=== PATIENT | female | born 1990 | race Caucasian/White ===

== ENCOUNTER → 2019-11-15 08:49 | Outpatient (CLI) | payer OTHER, SELFPAY ==
[2019-11-12 14:18] VITALS: BMI 20.7
--- NOTE | 2019-11-15 08:55 | US_ITS ---
STUDY: ULTRASOUND BREAST - RIGHT REASON FOR EXAM: Female, 28 years old. Bilateral breast pain. TECHNIQUE: Axial and longitudinal images of the RIGHT breast were performed with a high resolution ultrasound transducer. # OF IMAGES: 53 COMPARISON: Comparison is made with prior mammogram done earlier today. FINDINGS: RIGHT Breast: The upper outer quadrant of the right breast was examined by ultrasound. No sonographic abnormality is seen. IMPRESSION: Unremarkable sonographic examination. ASSESSMENT CATEGORY: BIRADS Category 1: Negative. A letter regarding these results will be sent to the patient by the facility within 30 days. Electronically Signed: Nehemiah Juarez, at 15:11 EST , Service support , STUDY: ULTRASOUND BREAST - LEFT REASON FOR EXAM: Female, 28 years old. Bilateral breast pain. TECHNIQUE: Axial and longitudinal images of the LEFT breast were performed with a high resolution ultrasound transducer. # OF IMAGES: 53 COMPARISON: Comparison is made with prior mammogram done earlier in the day. FINDINGS: LEFT Breast: The upper outer quadrant of the left breast was examined by ultrasound. Minimally dilated ducts. US/Breast Limited Unilateral IMPRESSION: Minimally dilated ducts in the upper outer quadrant of the left breast ASSESSMENT CATEGORY: BIRADS Category 2: Benign. A letter regarding these results will be sent to the patient by the facility within 30 days. Electronically Signed: Nehemiah Juarez, at 15:12 EST , Service support ,
--- NOTE | 2019-11-15 08:55 | BI_ITS ---
MAMMOGRAPHY - BILATERAL DIAGNOSTIC REASON FOR EXAM: Female, 28 years old. Palpable lump in the upper outer quadrant of the right breast. PERTINENT HISTORY: Mother with breast cancer. Otherwise with breast cancer. TECHNIQUE: Digital bilateral breast son (3D mammographic acquisition) in the CC and MLO projections. 2-D mediolateral oblique (MLO) and craniocaudad (CC) views of both breasts were obtained. CAD: Full Field Digital Mammography with Computer Added Detection was performed. COMPARISON: None. Baseline examination. FINDINGS: Breast Composition: The breasts are heterogeneously dense, which may obscure small masses. There are no dominant masses or suspicious calcifications. No other significant abnormalities are identified. BI/DIAG MAMM W/CAD, BILAT IMPRESSION: Negative diagnostic mammogram. With the patient''s history of a palpable abnormality in the upper-outer quadrant of the right breast, correlation with ultrasound is recommended. ASSESSMENT CATEGORY: BIRADS Category 0: Incomplete. Need additional imaging evaluation. A letter regarding these results will be sent to the patient by the facility within 30 days. Approximately 10% of breast cancers are not detected by mammography. A normal mammogram should not delay biopsy of a clinically suspicious abnormality. Electronically Signed: Nehemiah Juarez, at 10:41 EST , Service support ,
== END ==
PROVIDERS: Family Provider Internal Medicine; PCP Internal Medicine; Referring Provider Obstetrics & Gynecology; Visit Provider Obstetrics & Gynecology
DX: N64.4 Mastodynia (principal); R92.2 Inconclusive mammogram; N63.0 Unspecified lump in unspecified breast
CPT/HCPCS: 76642; 77066

== ENCOUNTER → 2020-03-07 | Outpatient (CLI) | payer OTHER, SELFPAY ==
[2019-11-12 14:18] VITALS: BMI 20.7
[2020-03-07 16:42] LABS: hCG Titer Quant., Serum 163 mIU/mL (1-3)
== END | disposition home or self-care (01) ==
LOC: LAB 15:59
PROVIDERS: PCP Internal Medicine; Referring Provider Obstetrics & Gynecology; Visit Provider Obstetrics & Gynecology
DX: N91.2 Amenorrhea, unspecified (principal)
CPT/HCPCS: 36415; 84702

== ENCOUNTER → 2020-03-09 08:19 | Outpatient (CLI) | payer OTHER, SELFPAY ==
[2019-11-12 14:18] VITALS: BMI 20.7
[2020-03-09 09:35] LABS: hCG Titer Quant., Serum 342 mIU/mL (1-3)
== END ==
PROVIDERS: PCP Internal Medicine; Referring Provider Obstetrics & Gynecology; Visit Provider Obstetrics & Gynecology
DX: N91.2 Amenorrhea, unspecified (principal)
CPT/HCPCS: 36415; 84702

== ENCOUNTER → 2020-03-21 | Outpatient (CLI) | payer OTHER, SELFPAY ==
[2019-11-12 14:18] VITALS: BMI 20.7
--- NOTE | 2020-03-21 16:46 | US_ITS ---
STUDY: FIRST TRIMESTER OBSTETRICAL ULTRASOUND REASON FOR EXAM: Female, 29 years old. Spotting LMP: 01/30/2020 TECHNIQUE: Transvaginal PRIOR ULTRASOUND: None. FINDINGS: There is visualization of a single gestational sac in a normal intrauterine position. There is a visualized yolk sac. There is visualization of a live embryo. The crown-rump length (CRL) measures 3.6 mm, indicating an estimated gestational age (EGA) of 6 weeks, 1 days. The estimated delivery date is 11/13/2020 There is demonstrated cardiac activity with a heart rate of 117 bpm. The uterus measures 8.4 x 6.0 x 4.3 cm. There is no demonstrated uterine fibroid. The cervix is closed. The right ovary measures 5.0 x 3.8 x 2.7 cm. There is a 3.2 x 2.3 cm cyst in the right ovary. There is no visualized right adnexal mass or complex lesion. The left ovary is not visualized. There is no fluid in the cul de sac. US/Init OB < 14Wks US IMPRESSION: Single live intrauterine gestation at approximately 6 weeks and 1 day based on the current ultrasound. Electronically Signed: Kendrick Naik, at 17:39 EDT Tel , Service support ,
== END | disposition home or self-care (01) ==
PROVIDERS: PCP Internal Medicine; Visit Provider Obstetrics & Gynecology
DX: O20.0 Threatened abortion (principal)
CPT/HCPCS: 76801

== ENCOUNTER → 2020-03-27 | Outpatient (CLI) | payer OTHER, SELFPAY ==
[2020-03-27 14:15] VITALS: BMI 20.7
[2020-03-27 14:47] LABS: Absolute Lymphocyte Count 1.82 X10^3/uL (0.83-4.51); Absolute Neutrophil Count 4.4 X10^3/uL (2.0-7.7); Basophil# 0.03 X10^3/uL; Basophil% 0.4 % (0-1); Eosinophils% 2.8 % (0-5); Hematocrit 31.6 % (37-47); Hemoglobin 10.1 g/dL (12.0-15.0); Lymphocyte # 1.82 X10^3/ul (4.0); Lymphocyte % 25.8 % (19-41); Mean Corpuscular Volume 87.5 fL (81-99); Mean Platelet Vol. 9.6 fl (6.2-12.0); Monocyte# 0.62 X10^3/uL; Monocyte% 8.8 % (0-10); NRBC Flagged by Analyzer 0 % (0-5); Neutrophil # 4.37 X10^3/uL (2.7-7.7); Neutrophil % 61.9 % (47-70); Platelet Count 268 K/mm3 (150-450); RBC Distribution Width CV 14.1 % (11.6-14.6); RBC Distribution Width SD 45.6 fl (35.1-43.9); Red Blood Count 3.61 M/mm3 (4.2-5.4); White Blood Count 7.1 K/mm3 (4.4-11.0)
[2020-03-27 17:42] LABS: Chlamydia Trachomatis by PCR Negative (Negative); Neisserai gonorrhoeae by PCR Negative (Negative); Probe Check PASS; Sample Adequacy Control PASS; Specimen Processing Control PASS
[2020-03-28 09:24] LABS: HIV - WCH Non-Reactive (Nonreactive); Hepatitis B Surface Antigen Non-Reactive (Nonreactive); Hepatitis C Antibody Non-Reactive (Nonreactive); Rubella IgG 30.2 IU/mL
[2020-03-30 01:34] LABS: Rapid Plasmin Reagin (RPR) NONREACTIVE (NONREACTIVE)
== END | disposition home or self-care (01) ==
PROVIDERS: PCP Internal Medicine; Referring Provider Obstetrics & Gynecology; Visit Provider Obstetrics & Gynecology
DX: Z34.90 Encounter for supervision of normal pregnancy, unspecified, unspecified trimester (principal)
CPT/HCPCS: 36415; 85025; 86592; 86703; 86762; 86803; 86850; 86900; 86901; 87340; 87491; 87591

== ENCOUNTER → 2020-04-12 | Outpatient (CLI) | payer OTHER, SELFPAY ==
[2020-04-12 11:35] VITALS: BMI 20.7
[2020-04-12 16:31] LABS: Mucous, Urine 0 SEEN /hpf (<or=2+); Red Blood Cells-Urine 0 SEEN /hpf (0-5); White Blood Cells 0 SEEN /hpf (0-5)
[2020-04-12 16:40] LABS: Color, Urine Yellow (Yellow); Glucose, Dipstick Normal (Normal); Ketone-Dipstick Negative (Negative); Leukocyte Esterase-Dipstick 25 /ul (Negative); Nitrite-Dipstick Negative (Negative); Occult Blood-Urine Negative /ul (Negative); Protein-Dipstick 15 mg/dl (Negative); Specific Gravity, Urine 1.015 (1.002-1.030); Urine Bilirubin Dipstick Negative (Negative); Urine Clarity Cloudy (Clear); Urine Urobilinogen Normal (Normal)
[2020-04-12 16:46] LABS: Amorphous Sediment 2+; Squamous Epithelial Cells - UA 5-10 SEEN /hpf (5-10)
[2020-04-12 16:47] LABS: Bacteria RARE /hpf (None Seen)
== END | disposition home or self-care (01) ==
LOC: LABSPEC 16:21
PROVIDERS: Nurse Practitioner Family; PCP Internal Medicine; Referring Provider Nurse Practitioner Women's Health; Visit Provider Nurse Practitioner Women's Health
DX: O26.899 Other specified pregnancy related conditions, unspecified trimester (principal); R10.9 Unspecified abdominal pain; R31.9 Hematuria, unspecified; Z3A.00 Weeks of gestation of pregnancy not specified
CPT/HCPCS: 81001; 87086; 87088

== ENCOUNTER → 2020-05-23 | Outpatient (CLI) | payer OTHER, SELFPAY ==
[2020-05-23 14:52] VITALS: BMI 20.7
[2020-05-23 15:34] LABS: Absolute Lymphocyte Count 1.98 X10^3/uL (0.83-4.51); Absolute Neutrophil Count 6.5 X10^3/uL (2.0-7.7); Basophil# 0.04 X10^3/uL; Basophil% 0.4 % (0-1); Eosinophil# 0.74 X10^3/uL; Eosinophils% 7.4 % (0-5); Hematocrit 30.7 % (37-47); Hemoglobin 9.8 g/dL (12.0-15.0); Lymphocyte # 1.98 X10^3/ul (4.0); Lymphocyte % 19.9 % (19-41); Mean Corp Hgb Conc 31.9 g/dL (32-36); Mean Corpuscular Hgb 28.8 pg (27.0-32.0); Mean Corpuscular Volume 90.3 fL (81-99); Mean Platelet Vol. 10.1 fl (6.2-12.0); Monocyte# 0.64 X10^3/uL; Monocyte% 6.4 % (0-10); NRBC Flagged by Analyzer 0 % (0-5); Neutrophil % 65.4 % (47-70); Platelet Count 256 K/mm3 (150-450); RBC Distribution Width CV 14.8 % (11.6-14.6); RBC Distribution Width SD 48.8 fl (35.1-43.9)
== END | disposition home or self-care (01) ==
PROVIDERS: Nurse Practitioner Women's Health; PCP Internal Medicine; Referring Provider Obstetrics & Gynecology; Visit Provider Obstetrics & Gynecology
DX: D50.9 Iron deficiency anemia, unspecified (principal)
CPT/HCPCS: 36415; 85025

== ENCOUNTER → 2020-05-25 | Outpatient (CLI) | payer OTHER, SELFPAY ==
[2020-05-23 14:52] VITALS: BMI 20.7
[2020-05-25 12:51] VITALS: BP 92/58; PULSE 61; RESP 16; TEMP 36.6; O2SAT 100; BMI 22.4
[2020-05-25] MEDS: 0.9% NaCl Peripheral Flush Adult/Peds IV (12:54)
[2020-05-25] MEDS: 0.9% NaCl IVPB Med Flush (250 mL) 15 ML IV (13:04)
[2020-05-25 13:53] VITALS: BP 102/67; PULSE 62; RESP 16; TEMP 36.7
== END | disposition home or self-care (01) ==
LOC: MEDOUTP 12:32
PROVIDERS: PCP Internal Medicine; Referring Provider Obstetrics & Gynecology; Visit Provider Obstetrics & Gynecology
DX: D50.9 Iron deficiency anemia, unspecified (principal)
CPT/HCPCS: 96365; J1756; J7050; A4216

== ENCOUNTER → 2020-05-31 | Outpatient (CLI) | payer OTHER, SELFPAY ==
[2020-05-23 14:52] VITALS: BMI 20.7
[2020-05-25 13:59] VITALS: BMI 22.8
[2020-05-31 15:10] VITALS: BP 95/55; PULSE 53; RESP 18; TEMP 36.1; BMI 23.1
[2020-05-31] MEDS: 0.9% NaCl Peripheral Flush Adult/Peds IV (15:11)
[2020-05-31] MEDS: 0.9% NaCl IVPB Med Flush (250 mL) 15 ML IV (15:11)
[2020-05-31 15:41] VITALS: BP 97/59; PULSE 52
== END | disposition home or self-care (01) ==
LOC: MEDOUTP 15:00
PROVIDERS: PCP Internal Medicine; Referring Provider Obstetrics & Gynecology; Visit Provider Obstetrics & Gynecology
DX: D50.9 Iron deficiency anemia, unspecified (principal)
CPT/HCPCS: 96365; J1756; J7050; A4216

== ENCOUNTER → 2020-06-07 | Outpatient (CLI) | payer OTHER, SELFPAY ==
[2020-05-23 14:52] VITALS: BMI 20.7
[2020-05-31 15:10] VITALS: BMI 23.1
[2020-06-07 15:19] VITALS: BP 99/49; PULSE 50; RESP 16; TEMP 36.8; O2SAT 100; BMI 23.1
[2020-06-07] MEDS: 0.9% NaCl Peripheral Flush Adult/Peds IV (15:22)
[2020-06-07] MEDS: 0.9% NaCl IVPB Med Flush (250 mL) 15 ML IV (15:22)
== END | disposition home or self-care (01) ==
LOC: MEDOUTP 15:01
PROVIDERS: PCP Internal Medicine; Referring Provider Obstetrics & Gynecology; Visit Provider Obstetrics & Gynecology
DX: D50.9 Iron deficiency anemia, unspecified (principal)
CPT/HCPCS: 96365; J1756; J7050; A4216

== ENCOUNTER → 2020-06-14 | Outpatient (CLI) | payer OTHER, SELFPAY ==
[2020-05-23 14:52] VITALS: BMI 20.7
[2020-06-07 15:19] VITALS: BMI 23.1
[2020-06-14] MEDS: 0.9% NaCl Peripheral Flush Adult/Peds IV (15:23)
[2020-06-14] MEDS: 0.9% NaCl IVPB Med Flush (250 mL) 15 ML IV (15:24)
[2020-06-14 15:25] VITALS: BP 96/66; PULSE 50; RESP 14; TEMP 36.4; O2SAT 100; BMI 23.1
== END | disposition home or self-care (01) ==
LOC: MEDOUTP 15:00
PROVIDERS: PCP Internal Medicine; Referring Provider Obstetrics & Gynecology; Visit Provider Obstetrics & Gynecology
DX: D50.9 Iron deficiency anemia, unspecified (principal)
CPT/HCPCS: 96365; J1756; J7050; A4216

== ENCOUNTER → 2020-06-19 | Outpatient (CLI) | payer OTHER, SELFPAY ==
[2020-05-23 14:52] VITALS: BMI 20.7
[2020-06-14 15:25] VITALS: BMI 23.1
--- NOTE | 2020-06-19 14:03 | US_ITS ---
STUDY: SECOND AND THIRD TRIMESTER OBSTETRICAL ULTRASOUND REASON FOR EXAM: Female, 29 years old. Anatomy. LMP: January 30, 2020. TECHNIQUE: Transabdominal TECHNICAL QUALITY: Adequate. PRIOR ULTRASOUND: March 21, 2020. FINDINGS: There is a single intrauterine fetus. The fetus is in a variable presentation. There is demonstrated cardiac activity with a heart rate of 134 bpm. There is a normal amniotic fluid volume. The largest amniotic fluid pocket measures 3.79 cm. The placenta is posterior in location and is not low lying. There are Grade 0 placental changes. The cervix measures 3.2 cm in length. The adnexal regions are not visualized. BIOMETRY: BPD: 4.22 cm: 18 weeks, 6 days HC: 16.16 cm: 19 weeks, 0 days AC: 14.2 cm: 19 weeks, 4 days FL: 2.93 cm: 19 weeks, 1 days CI: 75 FL/BPD: 69 FL/HC: FL/AC: 21 HC/AC: 1.14 age by current US: 19 weeks, 1 days. BARBIE by current US: November 12, 2020. Estimated weight: 282 grams, +/- 41 grams, 52 %. age by prior US: 19 weeks, 0 days. BARBIE by prior US: November 13, 2020.. Age by LMP: 19 weeks, 1 days. BARBIE by LMP: November 12, 2020.. ANATOMY: Gender: Parents to not want to know the baby''s gender. Cranium: Normal lateral ventricles. Normal choroid plexus. Normal cerebellum. Normal cisterna magna. Limited visualization of the face, nose and lips without obvious abnormality.. Chest: Limited visualization of the 4-chamber heart. Abdomen/Pelvis: Normal diaphragm. Normal stomach. Normal abdominal wall. Normal cord insertion. Normal 3 vessel cord. Normal kidneys. Normal bladder. Spine: Normal cervical spine. Normal thoracic spine. Normal lumbar spine. Normal sacrum and longitudinal views. Transverse imaging could not be performed due to position.. Extremities: Normal bilateral upper extremities. Normal bilateral lower extremities. US/OB Anatomy Scan IMPRESSION: 1. Live single intrauterine 19 weeks, 1 day. BARBIE is November 12, 2020. There is adequate interval growth since the prior study. 2. EFW of 282 g. 3. Adequate amniotic fluid. 4. Posterior grade 0 placenta. 5. Variable presentation. 6. Limited but grossly normal survey of anatomy. The face, four-chamber view of the heart and sacrum are incompletely imaged. Electronically Signed: Peterson Nicholson DO at 16:10 EDT Tel [phone], Service support ,
== END | disposition home or self-care (01) ==
LOC: US 14:03
PROVIDERS: PCP Internal Medicine; Referring Provider Obstetrics & Gynecology; Visit Provider Obstetrics & Gynecology
DX: Z34.90 Encounter for supervision of normal pregnancy, unspecified, unspecified trimester (principal)
CPT/HCPCS: 76805

== ENCOUNTER → 2020-06-21 | Outpatient (CLI) | payer OTHER, SELFPAY ==
[2020-06-14 15:25] VITALS: BMI 23.1
[2020-06-21 15:00] VITALS: BP 96/51; PULSE 53; RESP 15; TEMP 36.4; O2SAT 100; BMI 23.1
[2020-06-21] MEDS: 0.9% NaCl Peripheral Flush Adult/Peds IV (15:00)
[2020-06-21] MEDS: 0.9% NaCl IVPB Med Flush (250 mL) 15 ML IV (15:30)
== END | disposition home or self-care (01) ==
LOC: MEDOUTP 15:05
PROVIDERS: PCP Internal Medicine; Referring Provider Obstetrics & Gynecology; Visit Provider Obstetrics & Gynecology
DX: D50.9 Iron deficiency anemia, unspecified (principal)
CPT/HCPCS: 96365; J1756; J7050; A4216

== ENCOUNTER → 2020-06-23 | Outpatient (CLI) | payer OTHER, SELFPAY ==
[2020-06-23 15:03] VITALS: BMI 23.1
[2020-06-23 15:43] LABS: Absolute Neutrophil Count 5.8 X10^3/uL (2.0-7.7); Basophil# 0.03 X10^3/uL; Basophil% 0.3 % (0-1); Eosinophil# 0.34 X10^3/uL; Eosinophils% 3.8 % (0-5); Hematocrit 30.5 % (37-47); Hemoglobin 9.8 g/dL (12.0-15.0); Lymphocyte % 22.3 % (19-41); Mean Corp Hgb Conc 32.1 g/dL (32-36); Mean Corpuscular Hgb 29.8 pg (27.0-32.0); Mean Corpuscular Volume 92.7 fL (81-99); Monocyte# 0.75 X10^3/uL; Monocyte% 8.4 % (0-10); NRBC Flagged by Analyzer 0 % (0-5); Neutrophil % 64.8 % (47-70); Platelet Count 259 K/mm3 (150-450); RBC Distribution Width CV 14.1 % (11.6-14.6); RBC Distribution Width SD 48.4 fl (35.1-43.9); Red Blood Count 3.29 M/mm3 (4.2-5.4)
== END | disposition home or self-care (01) ==
LOC: LAB 15:28
PROVIDERS: PCP Internal Medicine; Referring Provider Obstetrics & Gynecology; Visit Provider Obstetrics & Gynecology
DX: D50.9 Iron deficiency anemia, unspecified (principal)
CPT/HCPCS: 36415; 85025

== ENCOUNTER → 2020-06-26 | Outpatient (CLI) | payer OTHER, SELFPAY ==
[2020-06-14 15:25] VITALS: BMI 23.1
[2020-06-23 15:03] VITALS: BMI 23.1
--- NOTE | 2020-06-26 14:02 | US_ITS ---
STUDY: SECOND AND THIRD TRIMESTER OBSTETRICAL ULTRASOUND - LIMITED REASON FOR EXAM: Female, 29 years old F/U ANATOMY SCAN- 4C, NOSE / LIPS, TRV SACRAL SPINE LMP: 02-06-20. PRIOR ULTRASOUND: Comparison is made with prior examination dated 06-19-20. TECHNIQUE: Transabdominal TECHNICAL QUALITY: Adequate. FINDINGS: There is a single intrauterine fetus. The fetus is in a breech presentation. There is demonstrated cardiac activity with a heart rate of 156 bpm. There is a normal amniotic fluid volume. The largest amniotic fluid pocket measures 5.7 cm by 2.4 cm. The amniotic fluid index (DANUTA) is within normal limits. The placenta is posterior in location and is not low lying. There are Grade 1 placental changes. The cervix measures 3.4 cm in length. The four chambers of the heart as well as the sacral spine and face were examined and are normal. US/OB Limited (No Biometrics) IMPRESSION: Unremarkable examination. Electronically Signed: Nehemiah Juarez, at 15:39 EDT , Service support ,
== END | disposition home or self-care (01) ==
LOC: US 14:02
PROVIDERS: PCP Internal Medicine; Referring Provider Obstetrics & Gynecology; Visit Provider Obstetrics & Gynecology
DX: Z36.89 Encounter for other specified antenatal screening (principal)
CPT/HCPCS: 76815

== ENCOUNTER → 2020-06-29 | Outpatient (CLI) | payer OTHER, SELFPAY ==
[2020-06-23 15:03] VITALS: BMI 23.1
[2020-06-29 13:11] VITALS: BP 102/66; PULSE 56; RESP 14; TEMP 36.8; O2SAT 100; BMI 22.8
--- NOTE | 2020-06-29 13:34 | ONC.CONSU3 ---
Consult Referring Physician: Dr. Peter Artis Consult Results: Anemia in . Subjective Date of Service:: 06/29/20 Chief Complaint: Referred for anemia in management. History of Present Illness: 29-year-old woman, last menstrual was on January 30, 2020. Was found to be anemic, hemoglobin on 05/24/202020 was 9.8. She was assumed to be iron deficient so received weekly IV iron x5 with the last dose on 06/21/2020. Repeat hemoglobin was 9.8 on 06/23/2020 so patient was referred for further evaluation. She feels well denies nausea, vomiting, hematemesis or hematochezia. Power of Testing Coordinator: No Living Will: No Health History: Past Medical History (Last Updated 06/29/20 @ 13:11 by Hyacinth La) Pityriasis rosea (Acute) Raynaud's disease (Acute) Artificial insemination (Acute) Anemia (Resolved) Past Surgical History (Last Reviewed 06/29/20 @ 13:10 by Hyacinth La) History of mandibular surgery (Acute) Family History (Last Updated 06/29/20 @ 13:08 by Hyacnith La) Mother Breast cancer Grandmother Diabetes Uncle Leukemia Grandfather Melanoma Breast cancer AAA (abdominal aortic aneurysm) Grandfather Hypertension Other Heart disease Social History Social History: No changes Smoking Status Former smoker Allergies/Adverse Reactions: Allergy/AdvReac Type Severity Reaction Status Date / Time venom-honey bee Allergy Anaphylaxis Verified 06/29/20 13:09 [bee venom (honey bee)] amoxicillin trihydrate AdvReac Nausea/Vom/ Verified 06/29/20 13:09 [From Augmentin] Diarrhea potassium clavulanate AdvReac Nausea/Vom/ Verified 06/29/20 13:09 [From Augmentin] Diarrhea Review of Systems Constitutional:: Denies: Fever, Sweats, Weight loss, Appetite change, Chills Cardiovascular:: Denies: Chest pain, Palpitations, Dyspnea on exertion, Orthopnea, PND, Shortness of breath Respiratory: Denies: Cough, Hemoptysis, Shortness of Breath, Wheezing Gastrointestinal:: Denies: Abdominal pain, Nausea, Vomiting, Diarrhea, Constipation, Hematochezia Genitourinary: Denies: Dysuria, Hematuria, 15, Flank pain Musculoskeletal:: Denies: Back pain, Myalgia, Arthralgia Skin: Denies: Rash, Skin Changes, Wounds Neurological:: Denies: Headache, Dizziness, Visual changes, Tinnitus, Hearing loss Psychiatric: Denies: Anxiety, Depression, Homicidal Ideations, Suicidal Ideations Vital Signs Temperature 98.3 F 06/29/20 13:11 Temperature Source Temporal 06/29/20 13:11 Pulse Rate 56 L 06/29/20 13:11 Respiratory Rate 14 06/29/20 13:11 Blood Pressure 102/66 06/29/20 13:11 Blood Pressure Mean 78 06/29/20 13:11 Blood Pressure Source Monitor 06/29/20 13:11 Blood Pressure Position Sitting 06/29/20 13:11 Blood Pressure Location Right Arm 06/29/20 13:11 Pulse Ox 100 06/29/20 13:11 Oxygen Delivery Method Room Air 06/29/20 13:11 - Physical Exam General: Alert, Oriented x3, No apparent distress HEENT: Atraumatic, PERRLA, EOMI, Normocephalic Oropharynx:: Dry mucosa Neck:: Supple, Trachea midline. Negative for: JVD, bilateral Cardiac:: Regular rate, Regular rhythm, Normal S1, Normal S2. Negative for: Murmur Lungs: Clear to auscultation, Excusion symmetrical. Negative for: Rhonchi, Wheezes Abdomen:: Bowel sounds x 4, Soft, Non-tender, Non-distended, - - + enlarged uterus.. Negative for: Hepatosplenomegaly Extremities:: Negative for: Cyanosis, Edema Neurological: Neuro grossly intact Skin:: Negative for: Lesions, Rash, Petechiae, Ecchymosis Psychiatric:: Appropriate affect, Euthymic Lymphatics:: Negative for: Cervical lymphadenopathy, Supraclavicular lymphadenopathy, Axillary lymphadenopathy Laboratory Data: Laboratory Tests 06/23/20 15:29 WBC 9.0 Hgb 9.8 L Hct 30.5 L Plt Count 259 Absolute Neuts (auto) 5.8 Absolute Lymphs (auto) 2.00 Assessment and Plan Anemia in , has received IV iron with the last dose on 06/21/2020. Hgb remained the same. It may take 4 weeks from last dose to see full effects. Plan is to check CBC, Retic count, Iron profile, Vit B12/Folate. Obtain stool for occult blood. RTC 3 weeks. Primary Care Provider: Dr. Jose Mancera MD Referring Provider: Dr. Teresa Artis MD - Problem List (1) Anemia affecting Status: Chronic Qualifiers: Trimester: second trimester Qualified Code(s): O99.012 - Anemia complicating , second trimester Office Visits / Consults: [id number] OP Consult L4
[2020-06-29 14:08] LABS: Absolute Lymphocyte Count 1.53 X10^3/uL (0.83-4.51); Absolute Neutrophil Count 6.5 X10^3/uL (2.0-7.7); Basophil# 0.02 X10^3/uL; Basophil% 0.2 % (0-1); Eosinophil# 0.21 X10^3/uL; Eosinophils% 2.4 % (0-5); Hematocrit 31.5 % (37-47); Lymphocyte # 1.53 X10^3/ul (4.0); Lymphocyte % 17.3 % (19-41); Mean Corp Hgb Conc 31.7 g/dL (32-36); Mean Corpuscular Hgb 29.6 pg (27.0-32.0); Mean Corpuscular Volume 93.2 fL (81-99); Mean Platelet Vol. 10.1 fl (6.2-12.0); Monocyte# 0.59 X10^3/uL; Monocyte% 6.7 % (0-10); NRBC Flagged by Analyzer 0 % (0-5); Neutrophil # 6.46 X10^3/uL (2.7-7.7); Neutrophil % 73.1 % (47-70); Platelet Count 207 K/mm3 (150-450); RBC Distribution Width SD 47.8 fl (35.1-43.9); Red Blood Count 3.38 M/mm3 (4.2-5.4); White Blood Count 8.8 K/mm3 (4.4-11.0)
[2020-06-29 14:18] LABS: Platelet Count 212 K/mm3 (150-450); RET-HE 33.4 pg (30-35); Reticulocyte Count 1.27 % (0.5-1.5)
[2020-06-29 14:45] LABS: Vitamin B12 342 pg/mL (211-911)
[2020-06-29 15:10] LABS: ALB/GLOB Ratio 0.8 RATIO (0.9-2.4); AST(SGOT) 20 U/L (15-37); Alanine Aminotransfer ALT/SGPT 21 U/L (13-56); Albumin, Serum 3.3 g/dL (3.2-5.0); Alkaline Phosphatase 40 U/L (45-117); Anion Gap 5 (5-15); BUN 7 mg/dL (7-18); Calcium,Total 8.4 mg/dL (8.5-10.1); Chloride 108 mmol/L (98-107); EST Glomerular Filtration Rate 106 mL/min (>60); Est Glom Filt Rate - Afr Amer 128 mL/min (>60); Estimated Creatinine Clearance 103.32 ml/min; Ferritin 113 ng/mL (8-252); Globulin 3.9 g/dL (2.2-4.2); Glucose 81 mg/dL (74-106); Iron 138 ug/dL (50-170); Iron Binding Capacity,Total 319 ug/dL (250-450); LDH 167 U/L (84-246); PERCENT IRON SATURATION 43.3 % (15.0-55.0); Potassium 3.5 mmol/L (3.5-5.1); Protein, Total 7.2 g/dL (6.4-8.2); Sodium Level 137 mmol/L (136-145)
== END | disposition home or self-care (01) ==
PROVIDERS: PCP Internal Medicine; Referring Provider Obstetrics & Gynecology; Visit Provider Internal Medicine Medical Oncology
DX: O99.019 Anemia complicating pregnancy, unspecified trimester (principal); Z3A.00 Weeks of gestation of pregnancy not specified
CPT/HCPCS: 36415; 80053; 82607; 82728; 82746; 83540; 83550; 83615; 85025; 85045

== ENCOUNTER → 2020-06-30 | Outpatient (CLI) | payer OTHER, SELFPAY ==
[2020-06-29 13:11] VITALS: BMI 22.8
== END | disposition home or self-care (01) ==
LOC: LABSPEC 07:26
PROVIDERS: PCP Internal Medicine; Referring Provider Internal Medicine Medical Oncology; Visit Provider Internal Medicine Medical Oncology
DX: O99.019 Anemia complicating pregnancy, unspecified trimester (principal); Z3A.00 Weeks of gestation of pregnancy not specified
CPT/HCPCS: 82274

== ENCOUNTER → 2020-08-17 | Outpatient (CLI) | payer OTHER, SELFPAY ==
[2020-07-26 13:05] VITALS: BMI 22.8
[2020-08-17 15:03] LABS: Absolute Lymphocyte Count 1.78 X10^3/uL (0.83-4.51); Absolute Neutrophil Count 6.4 X10^3/uL (2.0-7.7); Basophil# 0.05 X10^3/uL; Basophil% 0.5 % (0-1); Eosinophil# 0.21 X10^3/uL; Eosinophils% 2.3 % (0-5); Hematocrit 31.1 % (37-47); Lymphocyte # 1.78 X10^3/ul (4.0); Lymphocyte % 19.4 % (19-41); Mean Corp Hgb Conc 32.2 g/dL (32-36); Mean Corpuscular Volume 93.4 fL (81-99); Mean Platelet Vol. 10.1 fl (6.2-12.0); Monocyte# 0.63 X10^3/uL; Monocyte% 6.9 % (0-10); NRBC Flagged by Analyzer 0 % (0-5); Neutrophil # 6.44 X10^3/uL (2.7-7.7); Neutrophil % 70.4 % (47-70); Platelet Count 237 K/mm3 (150-450); RBC Distribution Width CV 12.3 % (11.6-14.6); RBC Distribution Width SD 42.3 fl (35.1-43.9); Red Blood Count 3.33 M/mm3 (4.2-5.4); White Blood Count 9.2 K/mm3 (4.4-11.0)
[2020-08-17 15:14] LABS: Glucose Challenge Gest 1H 50g 148 mg/dL (70-140)
== END | disposition home or self-care (01) ==
LOC: PAVLAB 14:46
PROVIDERS: Obstetrics & Gynecology; PCP Internal Medicine; Referring Provider Obstetrics & Gynecology; Visit Provider Obstetrics & Gynecology
DX: O99.012 Anemia complicating pregnancy, second trimester (principal); D50.9 Iron deficiency anemia, unspecified; Z13.1 Encounter for screening for diabetes mellitus; Z3A.23 23 weeks gestation of pregnancy
CPT/HCPCS: 36415; 82950; 85025

== ENCOUNTER → 2020-08-21 | Outpatient (CLI) | payer OTHER, SELFPAY ==
[2020-08-21 15:07] VITALS: BMI 23.5
[2020-08-21 16:12] LABS: ROM Internal Control Test YES-OK TO RESULT pt. (Internal QC); ROM Patient Test Negative (Negative)
== END | disposition home or self-care (01) ==
PROVIDERS: PCP Internal Medicine; Referring Provider Nurse Practitioner Women's Health; Visit Provider Nurse Practitioner Women's Health
DX: N89.8 Other specified noninflammatory disorders of vagina (principal)
CPT/HCPCS: 84112

== ENCOUNTER → 2020-08-23 07:12 | Outpatient (CLI) | payer OTHER, SELFPAY ==
[2020-08-17 15:04] VITALS: BMI 23.5
[2020-08-21 15:07] VITALS: BMI 23.5
[2020-08-23 09:00] LABS: Glucose GTT-Gestation. Fasting 79 mg/dL (<105)
[2020-08-23 09:10] LABS: Glucose GTT-Gestational 1 Hr 143 mg/dL (<190)
[2020-08-23 10:50] LABS: Glucose GTT-Gestational 2 Hr 107 mg/dL (<165)
[2020-08-23 11:57] LABS: Glucose GTT-Gestational 3 Hr 96 L (<145)
== END ==
PROVIDERS: PCP Internal Medicine; Referring Provider Obstetrics & Gynecology; Visit Provider Obstetrics & Gynecology
DX: D50.9 Iron deficiency anemia, unspecified (principal)
CPT/HCPCS: 36415; 82951; 82952

== ENCOUNTER → 2020-09-12 | Outpatient (CLI) | payer OTHER, SELFPAY ==
[2020-09-08 15:10] VITALS: BMI 22.8
--- NOTE | 2020-09-12 16:32 | US_ITS ---
STUDY: SECOND AND THIRD TRIMESTER OBSTETRICAL ULTRASOUND REASON FOR EXAM: Female, 29 years old GROWTH LMP: 02/06/2020 TECHNIQUE: Transabdominal TECHNICAL QUALITY: Adequate. PRIOR ULTRASOUND: 06/26/2020 FINDINGS: There is a single intrauterine fetus. The fetus is in a cephalic presentation. There is demonstrated cardiac activity with a heart rate of bpm. There is a normal amniotic fluid volume. The largest amniotic fluid pocket measures 2.95 cm. The amniotic fluid index (DANUTA) is 10.23 cm. The placenta is posterior. There are Grade 1 placental changes. The cervix measures 3.2 cm in length. BIOMETRY: BPD: 7.57 cm: 30 weeks, 2 days HC: 29.19 cm: 32 weeks, 1 days AC: 26.04 cm: 30 weeks, 1 days FL: 5.5 cm: 29 weeks, 0 days CI: 74.60 FL/BPD: 72.77 FL/HC: 18.87 FL/AC: 21.15 HC/AC: 1.12 age by current US: 30 weeks, 4 days. BARBIE by current US: 11/17/2020. Estimated weight: 1480 grams, +/- 222 grams, 19.77 %. Age by LMP: 31 weeks, 2 days. BARBIE by LMP: 11/12/2020. US/OB Limited With Biometrics IMPRESSION: Single intrauterine with an estimated gestational age by ultrasound of 30 weeks and 4 days and an BARBIE of 11/17/2020 Electronically Signed: Prema Ashford MD at 23:10 EDT Tel , Service support ,
== END | disposition home or self-care (01) ==
LOC: US 16:24
PROVIDERS: PCP Internal Medicine; Referring Provider Obstetrics & Gynecology; Visit Provider Obstetrics & Gynecology
DX: Z34.90 Encounter for supervision of normal pregnancy, unspecified, unspecified trimester (principal)
CPT/HCPCS: 76816

== ENCOUNTER → 2020-10-06 16:06 | Outpatient (CLI) | payer OTHER, SELFPAY ==
[2020-10-06 15:08] VITALS: BMI 23.3
[2020-10-06 17:22] LABS: Absolute Lymphocyte Count 1.77 X10^3/uL (0.83-4.51); Absolute Neutrophil Count 5.9 X10^3/uL (2.0-7.7); Basophil# 0.02 X10^3/uL; Basophil% 0.2 % (0-1); Eosinophil# 0.15 X10^3/uL; Eosinophils% 1.7 % (0-5); Hematocrit 33.1 % (37-47); Hemoglobin 10.7 g/dL (12.0-15.0); Lymphocyte # 1.77 X10^3/ul (4.0); Lymphocyte % 20.4 % (19-41); Mean Corp Hgb Conc 32.3 g/dL (32-36); Mean Corpuscular Hgb 29.8 pg (27.0-32.0); Mean Corpuscular Volume 92.2 fL (81-99); Monocyte# 0.75 X10^3/uL; Monocyte% 8.7 % (0-10); NRBC Flagged by Analyzer 0 % (0-5); Neutrophil # 5.93 X10^3/uL (2.7-7.7); Neutrophil % 68.4 % (47-70); Platelet Count 258 K/mm3 (150-450); RBC Distribution Width SD 40.7 fl (35.1-43.9); Red Blood Count 3.59 M/mm3 (4.2-5.4); White Blood Count 8.7 K/mm3 (4.4-11.0)
[2020-10-06 18:09] LABS: ALB/GLOB Ratio 0.6 RATIO (0.9-2.4); AST(SGOT) 23 U/L (15-37); Alanine Aminotransfer ALT/SGPT 26 U/L (13-56); Albumin, Serum 2.7 g/dL (3.2-5.0); Alkaline Phosphatase 125 U/L (45-117); Anion Gap 7 (5-15); BUN 8 mg/dL (7-18); BUN/Creat Ratio 10.7 RATIO (10-20); Calcium,Total 8.3 mg/dL (8.5-10.1); Chloride 102 mmol/L (98-107); Creatinine, Serum 0.75 mg/dL (0.55-1.02); EST Glomerular Filtration Rate 97 mL/min (>60); Est Glom Filt Rate - Afr Amer 118 mL/min (>60); Globulin 4.4 g/dL (2.2-4.2); Glucose 76 mg/dL (74-106); Potassium 3.4 mmol/L (3.5-5.1); Protein, Total 7.1 g/dL (6.4-8.2); Sodium Level 138 mmol/L (136-145)
[2020-10-06 18:46] LABS: Protein, Urine (Random) 45.8 mg/dL (<11.9); Protein:Creat Ratio 153 mg/g CRE (0-200)
== END ==
PROVIDERS: PCP Internal Medicine; Visit Provider Obstetrics & Gynecology
DX: O12.10 Gestational proteinuria, unspecified trimester (principal); Z3A.00 Weeks of gestation of pregnancy not specified
CPT/HCPCS: 36415; 80053; 82570; 84156; 85025

== ENCOUNTER → 2020-10-11 16:07 | Outpatient (CLI) | payer OTHER, SELFPAY ==
[2020-10-06 15:08] VITALS: BMI 23.3
--- NOTE | 2020-10-11 16:08 | US_ITS ---
STUDY: SECOND AND THIRD TRIMESTER OBSTETRICAL ULTRASOUND REASON FOR EXAM: Female, 29 years old GROWTH LMP: 02/06/2020. TECHNIQUE: Transabdominal TECHNICAL QUALITY: Adequate. PRIOR ULTRASOUND: Comparison is made with prior study dated 09/12/2020. FINDINGS: There is a single intrauterine fetus. The fetus is in a cephalic presentation. There is demonstrated cardiac activity with a heart rate of 133 bpm. There is a normal amniotic fluid volume. The largest amniotic fluid pocket measures 3.91 cm. The amniotic fluid index (DANUTA) is 9.86 cm. The placenta is posterior in location and is not low lying. There are Grade 1 placental changes. The cervix measures 4.9 cm in length. The adnexal regions are not visualized. BIOMETRY: BPD: 8.45 cm: 34 weeks, 0 days HC: 30.94 cm: 34 weeks, 3 days AC: 29.25 cm: 33 weeks, 1 days FL: 6.29 cm: 32 weeks, 3 days CI: 78.7% FL/BPD: 74.4% FL/HC: FL/AC: 21.5% HC/AC: 1.06 age by current US: 33 weeks, 4 days. BARBIE by current US: 11/25/2020. Estimated weight: 2157 grams, +/- 323 grams, 6.8 %. age by prior US: 34 weeks, 5 days. BARBIE by prior US: 11/17/2020. Age by LMP: 35 weeks, 3 days. BARBIE by LMP: 11/12/2020. US/OB Limited With Biometrics IMPRESSION: Single live intrauterine gestation with a mean gestational age of 34 weeks and 5 days. The measurements obtained today fall within the lower expected range. The physician was notified of the results. Electronically Signed: Nehemiah Juarez, at 8:54 EST , Service support ,
== END ==
PROVIDERS: PCP Internal Medicine; Referring Provider Obstetrics & Gynecology; Visit Provider Obstetrics & Gynecology
DX: O26.849 Uterine size-date discrepancy, unspecified trimester (principal); Z3A.00 Weeks of gestation of pregnancy not specified
CPT/HCPCS: 76816

== ENCOUNTER → 2020-10-17 | Outpatient (CLI) | payer OTHER, SELFPAY ==
[2020-10-17 15:52] VITALS: BMI 24.0
[2020-10-17 16:54] LABS: Protein, Urine (Random) 23.5 mg/dL (<11.9); Protein:Creat Ratio 177 mg/g CRE (0-200)
== END | disposition home or self-care (01) ==
LOC: LABSPEC 16:17
PROVIDERS: PCP Internal Medicine; Visit Provider Nurse Practitioner Women's Health
DX: O12.13 Gestational proteinuria, third trimester (principal); Z3A.00 Weeks of gestation of pregnancy not specified
CPT/HCPCS: 82570; 84156

== ENCOUNTER → 2020-10-20 16:48 | Outpatient (CLI) | payer OTHER, SELFPAY ==
[2020-10-20 15:27] VITALS: BMI 24.0
== END ==
PROVIDERS: PCP Internal Medicine; Visit Provider Obstetrics & Gynecology
DX: Z34.90 Encounter for supervision of normal pregnancy, unspecified, unspecified trimester (principal)
CPT/HCPCS: 87081

== ENCOUNTER → 2020-10-25 15:18 | Outpatient (CLI) | payer OTHER, SELFPAY ==
[2020-10-25 14:09] VITALS: BMI 24.0
[2020-10-25 15:39] LABS: Absolute Lymphocyte Count 2.03 X10^3/uL (0.83-4.51); Absolute Neutrophil Count 7.3 X10^3/uL (2.0-7.7); Basophil# 0.03 X10^3/uL; Basophil% 0.3 % (0-1); Eosinophil# 0.21 X10^3/uL; Hematocrit 34.9 % (37-47); Hemoglobin 11.1 g/dL (12.0-15.0); Lymphocyte # 2.03 X10^3/ul (4.0); Lymphocyte % 19.4 % (19-41); Mean Corp Hgb Conc 31.8 g/dL (32-36); Mean Corpuscular Hgb 29.5 pg (27.0-32.0); Mean Corpuscular Volume 92.8 fL (81-99); Mean Platelet Vol. 10.7 fl (6.2-12.0); Monocyte# 0.81 X10^3/uL; Monocyte% 7.7 % (0-10); NRBC Flagged by Analyzer 0 % (0-5); Neutrophil # 7.31 X10^3/uL (2.7-7.7); Neutrophil % 69.7 % (47-70); Platelet Count 252 K/mm3 (150-450); RBC Distribution Width CV 12.4 % (11.6-14.6); RBC Distribution Width SD 42.4 fl (35.1-43.9); Red Blood Count 3.76 M/mm3 (4.2-5.4); White Blood Count 10.5 K/mm3 (4.4-11.0)
[2020-10-25 15:48] LABS: Protein, Urine (Random) 30.7 mg/dL (<11.9); Protein:Creat Ratio 256 mg/g CRE (0-200)
[2020-10-25 16:19] LABS: ALB/GLOB Ratio 0.6 RATIO (0.9-2.4); AST(SGOT) 23 U/L (15-37); Alanine Aminotransfer ALT/SGPT 26 U/L (13-56); Albumin, Serum 2.8 g/dL (3.2-5.0); Alkaline Phosphatase 171 U/L (45-117); Anion Gap 2 (5-15); BUN 8 mg/dL (7-18); Calcium,Total 8.6 mg/dL (8.5-10.1); Chloride 107 mmol/L (98-107); EST Glomerular Filtration Rate 90 mL/min (>60); Est Glom Filt Rate - Afr Amer 109 mL/min (>60); Globulin 4.6 g/dL (2.2-4.2); Glucose 85 mg/dL (74-106); Potassium 3.3 mmol/L (3.5-5.1); Protein, Total 7.4 g/dL (6.4-8.2); Sodium Level 140 mmol/L (136-145)
== END ==
PROVIDERS: PCP Internal Medicine; Referring Provider Obstetrics & Gynecology; Visit Provider Obstetrics & Gynecology
DX: R80.9 Proteinuria, unspecified (principal)
CPT/HCPCS: 36415; 80053; 82570; 84156; 85025

== ENCOUNTER → 2020-10-27 17:16 | Outpatient (CLI) | payer OTHER, SELFPAY ==
[2020-10-17 15:52] VITALS: BMI 24.0
[2020-10-25 14:09] VITALS: BMI 24.0
== END ==
PROVIDERS: PCP Internal Medicine; Visit Provider Obstetrics & Gynecology
DX: Z11.59 Encounter for screening for other viral diseases (principal)
CPT/HCPCS: 87635; C9803; U0003

== ENCOUNTER → 2020-10-31 | Outpatient (CLI) | payer OTHER, SELFPAY ==
[2020-10-31 15:56] VITALS: BMI 23.6
== END | disposition home or self-care (01) ==
LOC: LABSPEC 17:07
PROVIDERS: PCP Internal Medicine; Referring Provider Nurse Practitioner Women's Health; Visit Provider Nurse Practitioner Women's Health
DX: O12.13 Gestational proteinuria, third trimester (principal); Z3A.00 Weeks of gestation of pregnancy not specified
CPT/HCPCS: 87086; 87088

== ENCOUNTER 2020-11-06 07:05 | Inpatient (IN) | payer OTHER, SELFPAY ==
[2020-09-08 15:10] VITALS: BMI 22.8
[2020-11-03 14:15] VITALS: BMI 23.2
[2020-11-06] VITALS (39 sets, daily range): BP systolic 93–123; BP diastolic 54–85; PULSE 57–107; RESP 18; TEMP 36.3–37.2; O2SAT 82–100; BMI 23.6
--- NOTE | 2020-11-06 07:29 | HP.PCM_ITS ---
- Problem List (1) Encounter for induction of labor Status: Acute (2) Abnormal glucose affecting Status: Acute Comment: nl 3 hr gtt (3) Anxiety during Status: Acute Comment: gaelt, recommend counseling (4) Family history of breast cancer Status: Acute Comment: recommend genetic counseling (5) growth restriction Status: Acute Comment: 9%ile at MFM. UA dopplers normal. IOL at 39 weeks (11/06) (6) History of tetanus, diphtheria, and acellular pertussis booster vaccination (Tdap) Status: Acute Comment: given 08/17/2020 (7) Status: Acute Qualifiers: Comment: declined genetic, carrier and NTD, anatomy. (8) Supervision of normal Status: Acute Qualifiers: Comment: PRR BARBIE 11/13/2020 surprise BF: Rebel (9) Iron (Fe) deficiency anemia Status: Chronic Qualifiers: Comment: IV venofer repeat cbc in 4 wks, saw hematology History and Physical Date of Admission: 11/06/20 Intake Vital Signs 11/03/20 Height 5 ft 4 in 11/03/20 Weight: 135 lb 6 oz 11/03/20 BMI 23.2 11/03/20 BP 112/78 Intake Visit Reasons: 38 WK OB/NST Woods Manager Required: No Is patient in pain?: No Allergies venom-honey bee [bee venom (honey bee)] Allergy (Verified 11/03/20 14:15) Anaphylaxis amoxicillin trihydrate [From Augmentin] Adverse Reaction (Verified 11/03/20 14:15) Nausea/Vom/Diarrhea potassium clavulanate [From Augmentin] Adverse Reaction (Verified 11/03/20 14:15) Nausea/Vom/Diarrhea Medications epinephrine 0.3 mg/0.3 mL injection, auto-injector 0.3 mg IM Q10-15M PRN #2 ea 08/20/19 [Rx Confirmed 11/03/20] vitamin #56-iron 35 mg and 5 mg-folic acid 1 mg-dha capsule 1 cap PO DAILY 04/12/20 [History Confirmed 11/03/20] sertraline 50 mg tablet 50 mg PO QDAY #30 tab 05/25/20 [Rx Confirmed 11/03/20] blood pressure test kit-small See Rx Instructions .ROUTE .MEDSUPPLY #1 ea 10/25/20 [Rx Confirmed 11/03/20] Last Menstral Period: 10/18/19 Zika: Zika virus screening: Negative : No [facility] Medical History Artificial insemination (Acute) Pityriasis rosea (Acute) Raynaud's disease (Acute) Anemia (Resolved) Surgical History History of mandibular surgery (Acute) Family History Mother Breast cancer Grandmother Diabetes Uncle Leukemia maternal Grandfather Melanoma maternal Breast cancer maternal AAA (abdominal aortic aneurysm) paternal Grandfather Hypertension Other Heart disease Social History (Updated 11/03/20 @ 15:[address] Charlotte Calderon MD) adopted: No household members: significant other housing: house current occupational status: employed pets and animals: Yes history of recent travel: Yes sexually active: Yes Smoking Status: Former smoker second hand exposure: No alcohol intake: current Alcohol type: beer details: not while substance use type: does not use caffeine: Yes what type of physical activity do you participate in: running frequency: 5-6 times per week seatbelt use: always do you feel safe at home: Yes additional social history: Boyfriend- Rebel- In school- legal studies Patient works in [employer] at [employer] Pregancy History 1 Elective abortions Hx Para Spontaneous abortions Hx # Term Pregnancies Ectopic pregnancies Hx # Pregnancies Multiple births # of living children HPI 38 WK OB/NST: Details: MIRI FRANCO is a 29 year old who presents for routine OB visit. OB Visit BARBIE Calculator Estimated Delivery Date Method Current WG Current Estimate 11/13/20 Ultrasound #1 38w 4d Expected Delivery Route/Plan plan delivery at 39 weeks if reassuring testing. Labor Preferences- Planning CB/BF classes August or October labor support person: Rebel pain management options preferred: desires natural. Interested in tub for labor. Open to epidural. cut cord/dad catch: yes to cord : yes PP control planned: pill discussed possible routes of delivery and associated risks: [] special requests: [] Specific Issue/Plans flu vaccine: will be given at the hospital tdap vaccine: 08/17 rhogam: na LARC form signed: declined movement and labor precautions reviewed. Problem list reviewed and updated with the most current plan of care details and appropriate orders placed. Relevant counseling for the gestational age provided. Continue routine care and follow up unless otherwise noted in visit notes/problem list details Initial Weight: 129 lb Date EGA Weight BP Urine Prot Glucose FHR FuHt Pres Dilation Effaced St Visit Note 04/12/20 9w 2d 126 lb (-3 lb) 110/72 1+ Negative 180 MH-work in for lower right pelvic pain X 24 hr. Comes and goes.Previous US with small right ovarian cyst. No bleeding. Active IUP on US. Reassured. UA neg. Culture pending. 04/25/20 11w 1d 126 lb (-3 lb) 100/70 Trace Negative 160 SM- no vb lof cramping doing well 05/05/20 12w 4d 128 lb 6 oz (-10 oz) 110/68 Negative Negative 158 MH-called in with vaginal bleeding. When arrived states had intercourse this am and had mucous like clot with blood in it after and none since. US confirms active IUD with FHt. Reassured 05/23/20 15w 1d 130 lb (+16 oz) 102/80 Negative Negative 162 Mh-No further VB, LOF. Doing well. Anatomy US with [facility]. Rpt CBC today, is taking Fe and PNV alternate times. 05/25/20 15w 3d 133 lb (+4 lb) 104/72 150 SM- discussed anxiety recommend counseling and zoloft. 06/23/20 19w 4d 132 lb 4 oz (+3 lb 4 oz) 100/66 Negative Negative 150 SM- no vb cramping, fu us on friday07/21/20 23w 4d 135 lb (+6 lb) 102/60 Negative Negative 150 23 GP - no cramping, LOF, VB, DFM. Anxiety much better on zoloft. 08/17/20 27w 3d 137 lb (+8 lb) 110/80 Trace Negative 145 27 SM- no vb lof good fm nor egular ctx. discussed anemia and abnormal gct 08/21/20 28w 0d 137 lb (+8 lb) 116/66 Negative Negative 152 0 MH-work in for gush of clear fluid last night after running 6 miles. No further fluid loss. No VB. Good FM. ROM pending. 09/08/20 30w 4d 134 lb 6 oz (+5 lb 6 oz) 100/60 Trace Negative 140 28 SM- no vb lof good fm no regular ctx fh low check growth scan 09/21/20 32w 3d 134 lb (+5 lb) 100/78 Negative Negative 140 30 SM- no vb lof good fm no regular ctx had fall over the weekend had good movement, was out of town, didn't hit belly, wasn't seen in triage. rh positive. 10/06/20 34w 4d 136 lb (+7 lb) 100/60 2+ Negative 135 32 GP - no LOF, VB, DFM, ctx. FH still measuring small - discussed repeat growth. GP - no LOF, VB, DFM, ctx. FH still measuring small - discussed repeat growth. 2+ proteinuria, but normotensive. PreE labs ordered. 10/17/20 36w 1d 140 lb 6 oz (+11 lb 6 oz) 110/74 1+ 250 g/dL 140 MH-reactive NST. Urine P-C ratio pending. 10/23/20 37w 0d 141 lb 4 oz (+12 lb 4 oz) nst only 10/25/20 37w 2d 140 lb (+11 lb) 1+ 100 g/dL 130 35 Cephalic 1 70 -2 GP - NST reactive. Nl dop plers this am. PreE labs ordered 2/2 proteinuria. BP cuff sent to pharmacy. 10/31/20 38w 1d 137 lb 6 oz (+8 lb 6 oz) 102/80 2+ Negative nst 11/03/20 38w 4d 135 lb 6 oz (+6 lb 6 oz) 112/78 Negative Negative 130 36 Cephalic 2 70 -2 GP - no ctx, LOF, VB, DFM , ctx. Plan IOL at 39 weeks if no labor. ACOG First Trimester First Trimester: Desire for , Alcohol, Tobacco Cessation, Illicit/Recreational Drug/Substance Use, Intimate Partner Violence, Barriers to care, Unstable Housing, Communication Barriers, Environmental/Work Hazards, Anticipated Course of Care, Toxoplasmosis Precations, Use of Any medications, Sexual activity, Exercise, Dental Care, Sauna/Hot tub use, Seat Belt use, Childbirth classes/Hospital facilities, Travel, Indications for US and Screening for Aneuploidy; discussed Diagnostics Diagnostics Diagnostics Hgb 11.1 g/dL (12.0-15.0) L 10/25/20 Hct 34.9 % (37-47) L 10/25/20 Details: HIV: Urine Culture: Sequential Screen: NIPT Screen: ROS Const Reports system reviewed and no additional complaints, except as docu Eyes Reports system reviewed and no additional complaints, except as docu ENT Reports system reviewed and no additional complaints, except as docu Card Reports system reviewed and no additional complaints, except as docu Resp Reports system reviewed and no additional complaints, except as docu GI Reports system reviewed and no additional complaints, except as docu Reports system reviewed and no additional complaints, except as docu, Denies abnormal vaginal bleeding, Denies painful urination, Denies nipple discharge, Denies pelvic pain, Denies vaginal discharge, Denies vaginal odor, Denies vaginal itching Musc Reports system reviewed and no additional complaints, except as docu Skin/Breast Reports system reviewed and no additional complaints, except as docu, Denies nipple discharge Neuro Yes system reviewed and no additional complaints, except as docu Psych Reports system reviewed and no additional complaints, except as docu Exam Const General: cooperative, healthy appearing, comfortable, no acute distress, well developed, well groomed Nutritional Appearance: average body habitus, well nourished Orientation: alert, awake, oriented x3 HENMT Head: normal to inspection, normocephalic, atraumatic Eyes Pupils: PERRL, accommodation normal Resp Effort & Inspection: normal respiratory effort, able to speak in complete sentences, symmetric chest movement Cardio Rate: regular rate GI Palpation: soft, no guarding, no masses, nontender Skin General: no rashes or lesions noted, elasticity normal, turgor normal Neuro General: alert, awake, oriented x3 Cranial Nerves: CN's II-XI intact bilaterally, sense of smell intact, PERRL, accommodation normal, EOM intact bilaterally Speech: speech normal Gait: normal gait Psych Appearance: grossly normal, well kempt Mental Status: mental status grossly normal Mood: congruent mood Affect: normal affect Speech and Movement: speech and movement normal Attitude: cooperative Thought Process: normal Thought Content: normal Judgment: judgment good Office Procedures OB NST Non-Stress Test Indications for Monitoring: Yes other (FGR) Heart Rate Baseline: 130 Heart Rate Variability: moderate Movement: Present Heart Rate Accelerations: Present Decelerations: Absent Contractions: Absent Impression: Yes Reactive Non-Stress Test Results POC Urinalysis 2 Dip (Clinic) Office Urine Glucose Negative Last Edit by Brenna Feng on 11/03/20 14:50 Office Urine Protein Negative Last Edit by Brenna Feng on 11/03/20 14:50 Assessment & Plan Problems 1. 36 weeks gestation of Z3A.36 NEGATIVE COVID; GBS negative 2. Abnormal glucose affecting O99.810 nl 3 hr gtt 3. growth restriction 9%ile at MFM. UA dopplers normal. IOL at 39 weeks (11/06) 4. History of tetanus, diphtheria, and acellular pertussis booster vaccination (Tdap) Z92.29 given 08/17/2020 5. Family history of breast cancer Z80.3 recommend genetic counseling 6. Supervision of normal Z34.90 PRR BARBIE 11/13/2020 surprise BF: Rebel 7. 38 weeks gestation of Z3A.38 declined genetic, carrier and NTD, anatomy. 8. Iron (Fe) deficiency anemia D50.9 IV venofer repeat cbc in 4 wks, saw hematology 9. Anxiety during O99.340; F41.9 zoloft, recommend counseling Orders Orders: OB NST Today [id number] POC Urinalysis 2 Dip (Clinic) Today Patient presents IOL, plan management for with pitocin/AROM. Pain management: plans natural, open to epidural. GBS negative. Management of any complications: none I have reviewed the [facility] and made any clinically relevant updates. UPDATE- I have seen the patient and performed any clinically relevant updates to the history and physical exam. Charlotte Calderon MD
[2020-11-06] MEDS: Lactated Ringers 1,000 ML 50 ML IV (07:45)
[2020-11-06 08:00] LABS: Absolute Lymphocyte Count 2.22 X10^3/uL (0.83-4.51); Absolute Neutrophil Count 6.9 X10^3/uL (2.0-7.7); Basophil# 0.03 X10^3/uL; Basophil% 0.3 % (0-1); Eosinophil# 0.19 X10^3/uL; Eosinophils% 1.9 % (0-5); Hemoglobin 10.8 g/dL (12.0-15.0); Lymphocyte # 2.22 X10^3/ul (4.0); Lymphocyte % 21.8 % (19-41); Mean Corp Hgb Conc 32.7 g/dL (32-36); Mean Corpuscular Hgb 29.4 pg (27.0-32.0); Mean Corpuscular Volume 89.9 fL (81-99); Mean Platelet Vol. 11.4 fl (6.2-12.0); Monocyte# 0.81 X10^3/uL; NRBC Flagged by Analyzer 0 % (0-5); Neutrophil # 6.87 X10^3/uL (2.7-7.7); Neutrophil % 67.4 % (47-70); Platelet Count 243 K/mm3 (150-450); RBC Distribution Width CV 12.2 % (11.6-14.6); RBC Distribution Width SD 39.8 fl (35.1-43.9); Red Blood Count 3.67 M/mm3 (4.2-5.4); White Blood Count 10.2 K/mm3 (4.4-11.0)
[2020-11-06] MEDS: Oxytocin 30 units/NS 500 ml 30 UNITS/500 ML IV.SOLN IV (08:00)
[2020-11-06] MEDS: fentaNYL 100 MCG/2 ML Ampul IV (11:57)
[2020-11-06] MEDS: Ondansetron 4 MG/2 ML Vial IV (12:02)
[2020-11-06] MEDS: Lactated Ringers 500 ML 999 ML IV (12:36)
[2020-11-06] MEDS: fentaNYL-bupivacaine (epidural) 100 ML BAG EPIDURAL (13:05)
--- NOTE | 2020-11-06 14:50 | OP.PCM_ITS ---
Problem List (1) Encounter for induction of labor Status: Acute (2) 36 weeks gestation of Status: Acute Comment: NEGATIVE COVID; GBS negative (3) growth restriction Status: Acute Comment: 9%ile at MFM. UA dopplers normal. IOL at 39 weeks (11/06) (4) Abnormal glucose affecting Status: Acute Comment: nl 3 hr gtt (5) History of tetanus, diphtheria, and acellular pertussis booster vaccination (Tdap) Status: Acute Comment: given 08/17/2020 (6) Family history of breast cancer Status: Acute Comment: recommend genetic counseling (7) Supervision of normal Status: Acute Qualifiers: Comment: PRR BARBIE 11/13/2020 surprise BF: Rebel (8) Status: Acute Qualifiers: Comment: declined genetic, carrier and NTD, anatomy. (9) Iron (Fe) deficiency anemia Status: Chronic Qualifiers: Comment: IV venofer repeat cbc in 4 wks, saw hematology (10) Anxiety during Status: Acute Comment: ravi, recommend counseling Vaginal Delivery Maternal Presentation: Medically Indicated Induction iol 39 weeks IUGR Method of Induction: Pitocin Amniotic Membrane Rupture Type: Artificial Amniotic Fluid Description: Clear Final BARBIE: 11/13/20 Gestational age: 39 Weeks and 1 Days Date of Procedure: 11/06/20 Pre-Operative Diagnosis: iol iugr Post-Operative Diagnosis: same Surgery/ Procedure Performed: Spontaneous Vaginal Delivery Type of Anesthesia: Epidural Description of Procedure: Patient began pushing and delivered the head in the UNA presentation. The head was delivered atraumatically and a loose nuchal cord ?1 was identified and easily reduced over the infant's head. The anterior and posterior shoulders delivered without complication followed by the rest of the infant and the was placed on the maternal abdomen. Delayed cord clamping was employed for approximately 60 seconds. Cord was clamped and cut and gentle traction was applied to the cord and the placenta delivered spontaneously immediately following it was noted to be intact with three-vessel cord. The perineum and vagina were inspected and noted to have no laceration. EBL was 100 cc. Patient and tolerated delivery well. Presentation: UNA Placental Delivery Description: Spontaneous Placenta Disposition: [facility] Cord Vessel Description: 3 Vessels Estimated Blood Loss: 100 Infant A gender: Male Episiotomy Description: None Laceration: None Medications given after delivery: IV Pitocin Complications: None Multi Select Codes - Urinary/Genital Urinary/Genital CPT Codes: 89209 Vaginal Delivery [facility]
[2020-11-06] MEDS: Oxytocin 30 units/NS 500 ml 30 UNITS/500 ML IV.SOLN 334 UNITS IV (15:27)
[2020-11-07 00:05] VITALS: BP 96/55; PULSE 65; RESP 18; TEMP 36.6
[2020-11-07 04:42] VITALS: BP 93/54; PULSE 61; RESP 16; TEMP 36.2
--- NOTE | 2020-11-07 07:40 | DCINST_ITS ---
Discharge Diet: No Restrictions Discharge Activity: Return to Normal Activity, May not drive while taking narcotic pain medications., May Shower May resume sexual activity in: 4-6 weeks Call your doctor if your incision/area has: Continuous Slow Oozing, Sudden Increased Bleeding, Increased Pain/ Swelling, Increased Redness, Foul Smelling Discharge Additional Instructions: If you experience any of the following, contact your healthcare provider. * Bleeding that soaks a pad every hour for 2 hours * Fever 100.4 or higher * Unrelieved incision or abdominal pain * Swelling, redness, discharge or bleeding from your incision or episiotomy site * Your incision begins to separate * Problems urinating (including inability to urinate or burning while urinating). * Visual changes * Severe headache * Flu-like symptoms * Pain or redness in one of both of your breasts * Pain, warmth, tenderness or swelling in your legs, especially the calf area * Frequent nausea and vomiting * Symptoms of depression or anxiety If you experience any of the following, call 911 or go to the nearest Emergency Room. * Chest pain * Problems breathing * Seizure activity * Partial or complete paralysis of a body part, slurred speech, weakness or drooping of the face, or a sudden inability to walk or hold your balance Allergies/Adverse Reactions: Allergies venom-honey bee [bee venom (honey bee)] Allergy (Verified 11/03/20 14:15) Anaphylaxis amoxicillin trihydrate [From Augmentin] Adverse Reaction (Verified 11/03/20 14:15) Nausea/Vom/Diarrhea potassium clavulanate [From Augmentin] Adverse Reaction (Verified 11/03/20 14:15) Nausea/Vom/Diarrhea Medications to take at Discharge epinephrine 0.3 mg/0.3 mL injection, auto-injector 0.3 mg IM Q10-15M PRN #2 ea 08/20/19 vitamin #56-iron 35 mg and 5 mg-folic acid 1 mg-dha capsule 1 cap PO DAILY 04/12/20 blood pressure test kit-small See Rx Instructions .ROUTE .MEDSUPPLY #1 ea 10/25/20 Please Follow Up With: Teresa Artis MD - [phone] When: Call to make an appointment with your doctor in 6 weeks. If you had elevated Blood pressure or 4th degree laceration you will need to be seen in 2 weeks. Primary Care Physician: Jose Mancera MD [Primary Care Provider] - Test Results: Test results from this visit will be discussed in further detail at your follow- up appointment, if applicable.
--- NOTE | 2020-11-07 07:52 | PCM.PN.OB ---
Patient Problems: Active and Suspected Problems (Last Reviewed 11/03/20 @ 14:15 by Brenna Feng) Encounter for induction of labor (Acute) 36 weeks gestation of (Acute) NEGATIVE COVID; GBS negative growth restriction (Acute) 9%ile at MFM. UA dopplers normal. IOL at 39 weeks (11/06) Abnormal glucose affecting (Acute) nl 3 hr gtt History of tetanus, diphtheria, and acellular pertussis booster vaccination (Tdap) (Acute) given 08/17/2020 Family history of breast cancer (Acute) recommend genetic counseling Supervision of normal (Acute) PRR BARBIE 11/13/2020 surprise BF: Rebel (Acute) declined genetic, carrier and NTD, anatomy. Anxiety during (Acute) zoloft, recommend counseling Subjective: Patient doing well without complaints. Tolerating PO. Ambulating and voiding without difficulty. well. Denies chest pain, shortness of breath, calf pain/swelling, fevers, chills, lightheadedness. - Physical Exam Vitals/I&O's: Vital Signs Temp Pulse Resp BP Pulse Ox 97.1 F L 61 16 93/54 L 82 11/07/20 04:42 11/07/20 04:42 11/07/20 04:42 11/07/20 04:42 11/06/20 16:50 Oxygen Delivery Method Room Air Weight: 137 lb 12.623 oz Body Mass Index (BMI) 23.6 Finger Stick Blood Glucose 105 Intake and Output for Last 24 Hours 11/05/20 11/06/20 11/07/20 23:59 23:59 23:59 Intake Total 2305.24 / 2305.24 Output Total 950 / 950 Balance 1355.24 / 1355.24 General: Alert, Oriented x3 Abdomen: Soft, Non Tender, - - FF below U Laboratory Results 11/06/20 07:45: WBC 10.2, RBC 3.67 L, Hgb 10.8 L, Hct 33.0 L, MCV 89.9, MCH 29.4, MCHC 32.7, RDW Std Deviation 39.8, RDW Coeff of Jorge 12.2, Plt Count 243, MPV 11.4, Immature Gran % (Auto) 0.600, Neut % (Auto) 67.4, Lymph % (Auto) 21.8, [place] % (Auto) 8.0, Eos % (Auto) 1.9, Baso % (Auto) 0.3, Absolute Neuts (auto) 6.9, Absolute Lymphs (auto) 2.22, Nucleated RBC % 0 11/06/20 07:45: Blood Type AB POSITIVE, Antibody Screen NEGATIVE Current Medications Acetaminophen (Acetaminophen 500 Mg Tablet) 1,000 mg PO Q8H PRN PRN PRN Reason: Pain Score 1-3 Bisacodyl (Bisacodyl 10 Mg Suppository) 10 mg RECTAL UD PRN PRN Reason: If no BM Dibucaine (Dibucaine 30 Gm Tube) 1 applic TOPICAL TID PRN PRN; Protocol PRN Reason: Discomfort Hydrocortisone (Hydrocortisone 2.5% Crm) 1 applic TOPICAL TID PRN PRN; Protocol PRN Reason: Discomfort Methylergonovine Maleate (Methylergonovine 0.2 Mg/Ml Ampul) 0.2 mg IM X1 PRN PRN Reason: Excess bleeding/uterine atony Naproxen (Naproxen 250 Mg Tablet) 500 mg PO Q8H PRN PRN PRN Reason: Pain Score 1-3 Ondansetron HCl (Ondansetron 4 Mg/2 Ml Vial) 4 mg IV Q4H PRN PRN PRN Reason: Nausea Oxycodone HCl (Oxycodone 5 Mg Tablet) 5 - 10 mg PO Q4H PRN PRN PRN Reason: Pain Score 4-10 Senna/Docusate Sodium (Senna/Docusate Sodium 1 Tablet) 1 - 2 tablet PO DAILY PRN PRN PRN Reason: Constipation Simethicone (Simethicone 80 Mg Tablet) 80 mg PO PCHS PRN PRN Reason: Indigestion/Stomach pain Sodium Chloride (0.9% Saline Lock 10 Ml Syringe) 5 - 15 ml IV UD PRN PRN Reason: SALINE FLUSH Medical Necessity - Tobacco Use Smoking Status: Never smoker Assessment/Plan All Active Problems (Last Reviewed 11/03/20 @ 14:15 by Brenna Feng) Encounter for induction of labor (Acute) 36 weeks gestation of (Acute) growth restriction (Acute) Abnormal glucose affecting (Acute) History of tetanus, diphtheria, and acellular pertussis booster vaccination (Tdap) (Acute) Family history of breast cancer (Acute) Supervision of normal (Acute) (Acute) Anxiety during (Acute) Anemia (Resolved) Hypocalcemia (Resolved) Hypokalemia (Resolved) Hypomagnesemia (Resolved) Mastalgia (Resolved) Ovarian cyst (Resolved) s/p PPD #1 1. routine post delivery care 2. breast feeding- support given 3. rh positive 4. rubella immune 5. home today
--- NOTE | 2020-11-07 07:53 | DCINST_ITS ---
Discharge Diet: No Restrictions Discharge Activity: Return to Normal Activity, May not drive while taking narcotic pain medications., May Shower May resume sexual activity in: 4-6 weeks Call your doctor if your incision/area has: Continuous Slow Oozing, Sudden Increased Bleeding, Increased Pain/ Swelling, Increased Redness, Foul Smelling Discharge Additional Instructions: If you experience any of the following, contact your healthcare provider. * Bleeding that soaks a pad every hour for 2 hours * Fever 100.4 or higher * Unrelieved incision or abdominal pain * Swelling, redness, discharge or bleeding from your incision or episiotomy site * Your incision begins to separate * Problems urinating (including inability to urinate or burning while urinating). * Visual changes * Severe headache * Flu-like symptoms * Pain or redness in one of both of your breasts * Pain, warmth, tenderness or swelling in your legs, especially the calf area * Frequent nausea and vomiting * Symptoms of depression or anxiety If you experience any of the following, call 911 or go to the nearest Emergency Room. * Chest pain * Problems breathing * Seizure activity * Partial or complete paralysis of a body part, slurred speech, weakness or drooping of the face, or a sudden inability to walk or hold your balance Allergies/Adverse Reactions: Allergies venom-honey bee [bee venom (honey bee)] Allergy (Verified 11/03/20 14:15) Anaphylaxis amoxicillin trihydrate [From Augmentin] Adverse Reaction (Verified 11/03/20 14:15) Nausea/Vom/Diarrhea potassium clavulanate [From Augmentin] Adverse Reaction (Verified 11/03/20 14:15) Nausea/Vom/Diarrhea Medications to take at Discharge epinephrine 0.3 mg/0.3 mL injection, auto-injector 0.3 mg IM Q10-15M PRN #2 ea 08/20/19 vitamin #56-iron 35 mg and 5 mg-folic acid 1 mg-dha capsule 1 cap PO DAILY 04/12/20 blood pressure test kit-small See Rx Instructions .ROUTE .MEDSUPPLY #1 ea 10/25/20 Naproxen [Naprosyn] 250 - 500 mg PO Q8H PRN PRN #30 tab 11/07/20 The following prescriptions were given: Naproxen [Naprosyn] 250 - 500 mg PO Q8H PRN PRN #30 tab PRN Reason: MILD PAIN Transmission Status: Received by [facility] Primary Care Physician: Jose Mancera MD [Primary Care Provider] - Test Results: Test results from this visit will be discussed in further detail at your follow- up appointment, if applicable.
[2020-11-07 08:22] VITALS: BP 99/49; PULSE 60; RESP 16; TEMP 36.5
[2020-11-07 12:15] VITALS: BP 96/46; PULSE 65; RESP 16; TEMP 36.7
[2020-11-07 16:35] VITALS: BP 104/50; PULSE 62; RESP 16; TEMP 36.5
== END 2020-11-07 18:05 | disposition home or self-care (01) | DRG 807 ==
PROVIDERS: Admitting Provider Obstetrics & Gynecology; PCP Internal Medicine; Referring Provider Obstetrics & Gynecology; Visit Provider Obstetrics & Gynecology
DX: O36.5930 Maternal care for other known or suspected poor fetal growth, third trimester, not applicable or unspecified (principal); Z37.0 Single live birth; O69.81X0 Labor and delivery complicated by cord around neck, without compression, not applicable or unspecified; Z3A.39 39 weeks gestation of pregnancy
CPT/HCPCS: 59025; 59050; 85025; 86850; 86900; 86901; 99218; J7120; G0378; J2405

== ENCOUNTER → 2021-07-17 08:43 | Outpatient (CLI) | payer OTHER, SELFPAY ==
[2021-05-14 11:26] VITALS: BMI 19.4
[2021-07-17 09:17] LABS: hCG Titer Quant., Serum < 1 mIU/mL (1-3)
== END ==
PROVIDERS: PCP Internal Medicine; Referring Provider Nurse Practitioner Women's Health; Visit Provider Nurse Practitioner Women's Health
DX: N91.2 Amenorrhea, unspecified (principal)
CPT/HCPCS: 36415; 84702

== ENCOUNTER 2021-09-01 20:14 | Emergency (ER) | payer OTHER, SELFPAY ==
[2021-09-01 20:14] VITALS: BP 100/70; PULSE 74; PULSE 82; RESP 18; TEMP 36.5; O2SAT 100; BMI 20.7
--- NOTE | 2021-09-01 20:49 | EDS_ITS ---
HPI HPI - Female History of Present Illness Chief Complaint: Vag Bld, Preg Informant: patient Narrative Narrative: Patient presents with vaginal bleeding with . Last menstrual cycle was approximately July. Estimated 5-1/2 to 6 weeks . She is a G2, P1. She last delivered in October. She has not yet had her first appointment with OB. She has had multiple home test that are positive. She has not had any abdominal or pelvic pain. She states she gets a pulling sensation in her right lower back but commonly has back issues. No dysuria or frequency. She states that around 6 PM she felt that t here might be a small vaginal discharge. She checked and there was a little bit of blood. She states it was similar to the very end of her menstrual cycle. She did come in using a tampon. When she removed this the nurse had looked at it and saw only a couple spots of blood on this at this time. There were never any clots at any time. Patient thinks she is type 80+ blood. Nothing makes her symptoms better or worse. [facility] Medical History (Updated 09/01/21 @ 21:[address] Rashid Damon MD) Anemia Artificial insemination Pityriasis rosea Raynaud's disease Medical History no medical history Home Medications epinephrine 0.3 mg/0.3 mL injection, auto-injector 0.3 mg IM Q10-15M PRN #2 ea 08/20/19 [Rx Last Taken Unknown] blood pressure test kit-small #1 ea 10/25/20 [Rx Last Taken Unknown] estradiol See Rx Instructions VAGINAL .COMPLEX #42.5 g 05/14/21 [Rx Last Taken Unknown] Allergy/AdvReac Type Severity Reaction Status Date / Time venom-honey bee Allergy Anaphylaxis Verified 05/14/21 11:27 [bee venom (honey bee)] amoxicillin trihydrate AdvReac Nausea/Vom/ Verified 05/14/21 11:27 [From Augmentin] Diarrhea potassium clavulanate AdvReac Nausea/Vom/ Verified 05/14/21 11:27 [From Augmentin] Diarrhea Family History Mother Breast cancer Grandmother Diabetes Uncle Leukemia maternal Grandfather Melanoma maternal Breast cancer maternal AAA (abdominal aortic aneurysm) paternal Grandfather Hypertension Other Heart disease Surgical History History of mandibular surgery Social History adopted: No household members: significant other housing: house current occupational status: employed pets and animals: Yes history of recent travel: Yes sexually active: Yes Smoking Status: Never smoker second hand exposure: No alcohol intake: current Alcohol type: beer details: not while substance use type: does not use caffeine: Yes what type of physical activity do you participate in: running frequency: 5-6 times per week seatbelt use: always do you feel safe at home: Yes additional social history: Boyfriend- Rebel- In school- legal studies Patient works in [employer] at [employer] ROS ROS ED Constitutional Constitutional ED: Denies chills or fever(s) Eyes Eyes: Denies blurry vision ENT ENT ED: Denies rhinorrhea or sore throat Cardiovascular Cardiovascular: Denies chest pain Respiratory/Chest Respiratory/Chest: Denies cough or dyspnea Gastrointestinal Gastrointestinal: Denies abdominal pain, constipation, diarrhea, nausea or vomiting Genitourinary Genitourinary ED: Reports other Details: See history of present illness. ; D enies dysuria, hematuria or urinary frequency Endocrine Endocrinology: Denies polydipsia or polyuria Hematologic/Lymphatic Hematologic/Lymphatic: Denies easy bleeding or easy bruising Allergic/Immunologic Allergic/Immunologic ED: Denies urticaria EXAM Physical Exam Const Vital Signs: 09/01/21 20:14 Temperature 97.7 F L Temperature Source Temporal Pulse Rate 82 Respiratory Rate 18 Blood Pressure 100/70 Blood Pressure Mean 80 Pulse Ox 100 Oxygen Delivery Method Room Air Positive well nourished and well developed General Appearance ED: well developed and NAD HEENT Reports moist mucous membranes Eyes General Eye ED: Negative for pale conjunctiva or scleral icterus Neck no JVD Resp normal respiratory effort Cardio regular rate and regular rhythm GI normal to inspection, nondistended, normoactive bowel sounds, soft to palpation, non-tender and non-distended no CVA tenderness Back/Spine no CVA tenderness Extremity normal to inspection Neuro oriented x3 Sensorium / Orientation: alert Psych mental status grossly normal Skin no rashes or lesions noted MDM MDM MDM Narrative Medical decision making narrative: Patient has been her baseline anemia 10.9. Quantitative beta-hCG is only 9. Patient has not had any pain. She is not having bleeding at this time. I had a discussion with her. We discussed the need for exam or ultrasound at this time. She is comfortable just following up. We will write for a repeat quantitative beta-hCG. I would like to know if this level is rising or may be in the process of decreasing. It is very low for her reported gestation based off last menstrual cycle. She will follow up with her physician, Dr. Gilmore. Lab Data Attestation: I reviewed the patient's lab results. Labs: Laboratory Results - last 24 hr 09/01/21 09/01/21 20:35 20:35 WBC 8.2 RBC 3.83 L Hgb 10.9 L Hct 34.1 L MCV 89.0 MCH 28.5 MCHC 32.0 RDW Std Deviation 45.0 H RDW Coeff of Jorge 13.9 Plt Count 309 MPV 10.1 Immature Gran % (Auto) 0.200 Neut % (Auto) 57.9 Lymph % (Auto) 27.3 [place] % (Auto) 10.9 H Eos % (Auto) 3.3 Baso % (Auto) 0.4 Absolute Neuts (auto) 4.8 Absolute Lymphs (auto) 2.25 Nucleated RBC % 0 HCG, Quant 9 H Discharge Plan Triage Chief Complaint: Vag Bld, Preg ED Provider: Rashid Damon Dx/Rx/DC Orders Clinical Impression: Vaginal bleeding in patient after first trimester Instructions: Bleeding During Early Prescriptions: No Action (DME) blood pressure test kit-small kit See Rx Instructions .ROUTE .MEDSUPPLY Qty: 1 RF: 0 estradiol 0.01 % (0.1 mg/gram) cream See Rx Instructions vaginal .COMPLEX Qty: 42.5 RF: 2 epinephrine [EpiPen 2-Jens] 0.3 mg/0.3 mL auto-injector 0.3 mg IM Q10-15M PRN (Reason: anaphylaxis) Qty: 2 RF: 1 Primary Care Provider: Jose Mancera Referrals: Jose Mancera MD [Primary Care Provider] - Teresa Artis MD [STAFF PHYSICIAN] - 2 Days Disposition Disposition: Home, Self Care
[2021-09-01 20:58] LABS: Absolute Lymphocyte Count 2.25 X10^3/uL (0.83-4.51); Absolute Neutrophil Count 4.8 X10^3/uL (2.0-7.7); Basophil# 0.03 X10^3/uL; Basophil% 0.4 % (0-1); Eosinophil# 0.27 X10^3/uL; Eosinophils% 3.3 % (0-5); Hematocrit 34.1 % (37-47); Hemoglobin 10.9 g/dL (12.0-15.0); Lymphocyte # 2.25 X10^3/ul (0.83-4.51); Lymphocyte % 27.3 % (19-41); Mean Corpuscular Hgb 28.5 pg (27.0-32.0); Mean Platelet Vol. 10.1 fl (6.2-12.0); Monocyte% 10.9 % (0-10); NRBC Flagged by Analyzer 0 % (0-5); Neutrophil # 4.77 X10^3/uL (2.7-7.7); Neutrophil % 57.9 % (47-70); Platelet Count 309 K/mm3 (150-450); RBC Distribution Width CV 13.9 % (11.6-14.6); Red Blood Count 3.83 M/mm3 (4.2-5.4); White Blood Count 8.2 K/mm3 (4.4-11.0)
[2021-09-01 21:17] LABS: hCG Titer Quant., Serum 9 mIU/mL (1-3)
[2021-09-01 21:29] LABS: Mucous, Urine 0 SEEN /hpf (<or=2+)
[2021-09-01 21:31] LABS: Color, Urine Yellow (Yellow); Glucose, Dipstick Normal (Normal); Ketone-Dipstick Negative (Negative); Leukocyte Esterase-Dipstick 25 /ul (Negative); Nitrite-Dipstick Negative (Negative); Occult Blood-Urine 10 /ul (Negative); Protein-Dipstick 15 mg/dl (Negative); Specific Gravity, Urine 1.015 (1.002-1.030); Urine Bilirubin Dipstick Negative (Negative); Urine Clarity Cloudy (Clear); Urine Urobilinogen Normal (Normal)
[2021-09-01 21:41] LABS: Bacteria RARE /hpf (None Seen); Red Blood Cells-Urine 0-5 SEEN /hpf (0-5); Squamous Epithelial Cells - UA 0-5 SEEN /hpf (5-10); White Blood Cells 0-5 SEEN /hpf (0-5)
[2021-09-01 21:42] LABS: Amorphous Sediment 1+
== END 2021-09-01 21:51 | disposition home or self-care (01) ==
PROVIDERS: Emergency Provider Emergency Medicine; PCP Internal Medicine
DX: O20.9 Hemorrhage in early pregnancy, unspecified (principal); Z3A.01 Less than 8 weeks gestation of pregnancy
CPT/HCPCS: 81001; 84702; 85025; 99282; A4216

== ENCOUNTER → 2021-09-03 12:23 | Outpatient (CLI) | payer OTHER, SELFPAY ==
[2021-09-03 14:24] LABS: hCG Titer Quant., Serum 4 mIU/mL (1-3)
== END ==
PROVIDERS: PCP Internal Medicine; Referring Provider Obstetrics & Gynecology; Visit Provider Obstetrics & Gynecology
DX: O46.90 Antepartum hemorrhage, unspecified, unspecified trimester (principal); Z3A.00 Weeks of gestation of pregnancy not specified
CPT/HCPCS: 36415; 84702

== ENCOUNTER → 2021-09-21 08:45 | Outpatient (CLI) | payer OTHER, SELFPAY ==
[2021-09-21 11:58] LABS: hCG Titer Quant., Serum < 1 mIU/mL (1-3)
== END ==
PROVIDERS: PCP Internal Medicine; Referring Provider Obstetrics & Gynecology; Visit Provider Obstetrics & Gynecology
DX: N91.2 Amenorrhea, unspecified (principal)
CPT/HCPCS: 36415; 84702

== ENCOUNTER → 2021-10-05 12:11 | Outpatient (CLI) | payer OTHER, SELFPAY ==
[2021-10-05 13:41] LABS: hCG Titer Quant., Serum 19 mIU/mL (1-3)
== END ==
PROVIDERS: PCP Internal Medicine; Visit Provider Obstetrics & Gynecology
DX: N91.2 Amenorrhea, unspecified (principal)
CPT/HCPCS: 36415; 84702

== ENCOUNTER → 2021-10-08 08:01 | Outpatient (CLI) | payer OTHER, SELFPAY ==
[2021-10-08 10:32] LABS: hCG Titer Quant., Serum 68 mIU/mL (1-3)
== END ==
PROVIDERS: PCP Internal Medicine; Referring Provider Obstetrics & Gynecology; Visit Provider Obstetrics & Gynecology
DX: N91.2 Amenorrhea, unspecified (principal)
CPT/HCPCS: 36415; 84702

== ENCOUNTER → 2021-10-11 14:17 | Outpatient (CLI) | payer OTHER, SELFPAY ==
[2021-10-11 15:31] LABS: hCG Titer Quant., Serum 335 mIU/mL (1-3)
== END ==
PROVIDERS: PCP Internal Medicine; Referring Provider Obstetrics & Gynecology; Visit Provider Obstetrics & Gynecology
DX: Z34.90 Encounter for supervision of normal pregnancy, unspecified, unspecified trimester (principal)
CPT/HCPCS: 36415; 84702

== ENCOUNTER → 2021-10-15 08:13 | Outpatient (CLI) | payer OTHER, SELFPAY ==
[2021-10-15 09:35] LABS: hCG Titer Quant., Serum 1733 mIU/mL (1-3)
== END ==
PROVIDERS: PCP Internal Medicine; Referring Provider Obstetrics & Gynecology; Visit Provider Obstetrics & Gynecology
DX: N91.2 Amenorrhea, unspecified (principal)
CPT/HCPCS: 36415; 84702

== ENCOUNTER → 2021-10-19 09:25 | Outpatient (CLI) | payer OTHER, SELFPAY ==
--- NOTE | 2021-10-19 09:26 | US_ITS ---
STUDY: FIRST TRIMESTER OBSTETRICAL ULTRASOUND REASON FOR EXAM: Female, 30 years old DATING LMP: 09/01/2021 TECHNIQUE: Transvaginal TECHNICAL QUALITY: Adequate. PRIOR ULTRASOUND: None. FINDINGS: There is visualization of a single gestational sac in a normal intrauterine position. The mean sac diameter (MSD) measures 8.5 mm, indicating an estimated gestational age (EGA) of 5 weeks, 4 days. The gestational sac shape is within normal limits. There is a visualized yolk sac. The yolk sac measures 2.2 mm. The placenta is non-visualized. There is no demonstrated embryo ( pole). The estimated gestation age (EGA) by LMP is 6 weeks, 6 days. The estimated date of delivery (BARBIE) by LMP is 06/08/2022. The estimated gestation age (EGA) by US is 5 weeks, 4 days. The estimated date of delivery (BARBIE) by US is 06/17/2022. The uterus measures 9.2 cm x 5.8 cm x 4.8 cm. There is no demonstrated uterine fibroid. The cervix is closed. The right ovary measures 2.1 cm x 2.1 cm x 1.6 cm. There is no right ovarian cyst. There is no visualized right adnexal mass or complex lesion. The left ovary measures 2.2 cm x 2.1 cm x 1.5 cm. There is no left ovarian cyst. There is no visualized left adnexal mass or complex lesion. There is no fluid in the cul de sac. US/Transvaginal w/Preg US IMPRESSION: Intrauterine gestation with a mean gestational age of 5 weeks and 4 days. Follow-up is recommended. Electronically Signed: Nehemiah Juarez MD at 12:42 EST , Service support ,
== END ==
PROVIDERS: PCP Internal Medicine; Referring Provider Obstetrics & Gynecology; Visit Provider Obstetrics & Gynecology
DX: Z34.90 Encounter for supervision of normal pregnancy, unspecified, unspecified trimester (principal)
CPT/HCPCS: 76817

== ENCOUNTER → 2021-10-26 08:44 | Outpatient (CLI) | payer OTHER, SELFPAY ==
--- NOTE | 2021-10-26 08:51 | US_ITS ---
INDICATION: First trimester dating. EXAMINATION: Ultrasound US OB Transvaginal TECHNIQUE: Transvaginal (for optimal evaluation of the adnexa) pelvic ultrasound was performed. Grayscale, spectral waveform, and color flow Doppler evaluation of the adnexa. COMPARISON: Ultrasound from 10/19/2021. LMP: [7 weeks, 6 days. Beta-hCG: Unknown FINDINGS: Uterus: 9.1 x 6.7 x 5.0 cm. Normal echotexture. No masses. Gestational sac: Single gestational sac in normal intrauterine position. Mean sac diameter measures 1.39 cm indicative of gestational age of 6 weeks 1 day. Embryo: Single live embryo. heart tones: 132 bpm. Yolk sac: Visualized. Placenta: Not visualized. Likely too early. [place]-rump length: 0.6 cm Estimated gestational age by LMP: 7 weeks 6 days. Estimated gestational age by ultrasound: 6 weeks 2 days. Right ovary: 2.9 x 1.1 x 1.1 cm. Physiologic follicular changes. No right adnexal mass. Normal DOPPLER flow. Left ovary: 2.5 x 1.8 x 1.8 cm. Normal appearance. No left adnexal mass. Normal DOPPLER flow. No free fluid. US/Transvaginal w/Preg US IMPRESSION: Single live intrauterine . Estimated gestational age is 6 weeks 2 days by ultrasound. Electronically Signed: Marcin Mcginnis MD at 10:56 EST Tel , Service support ,
== END ==
PROVIDERS: PCP Internal Medicine; Referring Provider Obstetrics & Gynecology; Visit Provider Obstetrics & Gynecology
DX: Z34.90 Encounter for supervision of normal pregnancy, unspecified, unspecified trimester (principal)
CPT/HCPCS: 76817

== ENCOUNTER → 2021-11-15 14:45 | Outpatient (CLI) | payer OTHER, SELFPAY ==
[2021-11-15 15:05] LABS: Absolute Lymphocyte Count 2.26 X10^3/uL (0.83-4.51); Absolute Neutrophil Count 5.4 X10^3/uL (2.0-7.7); Basophil# 0.02 X10^3/uL; Basophil% 0.2 % (0-1); Eosinophil# 0.25 X10^3/uL; Eosinophils% 2.9 % (0-5); Hematocrit 33.9 % (37-47); Hemoglobin 10.8 g/dL (12.0-15.0); Lymphocyte # 2.26 X10^3/ul (0.83-4.51); Lymphocyte % 25.9 % (19-41); Mean Corp Hgb Conc 31.9 g/dL (32-36); Mean Corpuscular Hgb 27.4 pg (27.0-32.0); Mean Platelet Vol. 10.2 fl (6.2-12.0); Monocyte# 0.74 X10^3/uL; Monocyte% 8.5 % (0-10); NRBC Flagged by Analyzer 0 % (0-5); Neutrophil # 5.42 X10^3/uL (2.7-7.7); Neutrophil % 62.2 % (47-70); Platelet Count 274 K/mm3 (150-450); RBC Distribution Width CV 14.2 % (11.6-14.6); RBC Distribution Width SD 44.8 fl (35.1-43.9); Red Blood Count 3.94 M/mm3 (4.2-5.4); White Blood Count 8.7 K/mm3 (4.4-11.0)
[2021-11-15 15:57] LABS: NATERA MAILED SPECIMEN
[2021-11-15 16:15] LABS: HIV - WCH Non-Reactive (Nonreactive); Hepatitis B Surface Antigen Non-Reactive (Nonreactive); Hepatitis C Antibody Non-Reactive (Nonreactive); Rubella IgG Reactive (Nonreactive); Syphilis Antibodies Non-reactive
[2021-11-15 16:18] LABS: Amphetamine Urine VISTA NEGATIVE (<1000 ng/mL); Barbiturate Urine VISTA NEGATIVE (< 200 ng/mL); Benzodiazepine Urine VISTA NEGATIVE (< 200 ng/mL); Cocaine Urine VISTA NEGATIVE (< 300 ng/mL); Ecstacy Urine VISTA NEGATIVE (< 500 ng/mL); Methadone Urine VISTA NEGATIVE (< 300 ng/mL); PCP Urine VISTA NEGATIVE (< 25 ng/mL); THC Urine VISTA NEGATIVE (< 50 ng/mL); Vista UDS pH Range 7
[2021-11-19 21:06] LABS: Chlamydia By Nucleic Acid AMP Negative (Negative)
[2021-11-19 23:09] LABS: Gonococcus By Nucleic Acid AMP Negative (Negative)
[2021-11-21 22:33] LABS: HPV Reflexed? NOT INDICATED
== END ==
PROVIDERS: PCP Internal Medicine; Referring Provider Obstetrics & Gynecology; Visit Provider Obstetrics & Gynecology
DX: O26.899 Other specified pregnancy related conditions, unspecified trimester (principal); R10.9 Unspecified abdominal pain; Z92.29 Personal history of other drug therapy; O09.90 Supervision of high risk pregnancy, unspecified, unspecified trimester; O09.299 Supervision of pregnancy with other poor reproductive or obstetric history, unspecified trimester; O99.340 Other mental disorders complicating pregnancy, unspecified trimester; F41.9 Anxiety disorder, unspecified; N39.3 Stress incontinence (female) (male)
CPT/HCPCS: 36415; 80307; 85025; 86703; 86762; 86780; 86803; 86850; 86900; 86901; 87086; 87088; 87340; 87491; 87591; 88175; G0145

== ENCOUNTER → 2021-11-28 16:02 | Outpatient (CLI) | payer OTHER, SELFPAY ==
[2021-11-28 16:45] LABS: Vitamin B12 275 pg/mL (211-911)
[2021-11-28 16:54] LABS: Ferritin 14 ng/mL (8-252); Iron Binding Capacity,Total 339 ug/dL (250-450)
== END ==
PROVIDERS: PCP Internal Medicine; Referring Provider Obstetrics & Gynecology; Visit Provider Obstetrics & Gynecology
DX: O99.019 Anemia complicating pregnancy, unspecified trimester (principal); D64.9 Anemia, unspecified; Z3A.00 Weeks of gestation of pregnancy not specified
CPT/HCPCS: 36415; 82607; 82728; 82746; 83550

== ENCOUNTER 2022-01-09 15:51 | Outpatient (CLI) | payer OTHER, SELFPAY ==
[2022-01-09 16:10] LABS: Absolute Lymphocyte Count 2.53 X10^3/uL (0.83-4.51); Absolute Neutrophil Count 6.7 X10^3/uL (2.0-7.7); Basophil# 0.04 X10^3/uL; Basophil% 0.4 % (0-1); Eosinophil# 0.29 X10^3/uL; Eosinophils% 2.8 % (0-5); Hematocrit 33.3 % (37-47); Hemoglobin 11.2 g/dL (12.0-15.0); Lymphocyte # 2.53 X10^3/ul (0.83-4.51); Lymphocyte % 24.7 % (19-41); Mean Corp Hgb Conc 33.6 g/dL (32-36); Mean Corpuscular Hgb 28.6 pg (27.0-32.0); Mean Corpuscular Volume 85.2 fL (81-99); Mean Platelet Vol. 10.3 fl (6.2-12.0); Monocyte# 0.65 X10^3/uL; Monocyte% 6.3 % (0-10); NRBC Flagged by Analyzer 0 % (0-5); Neutrophil # 6.68 X10^3/uL (2.7-7.7); Neutrophil % 65.3 % (47-70); Platelet Count 326 K/mm3 (150-450); RBC Distribution Width CV 13.8 % (11.6-14.6); RBC Distribution Width SD 42.8 fl (35.1-43.9); Red Blood Count 3.91 M/mm3 (4.2-5.4); White Blood Count 10.2 K/mm3 (4.4-11.0)
[2022-01-09 16:24] LABS: Protein, Urine (Random) < 6.0 mg/dL (<11.9); Protein:Creat Ratio 20 mg/g CRE (0-200)
[2022-01-09 16:26] LABS: ALB/GLOB Ratio 0.8 RATIO (0.9-2.4); AST(SGOT) 13 U/L (15-37); Alanine Aminotransfer ALT/SGPT 15 U/L (13-56); Albumin, Serum 3.3 g/dL (3.2-5.0); Alkaline Phosphatase 50 U/L (45-117); Anion Gap 5 (5-15); BUN 8 mg/dL (7-18); BUN/Creat Ratio 10.2 RATIO (10-20); Calcium,Total 8.7 mg/dL (8.5-10.1); Chloride 101 mmol/L (98-107); Creatinine, Serum 0.78 mg/dL (0.55-1.02); EST Glomerular Filtration Rate 92 mL/min (>60); Est Glom Filt Rate - Afr Amer 111 mL/min (>60); Globulin 4.4 g/dL (2.2-4.2); Glucose 87 mg/dL (74-106); Protein, Total 7.7 g/dL (6.4-8.2); Sodium Level 135 mmol/L (136-145)
== END 2022-01-09 23:59 | disposition home or self-care (01) ==
LOC: PAVLAB 15:51
PROVIDERS: PCP Internal Medicine; Referring Provider Nurse Practitioner Women's Health; Visit Provider Nurse Practitioner Women's Health
DX: R80.9 Proteinuria, unspecified (principal)
CPT/HCPCS: 36415; 80053; 82570; 84156; 85025

== ENCOUNTER 2022-01-17 15:49 | Outpatient (CLI) | payer OTHER, SELFPAY ==
--- NOTE | 2022-01-17 15:52 | US_ITS ---
STUDY: SECOND AND THIRD TRIMESTER OBSTETRICAL ULTRASOUND REASON FOR EXAM: Female, 31 years old anatomy LMP: 09/06/2021. TECHNIQUE: Transabdominal and Transvaginal TECHNICAL QUALITY: Adequate. PRIOR ULTRASOUND: Comparison is made with prior study dated 10/26/2021. FINDINGS: There is a single intrauterine fetus. The fetus is in a breech presentation. There is demonstrated cardiac activity with a heart rate of 157 bpm. There is a normal amniotic fluid volume. The largest amniotic fluid pocket measures 3.91 cm. The amniotic fluid index (DANUTA) is within normal limits. The placenta is anterior in location and is not low lying. There are Grade 0 placental changes. The cervix measures 3.5 cm in length. The adnexal regions are not visualized. BIOMETRY: BPD: 4.17 cm: 18 weeks, 4 days HC: 16.15 cm: 18 weeks, 6 days AC: 14.64 cm: 19 weeks, 6 days FL: 2.7 cm: 18 weeks, 1 days CI: 72.6% FL/BPD: 64.6% FL/HC: FL/AC: 18.4% HC/AC: 1.1 age by current US: 18 weeks, 6 days. BARBIE by current US: 06/14/2020. Estimated weight: 257 grams, +/- 41 grams, 52.4 %. age by prior US: 18 weeks, 1 days. BARBIE by prior US: 06/19/2022. Age by LMP: 19 weeks, 0 days. BARBIE by LMP: 06/13/2022. ANATOMY: Gender: Female Cranium: Normal lateral ventricles. Normal choroid plexus. Normal cerebellum. Normal cisterna magna. Normal face, nose and lips. Chest: Normal 4-chamber heart. Abdomen/Pelvis: Normal diaphragm. Normal stomach. Normal abdominal wall. Normal cord insertion. Normal 3 vessel cord. Normal kidneys. Normal bladder. Spine: Normal cervical spine. Normal thoracic spine. Normal lumbar spine. Normal sacrum. Extremities: Normal bilateral upper extremities. Normal bilateral lower extremities. US/OB Anatomy Scan IMPRESSION: Single live uterine gestation with a mean gestational age of 18 weeks and 1 day. The measurements obtained today fall within normal expected range. Electronically Signed: Nehemiah Juarez MD at 8:44 EST ,
== END 2022-01-17 23:59 | disposition home or self-care (01) ==
LOC: US 15:50
PROVIDERS: PCP Internal Medicine; Visit Provider Obstetrics & Gynecology
DX: O09.90 Supervision of high risk pregnancy, unspecified, unspecified trimester (principal)
CPT/HCPCS: 76805; 76817

== ENCOUNTER 2022-02-17 13:11 | Emergency (ER) | payer OTHER, SELFPAY ==
[2022-02-17 13:12] VITALS: BP 110/79; PULSE 80; RESP 16; TEMP 36.6; O2SAT 99; BMI 20.5
--- NOTE | 2022-02-17 13:30 | ED.VIS.DENTA ---
HPI History of Present Illness Chief Complaint: Dental Informant: patient Onset/Context/Timing Onset: Days (3) Context: Gradual Onset Timing: Continuous Quality: Aching, stabbing Location: Right lower molars Worsened by: Laying down and at nighttime Relieved by: - (Tylenol) Associated Symptoms Assocated Symptom - Dental: jaw swelling, face swelling and cold sensitivity; Negative for fever or hot sensitivity Narrative Narrative: Patient presents with right lower dental pain that has been getting worse over the past 3 days. Patient noted increased swelling to her right lower jaw today. Patient describes her pain as aching and stabbing. Patient states it is worse at nighttime and when she lays down. Patient states it gets better with Tylenol. Patient admits to some swelling over her right lower jaw and face area. Patient admits to sensitivity to cold. Patient states hot actually makes it feel better. Patient denies any fevers or chills. Patient denies any difficulty breathing or difficulty swallowing. Patient is approximately 23 weeks . [facility] Medical History Anemia Artificial insemination Pityriasis rosea Raynaud's disease SAB (spontaneous ) Home Medications epinephrine 0.3 mg/0.3 mL injection, auto-injector 0.3 mg IM Q10-15M PRN #2 ea 08/20/19 [Rx Last Taken Unknown] vitamin #56-iron 35 mg and 5 mg-folic acid 1 mg-dha capsule 1 cap PO DAILY 11/05/21 [History Last Taken Unknown] sertraline 50 mg tablet 50 mg PO QDAY #30 tab 11/05/21 [Rx Last Taken Unknown] ondansetron 4 mg disintegrating tablet 4 mg PO Q6H PRN 30 Days #30 tab 01/25/22 [Rx Last Taken Unknown] clindamycin HCl [Cleocin HCl] 300 mg PO Q6H #40 capsule 02/17/22 [Rx Last Taken Unknown] Allergy/AdvReac Type Severity Reaction Status Date / Time venom-honey bee Allergy Anaphylaxis Verified 02/17/22 13:14 [bee venom (honey bee)] amoxicillin trihydrate AdvReac Nausea/Vom/ Verified 02/17/22 13:14 [From Augmentin] Diarrhea potassium clavulanate AdvReac Nausea/Vom/ Verified 02/17/22 13:14 [From Augmentin] Diarrhea Family History Mother Breast cancer Grandmother Diabetes Uncle Leukemia maternal Grandfather Melanoma maternal Breast cancer maternal AAA (abdominal aortic aneurysm) paternal Grandfather Hypertension Other Heart disease Surgical History History of mandibular surgery Social History adopted: No household members: family housing: house current occupational status: employed pets and animals: Yes history of recent travel: Yes sexually active: Yes Smoking Status: Never smoker second hand exposure: No alcohol intake: current Alcohol type: beer details: not while substance use type: does not use caffeine: Yes what type of physical activity do you participate in: running frequency: 5-6 times per week seatbelt use: always do you feel safe at home: Yes additional social history: Boyfriend- Rebel- In school- legal studies Patient works in [employer] at [employer] ROS ED Constitutional Constitutional ED: Denies chills or fever(s) Eyes Eyes: Denies blurry vision or change in vision ENT ENT ED: Denies rhinorrhea or sore throat Cardiovascular Cardiovascular: Denies chest pain or palpitations Respiratory/Chest Respiratory/Chest: Denies cough or dyspnea Gastrointestinal Gastrointestinal: Denies nausea or vomiting Genitourinary Genitourinary ED: Denies dysuria or hematuria Musculoskeletal Musculoskeletal: Denies back pain or neck pain Integumentary Denies abscess or rash Neurologic Neurologic: Denies headache(s) or weakness Allergic/Immunologic Allergic/Immunologic ED: Denies mouth swelling or urticaria EXAM Physical Exam Const Vital Signs: 02/17/22 13:12 Temperature 98 F Temperature Source Temporal Pulse Rate 80 Respiratory Rate 16 Blood Pressure 110/79 Blood Pressure Mean 89 Pulse Ox 99 Oxygen Delivery Method Room Air Positive well nourished General Appearance ED: NAD HEENT HEENT Narrative: There is a large dental caries noted over the right lower second molar. There is some mild gingival edema. There is no erythema or fluctuance. There is no discharge or drainage. There is no sublingual edema or erythema. Oral mucosa is pink and moist. Oropharynx is clear. Airway is patent. Neck supple and no JVD Resp normal respiratory effort and clear to auscultation bilaterally Cardio regular rate and regular rhythm Psych mental status grossly normal Skin no rashes or lesions noted MDM MDM MDM Narrative Medical decision making narrative: Patient was given a dose of clindamycin here. Patient was given a prescription for clindamycin. Patient was instructed to take Tylenol as needed for pain. Patient was instructed to follow-up with her dentist in 3 to 5 days. Nursing triage note indicated the patient was interested in the COVID-19 vaccine. When I discussed this with the patient, she states she has been vaccinated and had a her booster vaccine as well. Patient does not want any further vaccines at this time. Patient understands and is agreeable with the plan. All questions were answered. Discharge Plan Triage Chief Complaint: Dental ED Provider: Cornelius Rubin Dx/Rx/DC Orders Clinical Impression: Infected dental caries Instructions: ED Dental Pain, ED Dental Cavity Prescriptions: New clindamycin HCl [Cleocin HCl] 300 MG capsule 300 mg PO Q6H Qty: 40 RF: 0 No Action PNV #[id number] acid-dha 35 mg iron-5 mg iron-1 mg capsule 1 cap PO DAILY RF: 0 sertraline [Zoloft] 50 mg tablet 50 mg PO QDAY Qty: 30 RF: 12 epinephrine [EpiPen 2-Jens] 0.3 mg/0.3 mL auto-injector 0.3 mg IM Q10-15M PRN (Reason: anaphylaxis) Qty: 2 RF: 1 ondansetron 4 mg tablet,disintegrating 4 mg PO Q6H PRN (Reason: nausea and vomiting) 30 Days Qty: 30 RF: 3 Primary Care Provider: Jose Mancera Referrals: Jose Mancera MD [Primary Care Provider] - 3-5 Days Dentist,Jennifer [STAFF PHYSICIAN] - 3-5 Days Disposition Disposition: Home, Self Care
[2022-02-17 13:41] VITALS: RESP 16
== END 2022-02-17 13:42 | disposition home or self-care (01) ==
PROVIDERS: Emergency Provider Emergency Medicine; PCP Internal Medicine; Visit Provider Emergency Medicine
DX: O99.612 Diseases of the digestive system complicating pregnancy, second trimester (principal); Z3A.23 23 weeks gestation of pregnancy; K02.9 Dental caries, unspecified; O99.412 Diseases of the circulatory system complicating pregnancy, second trimester; I73.00 Raynaud's syndrome without gangrene; O99.712 Diseases of the skin and subcutaneous tissue complicating pregnancy, second trimester; L42 Pityriasis rosea
CPT/HCPCS: 99282

== ENCOUNTER 2022-03-04 15:26 | Outpatient (CLI) | payer OTHER, SELFPAY | END 2022-03-04 23:59 | disposition home or self-care (01) | LOC: LABSPEC 15:27 | PROVIDERS: PCP Internal Medicine; Visit Provider Obstetrics & Gynecology | DX: O26.892 Other specified pregnancy related conditions, second trimester (principal); R10.2 Pelvic and perineal pain | CPT/HCPCS: 87077; 87086; 87088; 87186 ==

== ENCOUNTER 2022-03-13 07:31 | Outpatient (CLI) | payer OTHER, SELFPAY ==
[2022-03-13 09:15] LABS: Absolute Lymphocyte Count 1.88 X10^3/uL (0.83-4.51); Absolute Neutrophil Count 6.8 X10^3/uL (2.0-7.7); Basophil# 0.05 X10^3/uL; Basophil% 0.5 % (0-1); Eosinophil# 0.28 X10^3/uL; Eosinophils% 2.8 % (0-5); Hematocrit 28.9 % (37-47); Hemoglobin 9.3 g/dL (12.0-15.0); Lymphocyte # 1.88 X10^3/ul (0.83-4.51); Lymphocyte % 18.9 % (19-41); Mean Corp Hgb Conc 32.2 g/dL (32-36); Mean Corpuscular Hgb 28.8 pg (27.0-32.0); Mean Corpuscular Volume 89.5 fL (81-99); NRBC Flagged by Analyzer 0 % (0-5); Neutrophil # 6.84 X10^3/uL (2.7-7.7); Neutrophil % 68.7 % (47-70); Platelet Count 282 K/mm3 (150-450); RBC Distribution Width CV 13.2 % (11.6-14.6); RBC Distribution Width SD 43.7 fl (35.1-43.9); Red Blood Count 3.23 M/mm3 (4.2-5.4)
[2022-03-13 09:38] LABS: Glucose Challenge Gest 1H 50g 107 mg/dL (70-140)
== END 2022-03-13 23:59 | disposition home or self-care (01) ==
LOC: LAB 07:34
PROVIDERS: Nurse Practitioner Women's Health; PCP Internal Medicine; Referring Provider Obstetrics & Gynecology; Visit Provider Obstetrics & Gynecology
DX: Z34.90 Encounter for supervision of normal pregnancy, unspecified, unspecified trimester (principal); Z3A.17 17 weeks gestation of pregnancy
CPT/HCPCS: 36415; 82950; 85025

== ENCOUNTER → 2022-04-02 | Outpatient (CLI) | payer OTHER, SELFPAY | END | disposition home or self-care (01) | LOC: LABSPEC 16:44 | PROVIDERS: PCP Internal Medicine; Referring Provider Obstetrics & Gynecology; Visit Provider Obstetrics & Gynecology | DX: R30.0 Dysuria (principal) | CPT/HCPCS: 87086; 87088 ==

== ENCOUNTER → 2022-04-19 | Outpatient (CLI) | payer OTHER, SELFPAY ==
[2022-04-19 17:11] LABS: Absolute Lymphocyte Count 2.48 X10^3/uL (0.83-4.51); Absolute Neutrophil Count 7.5 X10^3/uL (2.0-7.7); Basophil# 0.05 X10^3/uL; Basophil% 0.4 % (0-1); Eosinophil# 0.22 X10^3/uL; Eosinophils% 1.9 % (0-5); Hematocrit 27.2 % (37-47); Hemoglobin 8.6 g/dL (12.0-15.0); Lymphocyte # 2.48 X10^3/ul (0.83-4.51); Lymphocyte % 21.9 % (19-41); Mean Corp Hgb Conc 31.6 g/dL (32-36); Mean Corpuscular Hgb 28.4 pg (27.0-32.0); Mean Corpuscular Volume 89.8 fL (81-99); Mean Platelet Vol. 10.6 fl (6.2-12.0); Monocyte# 0.95 X10^3/uL; Monocyte% 8.4 % (0-10); NRBC Flagged by Analyzer 0 % (0-5); Neutrophil # 7.53 X10^3/uL (2.7-7.7); Neutrophil % 66.5 % (47-70); Platelet Count 279 K/mm3 (150-450); RBC Distribution Width CV 13.2 % (11.6-14.6); Red Blood Count 3.03 M/mm3 (4.2-5.4); White Blood Count 11.3 K/mm3 (4.4-11.0)
[2022-04-19 17:57] LABS: Protein, Urine (Random) 51.9 mg/dL (<11.9); Protein:Creat Ratio 232 mg/g CRE (0-200)
[2022-04-19 18:02] LABS: Ferritin 5 ng/mL (8-252); Iron 21 ug/dL (50-170); Iron Binding Capacity,Total 467 ug/dL (250-450); PERCENT IRON SATURATION 4.5 % (15.0-55.0)
== END | disposition home or self-care (01) ==
LOC: LAB 15:43
PROVIDERS: PCP Internal Medicine; Referring Provider Obstetrics & Gynecology; Visit Provider Obstetrics & Gynecology
DX: O99.012 Anemia complicating pregnancy, second trimester (principal); O99.891 Other specified diseases and conditions complicating pregnancy; R80.9 Proteinuria, unspecified; N39.0 Urinary tract infection, site not specified
CPT/HCPCS: 36415; 82570; 82728; 83540; 83550; 84156; 85025; 87086; 87088

== ENCOUNTER → 2022-04-22 | Outpatient (CLI) | payer OTHER, SELFPAY ==
--- NOTE | 2022-04-22 17:31 | US_ITS ---
STUDY: SECOND AND THIRD TRIMESTER OBSTETRICAL ULTRASOUND - LIMITED REASON FOR EXAM: Female, 31 years old growth LMP: 09/06/2021. Established due date 06/13/2022. PRIOR ULTRASOUND: 01/17/2022. TECHNIQUE: Transabdominal scan. TECHNICAL QUALITY: Adequate. FINDINGS: Single fetus identified in the uterus cephalic presentation. heart rate demonstrated at 122 bpm. (Lower limit of normal is 120 bpm) Amniotic fluid index 9.68 cm, with largest pocket 5.1 x 3.2 cm. Placenta is anterior appears intact and is free of the os. Cervical length 3.2 cm. survey not assessed at this time. BIOMETRY: BPD: 8.41 cm: 33 weeks, 5 days HC: 30.61 cm: 34 weeks, 0 days AC: 26.97 cm: 31 weeks, 0 days FL: 5.98 cm: 31 weeks, 0 days Age by LMP: 32 weeks, 4 days. BARBIE by LMP: 06/13/2022. age by prior US: 32 weeks, 3 days. BARBIE by prior US: 06/14/2022. age by current US: 32 weeks, 4 days. BARBIE by current US: 06/13/2022. Estimated weight: 1799 grams, +/- 270 grams, 16.1 percentile. US/OB Limited With Biometrics IMPRESSION: Single live intrauterine estimated gestational age 32 weeks 4 days based on composite measurements. heart rate lower limit of normal. DANUTA 9.7. Electronically Signed: Dodie Sanchez MD at 7:37 EDT ,
== END | disposition home or self-care (01) ==
LOC: US 17:22
PROVIDERS: PCP Internal Medicine; Visit Provider Obstetrics & Gynecology
DX: O98.519 Other viral diseases complicating pregnancy, unspecified trimester (principal); O09.299 Supervision of pregnancy with other poor reproductive or obstetric history, unspecified trimester; U07.1 COVID-19
CPT/HCPCS: 76816

== ENCOUNTER → 2022-05-02 | Outpatient (CLI) | payer OTHER, SELFPAY ==
[2022-05-02 13:17] VITALS: BP 104/70; PULSE 73; RESP 16; TEMP 36.1; O2SAT 99; BMI 22.3
[2022-05-02] MEDS: 0.9% NaCl Peripheral Flush Adult/Peds IV ×2 (13:48→13:50)
[2022-05-02] MEDS: 0.9% NaCl IVPB Med Flush (250 mL) 15 ML IV (13:49)
[2022-05-02 15:38] VITALS: BP 101/54; PULSE 72; RESP 12; TEMP 36.4; O2SAT 100
== END | disposition home or self-care (01) ==
LOC: MEDOUTP 13:12
PROVIDERS: PCP Internal Medicine; Referring Provider Obstetrics & Gynecology; Visit Provider Obstetrics & Gynecology
DX: O99.019 Anemia complicating pregnancy, unspecified trimester (principal); Z3A.00 Weeks of gestation of pregnancy not specified
CPT/HCPCS: 96365; 96366; J1756; J7050; A4216

== ENCOUNTER 2022-05-08 11:10 | Outpatient (CLI) | payer OTHER, SELFPAY ==
[2022-05-08 11:25] VITALS: BP 107/70; PULSE 71
[2022-05-08 11:26] VITALS: BP 107/70; PULSE 60; TEMP 36.8; O2SAT 100
[2022-05-08 11:34] VITALS: BMI 22.2
[2022-05-08 12:26] LABS: Color, Urine Yellow (Yellow); Glucose, Dipstick Normal (Normal); Ketone-Dipstick 5 mg/dl (Negative); Leukocyte Esterase-Dipstick 500 /ul (Negative); Nitrite-Dipstick Negative (Negative); Occult Blood-Urine Negative /ul (Negative); Protein-Dipstick 30 mg/dl (Negative); Red Blood Cells-Urine 0 SEEN /hpf (0-5); Urine Bilirubin Dipstick Negative (Negative); Urine Clarity Sl. Cloudy (Clear); Urine Urobilinogen Normal (Normal)
[2022-05-08 12:33] LABS: Bacteria 2+ /hpf (None Seen); Mucous, Urine 1+ /hpf (<or=2+); Squamous Epithelial Cells - UA 10-25 SEEN /hpf (5-10); White Blood Cells 25-50 SEEN /hpf (0-5)
[2022-05-08] MEDS: Smz/Tmp Ds Tablet 1 TABLET PO (13:06)
--- NOTE | 2022-05-08 15:39 | OB.TRI.HP_ITS ---
HPI - General HPI Narrative MIRI FRANCO, is a 31 y/o @ 34 weeks presenting on 05/03/22 to ob triage with lower abdominal pain with movement and decreased movement. Maternal Data Information BARBIE Calculator Estimated Delivery Date Method Current WG Current Estimate 06/13/22 Ultrasound #2 35w 1d Other Estimates 06/19/22 Ultrasound #1 34w 2d PFSH PFSH Medical History Anemia Artificial insemination Pityriasis rosea Raynaud's disease SAB (spontaneous ) UTI (urinary tract infection) Home Medications epinephrine 0.3 mg/0.3 mL injection, auto-injector 0.3 mg IM Q10-15M PRN #2 ea 08/20/19 [Rx Last Taken Unknown] vitamin #56-iron 35 mg and 5 mg-folic acid 1 mg-dha capsule 1 cap PO DAILY 11/05/21 [History Last Taken Unknown] sertraline 50 mg tablet 50 mg PO QDAY #30 tab 11/05/21 [Rx Last Taken Unknown] nitrofurantoin monohyd/m-cryst [Macrobid] 100 mg PO BID #14 cap 05/08/22 [Rx Last Taken Unknown] Allergy/AdvReac Type Severity Reaction Status Date / Time venom-honey bee Allergy Anaphylaxis Verified 05/03/22 14:59 [bee venom (honey bee)] amoxicillin trihydrate AdvReac Nausea/Vom/ Verified 05/03/22 14:59 [From Augmentin] Diarrhea potassium clavulanate AdvReac Nausea/Vom/ Verified 05/03/22 14:59 [From Augmentin] Diarrhea Family History Mother Breast cancer Grandmother Diabetes Uncle Leukemia maternal Grandfather Melanoma maternal Breast cancer maternal AAA (abdominal aortic aneurysm) paternal Grandfather Hypertension Other Heart disease Surgical History History of mandibular surgery Social History adopted: No household members: family housing: house current occupational status: employed pets and animals: Yes history of recent travel: Yes sexually active: Yes Smoking Status: Never smoker second hand exposure: No alcohol intake: current Alcohol type: beer details: not while substance use type: does not use caffeine: Yes what type of physical activity do you participate in: running frequency: 5-6 times per week seatbelt use: always do you feel safe at home: Yes additional social history: Boyfriend- Rebel- In school- legal studies Patient works in [employer] at [employer] [facility] [employer] History 3 Elective abortions Hx Para 1 Spontaneous abortions 1 Hx # Term Pregnancies Ectopic pregnancies Hx # Pregnancies Multiple births # of living children 1 Past Pregnancies Del. Date Name GA/Weeks Outcome Route Bth Weight Gen Labor Lgth Anesthesia Del Locatn Provider FOB 11/06/20 Turner 39 live - full term 6lbs 4oz Male 8 ho urs epidural [facility] DERICK Rebel Delivery Date: 11/06/20 IoL IUGR; Perla Parks Visit Details Expected Delivery Route/Plan Labor Preferences- CB/BF classes: [] labor support person: [] labor intervention preferences: [] pain management options preferred: [] cut cord/dad catch: [] : [] PP control planned: [] discussed possible routes of delivery and associated risks: [] special requests: [] Plans Covid status: moderna, got her booster. Flu vaccine: given Tdap vaccine: [] Rhogam: [] LARC form signed: [] Problem list reviewed and updated with the most current plan of care details and appropriate orders placed. Relevant counseling for the gestational age provided. Continue routine care and follow up unless otherwise noted in visit notes/problem list details OB Flowsheet Initial Weight: 120 lb Date -?-?-?-?-?-?-?-?-?-?-?-?- EGA Weight BP Urine Prot -?-?-?-?-?-?-?-?-?-?-?-?- Glucose FHR FuHt Pres Dilation -?-?-?-?-?-?-?-?-?-?-?-?- Effaced St Visit Note 11/15/21 -?-?-?-?-?-?-?-?-?-?-?-?- 10w 0d 120 lb (+0 oz) 98/62 -?-?-?-?-?-?-?-?-?-?-?-?- 185 -?-?-?-?-?-?-?-?-?-?-?-?- SM- anxiety impr brigette after starting zoloft 12/12/21 -?-?-?-?-?-?-?-?-?-?-?-?- 13w 6d 121 lb 6 oz (+1 lb 6 oz) 98/70 Negative -?-?-?--?-?-?-?-?-?-?-?-?- Negative 160 -?-?-?-?-?-?-?-?-?-?-?-?- SM- no vb crampi ng some nausea 01/09/22 -?-?-?-?-?-?-?-?-?-?-?-?- 17w 6d 117 lb 2 oz (-2 lb 14 oz) 118/70 2+ -?-?-?-?-?-?-?-?-?-?-?-?- Negative 155 -?-?-?-?-?-?-?-?-?-?-?-?- -NO VB, LOF. F eeling some movement. Persistent headache X 2 days. Had not taken tylenol. No vision changes. Some nausea, no vomiting. Denies UTI sx. Consult with JV:pre E labs, force fluids. Try tylenol and call if headache p ersists 01/14/22 -?-?-?-?-?-?-?-?-?-?-?-?- 18w 4d 118 lb 8 oz (-1 lb 8 oz) 100/60 Negative -?-?-?-?-?-?-?-?-?-?-?-?- Negative 147 0 -?-?-?-?-?-?-?-?-?-?-?-?- -[place] spotting this am. None since. No recent coitus. Cervix closed, no blood in vagina. Active IUP on US. Anatomy US with MFM 01/1702/04/22 -?-?-?-?-?-?-?-?-?-?-?-?- 21w 4d 119 lb (-16 oz) 112/80 -?-?-?-?-?-?-?-?-?-?-?-?- 160 -?-?-?-?-?-?-?-?-?-?-?-?- SM- no vb crampi ng 03/04/22 -?-?-?-?-?-?-?-?-?-?-?-?- 25w 4d 125 lb 8 oz (+5 lb 8 oz) 111/68 Trace -?-?-?-?-?-?-?-?-?-?-?-?- Negative -?-?-?-?-?-?-?-?-?-?-?-?- 03/08/22 -?-?-?-?-?-?-?-?-?-?-?-?- 26w 1d 126 lb (+6 lb) 118/80 1+ -?-?-?-?-?-?-?-?-?-?-?-?- Negative 141 -?-?-?-?-?-?-?-?-?-?-?-?- JV- will try sen yolanda for headaches. no lof, vaginal bleeding, or cramping. 03/19/22 -?-?-?-?-?-?-?-?-?-?-?-?- 27w 5d 128 lb (+8 lb) 110/70 1+ -?-?-?-?-?-?-?-?-?-?-?-?- Negative 143 -?-?-?-?-?-?-?-?-?-?-?-?- JV- no complaint s today. GCT JV- no complaints today. GCT normal 04/02/22 -?-?-?-?-?-?-?-?-?-?-?-?- 29w 5d 126 lb 6 oz (+6 lb 6 oz) 100/62 2+ -?-?-?-?-?-?-?-?-?-?-?-?- Negative 140 28 -?-?-?-?-?-?-?-?-?-?-?-?- JV- pt complains of some spotting yesterday. She had ad UTI and has 2+ protein in urine. no blood in vagina. sending urine for culture. 04/19/22 -?-?-?-?-?-?-?-?-?-?-?-?- 32w 1d 133 lb (+13 lb) 112/80 -?-?-?-?-?-?-?-?--?-?-?-?- 145 28 -?-?-?-?-?-?-?-?-?-?-?-?- SM- no vb lof go od fm no reuglar ctx check labs today. growth US scheduled friday low fundal height 05/03/22 -?-?-?-?-?-?-?-?-?-?-?-?- 34w 1d 130 lb 8 oz (+10 lb 8 oz) 104/69 2+ -?-?-?-?-?-?-?-?-?-?-?-?- Negative 132 28 -?-?--?-?-?-?-?-?-?-?-?-?- JV- No lof, cagi nal bleeding or dec fm. 05/08/22 -?-?-?-?-?-?-?-?-?-?-?-?- 34w 6d 129 lb 10.109 oz (+9 lb 10.109 oz) 107/70 107/70 30 mg/dl (Negative) H -?-?-?-?-?-?-?-?-?-?-?-?- -?-?-?-?-?-?-?-?-?-?-?-?- ROS Constitutional Constitutional: Reports systems reviewed and no addt'l complaints, except as documented Gastrointestinal Gastrointestinal: Denies bloating, constipation, cramping, diarrhea, nausea or vomiting Genitourinary Genitourinary: Reports other Details: Denies vaginal odor, vaginal bleeding, or vaginal discharge ; Denies difficulty urinating or flank pain Physical Exam HEENT normocephalic Resp normal respiratory effort and normal air movement no CVA tenderness Extremity normal to inspection General Extremity: edema bilateral (trace ) NST FHR Rate Baby A Baseline: 120 Variability:: Moderate Accelerations:: 15 x 15 Decelerations:: None NST Reactive:: Yes FHR Category:: Category I Assessment & Plan (1) UTI (urinary tract infection): COMMENT: retest at next office visit (2) COVID-19 affecting , antepartum: COMMENT: asa 81 recommended, growth us @ 32 and 36 weeks, nl US at 32 wks (3) Anemia affecting : QUALIFIERS: Trimester: second trimester Qualified Code(s): O99.012 - Anemia complicating , second trimester COMMENT: oral iron. needed IV iron last (4) IUGR (intrauterine growth retardation) in prior , : COMMENT: plan growth us at 36 (5) Supervision of high risk , antepartum: COMMENT: PRR BARBIE: 06/13/22 girl PC: Turner BF: Rebel (6) : QUALIFIERS: Weeks of gestation: 34 weeks Qualified Code(s): Z3A.34 - 34 weeks gestation of COMMENT: genetics- low risk, carrier declined, anatomy US NL (7) Anxiety during : COMMENT: zoloft, encouraged counseling PLAN: possible UTI, no signs of labor at this time. starting macrobid keep next scheduled office visit. Charges/Coding Multi Select Codes Visit Charges Office Visit/Consults: 96802 OV L3 Est Urinary/Genital Urinary/Genital CPT Codes: 21018-14 non-stress test Interp
== END 2022-05-08 13:07 | disposition home or self-care (01) ==
LOC: WPOUT 11:15 → WP 11:16
PROVIDERS: PCP Internal Medicine; Referring Provider Obstetrics & Gynecology; Visit Provider Obstetrics & Gynecology
DX: O36.8130 Decreased fetal movements, third trimester, not applicable or unspecified (principal); O23.43 Unspecified infection of urinary tract in pregnancy, third trimester; O99.013 Anemia complicating pregnancy, third trimester; O36.5930 Maternal care for other known or suspected poor fetal growth, third trimester, not applicable or unspecified; O09.93 Supervision of high risk pregnancy, unspecified, third trimester; O99.343 Other mental disorders complicating pregnancy, third trimester; F41.9 Anxiety disorder, unspecified; Z3A.34 34 weeks gestation of pregnancy; Z86.16 Personal history of COVID-19
CPT/HCPCS: 59025; 59050; 81001; 87086; 87088

== ENCOUNTER → 2022-05-16 | Outpatient (CLI) | payer OTHER, SELFPAY | END | disposition home or self-care (01) | LOC: LABSPEC 16:17 | PROVIDERS: PCP Internal Medicine; Visit Provider Obstetrics & Gynecology | DX: Z34.90 Encounter for supervision of normal pregnancy, unspecified, unspecified trimester (principal); Z3A.36 36 weeks gestation of pregnancy | CPT/HCPCS: 87081 ==

== ENCOUNTER → 2022-05-20 | Outpatient (CLI) | payer OTHER, SELFPAY ==
--- NOTE | 2022-05-20 13:29 | US_ITS ---
STUDY: SECOND AND THIRD TRIMESTER OBSTETRICAL ULTRASOUND - LIMITED REASON FOR EXAM: Female, 31 years old. growth PRIOR ULTRASOUND: 04/02/2022. TECHNIQUE: Transabdominal TECHNICAL QUALITY: Adequate. FINDINGS: There is a single intrauterine fetus. The fetus is in a cephalic presentation. There is demonstrated cardiac activity with a heart rate of 129 bpm. There is a normal amniotic fluid volume. The largest amniotic fluid pocket measures 4.2 cm. The amniotic fluid index (DANUTA) is 10.8 cm. The placenta is anterior in location and is not low lying. There are Grade 1 placental changes. The cervix is obscured by overlying bowel gas and cannot be identified. . BIOMETRY: BPD: 90 mm: 36 weeks, 3 days HC: 322 mm: 36 weeks, 2 days AC: 313 mm: 35 weeks, 1 days FL: 68 mm: 34 weeks, 6 days CI: 83 FL/AC: 22 FL/BPD: 75 HC/AC: 1.03 age by current US: 35 weeks, 3 days. BARBIE by current US: 7.22.22. Estimated weight: 2697 grams, +/- 405 grams, 27 %. age by prior US: 36 weeks, 4 days. BARBIE by prior US: 7.14.22. Age by LMP: 36 weeks, 4 days. BARBIE by LMP: 7.14.22. . US/OB Limited With Biometrics IMPRESSION: There is a single live intrauterine with a heart rate of 129 bpm. age by current US: 35 weeks, 3 days. BARBIE by current US: 7.22.22. Estimated weight: 2697 grams, +/- 405 grams, 27 %. Electronically Signed: Jhonatan Rivera MD at 16:36 EDT ,
== END | disposition home or self-care (01) ==
LOC: US 13:28
PROVIDERS: PCP Internal Medicine; Referring Provider Obstetrics & Gynecology; Visit Provider Obstetrics & Gynecology
DX: O98.519 Other viral diseases complicating pregnancy, unspecified trimester (principal); U07.1 COVID-19; O09.299 Supervision of pregnancy with other poor reproductive or obstetric history, unspecified trimester
CPT/HCPCS: 76816

== ENCOUNTER 2022-05-21 13:35 | Outpatient (CLI) | payer OTHER, SELFPAY ==
[2022-05-21] VITALS (11 sets, daily range): BP systolic 116; BP diastolic 67; PULSE 81–89; TEMP 36.7; O2SAT 99–100; BMI 23.0
--- NOTE | 2022-05-21 21:24 | OB.TRI.HP_ITS ---
HPI - General HPI Narrative MIRI FRANCO, is a 31 @ 36 weeks 5 days who presents to labor and delivery requesting pelvic exam due to lower back pain. She denies contractions, loss of fluid, vaginal bleeding, or dec fm. Maternal Data Information BARBIE Calculator Estimated Delivery Date Method Current WG Current Estimate 06/13/22 Ultrasound #2 37w 2d Other Estimates 06/19/22 Ultrasound #1 36w 3d PFSH PFSH Medical History Anemia Artificial insemination Pityriasis rosea Raynaud's disease SAB (spontaneous ) UTI (urinary tract infection) Home Medications epinephrine 0.3 mg/0.3 mL injection, auto-injector (EpiPen 2-Jens) 0.3 mg (0.3 mL) IM Q10-15M PRN anaphylaxis #2 ea 08/20/19 [Rx Last Taken Unknown] vitamin #56-iron 35 mg and 5 mg-folic acid 1 mg-dha capsule 1 cap PO DAILY 11/05/21 [History Last Taken Unknown] sertraline 50 mg tablet (Zoloft) 50 mg PO QDAY #30 tabs 11/05/21 [Rx Last Taken Unknown] nitrofurantoin monohydrate/macrocrystals 100 mg capsule (Macrobid) 100 mg PO BID #14 caps 05/08/22 [Rx Last Taken Unknown] Allergy/AdvReac Type Severity Reaction Status Date / Time venom-honey bee Allergy Anaphylaxis Verified 05/24/22 14:57 [bee venom (honey bee)] amoxicillin trihydrate AdvReac Nausea/Vom/ Verified 05/24/22 14:57 [From Augmentin] Diarrhea potassium clavulanate AdvReac Nausea/Vom/ Verified 05/24/22 14:57 [From Augmentin] Diarrhea Family History Mother Breast cancer Grandmother Diabetes Uncle Leukemia maternal Grandfather Melanoma maternal Breast cancer maternal AAA (abdominal aortic aneurysm) paternal Grandfather Hypertension Other Heart disease Surgical History History of mandibular surgery Social History adopted: No household members: family housing: house current occupational status: employed pets and animals: Yes history of recent travel: Yes sexually active: Yes Smoking Status: Never smoker second hand exposure: No alcohol intake: current Alcohol type: beer details: not while substance use type: does not use caffeine: Yes what type of physical activity do you participate in: running frequency: 5-6 times per week seatbelt use: always do you feel safe at home: Yes additional social history: Boyfriend- Rebel- In school- legal studies Patient works in [employer] at [facility] [employer] [employer] History 3 Elective abortions Hx Para 1 Spontaneous abortions 1 Hx # Term Pregnancies Ectopic pregnancies Hx # Pregnancies Multiple births # of living children 1 Past Pregnancies Del. Date Name GA/Weeks Outcome Route Bth Weight Gen Labor Lgth Anesthesia Del Locatn Provider FOB 11/06/20 Turner 39 live - full term 6lbs 4oz Male 8 ho urs epidural [facility] DERICK Rebel Delivery Date: 11/06/20 Last Updated by: Perla Parks IoL IUGR; Visit Details Expected Delivery Route/Plan Labor Preferences- labor support person: rebel labor intervention preferences: pain management options preferred: open to epidural cut cord/dad catch: yes : [] PP control planned: [] discussed possible routes of delivery and associated risks: [] special requests: [] Plans Covid status: moderna, got her booster. Flu vaccine: given Tdap vaccine: gvien Rhogam:na LARC form signed: fdeclined movement and labor precautions reviewed. Problem list reviewed and updated with the most current plan of care details and appropriate orders placed. Relevant counseling for the gestational age provided. Continue routine care and follow up unless otherwise noted in visit notes/problem list details OB Flowsheet Initial Weight: 120 lb Date -?-?-?-?-?-?-?-?-?-?-?-?- EGA Weight BP Urine Prot -?-?-?-?-?-?-?-?-?-?-?-?- Glucose FHR FuHt Pres Dilation -?-?-?-?-?-?-?-?-?-?-?-?- Effaced St Visit Note 11/15/21 -?-?-?-?-?-?-?-?-?-?-?-?- 10w 0d 120 lb (+0 oz) 98/62 -?-?-?-?-?-?-?-?-?-?-?-?- 185 -?-?-?-?-?-?-?-?-?-?-?-?- SM- anxiety impr brigette after starting zoloft 12/12/21 -?-?-?-?-?-?-?-?-?-?-?-?- 13w 6d 121 lb 6 oz (+1 lb 6 oz) 98/70 Negative -?-?-?-?-?-?-?-?-?-?-?-?- Negative 160 -?-?-?-?-?-?-?-?-?-?-?-?- SM- no vb crampi ng some nausea 01/09/22 -?-?-?-?-?-?-?-?-?-?-?-?- 17w 6d 117 lb 2 oz (-2 lb 14 oz) 118/70 2+ -?-?-?-?-?-?-?-?-?-?-?-?- Negative 155 -?-?-?-?-?-?-?-?-?-?-?-?- -NO VB, LOF. F eeling some movement. Persistent headache X 2 days. Had not taken tylenol. No vision changes. Some nausea, no vomiting. Denies UTI sx. Consult with JV:pre E labs, force fluids. Try tylenol and call if headache persists 01/14/22 -?-?-?-?-?-?-?-?-?-?-?-?- 18w 4d 118 lb 8 oz (-1 lb 8 oz) 100/60 Negative -?-?-?-?-?-?-?-?-?-?-?-?- Negative 147 0 -?-?-?-?-?-?-?-?-?-?-?-?- -[place] spotting this am. None since. No recent coitus. Cervix closed, no blood in vagina. Active IUP on US. Anatomy US with MFM 01/1702/04/22 -?-?-?-?-?-?-?-?-?-?-?-?- 21w 4d 119 lb (-16 oz) 112/80 -?-?-?-?-?-?-?-?-?-?-?-?- 160 -?-?-?-?-?-?-?-?-?-?-?-?- SM- no vb crampi ng 03/04/22 -?-?-?-?-?-?-?-?-?-?-?-?- 25w 4d 125 lb 8 oz (+5 lb 8 oz) 111/68 Trace -?-?-?-?-?-?-?-?-?-?-?-?- Negative -?-?-?-?-?-?-?-?-?-?-?-?- 03/08/22 -?-?-?-?-?-?-?-?-?-?-?-?- 26w 1d 126 lb (+6 lb) 118/80 1+ -?-?-?-?-?-?-?-?-?--?-?-?- Negative 141 -?-?-?-?-?-?-?-?-?-?-?-?- JV- will try sen olmedogan for headaches. no lof, vaginal bleeding, or cramping. 03/19/22 -?-?-?-?-?--?-?-?-?-?-?-?- 27w 5d 128 lb (+8 lb) 110/70 1+ -?-?-?-?-?-?-?-?-?-?-?-?- Negative 143 -?-?-?-?-?-?-?-?-?-?-?-?- JV- no complaint s today. GCT JV- no complaints today. GCT normal 04/02/22 -?-?-?-?-?-?-?-?-?-?-?-?- 29w 5d 126 lb 6 oz (+6 lb 6 oz) 100/62 2+ -?-?-?-?-?-?-?-?-?-?-?-?- Negative 140 28 -?-?-?-?-?-?-?-?-?-?-?-?- JV- pt complains of some spotting yesterday. She had ad UTI and has 2+ protein in urine. no blood in vagina. sending urine for culture. 04/19/22 -?-?-?-?-?-?-?-?-?-?-?-?- 32w 1d 133 lb (+13 lb) 112/80 -?-?-?-?-?-?-?-?-?-?-?-?- 145 28 -?-?-?-?-?-?-?-?-?-?-?-?- SM- no vb lof go od fm no reuglar ctx check labs today. growth US scheduled friday low fundal height 05/03/22 -?-?-?-?-?-?-?-?-?-?-?-?- 34w 1d 130 lb 8 oz (+10 lb 8 oz) 104/69 2+ -?-?-?-?-?-?-?-?-?-?-?-?- Negative 132 28 -?-?-?-?-?-?-?-?-?-?-?-?- JV- No lof, cagi nal bleeding or dec fm. 05/08/22 -?-?-?-?-?-?-?-?-?-?-?-?- 34w 6d 129 lb 10.109 oz (+9 lb 10.109 oz) 107/70 107/70 30 mg/dl (Negative) H -?-?-?-?-?-?-?-?-?-?-?-?- -?-?-?-?-?-?-?-?-?-?-?-?- 05/16/22 -?-?-?-?-?-?-?-?-?-?-?-?- 36w 0d 122 lb (+2 lb) 112/72 -?-?-?-?-?-?-?-?-?-?-?-?- 130 36 33 Cephalic 1.5 -?-?-?-?-?-?-?-?-?-?-?-?- 50 -2 SM- no vb lof good fm n oregular ctx gbs done SM- no vb lof good fm n oreg ular ctx gbs done. growth US scheduled 05/21/22 -?-?-?-?-?-?-?-?-?-?-?-?- 36w 5d 134 lb (+14 lb) 116/67 -?-?-?-?-?-?-?-?-?-?-?-?- -?-?-?-?-?-?-?-?-?-?-?-?- 05/24/22 -?-?-?-?-?-?-?-?-?-?-?-?- 37w 1d 134 lb 8 oz (+14 lb 8 oz) 110/74 1+ -?-?-?-?-?-?-?-?-?-?-?-?- Negative 130 34 Cephalic 2 .5 -?-?-?-?-?-?-?-?-?-?-?-?- 60 -1 SM- no vb lof good fm no regular ctx ROS Constitutional Constitutional: Reports systems reviewed and no addt'l complaints, except as documented Gastrointestinal Gastrointestinal: Denies bloating, constipation, cramping, diarrhea, nausea or vomiting Genitourinary Genitourinary: Reports other Details: Denies vaginal odor, vaginal bleeding, or vaginal discharge ; Denies difficulty urinating or flank pain Physical Exam HEENT normocephalic Resp normal respiratory effort and normal air movement no CVA tenderness Extremity normal to inspection General Extremity: edema bilateral (trace ) NST FHR Rate Baby A Baseline: 140 Variability:: Moderate Accelerations:: 15 x 15 Decelerations:: None NST Reactive:: Yes FHR Category:: Category I Assessment & Plan (1) False labor: COMMENT: s/p triage visit on 05/21/22 PLAN: Plan false labor - labor precautions discussed. dc to home with remedies for back pain including tylenol, rest, hydration, warm bath. Charges/Coding Multi Select Codes Visit Charges Office Visit/Consults: 31542 OV L3 Est Urinary/Genital Urinary/Genital CPT Codes: 63281-86 non-stress test Interp
== END 2022-05-21 14:40 | disposition home or self-care (01) ==
LOC: WPOUT 13:45 → WP 13:46
PROVIDERS: PCP Internal Medicine; Referring Provider Obstetrics & Gynecology; Visit Provider Obstetrics & Gynecology
DX: O47.03 False labor before 37 completed weeks of gestation, third trimester (principal); Z3A.36 36 weeks gestation of pregnancy; Z79.899 Other long term (current) drug therapy
CPT/HCPCS: 59025; 59050; 99218; G0378

== ENCOUNTER 2022-05-26 12:30 | Inpatient (IN) | payer OTHER, SELFPAY ==
[2022-05-26] VITALS (30 sets, daily range): BP systolic 85–117; BP diastolic 51–74; PULSE 53–102; RESP 16; TEMP 36.8; O2SAT 99–100; BMI 22.3
[2022-05-26] MEDS: Lactated Ringers 1,000 ML 50 ML IV (12:45)
[2022-05-26 12:58] LABS: Absolute Lymphocyte Count 2.41 X10^3/uL (0.83-4.51); Absolute Neutrophil Count 11.9 X10^3/uL (2.0-7.7); Basophil# 0.03 X10^3/uL; Basophil% 0.2 % (0-1); Eosinophil# 0.15 X10^3/uL; Hematocrit 31.9 % (37-47); Hemoglobin 10.1 g/dL (12.0-15.0); Lymphocyte # 2.41 X10^3/ul (0.83-4.51); Lymphocyte % 15.6 % (19-41); Mean Corp Hgb Conc 31.7 g/dL (32-36); Mean Corpuscular Hgb 27.7 pg (27.0-32.0); Mean Corpuscular Volume 87.4 fL (81-99); Mean Platelet Vol. 10.6 fl (6.2-12.0); Monocyte# 0.85 X10^3/uL; Monocyte% 5.5 % (0-10); NRBC Flagged by Analyzer 0 % (0-5); Neutrophil # 11.93 X10^3/uL (2.7-7.7); Neutrophil % 77.1 % (47-70); Platelet Count 241 K/mm3 (150-450); RBC Distribution Width CV 14.5 % (11.6-14.6); RBC Distribution Width SD 45.7 fl (35.1-43.9); Red Blood Count 3.65 M/mm3 (4.2-5.4); White Blood Count 15.5 K/mm3 (4.4-11.0)
[2022-05-26] MEDS: LACTATED RINGERS 500 ML 999 ML IV ×2 (12:58→14:05)
[2022-05-26] MEDS: fentaNYL-bupivacaine (epidural) 100 ML BAG EPIDURAL (13:38)
[2022-05-26] MEDS: Oxytocin 30 units/NS 500 ml 30 UNITS/500 ML IV.SOLN 334 UNITS IV (14:38)
--- NOTE | 2022-05-26 14:44 | HP.PCM.OB_ITS ---
HPI - General General Date of Admission: 05/26/22 HPI Narrative MIRI FRANCO, is a 31 @ 37 weeks 3 days who presents to L&D in active labor. Maternal Data Information BARBIE Calculator Estimated Delivery Date Method Current WG Current Estimate 06/13/22 Ultrasound #2 37w 3d Other Estimates 06/19/22 Ultrasound #1 36w 4d PFSH PFSH Medical History Anemia Artificial insemination Pityriasis rosea Raynaud's disease SAB (spontaneous ) UTI (urinary tract infection) Home Medications epinephrine 0.3 mg/0.3 mL injection, auto-injector (EpiPen 2-Jens) 0.3 mg (0.3 mL) IM Q10-15M PRN anaphylaxis #2 ea 08/20/19 [Rx Last Taken Unknown] vitamin #56-iron 35 mg and 5 mg-folic acid 1 mg-dha capsule 1 cap PO DAILY 11/05/21 [History Last Taken 05/24/22] sertraline 50 mg tablet (Zoloft) 50 mg PO QDAY #30 tabs 11/05/21 [Rx Last Taken Unknown] ferrous sulfate 325 mg (65 mg iron) tablet (iron) 325 mg PO DAILY 05/26/22 [History Last Taken 05/24/22] Allergy/AdvReac Type Severity Reaction Status Date / Time bacitracin Allergy Rash Verified 05/26/22 12:21 [From Neosporin ([id number])] neomycin Allergy Rash Verified 05/26/22 12:21 [From Neosporin (zhi-iht-aakdg)] polymyxin B Allergy Rash Verified 05/26/22 12:21 [From Neosporin (hsk-aph-xfejv)] venom-honey bee Allergy Anaphylaxis Verified 05/26/22 12:21 [bee venom (honey bee)] amoxicillin trihydrate AdvReac Nausea/Vom/ Verified 05/26/22 12:21 [From Augmentin] Diarrhea potassium clavulanate AdvReac Nausea/Vom/ Verified 05/26/22 12:21 [From Augmentin] Diarrhea Family History Mother Breast cancer Grandmother Diabetes Uncle Leukemia maternal Grandfather Melanoma maternal Breast cancer maternal AAA (abdominal aortic aneurysm) paternal Grandfather Hypertension Other Heart disease Surgical History History of mandibular surgery Social History adopted: No household members: family housing: house current occupational status: employed pets and animals: Yes history of recent travel: Yes sexually active: Yes Smoking Status: Former smoker second hand exposure: No alcohol intake: current Alcohol type: beer details: not while substance use type: does not use caffeine: Yes what type of physical activity do you participate in: running frequency: 5-6 times per week seatbelt use: always do you feel safe at home: Yes additional social history: Boyfriend- Rebel- In school- legal studies Patient works in [employer] at [employer] History 3 Elective abortions Hx Para 1 Spontaneous abortions 1 Hx # Term Pregnancies Ectopic pregnancies Hx # Pregnancies Multiple births # of living children 1 Past Pregnancies Del. Date Name GA/Weeks Outcome Route Bth Weight Infant Gen Labor Lgth Anesthesia Del Locatn Provider FOB 11/06/20 Turner 39 live - full term 6lbs 4oz Male 8 ho urs epidural [facility] DERICK Rebel Delivery Date: 11/06/20 Last Updated by: Perla Parks IoL IUGR; Visit Details Expected Delivery Route/Plan Labor Preferences- labor support person: rebel labor intervention preferences: pain management options preferred: open to epidural cut cord/dad catch: yes : [] PP control planned: [] discussed possible routes of delivery and associated risks: [] special requests: [] Plans Covid status: moderna, got her booster. Flu vaccine: given Tdap vaccine: gvien Rhogam:na LARC form signed: fdeclined movement and labor precautions reviewed. Problem list reviewed and updated with the most current plan of care details and appropriate orders placed. Relevant counseling for the gestational age provided. Continue routine care and follow up unless otherwise noted in visit notes/problem list details OB Flowsheet Initial Weight: 120 lb Date -?-?-?-?-?-?-?-?-?-?-?-?- EGA Weight BP Urine Prot -?-?-?-?-?-?-?-?-?-?-?-?- Glucose FHR FuHt Pres Dilation -?-?-?-?-?-?-?-?-?-?-?-?- Effaced St Visit Note 11/15/21 -?-?-?-?-?-?-?-?-?-?-?-?- 10w 0d 120 lb (+0 oz) 98/62 -?-?-?-?-?-?-?-?-?-?-?-?- 185 -?-?-?-?-?-?-?-?-?-?-?-?- SM- anxiety impr brigette after starting zoloft 12/12/21 -?-?-?-?-?-?-?-?-?-?-?-?- 13w 6d 121 lb 6 oz (+1 lb 6 oz) 98/70 Negative -?-?-?-?-?-?-?-?-?-?-?-?- Negative 160 -?-?-?-?-?-?-?-?-?-?-?-?- SM- no vb crampi ng some nausea 01/09/22 -?-?-?-?-?-?-?-?-?-?-?-?- 17w 6d 117 lb 2 oz (-2 lb 14 oz) 118/70 2+ -?-?-?-?-?-?-?-?-?-?-?-?- Negative 155 -?-?-?-?-?-?-?-?-?-?-?-?- -NO VB, LOF. F eeling some movement. Persistent headache X 2 days. Had not taken tylenol. No vision changes. Some nausea, no vomiting. Denies UTI sx. Consult with JV:pre E labs, force fluids. Try tylenol and call if headache persists 01/14/22 -?-?-?-?-?-?-?-?-?-?-?-?- 18w 4d 118 lb 8 oz (-1 lb 8 oz) 100/60 Negative -?-?-?-?-?-?-?-?-?-?-?-?- Negative 147 0 -?-?-?-?-?-?-?-?-?-?-?-?- -Evaro spotting this am. None since. No recent coitus. Cervix closed, no blood in vagina. Active IUP on US. Anatomy US with MFM 01/1702/04/22 -?-?-?-?-?-?-?-?-?-?-?-?- 21w 4d 119 lb (-16 oz) 112/80 -?-?-?-?-?-?-?-?-?-?-?-?- 160 -?-?-?-?-?-?-?-?-?-?-?-?- SM- no vb crampi ng 03/04/22 -?-?-?-?-?-?-?-?-?-?-?-?- 25w 4d 125 lb 8 oz (+5 lb 8 oz) 111/68 Trace -?-?-?-?-?-?-?-?-?-?-?-?- Negative -?-?-?-?-?-?-?-?-?-?-?-?- 03/08/22 -?-?-?-?-?-?-?-?-?-?-?-?- 26w 1d 126 lb (+6 lb) 118/80 1+ -?-?-?-?-?-?-?-?-?-?-?-?- Negative 141 -?-?-?-?-?-?-?-?-?-?-?-?- JV- will try phe sharagan for headaches. no lof, vaginal bleeding, or cramping. 03/19/22 -?-?-?-?-?-?-?-?-?-?-?-?- 27w 5d 128 lb (+8 lb) 110/70 1+ -?-?-?-?-?-?-?-?-?-?-?-?- Negative 143 -?-?-?-?-?-?-?-?-?-?-?-?- JV- no complaint s today. GCT JV- no complaints today. GCT normal 04/02/22 -?-?-?-?-?-?-?-?-?-?-?-?- 29w 5d 126 lb 6 oz (+6 lb 6 oz) 100/62 2+ -?-?-?-?-?-?-?-?-?-?-?-?- Negative 140 28 -?-?-?-?-?-?-?-?-?-?-?-?- JV- pt complains of some spotting yesterday. She had ad UTI and has 2+ protein in urine. no blood in vagina. sending urine for culture. 04/19/22 -?-?-?-?-?-?-?-?-?-?-?-?- 32w 1d 133 lb (+13 lb) 112/80 -?-?-?-?-?-?-?-?-?-?-?-?- 145 28 -?-?-?-?-?-?-?-?-?-?-?-?- SM- no vb lof go od fm no reuglar ctx check labs today. growth US scheduled friday low fundal height 05/03/22 -?-?-?-?-?-?-?-?-?-?-?-?- 34w 1d 130 lb 8 oz (+10 lb 8 oz) 104/69 2+ -?-?-?-?-?-?-?-?-?-?-?-?- Negative 132 28 -?-?-?-?-?-?-?-?-?-?-?-?- JV- No lof, cagi nal bleeding or dec fm. 05/08/22 -?-?-?-?-?-?-?-?-?-?-?-?- 34w 6d 129 lb 10.109 oz (+9 lb 10.109 oz) 107/70 107/70 30 mg/dl (Negative) H -?-?-?-?-?-?-?-?-?-?-?-?- -?-?-?-?-?-?-?-?-?-?-?-?- 05/16/22 -?-?-?-?--?-?-?-?-?-?-?-?- 36w 0d 122 lb (+2 lb) 112/72 -?-?-?-?-?-?-?-?-?-?-?-?- 130 36 33 Cephalic 1.5 -?-?-?-?-?-?-?-?-?-?-?-?- 50 -2 SM- no vb lof good fm n oregular ctx gbs done SM- no vb lof good fm n oreg ular ctx gbs done. growth US scheduled 05/24/22 -?-?-?-?-?-?-?-?-?-?-?-?- 37w 1d 134 lb 8 oz (+14 lb 8 oz) 110/74 1+ -?-?-?-?-?-?-?-?-?-?-?-?- Negative 130 34 Cephalic 2 .5 -?-?-?-?-?-?-?-?-?-?-?-?- 60 -1 SM- no vb lof good fm no regular ctx ROS Constitutional Constitutional: Denies change in weight, fatigue, fever(s), headache(s), poor appetite or weakness Eyes Eyes: Denies blurry vision, change in vision, seeing flashes or spots in vision ENT HEENT: Denies dizziness, headache(s), loss taste/smell or sore throat Cardiovascular Cardiovascular: Denies chest pain, dizziness, dyspnea, irregular heart rhythm, leg edema, palpitations, rapid heart rate or vomiting Respiratory/Chest Respiratory/Chest: Denies chest tightness, cough, dyspnea or breast pain Gastrointestinal Gastrointestinal: Denies abdominal pain, anorexia, constipation, cramping, diarrhea, hemorrhoids, vomiting or weight changes Genitourinary Genitourinary: Denies dysuria, flank pain, genital lesions, genital pain, urinary frequency or urinary urgency Musculoskeletal Musculoskeletal: Denies back pain, difficulty walking, joint pain, limited range of motion, muscle cramps or numbness Integumentary Integumentary: Denies lesions or unusual bruising Neurologic Neurologic: Denies abnormal movements, abnormal speech, dizziness, numbness, seizure-like activity or syncope Psychiatric Psychiatric: Denies anxiety, behavioral changes, change in appetite, change in libido, cognitive impairment, confusion, depression, difficulty concentrating, hallucinations or suicidal thoughts Endocrine Endocrinology: Denies excessive sweating, polydipsia or polyuria Hematologic/Lymphatic Hematologic/Lymphatic: Denies easy bleeding, easy bruising or lymphadenopathy Allergic/Immunologic Allergic/Immunologic: Denies itchy eyes, lip swelling, seasonal rhinorrhea, rhinitis, throat swelling, tongue swelling, eczemia, wheezing or asthma Vital Signs Vital Signs Vital Signs: 05/26/22 12:20 05/26/22 12:20 05/26/22 12:24 Temperature Temperature Source Temporal Pulse Rate 62 Blood Pressure 117/73 BP Systolic 117 BP Diastolic 73 Pulse Ox 05/26/22 12:24 05/26/22 13:23 05/26/22 13:23 Temperature 98.2 F Temperature Source Pulse Rate 95 Blood Pressure BP Systolic BP Diastolic Pulse Ox 100 05/26/22 13:28 05/26/22 13:28 05/26/22 13:28 Temperature Temperature Source Pulse Rate 91 Blood Pressure 107/67 BP Systolic 107 BP Diastolic 67 Pulse Ox 100 05/26/22 13:33 05/26/22 13:33 05/26/22 13:33 Temperature Temperature Source Pulse Rate 74 Blood Pressure 111/70 BP Systolic 111 BP Diastolic 70 Pulse Ox 99 05/26/22 13:39 05/26/22 13:39 05/26/22 13:38 Temperature Temperature Source Pulse Rate 95 Blood Pressure 93/51 L BP Systolic 93 BP Diastolic 51 Pulse Ox 100 05/26/22 13:42 05/26/22 13:42 05/26/22 13:43 Temperature Temperature Source Pulse Rate 94 102 H Blood Pressure 97/52 L BP Systolic 97 BP Diastolic 52 Pulse Ox 05/26/22 13:43 05/26/22 13:48 05/26/22 13:48 Temperature Temperature Source Pulse Rate 91 Blood Pressure 106/57 L BP Systolic 106 BP Diastolic 57 Pulse Ox 100 05/26/22 13:48 05/26/22 13:52 05/26/22 13:52 Temperature Temperature Source Pulse Rate 85 Blood Pressure 101/56 L BP Systolic 101 BP Diastolic 56 Pulse Ox 100 05/26/22 13:53 05/26/22 13:53 05/26/22 13:57 Temperature Temperature Source Pulse Rate 81 Blood Pressure 101/55 L BP Systolic 101 BP Diastolic 55 Pulse Ox 100 05/26/22 13:57 05/26/22 13:58 05/26/22 13:58 Temperature Temperature Source Pulse Rate 85 82 Blood Pressure BP Systolic BP Diastolic Pulse Ox 100 05/26/22 14:02 05/26/22 14:02 05/26/22 14:03 Temperature Temperature Source Pulse Rate 89 79 Blood Pressure 85/56 L BP Systolic 85 BP Diastolic 56 Pulse Ox 05/26/22 14:03 05/26/22 14:08 05/26/22 14:08 Temperature Temperature Source Pulse Rate 76 Blood Pressure 100/57 L BP Systolic 100 BP Diastolic 57 Pulse Ox 100 05/26/22 14:12 05/26/22 14:12 05/26/22 14:17 Temperature Temperature Source Pulse Rate 72 Blood Pressure 97/57 L 98/58 L BP Systolic 97 98 BP Diastolic 57 58 Pulse Ox 05/26/22 14:17 05/26/22 14:42 05/26/22 14:42 Temperature Temperature Source Pulse Rate 80 90 Blood Pressure 106/55 L BP Systolic 106 BP Diastolic 55 Pulse Ox Weight Weight: 130 lb Body Mass Index (BMI) 22.3 Physical Exam Const alert, oriented x3, no apparent distress and healthy appearing General Appearance: cooperative; Negative for anxious HEENT normocephalic Face and Sinus: normal facial exam Eyes EOMs intact bilaterally and no scleral icterus General Eye: normal appearance of both eyes Neck full ROM and supple Lymph Lymphatic: no lymphadenopathy noted Chest Chest: abnormal inspection of the chest Resp normal respiratory effort Effort and Inspection: able to speak in complete sentences Cardio regular rate GI soft to palpation and non-tender Inspection: gravid Palpation: soft; Negative for tender external exam normal Amniotic Fluid: ROM+plus Back/Spine no CVA tenderness Extremity normal to inspection, full ROM and no clubbing, cyanosis or edema General Extremity: Negative for calf tenderness or edema Skin Lesions: no lesions Rashes: no rashes Psych mental status grossly normal Labs Labs Labs: Blood Type AB POSITIVE Antibody Screen NEGATIVE Hct 31.9 % (37-47) L Hgb 10.1 g/dL (12.0-15.0) L Obstetrics US Syphilis Total Ab Non-reactive Rubella IgG Antibody Reactive (Nonreactive) Hep Bs Antigen Non-Reactive (Nonreactive) Chlamydia DNA (ALEXANDRO) Negative (Negative) Neisseria gonorrhoeae DNA (ALEXANDRO) Negative (Negative) HIV 1&2 Antibody Non-Reactive (Nonreactive) Glucose 1 Hr 50 gm 107 mg/dL (70-140) Rhogam given: No Assessment & Plan (1) COVID-19 affecting , antepartum: COMMENT: asa 81 recommended, growth us @ 32 and 36 weeks, nl US at 32 wks, nl US at 36 wks (2) Anemia affecting : QUALIFIERS: Trimester: second trimester Qualified Code(s): O99.0 12 - Anemia complicating , second trimester COMMENT: IV iron (3) IUGR (intrauterine growth retardation) in prior , : COMMENT: plan growth us at 36 (4) Supervision of high risk , antepartum: COMMENT: PRR BARBIE: 06/13/22 girl PC: Turner BF: Rebel (5) : QUALIFIERS: Weeks of gestation: 37 weeks Qualified Code(s): Z3A.37 - 37 weeks gestation of COMMENT: genetics- low risk, carrier declined, anatomy US NL, GBS Negative (6) Anxiety during : COMMENT: zoloft, encouraged counseling PLAN: Plan Patient presents IAL, plan expectant management for , pitocin/AROM PRN if needed. Pain management: plans epidural. GBS negative. Management of any complications: none I have reviewed the PFSH and made any clinically relevant updates.
--- NOTE | 2022-05-26 14:50 | OP.PCM_ITS ---
Assessment & Plan (1) COVID-19 affecting , antepartum: COMMENT: asa 81 recommended, growth us @ 32 and 36 weeks, nl US at 32 wks, nl US at 36 wks (2) Anemia affecting : QUALIFIERS: Trimester: second trimester Qualified Code(s): O99.012 - Anemia complicating , second trimester COMMENT: IV iron (3) IUGR (intrauterine growth retardation) in prior , : COMMENT: plan growth us at 36 (4) Supervision of high risk , antepartum: COMMENT: PRR BARBIE: 06/13/22 girl PC: Turner BF: Rebel (5) : QUALIFIERS: Weeks of gestation: 37 weeks Qualified Code(s): Z3A.37 - 37 weeks gestation of COMMENT: genetics- low risk, carrier declined, anatomy US NL, GBS Negative (6) Anxiety during : COMMENT: ravi, stone counseling Maternal Data Information BARBIE Calculator Estimated Delivery Date Method Current WG Current Estimate 06/13/22 Ultrasound #2 37w 3d Other Estimates 06/19/22 Ultrasound #1 36w 4d Final BARBIE: 06/13/22 Final BARBIE Source: US <20 weeks Vaginal Delivery Maternal Presentation Maternal Presentation: Active Labor Operative Information Date of Procedure: 05/26/22 Pre-Operative Diagnosis: 37 weeks 3 days, active labor, , IUGR Post-Operative Diagnosis: 37 weeks 3 days, active labor, , IUGR Surgery / Procedure Performed: Spontaneous Vaginal Delivery Type of Anesthesia: Epidural Estimated Blood Loss: 50cc Findings Description of Procedure: Patient began pushing and delivered the head in the UNA presentation. The head was delivered atraumatically and a loose nuchal cord ?1 was identified and easily reduced over the 's head. The anterior and posterior shoulders delivered without complication followed by the rest of the and the infant was placed on the maternal abdomen. Delayed cord clamping was employed for approximately 60 seconds. Cord was clamped and cut and gentle traction was applied to the cord and the placenta delivered spontaneously immediately following it was noted to be intact with three-vessel cord. The perineum and vagina were inspected and noted to have no laceration. EBL was 50cc. Patient and infant tolerated delivery well. Presentation: Vertex Amniotic Membrane Rupture Type: Artificial Amniotic Fluid Description: Clear Placental Delivery Description: Spontaneous Placenta Disposition: [facility] Cord Vessel Description: 3 Vessels Cord Entanglement: Around neck x 1, loose Nuchal Cord Compression: Without compression Infant A Gender: Female (1 minute): 8 (5 minute): 9 Delayed Cord Clamping: Yes Post Vaginal Delivery Medications Given After Delivery: IV Pitocin Episiotomy Description: None Laceration: None Complication Complications: None Multi Select Codes Urinary/Genital Urinary/Genital CPT Codes: 61702 Vaginal Delivery [facility]
--- NOTE | 2022-05-26 14:53 | DCINST_ITS ---
Discharge Instructions Diet Discharge Diet: No restrictions Activity Discharge Activity: Return to Normal Activity, May Not Drive (while taking narcotic pain medications.) and May Shower May resume sexual activity in: 4-6 weeks Dressing / Incision Call your doctor if your incision/area has: Continuous Slow Oozing, Sudden Increased Bleeding, Increased Pain/ Swelling, Increased Redness and Foul Smelling Discharge Follow Up Care Please Follow Up With: Verona Richards, When: Call [phone] to make an appointment with your doctor in 6 weeks. If you had elevated blood pressure or 4th degree laceration, you will need to be seen in 2 weeks. Test Results: Test results from this visit will be discussed in further detail at your follow- up appointment, if applicable. Discharge Plan Admission Admit Date/Time: 05/26/22 12:30 Primary Reason for Your Visit: vaginal delivery Attending Provider: Verona Richards Primary Care Provider: Jose Mancera Discharge Orders/Prescriptions Prescriptions: Continued PNV #[id number] acid-dha 35 mg iron-5 mg iron-1 mg capsule 1 cap PO DAILY sertraline [Zoloft] 50 mg tablet 50 mg PO QDAY Qty: 30 12RF ferrous sulfate [iron] 325 mg (65 mg iron) Tablet 325 mg PO DAILY epinephrine [EpiPen 2-Jens] 0.3 mg/0.3 mL auto-injector 0.3 mg IM Q10-15M PRN (Reason: anaphylaxis) Qty: 2 1RF Rx Instructions: until response Referrals / Follow Up: Jose Mancera MD [Primary Care Provider] - Disposition Disposition (needs filled in before D/C Order can be placed): Home, Self Care
[2022-05-27 00:03] VITALS: BP 103/57; PULSE 65; RESP 16; TEMP 36.6; O2SAT 98
[2022-05-27 02:24] VITALS: BP 85/46
[2022-05-27 04:15] VITALS: BP 94/50; PULSE 56; RESP 16; TEMP 36.6; O2SAT 98
[2022-05-27 08:25] VITALS: BP 96/66; PULSE 51; RESP 17; TEMP 36.9; O2SAT 100
[2022-05-27] MEDS: Ferrous Sulfate 325 MG Tablet PO (10:07)
[2022-05-27 12:07] VITALS: BP 99/66; RESP 16; TEMP 36.4; O2SAT 100
--- NOTE | 2022-05-27 14:02 | PCM.PN.OB ---
Subjective Subjective Patient doing well without complaints. Tolerating PO. Ambulating and voiding without difficulty. feeding well. Denies chest pain, shortness of breath, calf pain/swelling, fevers, chills, lightheadedness. Objective Data Objective Data Vital Signs: Vital Signs Temp Pulse Resp BP Pulse Ox 97.6 F L 51 L 16 99/66 100 05/27/22 12:07 05/27/22 08:25 05/27/22 12:07 05/27/22 12:07 05/27/22 12:07 Oxygen Delivery Method Room Air Weight: 130 lb Body Mass Index (BMI) 22.3 Intake & Output: Intake and Output for Last 24 Hours 05/25/22 05/26/22 05/27/22 23:59 23:59 23:59 Intake Total 1630.83 / 1630.83 Output Total 350 / 350 Balance 1280.83 / 1280.83 Lab / Micro Data Result Diagrams: 05/26/22 12:45 Labs: Laboratory Results - last 24 hr 05/26/22 12:45: Blood Type AB POSITIVE, Antibody Screen NEGATIVE Micro: Microbiology 05/26/22 12:45 Nasal Secretion SARS-CoV-2 Antigen (Rapid) - Final ROS Constitutional Constitutional: Reports systems reviewed and no addt'l complaints, except as documented Cardiovascular Cardiovascular: Reports systems reviewed and no addt'l complaints, except as documented Respiratory/Chest Respiratory/Chest: Reports systems reviewed and no addt'l complaints, except as documented Gastrointestinal Gastrointestinal: Reports systems reviewed and no addt'l complaints, except as documented Physical Exam Const alert, oriented x3 and no apparent distress HEENT Head and Scalp: atraumatic Resp normal respiratory effort GI soft to palpation and non-tender Bimanual Exam - Vag & Uterus: uterus non-tender Uterus Palpation: uterus fundus firm (below Umbilicus) Assessment & Plan (1) Vaginal delivery: PLAN: routine post delivery care fu as scheduled
== END 2022-05-27 16:40 | disposition home or self-care (01) | DRG 807 ==
LOC: WPOUT 12:33 → WP 12:33
PROVIDERS: Admitting Provider Obstetrics & Gynecology; PCP Internal Medicine; Referring Provider Obstetrics & Gynecology; Visit Provider Obstetrics & Gynecology
DX: O99.02 Anemia complicating childbirth (principal); Z37.0 Single live birth; O99.344 Other mental disorders complicating childbirth; F41.9 Anxiety disorder, unspecified; O69.81X0 Labor and delivery complicated by cord around neck, without compression, not applicable or unspecified; Z3A.37 37 weeks gestation of pregnancy; Z86.16 Personal history of COVID-19; Z87.891 Personal history of nicotine dependence; Z87.59 Personal history of other complications of pregnancy, childbirth and the puerperium
CPT/HCPCS: 59025; 59050; 85025; 86850; 86900; 86901; 87426; 99218; J7120; G0378

== ENCOUNTER → 2022-10-14 | Outpatient (CLI) | payer OTHER, SELFPAY ==
--- NOTE | 2022-10-14 07:19 | RAD_ITS ---
INDICATION: low back pain EXAMINATION/TECHNIQUE: X-RAY - XR Spine Lumbar 2 or 3 Views COMPARISON: Sacrococcygeal radiograph on same day. FINDINGS: VERTEBRAE: Preserved vertebral body height. No fracture. Mild superior endplate change at L4 and L5. No spondylolisthesis. Preservation of the normal lumbar lordosis. No significant facet arthropathy. DISCS: Disc spaces are maintained. INCLUDED ABDOMEN: Included bowel gas pattern is non-obstructive. RAD/Lumbar Spine 2 or 3 Views IMPRESSION: Mild inferior lumbar endplate degenerative change. No evidence of lumbar spinal fracture or spondylolisthesis. Electronically Signed: Mika Gonzalez MD at 7:53 EST ,
--- NOTE | 2022-10-14 07:20 | RAD_ITS ---
EXAM: XR SACRUM AND COCCYX, 2 OR MORE VIEWS. 3 views. CLINICAL INDICATION: si joint pain TECHNIQUE: Frontal and lateral views of the sacrum and coccyx. 2 frontal views. 3 total views. This report was created using [employer] report [employer] technology. COMPARISON: None. FINDINGS: SACRUM/COCCYX: There is moderate stool in the rectosigmoid overlying the sacrum, especially left lower sacrum and sacral tip on the frontal view. No displaced fracture. There is radiolucent fibrous union of the 2 lower coccygeal segments on the lateral view but there is no significant asymmetry or displacement. No destructive or sclerotic lesions. Note that overlapping bowel shadows may however obscure fine detail in the frontal view. Sacroiliac joints are unremarkable. SOFT TISSUES: Unremarkable. No soft tissue swelling or gas. RAD/Sacrum-Coccyx min 2 Views IMPRESSION: Unremarkable sacro-coccygeal spine. Moderate stool in the rectosigmoid obscures some fine detail of the sacrum. SI joints appear intact. 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 Electronically Signed: Naa Evans MD at 8:09 EST ,
== END | disposition home or self-care (01) ==
LOC: RAD 07:17
PROVIDERS: PCP Internal Medicine; Visit Provider Physician Assistant
DX: M54.50 Low back pain, unspecified (principal); M53.3 Sacrococcygeal disorders, not elsewhere classified; G89.29 Other chronic pain
CPT/HCPCS: 72100; 72220

== ENCOUNTER → 2023-04-07 | Outpatient (CLI) | payer OTHER, SELFPAY ==
[2023-04-07 13:30] LABS: hCG Titer Quant., Serum 4603 mIU/mL (1-3)
== END | disposition home or self-care (01) ==
LOC: LAB 12:21
PROVIDERS: PCP Internal Medicine; Referring Provider Obstetrics & Gynecology; Visit Provider Obstetrics & Gynecology
DX: N91.2 Amenorrhea, unspecified (principal)
CPT/HCPCS: 36415; 84702

== ENCOUNTER → 2023-04-09 | Outpatient (CLI) | payer OTHER, SELFPAY ==
[2023-04-09 08:25] LABS: hCG Titer Quant., Serum 6223 mIU/mL (1-3)
== END | disposition home or self-care (01) ==
LOC: LAB 07:18
PROVIDERS: PCP Internal Medicine; Referring Provider Nurse Practitioner Women's Health; Visit Provider Nurse Practitioner Women's Health
DX: N91.2 Amenorrhea, unspecified (principal)
CPT/HCPCS: 36415; 84702

== ENCOUNTER → 2023-04-10 | Outpatient (CLI) | payer OTHER, SELFPAY ==
--- NOTE | 2023-04-10 15:22 | US_ITS ---
STUDY: FIRST TRIMESTER OBSTETRICAL ULTRASOUND REASON FOR EXAM: Female, 32 years old viability/dating LMP: TECHNIQUE: Transvaginal TECHNICAL QUALITY: Adequate. PRIOR ULTRASOUND: None. FINDINGS: There is visualization of a single gestational sac in a normal intrauterine position. The mean sac diameter (MSD) measures 9.5 mm, indicating an estimated gestational age (EGA) of 5 weeks, 5 days. The gestational sac shape is within normal limits. There is a visualized yolk sac. The yolk sac measures 3.9 mm. The placenta is non-visualized. There is visualization of a live embryo. The crown-rump length (CRL) measures 2.1 mm, indicating an estimated gestational age (EGA) of 6 weeks, 0 days. There is demonstrated cardiac activity with a heart rate of 102 bpm. The estimated gestation age (EGA) by LMP is 6 weeks, 0 days. The estimated date of delivery (BARBIE) by LMP is December 04, 2023. The estimated gestation age (EGA) by US is 5 weeks, 6 days. The estimated date of delivery (BARBIE) by US is December 05, 2023. The uterus measures 8.7 x 5.6 x 4.8 cm. There is no demonstrated uterine fibroid. The cervix is closed. The right ovary measures 3.9 x 2.6 x 2.3 cm. There is a cyst measuring 2.1 x 1.5 x 2.8 cm likely corpus luteum.. There is no visualized right adnexal mass or complex lesion. The left ovary measures 2.1 x 1.3 x 1.1 cm. There is no left ovarian cyst. There is no visualized left adnexal mass or complex lesion. There is minimal fluid in the cul de sac. US/Transvaginal w/Preg US IMPRESSION: Viable intrauterine gestation approximately 6 weeks gestational age. Small right ovarian cyst likely corpus luteum Electronically Signed: Otto Vizcarra MD at 16:34 EDT ,
== END | disposition home or self-care (01) ==
LOC: US 15:21
PROVIDERS: PCP Internal Medicine; Referring Provider Nurse Practitioner Women's Health; Visit Provider Nurse Practitioner Women's Health
DX: N91.2 Amenorrhea, unspecified (principal)
CPT/HCPCS: 76817

== ENCOUNTER 2023-05-01 09:02 | Observation (INO) | payer OTHER, SELFPAY ==
[2023-05-01] VITALS (22 sets, daily range): BP systolic 92–119; BP diastolic 56–83; PULSE 55–100; RESP 15–18; TEMP 36.1–37.3; O2SAT 95–100; BMI 20.9
--- NOTE | 2023-05-01 | POC_PTH ---
PATIENT: MIRI FRANCO LOC: MS3 U#:[id number] AGE/SX: 32/F ROOM: MS316 RE05/01/[address]: Dr. Teresa Artis MD : 1990 BED: 1 DIS: 05/01/2023 SPEC #: [id number] RECD: 05/01/23 16:55 STATUS: JAXON ARREDONDO #: [id number] LIVAN: 05/01/23 00:[address]: Teresa Artis DEPT: SURGICAL PATHOLOGY RECD BY: Justo Worthington ENTERED: 05/02/23 08:58 SP TYPE: PROD CONC OTHR DR: Dr. Jose Mancera MD Tissues: Product of conception, NOS Procedures: Surgery Specimen Level IV HEADER OPERATION: Suction dilation and curettage PRE-OP DIAGNOSIS: Incomplete , anemia TISSUE SUBMITTED: Product of conception MICROSCOPIC DIAGNOSIS Products of conception: Decidua and immature chorionic villi (products of conception), clinically incomplete . Fragments of benign endometrial tissue. JOHNNIE:becky 05/05/2023 MICROSCOPIC DESCRIPTION Slides are reviewed. GROSS DESCRIPTION Received in fixative is one container labeled with the patient's name and designated products of conception. The specimen consists of multiple fragments of hemorrhagic soft tissue that in aggregate measure 6.0 x 5.0 x 2.5 cm. tissue is not identified. Special Procedures Tech tissue is submitted in three cassettes. / JOHNNIE:becky 05/02/2023 TC:5 CPT: 93700
[2023-05-01 09:57] LABS: Mucous, Urine 0 SEEN /hpf (<or=2+); Squamous Epithelial Cells - UA 0 SEEN /hpf (5-10)
[2023-05-01 10:04] LABS: Color, Urine Red (Yellow); Glucose, Dipstick Normal (Normal); Ketone-Dipstick 5 mg/dl (Negative); Leukocyte Esterase-Dipstick 100 /ul (Negative); Nitrite-Dipstick Positive (Negative); Occult Blood-Urine 250 /ul (Negative); Protein-Dipstick 100 mg/dl (Negative); Urine Bilirubin Dipstick Negative (Negative); Urine Clarity Cloudy (Clear); Urine Urobilinogen Normal (Normal)
[2023-05-01 10:08] LABS: Absolute Lymphocyte Count 1.94 X10^3/uL (0.83-4.51); Absolute Neutrophil Count 6.9 X10^3/uL (2.0-7.7); Basophil# 0.04 X10^3/uL; Basophil% 0.4 % (0-1); Eosinophil# 0.34 X10^3/uL; Eosinophils% 3.4 % (0-5); Hematocrit 27.7 % (37-47); Hemoglobin 8.7 g/dL (12.0-15.0); Lymphocyte # 1.94 X10^3/ul (0.83-4.51); Lymphocyte % 19.5 % (19-41); Mean Corp Hgb Conc 31.4 g/dL (32-36); Mean Corpuscular Hgb 28.2 pg (27.0-32.0); Mean Corpuscular Volume 89.9 fL (81-99); Mean Platelet Vol. 9.9 fl (6.2-12.0); Monocyte# 0.62 X10^3/uL; Monocyte% 6.2 % (0-10); NRBC Flagged by Analyzer 0 % (0-5); Neutrophil # 6.94 X10^3/uL (2.7-7.7); Platelet Count 362 K/mm3 (150-450); RBC Distribution Width CV 12.7 % (11.6-14.6); RBC Distribution Width SD 41.5 fl (35.1-43.9); Red Blood Count 3.08 M/mm3 (4.2-5.4); White Blood Count 9.9 K/mm3 (4.4-11.0)
[2023-05-01 10:12] LABS: Bacteria 1+ /hpf (None Seen); Red Blood Cells-Urine 25-50 SEEN /hpf (0-5); White Blood Cells 10-25 SEEN /hpf (0-5)
[2023-05-01 10:18] LABS: ALB/GLOB Ratio 0.8 RATIO (0.9-2.4); AST(SGOT) 16 U/L (15-37); Alanine Aminotransfer ALT/SGPT 23 U/L (13-56); Albumin, Serum 3.3 g/dL (3.2-5.0); Alkaline Phosphatase 60 U/L (45-117); Anion Gap 5 (5-15); BUN 11 mg/dL (7-18); BUN/Creat Ratio 11.4 RATIO (10-20); Calcium,Total 8.6 mg/dL (8.5-10.1); Chloride 110 mmol/L (98-107); Creatinine, Serum 0.96 mg/dL (0.55-1.02); EST Glomerular Filtration Rate 71 mL/min (>60); Est Glom Filt Rate - Afr Amer 86 mL/min (>60); Estimated Creatinine Clearance 73.32 ml/min; Glucose 114 mg/dL (74-106); Protein, Total 7.3 g/dL (6.4-8.2); Sodium Level 140 mmol/L (136-145)
--- NOTE | 2023-05-01 10:49 | US_ITS ---
EXAM: US , TRANSVAGINAL CLINICAL INDICATION: vaginal bleeding TECHNIQUE: Real-time endovaginal obstetrical ultrasound of the maternal pelvis and a first trimester with image documentation. Transvaginal imaging was used for better evaluation of the fetus and adnexa. COMPARISON: US 1st Trimester Endovaginal dated 04/10/2023 FINDINGS: GESTATION: Previously noted intrauterine gestational sac is no longer identified. There is residual 17 mm thickening of the endometrium. 2 cm clot noted along the endocervical canal. The findings are consistent with incomplete . OVARIES: Left ovary is not identified. The right ovary measures 3.2 x 2.9 x 2.6 cm. 2 cm right ovarian corpus luteum. FREE FLUID: No adnexal mass or free pelvic fluid. US/Transvaginal w/Preg US IMPRESSION: Incomplete . Electronically Signed: Lasha Villegas MD at 12:29 EDT ,
--- NOTE | 2023-05-01 10:50 | ED.VIS.FEGU ---
HPI HPI - Female History of Present Illness Chief Complaint: Vag Bld, Preg Narrative Narrative: 32-year-old female presenting with vaginal bleeding in . She states she is about 9 weeks. She started having vaginal bleeding on the . She states her blood type is AB+. She is having heavier blood clots and bleeding now. She denies any tissue passage. She called her RESISTANCE WELDING MACHINE OPERATOR who sent her to the emergency room for an evaluation. Patient does states she was lightheaded last week but no longer has this. She does have any fevers, chills, body aches. She is G5, currently 9 weeks . She does not have any abdominal pain except for mild cramping. [facility] Medical History Anemia Artificial insemination Pityriasis rosea Raynaud's disease SAB (spontaneous ) UTI (urinary tract infection) Home Medications epinephrine 0.3 mg/0.3 mL injection, auto-injector (EpiPen 2-Jens) 0.3 mg (0.3 mL) IM Q10-15M PRN anaphylaxis #2 ea 08/20/19 [Rx Last Taken Unknown] vitamin #56-iron 35 mg and 5 mg-folic acid 1 mg-dha capsule 1 cap PO DAILY 11/05/21 [History Last Taken 05/24/22] Allergy/AdvReac Type Severity Reaction Status Date / Time bacitracin Allergy Rash Verified 05/01/23 09:03 [From Neosporin ([id number])] neomycin Allergy Rash Verified 05/01/23 09:03 [From Neosporin ([id number])] polymyxin B Allergy Rash Verified 05/01/23 09:03 [From Neosporin (ayi-mra-[id number])] venom-honey bee Allergy Anaphylaxis Verified 05/01/23 09:03 [bee venom (honey bee)] amoxicillin trihydrate AdvReac Nausea/Vom/ Verified 05/01/23 09:03 [From Augmentin] Diarrhea potassium clavulanate AdvReac Nausea/Vom/ Verified 05/01/23 09:03 [From Augmentin] Diarrhea Family History Mother Breast cancer Grandmother Diabetes Uncle Leukemia maternal Grandfather Melanoma maternal Breast cancer maternal AAA (abdominal aortic aneurysm) paternal Grandfather Hypertension Other Heart disease Surgical History History of mandibular surgery Social History adopted: No household members: family housing: house current occupational status: employed pets and animals: Yes history of recent travel: Yes sexually active: Yes Smoking Status: Former smoker second hand exposure: No alcohol intake: current Alcohol type: beer details: not while substance use type: does not use caffeine: Yes what type of physical activity do you participate in: running frequency: 5-6 times per week seatbelt use: always do you feel safe at home: Yes additional social history: Boyfriend- Rebel- In school- legal studies Patient works in [employer] at [facility] ROS ROS ED Constitutional Constitutional ED: Denies chills, fever(s) or sweats Eyes Eyes: Denies blurry vision or change in vision ENT ENT ED: Denies ear pain or sore throat Cardiovascular Cardiovascular: Denies chest pain, palpitations or racing heartbeat Respiratory/Chest Respiratory/Chest: Denies cough, dyspnea or sputum Gastrointestinal Gastrointestinal: Denies abdominal pain, constipation, diarrhea, nausea or vomiting Genitourinary Genitourinary ED: Reports other Details: Vaginal bleeding with clots ; Denies dysuria, hematuria or urinary frequency Musculoskeletal Musculoskeletal: Denies arthralgias, myalgias or neck pain Integumentary Denies abscess, Abrasions or rash Neurologic Neurologic: Denies headache(s), paresthesias or weakness Psychiatric Psychiatric: Denies anxiety, depression, suicidal ideation or suicidal thoughts Endocrine Endocrinology: Denies polydipsia or polyuria EXAM Physical Exam Const Vital Signs: 05/01/23 09:03 05/01/23 10:07 05/01/23 11:01 Temperature 97 F L Temperature Source Temporal Pulse Rate 100 73 66 Respiratory Rate 18 18 18 Blood Pressure 119/77 102/68 105/65 Blood Pressure Mean 91 79 78 Blood Pressure Source Blood Pressure Position Blood Pressure Location Pulse Ox 100 100 100 Oxygen Delivery Method Room Air Room Air Room Air 05/01/23 12:04 05/01/23 13:24 05/01/23 14:09 Temperature Temperature Source Pulse Rate 65 62 67 Respiratory Rate 18 18 18 Blood Pressure 116/75 107/62 Blood Pressure Mean 88 77 Blood Pressure Source Blood Pressure Position Blood Pressure Location Pulse Ox 100 100 100 Oxygen Delivery Method Room Air Room Air Room Air 05/01/23 14:39 Temperature 97.5 F L Temperature Source Temporal Pulse Rate 73 Respiratory Rate 17 Blood Pressure 117/77 Blood Pressure Mean 90 Blood Pressure Source Monitor Blood Pressure Position Semi-Fowlers Blood Pressure Location Left Arm Pulse Ox 95 Oxygen Delivery Method Room Air Positive well nourished General Appearance ED: Negative for pallor Eyes PERRL and EOMs intact bilaterally Resp normal respiratory effort Cardio regular rate and regular rhythm GI Negative for normal to inspection, nondistended, normoactive bowel sounds Neuro oriented x3 and CN's II-XII intact bilaterally Sensorium / Orientation: alert Motor Exam: strength 5/5 throughout Psych Mood & Affect: tearful Skin no rashes or lesions noted General Skin Exam: Negative for pallor MDM MDM MDM Narrative Medical decision making narrative: Patient presenting with vaginal bleeding and clots. She suspected she has miscarried. She states she was lightheaded last week but not so much now. Vital signs are stable she is afebrile. CBC to assess white blood cell count, hemoglobin, platelets, differential. CMP to assess liver function, renal function, glucose, anion gap, electrolytes. Urinalysis to assess for UTI serum quant is also obtained. Patient is AB+ and does not need RhoGAM. Transvaginal ultrasound shows concern for incomplete miscarriage. This was discussed with Dr. Gilmore and she recommends the patient stay and get a D&C. This was discussed with the patient and she is amenable to this. Patient's CBC shows a white blood cell count of 9.9. Hemoglobin is down to 8.7. She was previously 10.1. Renal function electrolytes normal. Liver function normal. Urinalysis shows positive nitrites, 10-25 white blood cells, 1+ bacteria. Is unclear if this is contaminated since there is red blood cells and occult blood in this. Patient transported to the OR in stable condition. Impression: 1. Acute blood loss anemia 2. Incomplete miscarriage Lab Data Attestation: I reviewed the patient's lab results. Labs: Laboratory Results - last 24 hr 05/01/23 05/01/23 05/01/23 09:30 09:30 09:30 WBC 9.9 RBC 3.08 L Hgb 8.7 L Hct 27.7 L MCV 89.9 MCH 28.2 MCHC 31.4 L RDW Std Deviation 41.5 RDW Coeff of Jorge 12.7 Plt Count 362 MPV 9.9 Immature Gran % (Auto) 0.500 Neut % (Auto) 70.0 Lymph % (Auto) 19.5 [place] % (Auto) 6.2 Eos % (Auto) 3.4 Baso % (Auto) 0.4 Absolute Neuts (auto) 6.9 Absolute Lymphs (auto) 1.94 Nucleated RBC % 0 Sodium 140 Potassium 4.0 Chloride 110 H Carbon Dioxide 25.0 Anion Gap 5 BUN 11 Creatinine 0.96 Estim Creat Clear Calc 73.32 Est GFR (MDRD) Af Amer 86 Est GFR (MDRD) Non-Af 71 BUN/Creatinine Ratio 11.4 Glucose 114 H Calcium 8.6 Total Bilirubin 0.50 AST 16 ALT 23 Alkaline Phosphatase 60 Total Protein 7.3 Albumin 3.3 Globulin 4.0 Albumin/Globulin Ratio 0.8 L HCG, Quant Serum , Qual Urine Color Urine Clarity Urine pH Ur Specific [place] Urine Protein Urine Glucose (UA) Urine Ketones Urine Occult Blood Urine Nitrite Urine Bilirubin Urine Urobilinogen Ur Leukocyte Esterase Urine RBC Urine WBC Ur Squamous Epith Cells Urine Bacteria Urine Mucus Blood Type AB POSITIVE Antibody Screen NEGATIVE 05/01/23 05/01/23 09:45 10:20 WBC RBC Hgb Hct MCV MCH MCHC RDW Std Deviation RDW Coeff of Jorge Plt Count MPV Immature Gran % (Auto) Neut % (Auto) Lymph % (Auto) [place] % (Auto) Eos % (Auto) Baso % (Auto) Absolute Neuts (auto) Absolute Lymphs (auto) Nucleated RBC % Sodium Potassium Chloride Carbon Dioxide Anion Gap BUN Creatinine Estim Creat Clear Calc Est GFR (MDRD) Af Amer Est GFR (MDRD) Non-Af BUN/Creatinine Ratio Glucose Calcium Total Bilirubin AST ALT Alkaline Phosphatase Total Protein Albumin Globulin Albumin/Globulin Ratio HCG, Quant 6527 H Serum , Qual Cancelled Urine Color Red Urine Clarity Cloudy Urine pH 8.0 Ur Specific [place] 1.010 Urine Protein 100 H Urine Glucose (UA) Normal Urine Ketones 5 H Urine Occult Blood 250 H Urine Nitrite Positive H Urine Bilirubin Negative Urine Urobilinogen Normal Ur Leukocyte Esterase 100 H Urine RBC 25-50 SEEN Urine WBC 10-25 SEEN Ur Squamous Epith Cells 0 SEEN Urine Bacteria 1+ Urine Mucus 0 SEEN Blood Type Antibody Screen Radiography Diagnostic Testing: Clinical Impression(s) from Imaging Studies Obstetrics Ultrasound 05/01/23 10:49 IMPRESSION: Incomplete . Electronically Signed: Lasha Villegas MD at 12:29 EDT , Discharge Plan Triage Chief Complaint: Vag Bld, Preg ED Provider: Mathew Hoffman Dx/Rx/DC Orders Primary Care Provider: Jose Mancera
[2023-05-01 11:19] LABS: hCG Titer Quant., Serum 6527 mIU/mL (1-3)
--- NOTE | 2023-05-01 14:43 | NURSING ---
SURGERY D AND Arline RICO
--- NOTE | 2023-05-01 14:50 | CM.ED ---
Social Work SW introduced self and role. Pt tearful and SW provided emotional support. Cindy Thomas LETTER SORTING MACHINE OPERATOR, PERFECT BINDER OPERATOR
--- NOTE | 2023-05-01 14:54 | ED.RN ---
THIS RN CALLED PT REPORT TO OR AT 1452. REPORT TAKEN BY ALBERTO JORGE. ANDI SCALES TO TAKE PT TO OR BED 12.
--- NOTE | 2023-05-01 15:32 | HP.PCM_ITS ---
HPI - General HPI Narrative MIRI FRANCO, is a 32 F who presents with incomplete miscarriage retained products and anemia secondary to blood loss from miscarriage. seen in ED today [facility] Medical History Anemia Artificial insemination Pityriasis rosea Raynaud's disease SAB (spontaneous ) UTI (urinary tract infection) Home Medications epinephrine 0.3 mg/0.3 mL injection, auto-injector (EpiPen 2-Jens) 0.3 mg (0.3 mL) IM Q10-15M PRN anaphylaxis #2 ea 08/20/19 [Rx Last Taken Unknown] vitamin #56-iron 35 mg and 5 mg-folic acid 1 mg-dha capsule 1 cap PO DAILY 11/05/21 [History Last Taken 05/24/22] Allergy/AdvReac Type Severity Reaction Status Date / Time bacitracin Allergy Rash Verified 05/01/23 09:03 [From Neosporin ([id number])] neomycin Allergy Rash Verified 05/01/23 09:03 [From Neosporin ([id number]-[id number])] polymyxin B Allergy Rash Verified 05/01/23 09:03 [From Neosporin ([id number]-wcu-ugyem)] venom-honey bee Allergy Anaphylaxis Verified 05/01/23 09:03 [bee venom (honey bee)] amoxicillin trihydrate AdvReac Nausea/Vom/ Verified 05/01/23 09:03 [From Augmentin] Diarrhea potassium clavulanate AdvReac Nausea/Vom/ Verified 05/01/23 09:03 [From Augmentin] Diarrhea Family History Mother Breast cancer Grandmother Diabetes Uncle Leukemia maternal Grandfather Melanoma maternal Breast cancer maternal AAA (abdominal aortic aneurysm) paternal Grandfather Hypertension Other Heart disease Surgical History History of mandibular surgery Social History adopted: No household members: family housing: house current occupational status: employed pets and animals: Yes history of recent travel: Yes sexually active: Yes Smoking Status: Former smoker second hand exposure: No alcohol intake: current Alcohol type: beer details: not while substance use type: does not use caffeine: Yes what type of physical activity do you participate in: running frequency: 5-6 times per week seatbelt use: always do you feel safe at home: Yes additional social history: Boyfriend- Rebel- In school- legal studies Patient works in [place] at [employer] Housing Constitutional Constitutional: Reports systems reviewed and no addt'l complaints, except as documented; Denies as per HPI, change in weight, fatigue, fever(s), malaise, weakness or other Eyes Eyes: Reports systems reviewed and no addt'l complaints, except as documented; Denies as per HPI, change in vision or other ENT HEENT: Reports as per HPI and dizziness; Denies dry mouth, headache(s), loss taste/smell, nasal congestion, nasal discharge, neck pain, sore throat or other Respiratory/Chest Respiratory/Chest: Reports systems reviewed and no addt'l complaints, except as documented Gastrointestinal Gastrointestinal: Reports systems reviewed and no addt'l complaints, except as documented and nausea; Denies vomiting Musculoskeletal Musculoskeletal: Reports systems reviewed and no addt'l complaints, except as documented; Denies back pain or joint pain Neurologic Neurologic: Reports systems reviewed and no addt'l complaints, except as documented Psychiatric Psychiatric: Reports systems reviewed and no addt'l complaints, except as documented Endocrine Endocrinology: Reports systems reviewed and no addt'l complaints, except as documented Hematologic/Lymphatic Hematologic/Lymphatic: Reports systems reviewed and no addt'l complaints, except as documented Vital Signs Vital Signs Vital Signs: 05/01/23 09:03 05/01/23 10:07 05/01/23 11:01 Temperature 97 F L Temperature Source Temporal Pulse Rate 100 73 66 Respiratory Rate 18 18 18 Blood Pressure 119/77 102/68 105/65 Blood Pressure Mean 91 79 78 Blood Pressure Source Blood Pressure Position Blood Pressure Location Pulse Ox 100 100 100 Oxygen Delivery Method Room Air Room Air Room Air 05/01/23 12:04 05/01/23 13:24 05/01/23 14:09 Temperature Temperature Source Pulse Rate 65 62 67 Respiratory Rate 18 18 18 Blood Pressure 116/75 107/62 Blood Pressure Mean 88 77 Blood Pressure Source Blood Pressure Position Blood Pressure Location Pulse Ox 100 100 100 Oxygen Delivery Method Room Air Room Air Room Air 05/01/23 14:39 05/01/23 15:03 05/01/23 15:03 Temperature 97.5 F L 97.5 F L Temperature Source Temporal Temporal Pulse Rate 73 73 73 Respiratory Rate 17 17 17 Blood Pressure 117/77 117/77 117/77 Blood Pressure Mean 90 90 90 Blood Pressure Source Monitor Blood Pressure Position Semi-Fowlers Blood Pressure Location Left Arm Pulse Ox 95 95 95 Oxygen Delivery Method Room Air Room Air Room Air Weight Weight: 121 lb 14.65 oz Body Mass Index (BMI) 20.9 Physical Exam Const alert, oriented x3 and no apparent distress HEENT normocephalic Head and Scalp: atraumatic Eyes EOMs intact bilaterally and conjunctivae normal Neck full ROM, no lymphadenopathy, supple and thyroid normal General: trachea midline Lymph Lymphatic: no lymphadenopathy noted Resp normal respiratory effort, no retractions, no use of accessory muscles and clear to auscultation bilaterally Cardio regular rhythm GI normal to inspection, nondistended, normoactive bowel sounds, soft to palpation, non-distended and no masses Inspection: Negative for abdominal distention Back/Spine no CVA tenderness Extremity normal to inspection Skin no rashes or lesions noted Neuro moves all extremities and deep tendon reflexes 2+ bilaterally Motor Exam: clonus absent Psych mental status grossly normal Results Lab / Micro Data Result Diagrams: 05/01/23 09:30 05/01/23 09:30 Labs: Laboratory Results - last 24 hr 05/01/23 09:30: Blood Type AB POSITIVE, Antibody Screen NEGATIVE 05/01/23 09:30: WBC 9.9, RBC 3.08 L, Hgb 8.7 L, Hct 27.7 L, MCV 89.9, MCH 28.2, MCHC 31.4 L, RDW Std Deviation 41.5, RDW Coeff of Jorge 12.7, Plt Count 362, MPV 9.9, Immature Gran % (Auto) 0.500, Neut % (Auto) 70.0, Lymph % (Auto) 19.5, [place] % (Auto) 6.2, Eos % (Auto) 3.4, Baso % (Auto) 0.4, Absolute Neuts (auto) 6.9, Absolute Lymphs (auto) 1.94, Nucleated RBC % 0 05/01/23 09:30: Sodium 140, Potassium 4.0, Chloride 110 H, Carbon Dioxide 25.0, Anion Gap 5, BUN 11, Creatinine 0.96, Estim Creat Clear Calc 73.32, Est GFR (MDRD) Af Amer 86, Est GFR (MDRD) Non-Af 71, BUN/Creatinine Ratio 11.4, Glucose 114 H, Calcium 8.6, Total Bilirubin 0.50, AST 16, ALT 23, Alkaline Phosphatase 60, Total Protein 7.3, Albumin 3.3, Globulin 4.0, Albumin/Globulin Ratio 0.8 L 05/01/23 09:45: Urine Color Red, Urine Clarity Cloudy, Urine pH 8.0, Ur Specific [place] 1.010, Urine Protein 100 H, Urine Glucose (UA) Normal, Urine Ketones 5 H , Urine Occult Blood 250 H, Urine Nitrite Positive H, Urine Bilirubin Negative, Urine Urobilinogen Normal, Ur Leukocyte Esterase 100 H, Urine RBC 25-50 SEEN, Urine WBC 10-25 SEEN, Ur Squamous Epith Cells 0 SEEN, Urine Bacteria 1+, Urine Mucus 0 SEEN 05/01/23 10:20: HCG, Quant 6527 H, Serum , Qual Cancelled Radiology Impression Obstetrics Ultrasound 05/01/23 10:49 IMPRESSION: Incomplete . Electronically Signed: Lasha Villegas MD at 12:29 EDT , Assessment & Plan Assessment/Plan (1) Incomplete : (2) Anemia due to blood loss: PLAN: Plan After discussing the patient's diagnosis and treatment plan options, patient wishes to proceed with surgical management. I have discussed with the patient the risks, benefits, and alternatives of the procedure which include but are not limited to risks of anesthesia, bleeding, infection, possible damage to bowel, bladder, or surrounding vasculature which could lead to additional surgery to evaluate any complications. Patient agrees to procedure and wishes to proceed. ACOG/uptodate references given for additional information regarding procedure.
--- NOTE | 2023-05-01 16:16 | OP.PCM_ITS ---
Problems Associated Problem List Diagnoses (1) Incomplete : Report of Operation Date of Procedure: 05/01/23 Pre-Operative Diagnosis: see problem list Post-Operative Diagnosis: same Surgery/Procedure Performed:: Suction dilation and curettage Description of Surgical Findings:: no FHT present, Nonviable 7 weeks Surgeon: Teresa Artis laboratory equipment cleaner: None Type of Anesthesia: Local MAC Special Medications: none Specimen's removed: POC Drains: none Estimated Blood Loss (mL): 50 Fluids Replaced: crystalloid Description of Procedure: Patient was taken to the operating room and placed under MAC local anesthesia. She was prepped and draped in the normal sterile fashion the dorsal lithotomy position. Bladder was drained of clear urine and anterior lip of the cervix was grasped and the uterus sounded to 7 cm. Cervix was already dilted with large amount of products in the endocervical canal. Progressive passes were made rem oving the retained products of conception without complication. Sharp curettage confirmed complete removal of the retained products. All instruments were removed from the vagina and excellent hemostasis was noted and the patient was taken to recovery in stable condition. uterine lavage with betadine solution performed due to odor of products, and bedside ultrasound performed to confirm complete removal of products Grafts/Implants Used: none Complications none Admit VTE Documentation VTE Present on Admission: No VTE Mechan Device Prophylaxis: SCD's Procedures Urinary/Genital [id number]: 14547 Trmt of incomplete Ab, any TM
--- NOTE | 2023-05-01 16:21 | DCINST_ITS ---
Discharge Instructions Procedure D&C Diet Discharge Diet: No restrictions Activity Discharge Activity: Return to Normal Activity, May Shower and May Take a Tub Bath (after 1 week) May resume sexual activity in: 1-2 weeks Weight Bearing Status: Weight bearing as tolerated Lifting Restrictions: none Dressing / Incision Call your doctor if you observe: Fever of 101 or Higher, Using more than 1 pad per hour, Shortness of breath and Uncontrolled pain Follow Up Care Please Follow Up With: Teresa Artis MD When: Call [phone] to schedule appointment. Test Results: Test results from this visit will be discussed in further detail at your follow- up appointment, if applicable. Discharge Plan Admission Attending Provider: Teresa Artis Primary Care Provider: Jose Mancera Discharge Orders/Prescriptions Prescriptions: No Action PNV #[id number] acid-dha 35 mg iron-5 mg iron-1 mg capsule 1 cap PO DAILY epinephrine [EpiPen 2-Jens] 0.3 mg/0.3 mL auto-injector 0.3 mg IM Q10-15M PRN (Reason: anaphylaxis) Qty: 2 1RF Rx Instructions: until response Referrals / Follow Up: Jose Mancera MD [Primary Care Provider] - Disposition Disposition (needs filled in before D/C Order can be placed): Home, Self Care
[2023-05-01 17:22] LABS: Absolute Lymphocyte Count 1.65 X10^3/uL (0.83-4.51); Absolute Neutrophil Count 7.6 X10^3/uL (2.0-7.7); Basophil# 0.04 X10^3/uL; Basophil% 0.4 % (0-1); Eosinophil# 0.36 X10^3/uL; Eosinophils% 3.6 % (0-5); Lymphocyte # 1.65 X10^3/ul (0.83-4.51); Lymphocyte % 16.3 % (19-41); Mean Corp Hgb Conc 30.4 g/dL (32-36); Mean Corpuscular Hgb 28.1 pg (27.0-32.0); Mean Corpuscular Volume 92.4 fL (81-99); Mean Platelet Vol. 9.8 fl (6.2-12.0); Monocyte# 0.44 X10^3/uL; Monocyte% 4.3 % (0-10); NRBC Flagged by Analyzer 0 % (0-5); Neutrophil # 7.59 X10^3/uL (2.7-7.7); Platelet Count 287 K/mm3 (150-450); RBC Distribution Width CV 12.6 % (11.6-14.6); RBC Distribution Width SD 42.6 fl (35.1-43.9); Red Blood Count 2.49 M/mm3 (4.2-5.4); White Blood Count 10.1 K/mm3 (4.4-11.0)
--- NOTE | 2023-05-01 17:36 | PCM.PN.BLA ---
Progress Note patient is anemic recommend admitting for transfusion and rechecking hemoglobin after. determine stability for discharge criteria
[2023-05-01] MEDS: Acetaminophen 500 MG Tablet 1000 MG PO (17:53)
[2023-05-01] MEDS: DiphenhydrAMINE 50 MG/ML Syringe IV (17:53)
[2023-05-01] MEDS: 0.9% Saline Lock 10 ML Syringe IV (21:31)
[2023-05-01 22:59] LABS: Absolute Lymphocyte Count 0.75 X10^3/uL (0.83-4.51); Absolute Neutrophil Count 8.3 X10^3/uL (2.0-7.7); Basophil# 0.02 X10^3/uL; Basophil% 0.2 % (0-1); Eosinophil# 0.01 X10^3/uL; Eosinophils% 0.1 % (0-5); Hematocrit 27.4 % (37-47); Hemoglobin 8.9 g/dL (12.0-15.0); Lymphocyte # 0.75 X10^3/ul (0.83-4.51); Lymphocyte % 8.1 % (19-41); Mean Corp Hgb Conc 32.5 g/dL (32-36); Mean Corpuscular Hgb 29.8 pg (27.0-32.0); Mean Corpuscular Volume 91.6 fL (81-99); Mean Platelet Vol. 10.2 fl (6.2-12.0); Monocyte# 0.06 X10^3/uL; Monocyte% 0.6 % (0-10); NRBC Flagged by Analyzer 0 % (0-5); Neutrophil # 8.33 X10^3/uL (2.7-7.7); Neutrophil % 89.8 % (47-70); Platelet Count 319 K/mm3 (150-450); RBC Distribution Width CV 13.1 % (11.6-14.6); RBC Distribution Width SD 43.3 fl (35.1-43.9); Red Blood Count 2.99 M/mm3 (4.2-5.4); White Blood Count 9.3 K/mm3 (4.4-11.0)
[2023-05-01 23:05] LABS: POSITIVE DIFFERENTIAL NO
[2023-05-01 23:06] LABS: POSITIVE COUNT NO; POSITIVE MORPHOLOGY NO
[2023-05-03 14:10] LABS: Anti-Cardiolipin Ab, IgG, Qn < 9 GPL U/mL (0-14); Anti-Cardiolipin Ab, IgM, Qn < 9 MPL U/mL (0-12); Dilute Prothrombin Time (dPT) 37.4 sec (0.0-47.6); Dilute Russell Viper Venom 33.9 sec (0.0-47.0); Interpretation Comment: (.); PTT-LA 34.3 sec (0.0-43.5); Thrombin Time 16.7 sec (0.0-23.0); dPT Confirm Ratio 0.98 Ratio (0.00-1.34)
== END 2023-05-01 23:35 | disposition home or self-care (01) ==
LOC: ED 14:32 → SDC 14:40 → AC 14:42 → MS3 19:22 → SDC 19:23 → MS3 23:35
PROVIDERS: Admitting Provider Obstetrics & Gynecology; Emergency Provider Student in an Organized Health Care Education/Training Program; PCP Internal Medicine; Visit Provider Obstetrics & Gynecology
PROC: (CPT 59812; principal; 2023-05-01 15:30)
DX: O03.4 Incomplete spontaneous abortion without complication (principal); O99.011 Anemia complicating pregnancy, first trimester; Z87.891 Personal history of nicotine dependence; D62 Acute posthemorrhagic anemia
CPT/HCPCS: 59812; 01965; 36415; 36430; 76817; 80053; 81001; 84702; 85025; 86147; 86850; 86900; 86901; 86920; 88305; 99221; 99284; J7030; J7040; P9016; A4216; G0378; J2405

== ENCOUNTER → 2023-05-05 | Outpatient (CLI) | payer OTHER, SELFPAY ==
[2023-05-05 12:56] LABS: Absolute Neutrophil Count 3.4 X10^3/uL (2.0-7.7); Basophil# 0.06 X10^3/uL; Basophil% 0.8 % (0-1); Eosinophil# 0.74 X10^3/uL; Eosinophils% 10.2 % (0-5); Hematocrit 33.6 % (37-47); Hemoglobin 10.7 g/dL (12.0-15.0); Lymphocyte % 31.9 % (19-41); Mean Corp Hgb Conc 31.8 g/dL (32-36); Mean Corpuscular Volume 91.1 fL (81-99); Mean Platelet Vol. 9.7 fl (6.2-12.0); Monocyte# 0.72 X10^3/uL; NRBC Flagged by Analyzer 0 % (0-5); Neutrophil # 3.37 X10^3/uL (2.7-7.7); Neutrophil % 46.7 % (47-70); Platelet Count 419 K/mm3 (150-450); RBC Distribution Width CV 13.3 % (11.6-14.6); RBC Distribution Width SD 44.3 fl (35.1-43.9); Red Blood Count 3.69 M/mm3 (4.2-5.4); White Blood Count 7.2 K/mm3 (4.4-11.0)
== END | disposition home or self-care (01) ==
PROVIDERS: PCP Internal Medicine; Referring Provider Obstetrics & Gynecology; Visit Provider Obstetrics & Gynecology
DX: O03.4 Incomplete spontaneous abortion without complication (principal); O99.011 Anemia complicating pregnancy, first trimester; D50.0 Iron deficiency anemia secondary to blood loss (chronic)
CPT/HCPCS: 36415; 85025

== ENCOUNTER → 2023-07-16 | Outpatient (CLI) | payer OTHER, SELFPAY ==
--- NOTE | 2023-07-16 14:27 | BI_ITS ---
MAMMOGRAPHY - BILATERAL DIAGNOSTIC REASON FOR EXAM: Female, 32 years old. Lower quadrant right breast pain as well as nipple tenderness. PERTINENT HISTORY: Mother with breast cancer. When further with breast cancer. TECHNIQUE: Digital bilateral breast son (3D mammographic acquisition) in the CC and MLO projections. 2-D mediolateral oblique (MLO) and craniocaudad (CC) views of both breasts were obtained. CAD: Full Field Digital Mammography with Computer Added Detection was performed. COMPARISON: Comparison is made with prior study dated November 15, 2019 and November 15, 2019. FINDINGS: Breast Composition: The breasts are heterogeneously dense, which may obscure small masses. There are no dominant masses or suspicious calcifications. No other significant abnormalities are identified. There has been no significant change since the prior study. BI/DIAG MAMM W/CAD, BILAT IMPRESSION: Stable bilateral diagnostic mammogram. With the patient''s history of right breast tenderness, Correlation with ultrasound of the right breast is recommended. ASSESSMENT CATEGORY: BIRADS Category 0: Incomplete. Need additional imaging evaluation. A letter regarding these results will be sent to the patient by the facility within 30 days. Approximately 10% of breast cancers are not detected by mammography. A normal mammogram should not delay biopsy of a clinically suspicious abnormality. Electronically Signed: Nehemiah Juarez MD at 15:26 EDT ,
--- NOTE | 2023-07-16 14:27 | US_ITS ---
STUDY: ULTRASOUND BREAST - RIGHT REASON FOR EXAM: Female, 32 years old. Breast pain. TECHNIQUE: Axial and longitudinal images of the RIGHT breast were performed with a high resolution ultrasound transducer. # OF IMAGES: 34 COMPARISON: Comparison is made with prior mammogram done earlier today. FINDINGS: RIGHT Breast: The lower half of the right breast was examined with ultrasound. There is heterogeneously dense breast tissue. No sonographic abnormality is seen. US/Breast Limited Unilateral IMPRESSION: No sonographic abnormality is seen. ASSESSMENT CATEGORY: BIRADS Category 1: Negative. A letter regarding these results will be sent to the patient by the facility within 30 days. Electronically Signed: Nehemiah Juarez MD at 11:22 EDT ,
== END | disposition home or self-care (01) ==
LOC: OPBI 14:25
PROVIDERS: PCP Internal Medicine; Referring Provider Registered Nurse; Visit Provider Registered Nurse
DX: N64.4 Mastodynia (principal); Z80.3 Family history of malignant neoplasm of breast
CPT/HCPCS: 76642; 77062; 77066; G0279

== ENCOUNTER → 2023-09-22 | Outpatient (CLI) | payer OTHER, SELFPAY ==
[2023-09-22 16:17] LABS: Ferritin 12 ng/mL (8-252); Iron 80 ug/dL (50-170); Iron Binding Capacity,Total 431 ug/dL (250-450)
[2023-09-22 19:58] LABS: Vitamin D,25 Hydroxy 24.3 ng/mL
[2023-09-24 18:07] LABS: Deamidated Gliadin IgA 19 units (0-19); Deamidated Gliadin IgG 7 units (0-19); Endomysial Antibody IgA Negative (Negative); Immunoglobulin A 351 mg/dL (87-352); t-Transglutaminase IgA 2 U/mL (0-3)
== END | disposition home or self-care (01) ==
LOC: BIMLAB 11:45
PROVIDERS: PCP Internal Medicine; Referring Provider Internal Medicine; Visit Provider Internal Medicine
DX: D50.9 Iron deficiency anemia, unspecified (principal); E83.51 Hypocalcemia
CPT/HCPCS: 36415; 82306; 82728; 82784; 83516; 83540; 83550; 86255

== ENCOUNTER → 2023-12-09 | Outpatient (CLI) | payer OTHER, SELFPAY ==
[2023-12-09 15:24] LABS: Absolute Lymphocyte Count 2.53 X10^3/uL (0.83-4.51); Absolute Neutrophil Count 4.2 X10^3/uL (2.0-7.7); Basophil# 0.05 X10^3/uL; Basophil% 0.6 % (0-1); Eosinophil# 0.21 X10^3/uL; Eosinophils% 2.7 % (0-5); Hemoglobin 10.9 g/dL (12.0-15.0); Lymphocyte # 2.53 X10^3/ul (0.83-4.51); Lymphocyte % 32.3 % (19-41); Mean Corp Hgb Conc 31.1 g/dL (32-36); Mean Corpuscular Hgb 27.3 pg (27.0-32.0); Mean Corpuscular Volume 87.7 fL (81-99); Mean Platelet Vol. 10.4 fl (6.2-12.0); Monocyte# 0.86 X10^3/uL; NRBC Flagged by Analyzer 0 % (0-5); Neutrophil # 4.17 X10^3/uL (2.7-7.7); Neutrophil % 53.1 % (47-70); Platelet Count 301 K/mm3 (150-450); RBC Distribution Width CV 14.7 % (11.6-14.6); RBC Distribution Width SD 47.1 fl (35.1-43.9); Red Blood Count 3.99 M/mm3 (4.2-5.4); White Blood Count 7.8 K/mm3 (4.4-11.0)
--- NOTE | 2023-12-09 16:24 | US_ITS ---
STUDY: FIRST TRIMESTER OBSTETRICAL ULTRASOUND REASON FOR EXAM: Female, 32 years old bleeding with LMP: TECHNIQUE: Transvaginal TECHNICAL QUALITY: Adequate. PRIOR ULTRASOUND: May 01, 2023 FINDINGS: No evidence for intrauterine gestation. The uterus measures 8.8 x 5.6 x 4.6 centimeters. There is no demonstrated uterine fibroid. The cervix is closed. The right ovary measures 3.8 x 3.3 x 2.3 cm. There is no right ovarian cyst. There is complex cyst measuring 2.8 x 2.9 x 1.3 cm. The left ovary measures 2.5 x 1.4 x 1.2 cm. There is no left ovarian cyst. There is no visualized left adnexal mass or complex lesion. There is minimal fluid in the cul de sac. US/Transvaginal w/Preg US IMPRESSION: No evidence for intrauterine gestation or definitive evidence for ectopic however there is a complex cyst in the right ovary and trace of fluid in the cul-de-sac. If concern for ectopic recommend follow-up studies. Electronically Signed: Otto Vizcarra MD at 17:24 EST Reading Location ID and State: [facility] / [place] Tel , Service support ,
[2023-12-09 16:27] LABS: hCG Titer Quant., Serum 2095 mIU/mL (1-3)
--- OUTSIDE RECORDS SUMMARY | 2023-12-09 17:55 | XMS RPT_ITS | CCD ---
Author Name Unknown Address [address] [place] [address] Organization [facility] Care Team Providers Care Pie Topper Name Role Phone ALBERTO Sheth RN, Perla Guy Unavailable Unavailabl e Daryl [employer]IEF, Lady Ramirez Unavailable [phone] Steff MCKEON, Teresa Yost Unavailable [phone] ALBERTO Sheth RN, Perla Guy Unavailable Unavailabl e Angie Escobar Unavailable Unavailable Calderon MCKEON, Jose Rosa Unavailable Angie Escobar Unavailable Unavailable ALBERTO Sheth RN, Perla Guy Unavailable Unavailabl e Svetlana Guzmán Unavailable Unavailable ALBERTO Sheth RN, Perla Guy Unavailable Unavailabl e Allergies Allergy Classification Reported Allergen(s) Allergy Type Date of Onset Reaction(s) Facility (13 sources) amoxicillin / clavulanate drug allergy 06-04-2017 rash [facility] (13 sources) Honey bee venom drug allergy 06-04-2017 [facility] Medications Completed/Discontinued Medications Medication Drug Class(es) Dates Sig (Normalized) Sig (Original) CODFISH LIVER (10 sources) Start: 07-22-2017 take 1 tablet by mouth once daily CODFISH LIVER One tablet by mouth daily CODFISH LIVER Teresa Artis MD Problems Active Problems Problem Classification Problem Date Documented Date Episodic/Chronic Other circulatory disease (13 sources) Raynaud's phenomenon ; Translations: [Raynaud's syndrome without gangrene] Onset: 06-04-2017 06-04-2017 Chronic Unclassified (10 sources) Screening for malignant neoplasm of cervix ; Translations: [Encounter for screening for malignant neoplasm of cervix] Onset: 07-22-2017 07-22-2017 Unclassified (10 sources) Gynecologic examination ; Translations: [Encounter for gynecological examination (general) (routine) without abnormal findings] Onset: 07-22-2017 07-22-2017 Unclassified (13 sources) Screening procedure ; Translations: [Encounter for screening, unspecified] Onset: 06-04-2017 06-04-2017 Past or Other Problems Problem Classification Problem Date Documented Da te Episodic/Chronic Abdominal pain (6 sources) Pain in female pelvis; Translations: [Pelvic and perineal pain] Onset: 09-10-2017 09-10-2017 Episodic Contraceptive and procreative management (10 sources) Encounter for other general counseling and advice on procreation; Translations: [Encounter for other general counseling and advice on procreation] Onset: 07-22-2017 07-22-2017 Episodic Deficiency and other anemia (13 sources) Anemia; Translations: [Anemia, unspecified] Onset: 06-04-2017 06-04-2017 Episodic Results Test Name Value Interpretation Reference Range Facil ity Vital Signs Date Time Vital Sign Value Performing Clinician Faci lity 09-10-2017 14:15-0400 BMI (Body Mass Index) 21.35 kg/m2 Svetlana [facility] 09-10-2017 14:15-0400 Body Temperature 96.6 [degF] [facility]ana [facility] 09-10-2017 14:15-0400 BP Diastolic 68 mm[Hg] Svetlana [facility] 09-10-2017 14:15-0400 BP Systolic 106 mm[Hg] Svetlana Guzmán [facility] Care 09-10-2017 14:15-0400 Height 162.[address] [facility] 09-10-2017 14:15-0400 Pulse (Heart Rate) 85 /min S[facility]lana Guzmán [facility] 09-10-2017 14:15-0400 Respiratory Rate 16 /min Svetlanadayanara Guzmán [facility] 09-10-2017 14:15-0400 Weight 56.[address]án [facility] 07-22-2017 15:49-0400 BMI (Body Mass Index) 20.87 kg/m2 Teresa Artis MD [facility] 07-22-2017 15:49-0400 Body Temperature 97.2 [degF] Teresa Artis MD [facility] 07-22-2017 15:49-0400 BP Diastolic 64 mm[Hg] Teresa Artis MD [facility] 07-22-2017 15:49-0400 BP Systolic 101 mm[Hg] Teresa Artis MD [facility] 07-22-2017 15:49-0400 Height 162.56 cm Teresa Artis MD [facility] 07-22-2017 15:49-0400 Pulse (Heart Rate) 81 /min Teresa Artis MD [facility] 07-22-2017 15:49-0400 Respiratory Rate 16 /min Teresa Artis MD [facility] 07-22-2017 15:49-0400 Weight 55.16 kg Teresa Artis MD [facility] 06-04-2017 14:49-0400 BMI (Body Mass Index) 20.77 kg/m2 Jose Mancera MD [facility] 06-04-2017 14:49-0400 BP Diastolic 64 mm[Hg] Jose Mancera MD [facility] 06-04-2017 14:49-0400 BP Systolic 108 mm[Hg] Jose Mancera MD [facility] 06-04-2017 14:49-0400 Height 162.56 cm Jose Mancera MD [facility] 06-04-2017 14:49-0400 Pulse (Heart Rate) 70 /min Jose Mancera MD [facility] 06-04-2017 14:49-0400 Weight 54.89 kg Jose Mancera MD [facility] Procedures Date Procedure Procedure Detail Performing Clinician Start: 09-10-2017 End: 09-10-2017 Urine test visual color cmprsn meths Lady Brito [employer] Work Phone: Start: 09-10-2017 End: 09-10-2017 Urnls dip stick/tablet rgnt non-auto w/o micrscp Lady Brito [employer] Work Phone: Start: 06-04-2017 End: 06-05-2017 Follow Up Appt 3 months Jose peñaloza MD Work Phone: Start: 06-04-2017 End: 06-05-2017 Follow Up Appt 3 months Jose peñaloza MD Work Phone: Plan of Treatment Date Care Activity Detail Author Start: 09-10-2017 End: 09-10-2017 Appointment Appointment [facility] Start: 09-10-2017 End: 09-10-2017 *GC/Chlamydia *GC/Chlamydia [facility] Start: 09-10-2017 End: 09-10-2017 Bacteria genital culture *CUV - Culture, VAG/CX Comprehensive [facility] Start: 09-10-2017 End: 09-10-2017 Us pelvic nonobstetric real-time image complete US Pelvis [facility] Start: 09-10-2017 End: 09-10-2017 Us transvaginal US Transvaginal [facility] Start: 09-02-2017 End: 09-02-2017 Appointment Appointment [facility] Start: 07-22-2017 End: 07-22-2017 Appointment Appointment [facility] Start: 06-04-2017 End: 06-04-2017 Appointment Appointment [facility] Start: 06-04-2017 End: 06-04-2017 *ZACHARIAH *ZACHARIAH [facility] Start: 06-04-2017 End: 06-04-2017 *BMP *BMP [facility] Start: 06-04-2017 End: 06-04-2017 *CBC with Differential *CBC with Differential [facility] Start: 06-04-2017 End: 06-11-2017 Antinuclear antibodies zachariah ZACHARIAH w/Reflex & Titer [facility] Start: 06-04-2017 End: 06-04-2017 Ferritin *Ferritin [facility] Start: 06-04-2017 End: 06-05-2017 Follow Up Appt 3 months Follow Up Appt 3 months [facility] Start: 06-04-2017 End: 06-04-2017 Iron *Iron [facility] Start: 06-04-2017 End: 06-04-2017 Iron and Iron binding capacity panel - Serum or Plasma *IBC Iron & Total Iron Binding Capacity [facility] Start: 06-04-2017 End: 06-04-2017 Thyroid stimulating hormone (TSH) *TSH [facility] Start: 06-04-2017 End: 06-04-2017 *ZACHARIAH *ZACHARIAH [facility] Start: 06-04-2017 End: 06-04-2017 *BMP *BMP [facility] Start: 06-04-2017 End: 06-04-2017 *CBC with Differential *CBC with Differential [facility] Start: 06-04-2017 End: 06-11-2017 Antinuclear antibodies ZACHARIAH w/Reflex & Titer [facility] Start: 06-04-2017 End: 06-04-2017 Ferritin *Ferritin [facility] Start: 06-04-2017 End: 06-05-2017 Follow Up Appt 3 months Follow Up Appt 3 months [facility] Start: 06-04-2017 End: 06-04-2017 Iron *Iron [facility] Start: 06-04-2017 End: 06-04-2017 Iron and Iron binding capacity panel - Serum or Plasma *IBC Iron & Total Iron Binding Capacity [facility] Start: 06-04-2017 End: 06-04-2017 Thyroid stimulating hormone (TSH) *TSH [facility] Additional Source Comments FOR RECORDS PERTAINING TO PATIENTS WHO ARE OR HAVE BEEN ENROLLED IN A CHEMICAL DEPENDENCY/SUBSTANCEABUSE PROGRAM, SOME INFORMATION MAY BE OMITTED. This clinical summary was aggregated from multiple sources. Caution should be exercised in using it in the provision of clinical care. This summary normalizes information from multiple sources, and as a consequence, information in this document may materially change the coding, format and clinical context of patient data. In addition, data may be omitted in some cases. CLINICAL DECISIONS SHOULD BE BASED ON THE PRIMARY CLINICAL RECORDS. [employer] provides no warranty or guarantee of the accuracy or completeness of information in this document.
== END | disposition home or self-care (01) ==
LOC: US 16:23
PROVIDERS: PCP Internal Medicine; Referring Provider Advanced Practice Midwife; Visit Provider Advanced Practice Midwife
DX: O20.9 Hemorrhage in early pregnancy, unspecified (principal); Z3A.00 Weeks of gestation of pregnancy not specified
CPT/HCPCS: 36415; 76817; 84702; 85025; 86850; 86900; 86901

== ENCOUNTER → 2023-12-11 | Outpatient (CLI) | payer OTHER, SELFPAY ==
--- OUTSIDE RECORDS SUMMARY | 2023-12-11 15:42 | XMS RPT_ITS | CCD ---
Author Name Unknown Address [address] [place] [address] Organization [facility] Care Team Providers Care Advertising Editor Name Role Phone ALBERTO Sheth RN, Perla Guy Unavailable Unavailabl e Daryl [employer] INTERN, Lady Ramirez Unavailable Steff MCKEON, Teresa Yost Unavailable [phone] ALBERTO Sheth RN, Perla Guy Unavailable Unavailabl e Angie Escobar Unavailable Unavailable Calderon MCKEON, Jose Rosa Unavailable Angie Escobar Unavailable Unavailable ALBERTO Sheth RN, Perla Guy Unavailable Unavailabl e Svetlana Guzmán Unavailable Unavailable ALBERTO Sheth RN, Perla Guy Unavailable Unavailabl e Allergies Allergy Classification Reported Allergen(s) Allergy Type Date of Onset Reaction(s) Facility (13 sources) amoxicillin / clavulanate drug allergy 06-04-2017 rash [facility] (13 sources) Honey bee venom drug allergy 06-04-2017 [facility] Medications Completed/Discontinued Medications Medication Drug [...] BMI (Body Mass Index) 21.35 kg/m2 Svetlana [facility] 09-10-2017 14:15-0400 Body Temperature 96.6 [degF] Svetlana [facility] 09-10-2017 14:15-0400 BP Diastolic 68 mm[Hg] Svetlana [facility] 09-10-2017 14:15-0400 BP Systolic 106 mm[Hg] Svetlana Guzmán [facility] 09-10-2017 14:15-0400 Height 162.56 cm Svetlana [facility] 09-10-2017 14:15-0400 Pulse (Heart Rate) 85 /min Svetlana Guzmán [facility] 09-10-2017 14:15-0400 Respiratory Rate 16 /min Svetlanadayanara Guzmná [facility] 09-10-2017 14:15-0400 Weight 56.43 kg Svetlana Guzmán [facility] 07-22-2017 15:49-0400 BMI (Body Mass Index) 20.87 kg/m2 Teresa Artis MD [facility] 07-22-2017 15:49-0400 Body Temperature 97.2 [degF] Teresa Artis MD [facility] 07-22-2017 15:49-0400 BP Diastolic 64 mm[Hg] Teresa Artis MD [facility] 07-22-2017 15:49-0400 BP Systolic 101 mm[Hg] Teresa Artis MD [facility] 07-22-2017 15:49-0400 Height 162.56 cm Teresa Artis MD [facility] 07-22-2017 15:49-0400 Pulse (Heart Rate) 81 /min Teresa Artis MD [facility] 07-22-2017 15:49-0400 Respiratory Rate 16 /min Teresa Artis MD [facility] 07-22-2017 15:49-0400 Weight 55.16 kg Teresa Artis MD [facility] 06-04-2017 14:49-0400 BMI (Body Mass Index) 20.77 kg/m2 Jose Mancera MD [facility] 06-04-2017 14:49-0400 BP Diastolic 64 mm[Hg] oJse Mancera MD [facility] 06-04-2017 14:49-0400 BP Systolic 108 mm[Hg] Jose Mancera MD [facility] 06-04-2017 14:49-0400 Height 162.56 cm Jose Mancera MD [facility] 06-04-2017 14:49-0400 Pulse (Heart Rate) 70 /min Jose Mancera MD [facility] 06-04-2017 14:49-0400 Weight 54.89 kg Jose Mancera MD [facility] Procedures Date Procedure Procedure Detail Performing Clinician Start: 09-10-2017 End: 09-10-2017 Urine test visual color cmprsn meths Lady Brito [employer] INTER[employer] Work Phone: Start: 09-10-2017 End: 09-10-2017 Urnls dip stick/tablet rgnt non-auto w/o micrscp Lady Brito [employer] INTER[employer] Work Phone: Start: 06-04-2017 End: 06-05-2017 Follow Up Appt 3 months Jose peñaloza MD Work Phone: Start: 06-04-2017 End: 06-05-2017 Follow Up Appt 3 months Jose peñaloza MD Work Phone: Plan of Treatment Date Care Activity Detail Author Start: 09-10-2017 End: 09-10-2017 Appointment Appointment [facility] Start: 09-10-2017 End: 09-10-2017 *GC/Chlamydia *GC/Chlamydia [facility] Start: 09-10-2017 End: 09-10-2017 Bacteria genital culture *CUV - Culture, VAG/CX Comprehensive [facility] Start: 09-10-2017 End: 09-10-2017 Us pelvic nonobstetric real-time image complete US Pelvis [facility] Start: 09-10-2017 End: 09-10-2017 Us transvaginal US Transvaginal [facility] Start: 09-02-2017 End: 09-02-2017 Appointment Appointment [facility] Start: 07-22-2017 End: 07-22-2017 Appointment Appointment [facility] Start: 06-04-2017 End: 06-04-2017 Appointment Appointment [facility] Start: 06-04-2017 End: 06-04-2017 *ZACHARIAH *ZACHARIAH [facility] Start: 06-04-2017 End: 06-04-2017 *BMP *BMP [facility] Start: 06-04-2017 End: 06-04-2017 *CBC with Differential *CBC with Differential [facility] Start: 06-04-2017 End: 06-11-2017 Antinuclear antibodies zachariah ZACHARIAH w/Reflex & Titer [facility] Start: 06-04-2017 End: 06-04-2017 Ferritin *Ferritin [facility] Start: 06-04-2017 End: 06-05-2017 Follow Up Appt 3 months Follow Up Appt 3 months [facility] Start: 06-04-2017 End: 06-04-2017 Iron *Iron [facility] Start: 06-04-2017 End: 06-04-2017 Iron and Iron binding capacity panel - Serum or Plasma *IBC Iron & Total Iron Binding Capacity [facility] Start: 06-04-2017 End: 06-04-2017 Thyroid stimulating hormone (TSH) *TSH [facility] Start: 06-04-2017 End: 06-04-2017 *ZACHARIAH *ZACHARIAH [facility] Start: 06-04-2017 End: 06-04-2017 *BMP *BMP [facility] Start: 06-04-2017 End: 06-04-2017 *CBC with Differential *CBC with Differential [facility] Start: 06-04-2017 End: 06-11-2017 Antinuclear antibodies ZACHARIAH w/Reflex & Titer [facility] Start: 06-04-2017 End: 06-04-2017 Ferritin *Ferritin [facility] Start: 06-04-2017 End: 06-05-2017 Follow Up Appt 3 months Follow Up Appt 3 months [facility] Start: 06-04-2017 End: 06-04-2017 Iron *Iron [facility] Start: 06-04-2017 End: 06-04-2017 Iron and Iron binding capacity panel - Serum or Plasma *IBC Iron & Total Iron Binding Capacity [facility] Start: 06-04-2017 End: 06-04-2017 Thyroid stimulating hormone (TSH) *TSH [facility] Additional Source Comments FOR RECORDS PERTAINING TO [...] BE BASED ON THE PRIMARY CLINICAL RECORDS. [employer] provides no warranty or guarantee of the accuracy or completeness of information in this document.
[2023-12-11 15:57] LABS: Hemoglobin A1c 5.1 % (3.8-5.6)
[2023-12-11 16:43] LABS: hCG Titer Quant., Serum 890 mIU/mL (1-3)
[2023-12-11 16:44] LABS: Thyroid Stim Hormone (TSH) 1.01 uIU/mL (0.358-3.74)
[2023-12-17 18:07] LABS: Anti-Cardiolipin Ab, IgA, Qn < 9 APL U/mL (0-11); Anti-Cardiolipin Ab, IgG, Qn < 9 GPL U/mL (0-14); Anti-Cardiolipin Ab, IgM, Qn < 9 MPL U/mL (0-12); Beta-2-Glycoprotein I IgA <9 (0-25); Beta-2-Glycoprotein I IgG 24 (0-20); Beta-2-Glycoprotein I IgM <9 (0-32); Dilute Prothrombin Time (dPT) 33.4 sec (0.0-47.6); Dilute Russell Viper Venom 33.1 sec (0.0-47.0); Interpretation Comment: (.); PTT-LA 28.2 sec (0.0-43.5); Thrombin Time 17.1 sec (0.0-23.0)
== END | disposition home or self-care (01) ==
LOC: PAVLAB 15:22
PROVIDERS: Advanced Practice Midwife; PCP Internal Medicine; Referring Provider Obstetrics & Gynecology; Visit Provider Obstetrics & Gynecology
DX: O03.9 Complete or unspecified spontaneous abortion without complication (principal); N96 Recurrent pregnancy loss
CPT/HCPCS: 36415; 83036; 84443; 84702; 86146; 86147

== ENCOUNTER → 2024-07-06 | Outpatient (CLI) | payer OTHER, SELFPAY ==
[2024-07-06 11:10] LABS: hCG Titer Quant., Serum 58 mIU/mL (1-3)
== END | disposition home or self-care (01) ==
PROVIDERS: PCP Internal Medicine; Referring Provider Obstetrics & Gynecology; Visit Provider Obstetrics & Gynecology
DX: O09.299 Supervision of pregnancy with other poor reproductive or obstetric history, unspecified trimester (principal); Z3A.00 Weeks of gestation of pregnancy not specified
CPT/HCPCS: 36415; 84702

== ENCOUNTER → 2024-07-08 | Outpatient (CLI) | payer OTHER, SELFPAY ==
[2024-07-08 08:57] LABS: hCG Titer Quant., Serum 143 mIU/mL (1-3)
== END | disposition home or self-care (01) ==
LOC: LAB 07:52
PROVIDERS: PCP Internal Medicine; Referring Provider Obstetrics & Gynecology; Visit Provider Obstetrics & Gynecology
DX: O09.299 Supervision of pregnancy with other poor reproductive or obstetric history, unspecified trimester (principal); Z3A.00 Weeks of gestation of pregnancy not specified
CPT/HCPCS: 36415; 84702

== ENCOUNTER → 2024-07-20 | Outpatient (CLI) | payer OTHER, SELFPAY ==
--- NOTE | 2024-07-20 08:11 | US_ITS ---
STUDY: FIRST TRIMESTER OBSTETRICAL ULTRASOUND REASON FOR EXAM: Female, 33 years old viability LMP: 06/08/2024 TECHNIQUE: Transvaginal TECHNICAL QUALITY: Adequate. PRIOR ULTRASOUND: None. FINDINGS: There is visualization of a single gestational sac in a normal intrauterine position. The mean sac diameter (MSD) measures 12 mm, indicating an estimated gestational age (EGA) of 6 weeks, 0 days. The gestational sac shape is within normal limits. There is a visualized yolk sac. The yolk sac measures 4 mm. The placenta is non-visualized. There is visualization of a live embryo. The crown-rump length (CRL) measures 2 mm, indicating an estimated gestational age (EGA) of 6 weeks, 0 days. There is demonstrated cardiac activity with a heart rate of 101 bpm. The estimated gestation age (EGA) by LMP is 6 weeks, 0 days. The estimated date of delivery (BARBIE) by LMP is 03/15/2025. The estimated gestation age (EGA) by US is 6 weeks, 0 days. The estimated date of delivery (BARBIE) by US is 03/15/2025. The uterus measures 4.5 x 6.2 cm. There is no demonstrated uterine fibroid. The cervix is closed. The right ovary measures 3.5 x 2.5 x 3.0 cm. There is no right ovarian cyst. There is no visualized right adnexal mass or complex lesion. The left ovary measures 2.1 x 1.1 x 1.57. There is no left ovarian cyst. There is no visualized left adnexal mass or complex lesion. There is no fluid in the cul de sac. US/Transvaginal w/Preg US IMPRESSION: Living intrauterine 6 weeks 0 days as described above. Electronically Signed: Mustapha Griffin MD at 13:24 EDT ,
== END | disposition home or self-care (01) ==
LOC: US 08:10
PROVIDERS: PCP Internal Medicine; Referring Provider Obstetrics & Gynecology; Visit Provider Obstetrics & Gynecology
DX: O09.299 Supervision of pregnancy with other poor reproductive or obstetric history, unspecified trimester (principal); Z3A.00 Weeks of gestation of pregnancy not specified
CPT/HCPCS: 76817

== ENCOUNTER → 2024-08-06 | Outpatient (CLI) | payer OTHER, SELFPAY ==
[2024-08-06 12:03] LABS: hCG Titer Quant., Serum 69 mIU/mL (1-3)
== END | disposition home or self-care (01) ==
LOC: LAB 11:13
PROVIDERS: PCP Internal Medicine; Referring Provider Registered Nurse; Visit Provider Registered Nurse
DX: O20.9 Hemorrhage in early pregnancy, unspecified (principal); Z3A.00 Weeks of gestation of pregnancy not specified
CPT/HCPCS: 36415; 84702

== ENCOUNTER 2025-02-22 15:58 | Outpatient (CLI) | payer OTHER, SELFPAY | END 2025-02-22 23:59 | disposition home or self-care (01) | PROVIDERS: PCP Internal Medicine; Referring Provider Obstetrics & Gynecology; Visit Provider Obstetrics & Gynecology | DX: Z34.90 Encounter for supervision of normal pregnancy, unspecified, unspecified trimester (principal); Z80.3 Family history of malignant neoplasm of breast | CPT/HCPCS: 36415 ==

== ENCOUNTER → 2025-05-05 | Outpatient (CLI) | payer OTHER, SELFPAY ==
[2025-05-05 12:17] LABS: hCG Titer Quant., Serum 81 mIU/mL (<9 non-preg)
== END | disposition home or self-care (01) ==
PROVIDERS: PCP Internal Medicine; Referring Provider Obstetrics & Gynecology; Visit Provider Obstetrics & Gynecology
DX: O09.299 Supervision of pregnancy with other poor reproductive or obstetric history, unspecified trimester (principal); Z3A.00 Weeks of gestation of pregnancy not specified
CPT/HCPCS: 36415; 84702

== ENCOUNTER → 2025-05-07 | Outpatient (CLI) | payer OTHER, SELFPAY ==
--- OUTSIDE RECORDS SUMMARY | 2025-05-07 09:18 | XMS RPT_ITS | CCD ---
Author Organization [facility] Care Team Providers Care Bran Mixer Name Role Phone ALBERTO Sheth RN, Perla Guy Unavailable Unavailgetachew Brito PACKER FUSER, Lady Ramirez Unavailable [phone] Teresa Artis MD Unavailable [phone] ALBERTO Sheth RN, Perla Guy Unavailable Unavailabl Angie Cruz Unavailable Unavailable Jose Mancera MD Unavailable [phone]) Angie Escobar Unavailable Unavailable ALBERTO Sheth RN, Perla Guy Unavailable Unavailabl e Svetlana Guzmán Unavailable Unavailable ALBERTO Sheth RN, Perla Guy Unavailable Unavailabl e Dr. Jose Mancera Primary Care Provider 1([phone]) Dr. Jose Mancera Referring Provider [phone] Dr. Teresa Artis Attending Provider [phone] [phone] Dr. Emanuel Meyers Attending Provider Daryl PACKER FUSER, CHAPINCITO Narayanan Attending Provider 1(330 ) Dr. Verona Richards Attending Provider 1(3 30) Dr. Jose Mancera Primary Care Provider 1(33 0) Dr. Jose Mancera Referring Provider [phone] Dr. Teresa Artis Attending Provider 1(330 ) Dr. Jose Mancera Primary Care Provider 1(33 0) Dr. Jose Mancera Referring Provider [phone] Dr. Emanuel Meyers Attending Provider Dr. Jose Mancera Primary Care Provider [phone] Calderon, Dr. Garcia Referring Provider [phone] Dr. Teresa Artis Attending Provider [phone] Calderon, Dr. Garcia Primary Care Provider [phone] Calderon, Dr. Garcia Referring Provider [phone] Calderon, Dr. Garcia Primary Care Provider [phone] Calderon, Dr. Garcia Referring Provider [phone] Dr. Verona Richards Referring Provider 1(3 [phone]) Arvind Mendez, Dr. Rhoades Other Provider Arvind Menedz, Dr. Rhoades Admit Provider Calderon, Dr. Garcia Primary Care Provider 1(33 0) Calderon, Dr. Garcia Referring Provider [phone] Dr. Verona Richards Attending Provider [phone] KAMRAN Ocampo Attending Provider [facility] Jose Mancera Primary Care Provider 1(33 0) Dr. Mathew Hoffman Emergency Provider Dr. Teresa Artis Attending Provider [phone] [phone] Dr. Teresa Artis Other Provider [phone] Calderon, Dr. Garcia Primary Care Provider [phone] Calderon, Dr. Garcia Referring Provider [phone] ELVA Singh Attending Provider [phone] Calderon, Dr. Garcia Attending Provider [phone] Calderon, Dr. Garcia Primary Care Provider 1(33 0) Calderon, Dr. Garcia Attending Provider [phone] Calderon, Dr. Garcia Referring Provider [phone] KAMRAN Velázquez Attending Provider [phone] Dr. Teresa Artis Attending Provider Dr. Jose Mancera MD Primary Care Provider Dr. Verona Richards DO Attending Provider Dr. Verona Richards DO Referring Provider Teresa Artis Referring Unavailable Oleghe, Efewongbe Primary Care Unavailable Teresa Artis Attending Unavailable Oleghe, Efewongbe Referring Unavailable Oleghe, Efewongbe Primary Care Unavailable Madelyn Singh Attending Unavailable Oleghe, Efewongbe Referring Unavailable Oleghe, Efewongbe Primary Care Unavailable Vande Velde, Verona Attending Unavailabl e Oleghe, Efewongbe Primary Care Unavailable Oleghe, Efewongbe Referring Unavailable Vande Velde, Verona Attending Unavailabl e Vande Velde, Verona Referring Unavailabl e Oleghe, Efewongbe Primary Care Unavailable Vande Velde, Verona Attending Unavailabl e Oleghe, Efewongbe Primary Care Unavailable Madelyn Singh Attending Unavailable Madelyn Singh Referring Unavailable Teresa Artis Referring Unavailable Teresa Artis Attending Unavailable Oleghe, Efewongbe Primary Care Unavailable Oleghe, Efewongbe Primary Care Unavailable Teresa Artis Referring Unavailable Teresa Artis Attending Unavailable Teresa Artis Referring Unavailable Oleghe, Efewongbe Primary Care Unavailable Teresa Artis Attending Unavailable Allergies Allergy Classification Reported Allergen(s) Allergy Type Date of Onset Reaction(s) Facility (13 sources) amoxicillin / clavulanate drug allergy 7 rash [facility] (20 sources) Honey bee venom drug allergy 7 Anaphylaxis [facility] (20 sources) Amoxicillin; Translations: [amoxicillin trihydrate] Drug Allergy 2 Nausea/Vom/Diar [facility] (20 sources) potassium clavulanate; Translations: [potassium clavulanate] Propensity to adverse reactions 2 Nausea/Vom/Diar jodie [facility] (10 sources) Bacitracin Drug Allergy 2 Rash [facility] (10 sources) Neomycin Drug Allergy 2 [facility] (10 sources) Polymyxin B Drug Allergy 2 [facility] (1 source) Bacitracin Drug Allergy 4 [facility] (1 source) Neomycin Drug Allergy 4 [facility] (1 source) polymyxin B Drug allergy (disorder) 4 [facility] (1 source) venom-honey bee Drug allergy (disorder) 4 [facility] Medications Current Medications Medication Drug Class(es) Dates Sig (Normalized) Sig (Original) [id number] 0.3 ml EPINEPHrine 1 mg/ml auto-injector (19 sources) alpha-Adrenergic Agonist, beta-Adrenergic Agonist, Catecholamine Start: 08-20-2019 Epinephrine (Epipen 2-Jens) 0.3 mg/0.3 mL auto-injector Active 0.3 mg IM every 10 to 15 minutes as needed for anaphylaxis August 20, 2019 12:00am until response nitrofurantoin, macrocrystals 25 mg / nitrofurantoin, monohydrate 75 mg oral capsule (3 sources) Nitrofuran Antibacterial Start: 05-08-2022 take 1 capsule by mouth twice daily at mealtime Nitrofurantoin Monohyd/M-Cryst (Macrobid) 100 mg capsule Active 100 MG PO TWICE A DAY May 08, 2022 12:00am must administer with a meal/food ondansetron 4 mg disintegrating oral tablet (5 sources) Serotonin-3 Receptor Antagonist Start: 01-25-2022 take 4 mg by mouth every six hours Ondansetron Active 4 MG PO EVERY 6 HOURS January 25, 2022 3:19pm Pnv #55-Iwid-Idydh Acid-Dha (18 sources) Start: 11-05-2021 take 1 capsule by mouth once daily Pnv #60-Yndb-Qtsbw Acid-Dha Active 1 CAP PO DAILY November 05, 2021 11:48am Start: 11-05-2021 take 1 capsule by [facility] once daily Pnv #41-Ichk-Jelvt Acid-Dha Active 1 CAP PO DAILY November 05, 2021 12:00am Start: 11-05-2021 take 1 capsule by [facility] once daily Pnv #86-Wodm-Reedp Acid-Dha Active 1 CAP PO DAILY November 05, 2021 1:00am Pnv #78-Vxjs-Dchtx Acid-Dha 35 mg iron-5 mg iron-1 mg capsule (2 sources) Start: 11-05-2021 Pnv #56-Iron-F olic Acid-Dha 35 mg iron-5 mg iron-1 mg capsule Active 1 NMA PO DAILY November 05, 2021 1:00am Start: 04-12-2020 End: 04-13-2021 Pnv #62-Tytr-Pjylq Acid-Dha 35 mg iron-5 mg iron-1 mg capsule Discontinued 1 NMA PO DAILY April 12, 2020 12:00am April 13, 2021 3:05pm promethazine hydrochloride 12.5 mg oral tablet (5 sources) Phenothiazine Start: 03-08-2022 take 12.5 mg by mouth every six hours Promethazine Active 12.5 MG PO EVERY 6 HOURS March 08, 2022 4:34pm Completed/Discontinued Medications Medication Drug Class(es) Dates Sig (Normalized) Sig (Original) blood pressure test kit-small (18 sources) Start: 10-25-2020 End: 10-31-2021 blood pressure test kit-small Discontinued 0 .ROUTE .MEDSUPPLY October 25, 2020 4:14pm October 31, 2021 3:23pm As directed Start: 10-25-2020 End: 10-31-2021 blood pressure test kit-smal l Discontinued 0 .ROUTE .MEDSUPPLY October 25, 2020 12:00am October 31, 2021 2:23pm As directed Start: 10-25-2020 End: 10-31-2021 blood pressure test kit-smal l Discontinued 0 .ROUTE .MEDSUPPLY October 25, 2020 1:00am October 31, 2021 3:23pm As directed Blood Pressure Test Kit-Small kit (1 source) Start: 10-25-2020 End: 10-31-2021 Blood Pressure Test Kit-Small kit Discontinued 0 .ROUTE .MEDSUPPLY October 25, 2020 1:00am October 31, 2021 3:23pm As directed cephalexin 500 mg oral capsule (8 sources) Cephalosporin Antibacterial Start: 11-11-2022 End: 11-21-2022 take 1 capsule by mouth every twelve hours Cephalexin 500 mg capsule Discontinued 500 mg PO Q12H 19 09November 11, 2022 1:00am November 20, 2022 1:00am November 21, 2022 1:04am clindamycin 300 mg oral capsule (19 sources) Lincosamide Antibacterial Start: 02-17-2022 End: 03-06-2022 take 1 capsule by mouth every six hours Clindamycin Hcl (Cleocin Hcl) 300 MG capsule Discontinued 300 mg PO EVERY 6 HOURS February 17, 2022 12:00am March 06, 2022 3:51pm CODFISH LIVER (10 sources) Start: 07-22-2017 take 1 tablet by mouth once daily CODFISH LIVER One tablet by mouth daily CODFISH LIVER Teresa Artis MD Start: 07-22-2017 take 1 tablet by tito th once daily CODFISH LIVER One tablet by mouth daily CODFISH LIVER Teresa Artis MD estradiol 0.1 mg/ml vaginal cream (19 sources) Estrogen Start: 05-14-2021 End: 10-31-2021 Estradiol 0.01 % (0.1 mg/gram) cream Discontinued 0 VAGINAL .COMPLEX 42.5 May 14, 2021 12:00am October 31, 2021 3:22pm small amount as directed vaginal every other day Start: 05-14-2021 End: 10-31-2021 Estradiol Discontinued 0 VAG INAL .COMPLEX 42.5 May 13, 2021 11:00pm October 31, 2021 2:22pm small amount as directed vaginal every other day ferrous fumarate 325 mg oral tablet (3 sources) Start: 09-22-2023 End: 07-23-2024 take 1 tablet by mouth once daily Ferrous Fumarate 325 mg (106 mg iron) tablet Discontinued 325 mg PO DAILY September 22, 2023 12:00am July 23, 2024 1:41pm ferrous sulfate 325 mg oral tablet (20 sources) Start: 05-26-2022 End: 07-16-2022 take 1 tablet by mouth once daily Ferrous Sulfate (Iron) 325 mg (65 mg iron) Tablet Discontinued 325 mg PO DAILY May 26, 2022 12:00am July 16, 2022 11:43am Start: 09-24-2021 End: 10-31-2021 take 1 tablet by mouth once daily Ferrous Sulfate 325 mg (65 mg iron) tablet Discontinued 325 mg PO DAILY September 24, 2021 12:00am October 31, 2021 3:23pm medroxyPROGESTERone acetate 10 mg oral tablet (20 sources) Progestin Start: 06-14-2021 End: 06-24-2021 take 1 tablet by mouth once daily Medroxyprogesterone 10 mg tablet Discontinued 10 mg PO daily 09 09June 14, 2021 12:00am June 23, 2021 12:00am June 24, 2021 12:01am Start: 04-27-2019 End: 08-18-2019 Medroxyprogesterone 10 mg ta blet Discontinued PO 09 09April 27, 2019 12:00am August 18, 2019 3:53pm meloxicam 15 mg oral tablet (3 sources) Nonsteroidal Anti-inflammatory Drug Start: 09-22-2023 End: 07-23-2024 take 1 tablet by mouth once daily Meloxicam 15 mg tablet Discontinued 15 mg PO DAILY September 22, 2023 12:00am July 23, 2024 1:41pm MULTIPLE VITAMINS-MINERAL S (7 sources) Start: 06-04-2017 DAILY MULTIVITAMIN CAPS MULTIPLE VITAMINS-MINERALS [id number] Jose Mancera MD MULTIPLE VITAMINS-MINERAL S (6 sources) Start: 06-04-2017 DAILY MULTIVITAMIN CAPS MULTIPLE VITAMINS-MINERALS [id number] Jose Mancera MD Multivit 89-Lrta-Giksvq 1-Dha (Pnv-Dha) 27 mg iron-1 mg -300 mg capsule (19 sources) Start: 03-27-2020 End: 04-12-2020 Multivit 48-Gtng-Znymkp 1-Dha (Pnv-Dha) 27 mg iron-1 mg -300 mg capsule Discontinued CAP PO March 27, 2020 1:25pm April 12, 2020 11:30am Start: 03-27-2020 End: 04-12-2020 Multivit 10-Hlvi-Iduakt 1-Dh a (Pnv-Dha) 27 mg iron-1 mg -300 mg capsule Discontinued NMA PO March 27, 2020 12:00am April 12, 2020 11:30am Start: 03-27-2020 End: 04-12-2020 Multivit 90-Zrey-Hogvoy 1-Dh a (Pnv-Dha) 27 mg iron-1 mg -300 mg capsule Discontinued CAP PO March 26, 2020 11:00pm April 12, 2020 10:30am Start: 03-27-2020 End: 04-12-2020 Multivit 97-Aryg-Lteese 1-Dh a (Pnv-Dha) 27 mg iron-1 mg -300 mg capsule Discontinued CAP PO March 27, 2020 12:00am April 12, 2020 11:30am Multivitamin 1 EACH tablet (1 source) Start: 12-11-2016 End: 09-07-2018 Multivitamin 1 EACH tablet Discontinued 1 NMA PO DAILY December 11, 2016 1:00am September 07, 2018 1:20pm Multivitamin preparation (18 sources) Start: 12-11-2016 End: 09-07-2018 Multivitamin Discontinued 1 EACH PO DAILY December 11, 2016 8:50pm September 07, 2018 1:20pm Start: 12-11-2016 End: 09-07-2018 Multivitamin Discontinued 1 EACH PO DAILY December 11, 2016 12:00am September 07, 2018 12:20pm Start: 12-11-2016 End: 09-07-2018 Multivitamin Discontinued 1 EACH PO DAILY December 11, 2016 1:00am September 07, 2018 1:20pm naproxen 250 mg oral tablet (19 sources) Nonsteroidal Anti-inflammatory Drug Start: 11-07-2020 End: 04-13-2021 take 250-500 mg by mouth every eight hours as needed for pain Naproxen 250 MG tablet Discontinued 250 - 500 mg PO EVERY 8 HOURS NEEDED as needed for MILD PAIN November 07, 2020 1:00am April 13, 2021 3:05pm nitrofurantoin, macrocrystals 100 mg oral capsule (19 sources) Nitrofuran Antibacterial Start: 03-06-2022 End: 03-13-2022 take 1 capsule by mouth twice daily at mealtime Nitrofurantoin Macrocrystal 100 mg capsule Discontinued 100 mg PO TWICE A DAY 14 March 06, 2022 12:00am March 12, 2022 12:00am March 13, 2022 12:03am administer with food (meal or snack) norethindrone 0.35 mg oral tablet (20 sources) Start: 07-11-2023 End: 09-22-2023 take 1 tablet by mouth once daily Norethindrone (Contraceptive) (Angélica) 0.35 mg tablet Discontinued 0.35 mg PO DAILY July 11, 2023 12:00am September 22, 2023 11:04am Start: 11-02-2019 End: 03-27-2020 take 1 tablet by mouth three times daily, then take 1 tablet by mouth twice daily Norethindrone Acetate (Aygestin) 5 mg tablet Discontinued 5 mg PO .COMPLEX November 02, 2019 1:00am March 27, 2020 1:19pm 5 mg PO tid until bleeding stops X 24 hr then bid to finish Rx [place]-3 Fatty Acids-Fish Oil (18 sources) Start: 12-11-2016 End: 09-07-2018 [place]-3 Fatty Acids-Fish Oil Discontinued 1 EACH PO DAILY December 11, 2016 8:50pm September 07, 2018 1:20pm Start: 12-11-2016 End: 09-07-2018 [place]-3 Fatty Acids-Fish Oil Discontinued 1 EACH PO DAILY December 11, 2016 12:00am September 07, 2018 12:20pm Start: 12-11-2016 End: 09-07-2018 [place]-3 Fatty Acids-Fish Oil Discontinued 1 EACH PO DAILY December 11, 2016 1:00am September 07, 2018 1:20pm [place]-3 Fatty Acids-Fish Oil 1 EACH capsule (1 source) Start: 12-11-2016 End: 09-07-2018 [place]-3 Fatty Acids-Fish Oil 1 EACH capsule Discontinued 1 NMA PO DAILY December 11, 2016 1:00am September 07, 2018 1:20pm predniSONE 10 mg oral tablet (19 sources) Start: 04-27-2019 End: 08-18-2019 Prednisone 10 mg tablet Discontinued 10 mg PO .COMPLEX April 27, 2019 12:00am August 18, 2019 3:53pm 10 mg PO 4 pills for 3 days,3 pills for 3 days, 2 pills for 3 days, 1 pill for 3 days; vitamin #56-iron 35 mg and 5 mg-folic acid 1 mg-dha capsule (18 sources) Start: 04-12-2020 End: 04-13-2021 take 1 capsule by mouth once daily vitamin #56-iron 35 mg and 5 mg-folic acid 1 mg-dha capsule Discontinued 1 CAP PO DAILY April 12, 2020 11:30am April 13, 2021 3:05pm Start: 04-12-2020 End: 04-13-2021 take 1 capsule by mouth once daily vitamin #56-iron 35 mg and 5 mg-folic acid 1 mg-dha capsule Discontinued 1 CAP PO DAILY April 11, 2020 11:00pm April 13, 2021 2:05pm Start: 04-12-2020 End: 04-13-2021 take 1 capsule by mouth once daily vitamin #56-iron 35 mg and 5 mg-folic acid 1 mg-dha capsule Discontinued 1 CAP PO DAILY April 12, 2020 12:00am April 13, 2021 3:05pm sertraline 50 mg oral tablet (19 sources) Serotonin Reuptake Inhibitor Start: 11-05-2021 End: 07-16-2022 take 1 tablet by mouth once daily Sertraline (Zoloft) 50 mg tablet Discontinued 50 mg PO daily November 05, 2021 1:00am July 16, 2022 11:43am Problems Active Problems Problem Classification Problem Date Documented Date Episodic/Chronic Contraceptive and procreative management (20 sources) Encounter for other general counseling and advice on procreation; Translations: [Patient encounter status] Onset: 07-22-2017 07-22-2017 Episodic Deficiency and other anemia (4 sources) Anemia due to blood loss; 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-2023 Chronic Deficiency and other anemia (1 source) Iron deficiency anemia secondary to blood loss (chronic); 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-2023 Chronic Deficiency and other anemia (20 sources) Anemia; Translations: [Anemia, unspecified] Onset: 06-04-2017 06-04-2017 Episodic Deficiency and other anemia (19 sources) Iron deficiency anemia; Translations: [Iron deficiency anemia, unspecified] 11-05-2021 Episodic Comment on above: IV venofer in previo us Deficiency and other anemia (2 sources) Iron deficiency anemia, unspecified; Translations: [Iron deficiency anemia, unspecified] 09-22-2023 Episodic Disorders of teeth and jaw (19 sources) Dental caries; Translations: [Dental caries, unspecified] 02-25-2022 Episodic Early or threatened labor (2 sources) False labor; Translations: [False labor, unspecified] Episodic Fluid and electrolyte disorders (19 sources) Hypokalemia; Translations: [Hypokalemia] 06-29-2020 Episodic Genitourinary symptoms and ill-defined conditions (20 sources) Female stress incontinence; Translations: [Stress incontinence (female) (male)] Chronic Genitourinary symptoms and ill-defined conditions (20 sources) Proteinuria; Translations: [Proteinuria, unspecified] Episodic Immunizations and screening for infectious disease (1 source) Antibody titer - finding; Translations: [Raised antibody titer] 12-19-2023 Episodic Comment on above: repeat labs in 3 fris Menstrual disorders (8 sources) Amenorrhea; Translations: [Amenorrhea, unspecified] 04-09-2023 Chronic Comment on above: HCG, US Nonmalignant breast conditions (20 sources) Pain of breast; Translations: [Mastodynia] 06-29-2020 Episodic Comment on above: imaging ordered Open wounds of head; neck; and trunk (19 sources) Laceration of chin; Translations: [Laceration without foreign body of other part of head, initial encounter] 12-12-2016 Episodic Other circulatory disease (13 sources) Raynaud's phenomenon ; Translations: [Raynaud's syndrome without gangrene] Onset: 06-04-2017 06-04-2017 Chronic Other complications of (19 sources) Anemia of ; Translations: [Anemia complicating , unspecified trimester] 05-28-2022 Chronic Comment on above: IV iron Other complications of (20 sources) Anemia complicating , unspecified trimester; Translations: [Anemia of mother, unspecified as to episode of care or not applicable] Chronic Other complications of (18 sources) Anxiety in ; Translations: [Other mental disorders complicating , unspecified trimester] 05-28-2022 Episodic Other complications of (19 sources) Disease caused by 2019-nCoV; Translations: [Other viral diseases complicating , unspecified trimester] 05-28-2022 Episodic Comment on above: asa 81 recommended, growth us @ 32 and 36 weeks, nl US at 32 wks, nl US at 36 wks Other complications of (20 sources) H/O: miscarriage; Translations: [Supervision of with other poor reproductive or obstetric history, unspecified trimester] 11-05-2021 Episodic Other complications of (20 sources) High risk ; Translations: [Supervision of high risk , unspecified, unspecified trimester] 05-28-2022 Episodic Comment on above: Jason Tiwari ( girl). Boyfriend-Rebel PRR BARBIE: 2 girl PC: Turner BF: Rebel Other complications of (19 sources) Uterine contractions problem; Translations: [Other specified related conditions, unspecified trimester] 12-12-2021 Episodic Comment on above: barbie changed based on us, small resolving subchorionic hematoma seen, reassurance. viable IUP. fu for new ob visit in 2 weeks Other complications of (20 sources) Supervision of with other poor reproductive or obstetric history, unspecified trimester; Translations: [IUGR (intrauterine growth retardation) in prior , ] Onset: 08-10-2024 Episodic Other complications of (20 sources) Supervision of high risk , unspecified, unspecified trimester; Translations: [Supervision of unspecified high-risk ] Episodic Other complications of (20 sources) Other mental disorders complicating , unspecified trimester; Translations: [Mental disorders of mother, antepartum condition or complication] Episodic Comment on above: stone rodrigues Other complications of (20 sources) Other viral diseases complicating , unspecified trimester; Translations: [Other viral diseases in the mother, antepartum condition or complication] Episodic Other female genital disorders (1 source) Recurrent loss; 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] 07-23-2024 Episodic Other lower respiratory disease (19 sources) Cough; Translations: [Cough] 12-12-2021 Episodic Other nutritional; endocrine; and metabolic disorders (19 sources) Hypomagnesemia; Translations: [Hypomagnesemia] 06-29-2020 Chronic Other nutritional; endocrine; and metabolic disorders (19 sources) Hypocalcemia; Translations: [Hypocalcemia] 06-29-2020 Chronic Other and delivery including normal (20 sources) ; Translations: [Encounter for supervision of normal , unspecified, unspecified trimester] Onset: 05-05-2025 Episodic Comment on above: TAWANDA Gomez Otitis media and related conditions (8 sources) Acute right otitis media; Translations: [Otitis media, unspecified, right ear] 11-11-2022 Episodic Ovarian cyst (19 sources) Cyst of ovary; Translations: [Unspecified ovarian cyst, unspecified side] 03-27-2020 Episodic Residual codes; unclassified (19 sources) History of vaccination; Translations: [Personal history of other drug therapy] 12-12-2021 Episodic Comment on above: Moderna 12/2020; 2020- has received booster 10/2021 Residual codes; unclassified (19 sources) Family history of breast cancer; Translations: [Family history of malignant neoplasm of breast] 11-05-2021 Episodic Comment on above: recommend genetic co unseling Residual codes; unclassified (1 source) H/O: previous baby with growth restriction; Translations: [Personal history of other complications of , childbirth and the puerperium] 07-23-2024 Episodic Residual codes; unclassified (1 source) Family history of malignant neoplasm of breast; Translations: [Family history of malignant neoplasm of breast] Onset: 03-02-2025 Episodic Skull and face fractures (19 sources) Fracture of mandible; Translations: [Fracture of mandible, unspecified, initial encounter for closed fracture] 12-12-2016 Episodic Spondylosis; intervertebral disc disorders; other back problems (2 sources) Low back pain; Translations: [Chronic lumbosacral pain] Episodic Unclassified (10 sources) Screening for malignant neoplasm of cervix ; Translations: [Encounter for screening for malignant neoplasm of cervix] Onset: 07-22-2017 07-22-2017 Unclassified (10 sources) Gynecologic examination ; Translations: [Encounter for gynecological examination (general) (routine) without abnormal findings] Onset: 07-22-2017 07-22-2017 Unclassified (13 sources) Screening procedure ; Translations: [Encounter for screening, unspecified] Onset: 06-04-2017 06-04-2017 Urinary tract infections (20 sources) Urinary tract infectious disease; Translations: [Urinary tract infection, site not specified] Episodic Comment on above: retest at next offic e visit Past or Other Problems Problem Classification Problem Date Documented Da te Episodic/Chronic Abdominal pain (6 sources) Pain in female pelvis; Translations: [Pelvic and perineal pain] Onset: 09-10-2017 09-10-2017 Episodic Hemorrhage during ; abruptio placenta; placenta previa (20 sources) Bleeding from female genital tract during ; Translations: [Antepartum hemorrhage, unspecified, unspecified trimester] Onset: 08-27-2024 09-09-2021 Episodic Spontaneous (20 sources) Miscarriage; Translations: [Complete or unspecified spontaneous without complication] Onset: 08-06-2024 10-31-2021 Episodic Comment on above: thin EML, hcg 69, to repeat on friday. emotional support provided. denies additional bloodwork for second miscarriage.c/w JV who agrees with management. recommend follow ser ial quants, suspect complete ab on ultrasound. ectopic precautions reviewed recommend suction d and c for retained products Unclassified (2 sources) IUGR (intrauterine growth retardation) in prior , 05-28-2022 Comment on above: plan growth us at 36 Results Test Name Value Interpretation Reference Range Facility hCG Titer Quant., Serumon HCG QUANT. 81 mIU/mL High <9 non-preg [facility] Comment on above: Result Comment: Gest ational Age 0.2-1 Week: 5-50 mIU/mL 1-2 Weeks: 50-500 mIU/mL 2-3 Weeks: 100-5000 mIU/mL 3-4 Weeks: 500-10,000 mIU/mL 4-5 Weeks:1000-50,000 mIU/mL 5-6 Weeks: 10,000-100,000 mIU/mL 6-8 Weeks: 15,000-200,000 mIU/mL 2-3 Months:10,000-100,000 mIU/mL Performed By: #### L 700.8000 #### [facility] Laboratory [address] [place], [address] Miscellaneous procedureOrder ed By: Verona Mendez on 02-22-2025 Miscellaneous Test Comment SEE SCANNED REPORT [facility] NATERAon 02-22-2025 NATURA SEE SCANNED REPORT Normal [facility] Comment on above: Performed By: #### L [id number] #### [facility] Laboratory [address] [place], [place], [address] Food Storeroom Clerk Office Visit Reporton 08-06-2024 Food Storeroom Clerk Office Visit Report [facility] [address] [place] [address], [address] [place] [address] OFFICE VISIT Date of Service: 08/06/24 MR#: [id number] Acct: [id number] Name: MIRI FRANCO Rep #: [id number] : 1990 Provider: ELVA terrazas Age/Sex: 33/F Location: [facility] [place] [facility] Status: Signed Intake Vital Signs 07/23/24 13:36 08/06/24 13:13 Height 5 ft 4 in 5 ft 4 in Weight: 135 lb 2 oz 137 lb 6 oz BMI 23.1 23.6 BP 118/72 111/76 Intake Visit Reasons: possible miscarriage Chief Complaint: possible miscarriage Occasional Caregiver Required: No Is patient in pain?: No Allergies bacitracin (From Neosporin (uge-aqx-pbuaq)) Allergy (Verified 07/23/24 13:36) Rash neomycin (From Neosporin (qln-ytu-cijbn)) Allergy (Verified 07/23/24 13:36) Rash polymyxin B (From Neosporin (jys-iua-mvbfk)) Allergy (Verified 07/23/24 13:36) Rash venom-honey bee (bee venom (honey bee)) Allergy (Verified 07/23/24 13:36) Anaphylaxis amoxicillin trihydrate (From Augmentin) Adverse Reaction (Verified 07/23/24 13:36) Nausea/Vom/Diarrhea potassium clavulanate (From Augmentin) Adverse Reaction (Verified 07/23/24 13:36) Nausea/Vom/Diarrhea Is last menstrual period known: No Post menopausal: No Patient : No : [facility] History (Updated 08/06/24 @ 13:35 by Madelyn Singh CNM) Vaginal bleeding affecting early History of recurrent miscarriages Complete Abnormal antibody titer Preventative health care UTI (urinary tract infection) SAB (spontaneous ) Pityriasis rosea Raynaud's disease Artificial insemination Anemia Surgical History History of mandibular surgery Family History Mother Breast cancer Grandmother Diabetes Uncle Leukemia maternal Grandfather Melanoma maternal Breast cancer maternal AAA (abdominal aortic aneurysm) paternal Grandfather Hypertension Other Heart disease Social History adopted: No household members: family housing: house current occupational status: employed pets and animals: Yes history of recent travel: Yes sexually active: Yes Smoking Status: Former smoker second hand exposure: No alcohol intake: current Alcohol type: beer details: not while substance use type: does not use caffeine: Yes what type of physical activity do you participate in: running frequency: 5-6 times per week seatbelt use: always do you feel safe at home: Yes additional social history: Boyfriend- Rebel- In school- legal studies Patient works in [employer] at [employer] HPI possible miscarriage Details: MIRI FRANCO is a 33 year old who presents for vaginal bleeding that started on 07/25 with large clots, bleeding for a few days, stopped for 3 days then resumed light bleeding. AB positive blood type. 07/20/2024 had ob ultrasound demonstrating 6 week IUP. denies fevers, chills, lightheadedness. History 7 Elective abortions Hx Para 2 Spontaneous abortions 4 Hx # Term Pregnancies Ectopic pregnancies Hx # Pregnancies Multiple births # of living children 2 Past Pregnancies Del. Date Name GA/Weeks Outcome Route Bth Weight Infant Gen Labor Lgth Anesthesia Del Locatn Provider FOB 11/06/20 Turner 39 live - full term 6lbs 4oz Male [address] [facility] DERICK Rebel 05/26/22 Jason 37 live - full term Female [facility] [place] Delivery Date: 11/06/20 Last Updated by: Perla Parks IoL IUGR; Exam Const General: cooperative and comfortable Resp Effort Inspection: normal respiratory effort and able to speak in complete sentences GI Inspection: normal to inspection External Female Exam: normal appearance of the urethra Urethra: normal appearance of the urethra Speculum Exam - Vagina: normal appearance of the vagina and vaginal bleeding OB/External Speculum: vaginal bleeding Speculum Exam: vaginal bleeding Skin General: no rashes or lesions noted Psych Appearance: grossly normal Coding Level of Care Code Off vis,est,level 3 Diagnoses Complete miscarriage O03.9 Assessment and Plan Assessment and Plan (1) Complete miscarriage: Status: Acute Comment: thin EML, hcg 69, to repeat on friday. emotional support provided. denies additional bloodwork for second miscarriage. c/w JV who agrees with management. 08/06/24 1336 Date Madelyn SUNGM Cosigner Signature: Date (if applicable) CC: Normal [facility] hCG Titer Quant., Serumon HCG QUANT. 69 mIU/mL High 1-3 [facility] Comment on above: Result Comment: hCG levels with Gestational Age Gestational Age hCG mIU/mL (IU/L) 0.2 - 1 week 5 - 50 1-2 weeks 50 - 500 2-3 weeks 100 - 5000 3-4 weeks 500 - 69531 4-5 weeks 1000 - 17390 5-6 weeks 96426 - 100,000 6-8 weeks 25053 - 200,000 2-3 months 04202 - 100,000 Performed By: #### L 700.8000 #### [facility] Laboratory [address], [address] Food Storeroom Clerk Office Visit Reporton 07-23-2024 Food Storeroom Clerk Office Visit Report [facility]'s [address], [address] [place] [address] OFFICE VISIT Date of Service: 07/23/24 MR#: [id number] Acct: [id number] Name: MIRI FRANCO Rep #: [id number] : 1990 Provider: Dr. Verona Pickering DO Age/Sex: 33/F Location: [facility] [place] [facility] Status: Signed Intake Vital Signs 12/09/23 15:45 07/22/24 14:29 07/23/24 13:36 Height 5 ft 4 in 5 ft 4 in 5 ft 4 in Weight: 135 lb 2 oz BMI 23.1 BP 118/72 Intake Visit Reasons: bleeding in early per Occasional Caregiver Required: No Is patient in pain?: No Allergies bacitracin (From Neosporin (pod-snx-ythvv)) Allergy (Verified 07/23/24 13:36) Rash neomycin (From Neosporin (wcs-swe-ppxzb)) Allergy (Verified 07/23/24 13:36) Rash polymyxin B (From Neosporin (byd-bqk-zzbrr)) Allergy (Verified 07/23/24 13:36) Rash venom-honey bee (bee venom (honey bee)) Allergy (Verified 07/23/24 13:36) Anaphylaxis amoxicillin trihydrate (From Augmentin) Adverse Reaction (Verified 07/23/24 13:36) Nausea/Vom/Diarrhea potassium clavulanate (From Augmentin) Adverse Reaction (Verified 07/23/24 13:36) Nausea/Vom/Diarrhea Medications ???Medication ???Instructions ???Recorded ???Confirmed ???Type epinephrine 0.3 mg/0.3 mL 0.3 mg (0.3 mL) IM Q10-15M PRN 08/20/19 07/23/24 Rx injection, auto-injector (EpiPen anaphylaxis #2 ea 2-Jens) vitamin #56-iron 35 mg 1 cap PO DAILY 11/05/21 07/23/24 History and 5 mg-folic acid 1 mg-dha capsule Is last menstrual period known: Yes Last Menstrual Period: 06/08/24 Post menopausal: No Patient : Yes : No [facility] Medical History (Updated 07/23/24 @ 14:[address] Verona Richards, DO) Vaginal bleeding affecting early History of recurrent miscarriages Complete Abnormal antibody titer Preventative health care UTI (urinary tract infection) SAB (spontaneous ) Pityriasis rosea Raynaud's disease Artificial insemination Anemia Surgical History History of mandibular surgery Family History Mother Breast cancer Grandmother Diabetes Uncle Leukemia maternal Grandfather Melanoma maternal Breast cancer maternal AAA (abdominal aortic aneurysm) paternal Grandfather Hypertension Other Heart disease Social History adopted: No household members: family housing: house current occupational status: employed pets and animals: Yes history of recent travel: Yes sexually active: Yes Smoking Status: Former smoker second hand exposure: No alcohol intake: current Alcohol type: beer details: not while substance use type: does not use caffeine: Yes what type of physical activity do you participate in: running frequency: 5-6 times per week seatbelt use: always do you feel safe at home: Yes additional social history: Boyfriend- Rebel- In school- legal studies 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 HPI bleeding in early per Details: MIRI FRANCO is a 33 year old who presents for bleeding in early . on 07/19 she went running. on 07/20 an ultrasound at the hospital was performed and showed a 6w0d iup with heart beat of 101. She denies cramping currently or recent intercourse. Female Reproductive History Last Menstrual Period: 06/08/24 History 7 Elective abortions Hx Para 2 Spontaneous abortions 4 Hx # Term Pregnancies Ectopic pregnancies Hx # Pregnancies Multiple births # of living children 2 Past Pregnancies Del. Date Name GA/Weeks Outcome Route Bth Weight Gen Labor Lgth Anesthesia Del Locatn Provider FOB 11/06/20 Turner 39 live - full term 6lbs 4oz Male [address] [facility] DERICK Rebel 05/26/22 Jason 37 live - full term Female [facility] [place] Delivery Date: 11/06/20 Last Updated by: Perla Parks IoL IUGR; ROS Const ROS Unobtainable: All systems reviewed are unremarkable except as noted in H Resp Resp: Reports system reviewed and no additional complaints, except as documented; Denies cough GI GI: Reports as per HPI Psych Psych: Reports system reviewed and no additional complaints, except as documented Exam Const General: cooperative, healthy appearing, comfortable and no acute distress Resp Effort Inspection: normal respiratory effort General: bimanual renal exam normal bilaterally External Female Exam: normal appearance of the urethra Urethra: normal appearance of the urethra Speculum Exam - Vagina: normal appearance of the vagina Speculum Exam - Cervix: normal appearance of the cervix Bimanual Exam- Adnexa, other: normal adnexae (more content not included)... Normal [facility] Transvaginal w/Preg USon Transvaginal w/Preg [facility] Imaging Services [address] [place] [address] Transvaginal w/Preg US MR#: [id number] Acct: [id number] Name: MIRI FRANCO Rep #: [id number] : 1990 F 33 From: Mustapha Griffin MD PCP: Dr. Jose Mancera MD Status: REG CLI Study: Transvaginal w/Preg US Date of Exam: 07/20/24 Exam# [id number] Ordering Dr: Teresa Artis [id number] STUDY: FIRST TRIMESTER OBSTETRICAL ULTRASOUND REASON FOR EXAM: Female, 33 years old viability LMP: 06/08/2024 TECHNIQUE: Transvaginal TECHNICAL QUALITY: Adequate. PRIOR ULTRASOUND: None. FINDINGS: There is visualization of a single gestational sac in a normal intrauterine position. The mean sac diameter (MSD) measures 12 mm, indicating an estimated gestational age (EGA) of 6 weeks, 0 days. The gestational sac shape is within normal limits. There is a visualized yolk sac. The yolk sac measures 4 mm. The placenta is non-visualized. There is visualization of a live embryo. The crown-rump length (CRL) measures 2 mm, indicating an estimated gestational age (EGA) of 6 weeks, 0 days. There is demonstrated cardiac activity with a heart rate of 101 bpm. The estimated gestation age (EGA) by LMP is 6 weeks, 0 days. The estimated date of delivery (BARBIE) by LMP is 03/15/2025. The estimated gestation age (EGA) by US is 6 weeks, 0 days. The estimated date of delivery (BARBIE) by US is 03/15/2025. The uterus measures 4.5 x 6.2 cm. There is no demonstrated uterine fibroid. The cervix is closed. The right ovary measures 3.5 x 2.5 x 3.0 cm. There is no right ovarian cyst. There is no visualized right adnexal mass or complex lesion. The left ovary measures 2.1 x 1.1 x 1.57. There is no left ovarian cyst. There is no visualized left adnexal mass or complex lesion. There is no fluid in the cul de sac. US/Transvaginal w/Preg US IMPRESSION: Living intrauterine 6 weeks 0 days as described above. Electronically Signed: Mustapha Griffin MD at 13:24 EDT , CC: Dr. Jose Mancera MD; Dr. Teresa Artis MD Crew Dispatcher: Signed Normal [facility] hCG Titer Quant., Serumon HCG QUANT. 143 mIU/mL High [address] [place] [address] Comment on above: Result Comment: hCG levels with Gestational Age Gestational Age hCG mIU/mL (IU/L) 0.2 - 1 week 5 - 50 1-2 weeks 50 - 500 2-3 weeks 100 - 5000 3-4 weeks 500 - 96853 4-5 weeks 1000 - 55548 5-6 weeks 52728 - 100,000 6-8 weeks 16272 - 200,000 2-3 months 21205 - 100,000 Performed By: #### L 700.8000 #### [facility] Laboratory [address] [place], [place], [address] hCG Titer Quant., Serumon HCG QUANT. 58 mIU/mL High -[address] [place] [address] Comment on above: Result Comment: hCG levels with Gestational Age Gestational Age hCG mIU/mL (IU/L) 0.2 - 1 week 5 - 50 1-2 weeks 50 - 500 2-3 weeks 100 - 5000 3-4 weeks 500 - 04412 4-5 weeks 1000 - 94054 5-6 weeks 31899 - 100,000 6-8 weeks 92301 - 200,000 2-3 months 44741 - 100,000 Performed By: #### L 700.8000 #### [facility] Laboratory [address] [place], [address] No Panel InformationOrdered By: Teresa Artis on 12-11-2023 Thyroid Stimulating Hormone (TSH) 1.01 uIU/mL 0.358-3.74 [facility] Serum or plasma choriogonado tropin detectionOrdered By: Estrella Flores on 12-11-2023 HCG ( test) Ql 890 mIU/mL <4 [facility] Comment on above: hCG levels with Gest ational AgeGestational Age hCG mIU/mL (IU/L)0.2 - 1 week 5 - 501-2 weeks 50 - 5002-3 weeks 100 - 63276-3 weeks 500 - 445824-1 weeks 1000 - 694028-6 weeks 26574 - 100,0006-8 weeks 73762 - 200,0002-3 months 74031 - 100,000 Whole blood hemoglobin A1c/t otal hemoglobin ratio (mass fraction)Ordered By: Teresa Artis on 12-11-2023 HbA1c (Bld) [Mass fraction] 5.1 % 3.8-5.6 [facility] Comment on above: Normal < 5.7 % Predi abetic 5.7 - 6.4 % Diabetic >or= 6.5 % Please note range changes. Absolute lymphocyte countOrd ered By: Estrella Flores on 12-09-2023 Lymphocytes Auto (Unsp spec) [#/Vol] 2.53 10*3/uL 0.83-4.51 [facility] Basophil percentageOrdered B y: Estrella Flores on 12-09-2023 Basophils/100 WBC (Bld) 0.6 % 0-1 [facility] Eosinophils/100 WBC (Bld) 2.7 % 0-5 [facility] Neutrophils (Bld) [#/Vol] 4.2 10*3/uL 2.0-7.7 [facility] Neutrophils/100 WBC (Bld) 53.1 % 47-70 [facility] WBC (Bld) [#/Vol] 7.8 10*3/uL 4.4-11.0 [facility] Blood erythrocytes count (nu mber/volume)Ordered By: Estrella Flores on 12-09-2023 RBC (Bld) [#/Vol] 3.99 10*6/uL 4.2-5.4 [facility] Blood hemoglobin measurement (mass/volume)Ordered By: Estrella Flores on 12-09-2023 Hemoglobin (Bld) [Mass/Vol] 10.9 g/dL 12.0-15.0 [facility] Blood lymphocytes/100 leukoc ytesOrdered By: Estrella Flores on 12-09-2023 Lymphocytes/100 WBC (Bld) 32.3 % 19-41 [facility] Blood monocytes/100 leukocyt esOrdered By: Estrella Flores on 12-09-2023 Monocytes/100 WBC (Bld) 11.0 % 0-10 [facility] Blood platelet mean volumeOr dered By: Estrella Flores on 12-09-2023 Platelet mean volume (Bld) [Entitic vol] 10.4 fL 6.2-12.0 [facility] Determination of erythrocyte mean corpuscular volume (MCV)Ordered By: Estrella Flores on 12-09-2023 MCV (RBC) [Entitic vol] 87.7 fL 81-99 [facility] Hematocrit Auto (Bld) [Volum e fraction]Ordered By: Estrella Flores on 12-09-2023 Hematocrit (Bld) [Volume fraction] 35.0 % 37-47 [facility] Laboratory - Hematology and Cell countsOrdered By: Estrella Flores on 12-09-2023 Erythrocyte distribution width (RBC) [Entitic vol] 47.1 fL 35.1-43.9 [facility] Erythrocyte distribution width (RBC) [Ratio] 14.7 % 11.6-14.6 [facility] Immature granulocytes/100 WBC (Bld) 0.300 % 0.0-0.9 [facility] Comment on above: IG% - Immature Granu locytes (promyelocytes, myelocytes and metamyelocytes) > 1% indicates that a LEFT SHIFT is Present. MCH (RBC) [Entitic mass] 27.3 pg 27.0-32.0 [facility] Nucleated RBC/100 WBC (Bld) [Ratio] 0 % 0-5 [facility] MCHC Auto (RBC) [Mass/Vol]Or dered By: Estrella Flores on 12-09-2023 MCHC (RBC) [Mass/Vol] 31.1 g/dL 32-36 [facility] Platelets bldOrdered By: Santy Flores on 01-09-2024 Platelets (Bld) [#/Vol] 301 10*3/uL 150-450 [facility] Serum or plasma choriogonado tropin detectionOrdered By: Estrella Flores on 12-09-2023 HCG ( test) Ql 2095 mIU/mL <4 [facility] Comment on above: hCG levels with Gest ational AgeGestational Age hCG mIU/mL (IU/L)0.2 - 1 week 5 - 501-2 weeks 50 - 5002-3 weeks 100 - 10522-1 weeks 500 - 555735-5 weeks 1000 - 981469-8 weeks 89160 - 100,0006-8 weeks 53271 - 200,0002-3 months 75424 - 100,000 Laboratory - Microbiology an d Antimicrobial susceptibilityon 10-09-2023 SARS-CoV-2 (COVID-19) RNA ALEXANDRO+probe Ql (Unsp spec) Not detected [facility] No Panel Informationon 10-09 POC Nasal Swab Influenza A,B Not detected [facility] POC Nasal Swab RSV Not detected [facility] Iron measurement (mass/mass) Ordered By: Jose Mancera on 09-22-2023 Iron (Unsp spec) [Mass/Mass] 80 ug/dL 50-170 [facility] No Panel InformationOrdered By: Jose Mancera on 09-22-2023 Anti-Gliadin IgA Antibody 19 units 0-19 [facility] Comment on above: Negative 0 - 19 Weak Positive 20 - 30 Moderate to Strong Positive >30 Anti-Gliadin IgG Antibody 7 units 0-19 [facility] Comment on above: Negative 0 - 19 Weak Positive 20 - 30 Moderate to Strong Positive >30 Endomysial IgA Antibody Negative Negative [facility] Tissue Transglutaminase IgG Ab <2 U/mL 0-5 [facility] Comment on above: Negative 0 - 5 Weak Positive 6 - 9 Positive >9 Total Iron Binding Capacity 431 ug/dL 250-450 [facility] Vitamin D 25-Hydroxy 24.3 ng/mL [facility] Comment on above: Vitamin D 25(OH) Sta tus Range Deficiency <20 ng/mL (50nmol/L) Insufficiency 20 - 30 ng/mL (50 - 75 nmol/L) Sufficiency 30 - 100 ng/mL (75 - 250 nmol/L) Toxicity >100 ng/mL (>250 nmol/L) Serum IgA measurement (units /volume)Ordered By: Jose Mancera on 09-22-2023 IgA Qn (S) 351 mg/dL 87-352 [facility] Comment on above: Performed at: [address] [id number] Director: oJe Morse PhD, Phone: [phone] Serum or plasma ferritin jennie surement (mass/volume)Ordered By: Jose Mancera on 09-22-2023 Ferritin [Mass/Vol] 12 ng/mL 8-252 [facility] Serum tissue transglutaminas e IgA antibody assay (units/volume)Ordered By: Jose Mancera on 09-22-2023 tTG IgA Qn (S) 2 U/mL 0-3 [facility] Comment on above: Negative 0 - 3 Weak Positive 4 - 10 Positive >10 Tissue Transglutaminase (tTG) has been identified as the endomysial antigen. Studies have demonstr- ated that endomysial IgA antibodies have over 99% specificity for gluten sensitive enteropathy. Absolute lymphocyte countOrd ered By: Dr. Artis on 05-01-2023 Lymphocytes Auto (Unsp spec) [#/Vol] 0.75 10*3/uL 0.83-4.51 [facility] Absolute lymphocyte countOrd ered By: ED PROVIDER on 05-01-2023 Lymphocytes Auto (Unsp spec) [#/Vol] 1.94 10*3/uL 0.83-4.51 [facility] Basophil percentageOrdered B y: Dr. Artis on 05-01-2023 Basophils/100 WBC (Bld) 0.2 % 0-1 [facility] Eosinophils/100 WBC (Bld) 0.1 % 0-5 [facility] Neutrophils (Bld) [#/Vol] 8.3 10*3/uL 2.0-7.7 [facility] Neutrophils/100 WBC (Bld) 89.8 % 47-70 [facility] WBC (Bld) [#/Vol] 9.3 10*3/uL 4.4-11.0 [facility] Basophil percentageOrdered B y: ED PROVIDER on 06-01-2023 Basophil percentage 10-25 SEEN /hpf 0-5 [facility] Basophils/100 WBC (Bld) 0.4 % 0-1 [facility] Bilirubin [Mass/Vol] 0.50 mg/dL 0.20-1.00 [facility] Comment on above: For patients on eltr ombopag therapy, use of [employer] TBIL is not recommended. Chloride [Moles/Vol] 110 mmol/L 98-107 [facility] Eosinophils/100 WBC (Bld) 3.4 % 0-5 [facility] Glucose [Mass/Vol] 114 mg/dL 74-106 [facility] Comment on above: Fasting Glucose resu lt from 100 to 125 mg/dL suggests IMPAIRED HOMEOSTASIS per A.D.A. criteria. Neutrophils (Bld) [#/Vol] 6.9 10*3/uL 2.0-7.7 [facility] Neutrophils/100 WBC (Bld) 70.0 % 47-70 [facility] Potassium [Moles/Vol] 4.0 mmol/L 3.5-5.1 [facility] Protein [Mass/Vol] 7.3 g/dL 6.4-8.2 [facility] Sodium [Moles/Vol] 140 mmol/L 136-145 [facility] WBC (Bld) [#/Vol] 9.9 10*3/uL 4.4-11.0 [facility] Bilirubin Test strip Ql (U)O rdered By: ED PROVIDER on 05-01-2023 Bilirubin Ql (U) Negative Negative [facility] Blood erythrocytes count (nu mber/volume)Ordered By: Dr. Artis on 05-01-2023 RBC (Bld) [#/Vol] 2.99 10*6/uL 4.2-5.4 [facility] Blood erythrocytes count (nu mber/volume)Ordered By: ED PROVIDER on 05-01-2023 RBC (Bld) [#/Vol] 3.08 10*6/uL 4.2-5.4 [facility] Blood hemoglobin measurement (mass/volume)Ordered By: Dr. Artis on 05-01-2023 Hemoglobin (Bld) [Mass/Vol] 8.9 g/dL 12.0-15.0 [facility] Blood hemoglobin measurement (mass/volume)Ordered By: ED PROVIDER on 05-01-2023 Hemoglobin (Bld) [Mass/Vol] 8.7 g/dL 12.0-15.0 [facility] Blood lymphocytes/100 leukoc ytesOrdered By: Dr. Artis on 05-01-2023 Lymphocytes/100 WBC (Bld) 8.1 % 19-41 [facility] Blood lymphocytes/100 leukoc ytesOrdered By: ED PROVIDER on 05-01-2023 Lymphocytes/100 WBC (Bld) 19.5 % 19-41 [facility] Blood monocytes/100 leukocyt esOrdered By: Dr. Artis on 05-01-2023 Monocytes/100 WBC (Bld) 0.6 % 0-10 [facility] Blood monocytes/100 leukocyt esOrdered By: ED PROVIDER on 05-01-2023 Monocytes/100 WBC (Bld) 6.2 % 0-10 [facility] Blood platelet mean volumeOr dered By: Dr. Artis on 05-01-2023 Platelet mean volume (Bld) [Entitic vol] 10.2 fL 6.2-12.0 [facility] Blood platelet mean volumeOr dered By: ED PROVIDER on 05-01-2023 Platelet mean volume (Bld) [Entitic vol] 9.9 fL 6.2-12.0 [facility] Determination of erythrocyte mean corpuscular volume (MCV)Ordered By: Dr. Artis on 05-01-2023 MCV (RBC) [Entitic vol] 91.6 fL 81-99 [facility] Determination of erythrocyte mean corpuscular volume (MCV)Ordered By: ED PROVIDER on 05-01-2023 MCV (RBC) [Entitic vol] 89.9 fL 81-99 [facility] Hematocrit Auto (Bld) [Volum e fraction]Ordered By: Dr. Artis on 05-01-2023 Hematocrit (Bld) [Volume fraction] 27.4 % 37-47 [facility] Hematocrit Auto (Bld) [Volum e fraction]Ordered By: ED PROVIDER on 05-01-2023 Hematocrit (Bld) [Volume fraction] 27.7 % 37-47 [facility] Ketones Test strip Ql (U)Ord ered By: ED PROVIDER on 05-01-2023 Ketones Ql (U) 5 mg/dl Negative [facility] Laboratory - Chemistry and C hemistry - challengeOrdered By: ED PROVIDER on 05-01-2023 ALP [Catalytic activity/Vol] 60 U/L 45-117 [facility] ALT [Catalytic activity/Vol] 23 U/L 13-56 [facility] CO2 [Moles/Vol] 25.0 mmol/L 21.0-32.0 [facility] Globulin (S) [Mass/Vol] 4.0 g/dL 2.2-4.2 [facility] Urea nitrogen/Creatinine [Mass ratio] 11.4 mg/mg 10-20 [facility] Laboratory - Hematology and Cell countsOrdered By: Dr. Artis on 05-01-2023 Erythrocyte distribution width (RBC) [Entitic vol] 43.3 fL 35.1-43.9 [facility] Erythrocyte distribution width (RBC) [Ratio] 13.1 % 11.6-14.6 [facility] Immature granulocytes/100 WBC (Bld) 1.200 % 0.0-0.9 [facility] Comment on above: IG% - Immature Granu locytes (promyelocytes, myelocytes and metamyelocytes) > 1% indicates that a LEFT SHIFT is Present. MCH (RBC) [Entitic mass] 29.8 pg 27.0-32.0 [facility] Nucleated RBC/100 WBC (Bld) [Ratio] 0 % 0-5 [facility] Laboratory - Hematology and Cell countsOrdered By: ED PROVIDER on 05-01-2023 Erythrocyte distribution width (RBC) [Entitic vol] 41.5 fL 35.1-43.9 [facility] Erythrocyte distribution width (RBC) [Ratio] 12.7 % 11.6-14.6 [facility] Immature granulocytes/100 WBC (Bld) 0.500 % 0.0-0.9 [facility] Comment on above: IG% - Immature Granu locytes (promyelocytes, myelocytes and metamyelocytes) > 1% indicates that a LEFT SHIFT is Present. MCH (RBC) [Entitic mass] 28.2 pg 27.0-32.0 [facility] Nucleated RBC/100 WBC (Bld) [Ratio] 0 % [facility]-5 [facility] [Mass/Vol]Or dered By: Dr. Artis on 05-01-2023 MCHC (RBC) [Mass/Vol] 32.5 g/dL [facility] Comment on above: Delta: 30.4 on 05/01 MCHC Auto (RBC) [Mass/Vol]Or dered By: ED PROVIDER on 05-01-2023 MCHC (RBC) [Mass/Vol] 31.4 g/dL 32-36 [facility] Mucus LM Ql (Urine sed)Order ed By: ED PROVIDER on 05-01-2023 Mucus Ql (Urine sed) 0 SEEN /hpf [facility] Nitrite Test strip Ql (U)Ord ered By: ED PROVIDER on 05-01-2023 Nitrite Ql (U) Positive Negative [facility] No Panel InformationOrdered By: ED PROVIDER on 05-01-2023 Estimated Creatinine Clearance Calc 73.32 ml/min [facility] Estimated GFR (MDRD) Amer 86 mL/min >60 [facility] Comment on above: GFR Calc Estimated GFR (MDRD) Non-Af Amer 71 mL/min >60 [facility] Comment on above: Non- GFR Calc Platelets bldOrdered By: Dr. Artis on 05-01-2023 Platelets (Bld) [#/Vol] 319 10*3/uL 150-450 [facility] Platelets bldOrdered By: ED PROVIDER on 05-01-2023 Platelets (Bld) [#/Vol] 362 10*3/uL 150-450 [facility] Protein Test strip Ql (U)Ord ered By: ED PROVIDER on 05-01-2023 Protein Ql (U) 100 mg/dl Negative [facility] Serum or plasma albumin scott urement (mass/volume)Ordered By: ED PROVIDER on 05-01-2023 Albumin [Mass/Vol] 3.3 g/dL 3.2-5.0 [facility] Serum or plasma albumin/glob ulin mass ratioOrdered By: ED PROVIDER on 05-01-2023 Albumin/Globulin [Mass ratio] 0.8 {ratio} 0.9-2.4 [facility] Serum or plasma calcium scott urement (mass/volume)Ordered By: ED PROVIDER on 05-01-2023 Calcium [Mass/Vol] 8.6 mg/dL 8.5-10.1 [facility] Serum or plasma choriogonado tropin detectionOrdered By: ED PROVIDER on 05-01-2023 HCG ( test) Ql 6527 mIU/mL <4 [facility] Comment on above: hCG levels with Gest ational AgeGestational Age hCG mIU/mL (IU/L)0.2 - 1 week 5 - 501-2 weeks 50 - 5002-3 weeks 100 - 03155-2 weeks 500 - 127572-5 weeks 1000 - 260842-5 weeks 99010 - 100,0006-8 weeks 06265 - 200,0002-3 months 95518 - 100,000 Serum or plasma creatinine m easurement (mass/volume)Ordered By: ED PROVIDER on 05-01-2023 Creatinine [Mass/Vol] 0.96 mg/dL 0.55-1.02 [facility] Comment on above: The validity of the calculated GFR & GFRAA in patients over 70 years has not been determined. Clinical correlation is essential. Serum or plasma urea nitroge n measurement (mass/volume)Ordered By: ED PROVIDER on 05-01-2023 Urea nitrogen [Mass/Vol] 11 mg/dL 7-18 [facility] Squamous epithelial cells de tection in urine sediment by light microscopyOrdered By: ED PROVIDER on 05-01-2023 Epithelial cells.squamous LM Ql (Urine sed) 0 SEEN /hpf 5-10 [facility] Thin prep Papanicolaou smear with manual screeningOrdered By: ED PROVIDER on 05-01-2023 Thin prep Papanicolaou smear with manual screening 16 U/L 15-37 [facility] Thin prep Papanicolaou smear with manual screening 5 5-15 [facility] Urine blood detectionOrdered By: ED PROVIDER on 05-01-2023 RBC Ql (U) 250 /ul Negative [facility] RBC Ql (U) 25-50 SEEN /hpf 0-5 [facility] Urine clarityOrdered By: ED PROVIDER on 05-01-2023 Clarity (U) Cloudy Clear [facility] Urine color determinationOrd ered By: ED PROVIDER on 05-01-2023 Color (U) Red Yellow [facility] Urine glucose detectionOrder ed By: ED PROVIDER on 05-01-2023 Glucose Ql (U) Normal mg/dl Normal [facility] Urine leukocyte esterase det ection by dipstickOrdered By: ED PROVIDER on 05-01-2023 Leukocyte esterase Test strip Ql (U) 100 /ul Negative [facility] Urine pHOrdered By: ED PROVI PABLO on 05-01-2023 pH (U) 8.0 [pH] 5.0 - 8.0 [facility] Urine sediment bacteria coun t by microscopy (number/high power field)Ordered By: ED PROVIDER on 05-01-2023 Bacteria LM.HPF (Urine sed) [#/Area] 1 /[HPF] None Seen [facility] Urine specific gravity measu rementOrdered By: ED PROVIDER on 05-01-2023 Specific gravity (U) [Rel density] 1.010 1.002-1.030 [facility] Urobilinogen Auto test strip Ql (U)Ordered By: ED PROVIDER on 05-01-2023 Urobilinogen Ql (U) Normal mg/dl Normal [facility] Serum or plasma choriogonado tropin detectionOrdered By: Lady Brito on 04-09-2023 HCG ( test) Ql 6223 mIU/mL <4 [facility] Comment on above: hCG levels with Gest ational AgeGestational Age hCG mIU/mL (IU/L)0.2 - 1 week 5 - 501-2 weeks 50 - 5002-3 weeks 100 - 61950-8 weeks 500 - 781493-9 weeks 1000 - 301491-0 weeks 42430 - 100,0006-8 weeks 44469 - 200,0002-3 months 49458 - 100,000 Serum or plasma choriogonado tropin detectionOrdered By: Dr. Artis on 04-07-2023 HCG ( test) Ql 4603 mIU/mL <4 [facility] Comment on above: hCG levels with Gest ational AgeGestational Age hCG mIU/mL (IU/L)0.2 - 1 week 5 - 501-2 weeks 50 - 5002-3 weeks 100 - 12060-3 weeks 500 - 371323-8 weeks 1000 - 048150-6 weeks 91040 - 100,0006-8 weeks 25418 - 200,0002-3 months 67008 - 100,000 Laboratory - Chemistry and C hemistry - challengeon 07-16-2022 HCG ( test) Ql (U) Negative [facility] Work Phone: Absolute lymphocyte counton 05-26-2022 Lymphocytes Auto (Unsp spec) [#/Vol] 2.41 10*3/uL 0.83-4.51 [facility] Work Phone: Basophil percentageon 2021 Basophils/100 WBC (Bld) 0.2 % 0-1 [facility] Work Phone: Eosinophils/100 WBC (Bld) 1.0 % 0-5 [facility] Work Phone: Neutrophils (Bld) [#/Vol] 11.9 10*3/uL 2.0-7.7 [facility] Work Phone: Neutrophils/100 WBC (Bld) 77.1 % 47-70 [facility] Work Phone: WBC (Bld) [#/Vol] 15.5 10*3/uL 4.4-11.0 [facility] Work Phone: Blood erythrocytes count (nu mber/volume)on 05-26-2022 RBC (Bld) [#/Vol] 3.65 10*6/uL 4.2-5.4 [facility] Work Phone: Blood hemoglobin measurement (mass/volume)on 05-26-2022 Hemoglobin (Bld) [Mass/Vol] 10.1 g/dL 12.0-15.0 [facility] Work Phone: Blood lymphocytes/100 leukoc yteson 05-26-2022 Lymphocytes/100 WBC (Bld) 15.6 % 19-41 [facility] Work Phone: Blood monocytes/100 leukocyt eson 05-26-2022 Monocytes/100 WBC (Bld) 5.5 % 0-10 [facility] Work Phone: Blood platelet mean volumeon 05-26-2022 Platelet mean volume (Bld) [Entitic vol] 10.6 fL 6.2-12.0 [facility] Work Phone: Determination of erythrocyte mean corpuscular volume (MCV)on 05-26-2022 MCV (RBC) [Entitic vol] 87.4 fL 81-99 [facility] Work Phone: [phone] Hematocrit Auto (Bld) [Volum e fraction]on 05-26-2022 Hematocrit (Bld) [Volume fraction] 31.9 % 37-47 [facility] Work Phone: [phone] Laboratory - Hematology and Cell countson 05-26-2022 Erythrocyte distribution width (RBC) [Entitic vol] 45.7 fL 35.1-43.9 [facility] Work Phone: [phone] Erythrocyte distribution width (RBC) [Ratio] 14.5 % 11.6-14.6 [facility] Work Phone: [phone] Immature granulocytes/100 WBC (Bld) 0.600 % 0.0-0.9 [facility] Work Phone: [phone] Comment on above: IG% - Immature Granu locytes (promyelocytes, myelocytes and metamyelocytes) > 1% indicates that a LEFT SHIFT is Present. MCH (RBC) [Entitic mass] 27.7 pg 27.0-32.0 [facility] Work Phone: [phone] Nucleated RBC/100 WBC (Bld) [Ratio] 0 % 0-5 [facility] Work Phone: [phone] MCHC Auto (RBC) [Mass/Vol]on 05-26-2022 MCHC (RBC) [Mass/Vol] 31.7 g/dL 32-36 [facility] Work Phone: [phone] Platelets bldon 05-26-2022 Platelets (Bld) [#/Vol] 241 10*3/uL 150-450 [facility] Work Phone: [phone] Laboratory - Chemistry and C hemistry - challengeon 05-24-2022 Glucose Ql (U) Negative [facility] Work Phone: [phone] Laboratory - Urinalysison Protein Ql (U) 1+ [facility] Work Phone: Basophil percentageon 2021 Basophil percentage 25-50 SEEN /hpf 0-5 [facility] Work Phone: Bilirubin Test strip Ql (U)o n 05-08-2022 Bilirubin Ql (U) Negative Negative [facility] Work Phone: Ketones Test strip Ql (U)on 05-08-2022 Ketones Ql (U) 5 mg/dl Negative [facility] Work Phone: Mucus LM Ql (Urine sed)on Mucus Ql (Urine sed) 1+ /hpf [facility] Work Phone: Nitrite Test strip Ql (U)on 05-08-2022 Nitrite Ql (U) Negative Negative [facility] Work Phone: Protein Test strip Ql (U)on 05-08-2022 Protein Ql (U) 30 mg/dl Negative [facility] Work Phone: Squamous epithelial cells de tection in urine sediment by light microscopyon 05-08-2022 Epithelial cells.squamous LM Ql (Urine sed) 10-25 SEEN /hpf 5-10 [facility] Work Phone: Urine blood detectionon RBC Ql (U) Negative Negative [facility] Work Phone: RBC Ql (U) 0 SEEN /hpf 0-5 [facility] Work Phone: Urine clarityon 05-08-2022 Clarity (U) Sl. Cloudy Clear [facility] Work Phone: Urine color determinationon 05-08-2022 Color (U) Yellow Yellow [facility] Work Phone: Urine glucose detectionon Glucose Ql (U) Normal mg/dl Normal [facility] Work Phone: Urine leukocyte esterase det ection by dipstickon 05-08-2022 Leukocyte esterase Test strip Ql (U) 500 /ul Negative [facility] Work Phone: Urine pHon 05-08-2022 pH (U) 8.0 [pH] 5.0 - 8.0 [facility] Work Phone: Urine sediment bacteria coun t by microscopy (number/high power field)on 05-08-2022 Bacteria LM.HPF (Urine sed) [#/Area] 2 /[HPF] None Seen [facility] Work Phone: Urine specific gravity measu rementon 05-08-2022 Specific gravity (U) [Rel density] 1.010 1.002-1.030 [facility] Work Phone: Urobilinogen Auto test strip Ql (U)on 05-08-2022 Urobilinogen Ql (U) Normal mg/dl Normal [facility] Work Phone: Laboratory - Chemistry and C hemistry - challengeon 05-03-2022 Glucose Ql (U) Negative [facility] Work Phone: Laboratory - Urinalysison Protein Ql (U) 2+ [facility] Work Phone: Absolute lymphocyte counton 04-19-2022 Lymphocytes Auto (Unsp spec) [#/Vol] 2.48 10*3/uL 0.83-4.51 [facility] Work Phone: Basophil percentageon 2021 Basophils/100 WBC (Bld) 0.4 % 0-1 [facility] Work Phone: Eosinophils/100 WBC (Bld) 1.9 % 0-5 [facility] Work Phone: Neutrophils (Bld) [#/Vol] 7.5 10*3/uL 2.0-7.7 [facility] Work Phone: Neutrophils/100 WBC (Bld) 66.5 % 47-70 [facility] Work Phone: WBC (Bld) [#/Vol] 11.3 10*3/uL 4.4-11.0 [facility] Work Phone: Blood erythrocytes count (nu mber/volume)on 04-19-2022 RBC (Bld) [#/Vol] 3.03 10*6/uL 4.2-5.4 [facility] Work Phone: Blood hemoglobin measurement (mass/volume)on 04-19-2022 Hemoglobin (Bld) [Mass/Vol] 8.6 g/dL 12.0-15.0 [facility] Work Phone: Blood lymphocytes/100 leukoc yteson 04-19-2022 Lymphocytes/100 WBC (Bld) 21.9 % 19-41 [facility] Work Phone: [phone] Blood monocytes/100 leukocyt eson 04-19-2022 Monocytes/100 WBC (Bld) 8.4 % 0-10 [facility] Work Phone: Blood platelet mean volumeon 04-19-2022 Platelet mean volume (Bld) [Entitic vol] 10.6 fL 6.2-12.0 [facility] Work Phone: Culture, urineon 04-19-2022 Bacteria identified Cx Nom (U) Mixed Gram Pos & Gram Neg Org [facility] Work Phone: Determination of erythrocyte mean corpuscular volume (MCV)on 04-19-2022 MCV (RBC) [Entitic vol] 89.8 fL 81-99 [facility] Work Phone: [phone] Hematocrit Auto (Bld) [Volum e fraction]on 04-19-2022 Hematocrit (Bld) [Volume fraction] 27.2 % 37-47 [facility] Work Phone: Iron measurement (mass/mass) on 04-19-2022 Iron (Unsp spec) [Mass/Mass] 21 ug/dL 50-170 [facility] Work Phone: Laboratory - Hematology and Cell countson 04-19-2022 Erythrocyte distribution width (RBC) [Entitic vol] 43.0 fL 35.1-43.9 [facility] Work Phone: [phone] Erythrocyte distribution width (RBC) [Ratio] 13.2 % 11.6-14.6 [facility] Work Phone: Immature granulocytes/100 WBC (Bld) 0.900 % 0.0-0.9 [facility] Work Phone: Comment on above: IG% - Immature Granu locytes (promyelocytes, myelocytes and metamyelocytes) > 1% indicates that a LEFT SHIFT is Present. MCH (RBC) [Entitic mass] 28.4 pg 27.0-32.0 [facility] Work Phone: [phone] Nucleated RBC/100 WBC (Bld) [Ratio] 0 % 0-5 [facility] Work Phone: [phone] MCHC Auto (RBC) [Mass/Vol]on 04-19-2022 MCHC (RBC) [Mass/Vol] 31.6 g/dL 32-36 [facility] Work Phone: [phone] No Panel Informationon 04-19 Total Iron Binding Capacity 467 ug/dL 250-450 [facility] Work Phone: [phone] Platelets bldon 04-19-2022 Platelets (Bld) [#/Vol] 279 10*3/uL 150-450 [facility] Work Phone: [phone] Serum or plasma ferritin jennie surement (mass/volume)on 04-19-2022 Ferritin [Mass/Vol] 5 ng/mL 8-252 [facility] Work Phone: [phone] Serum or plasma iron saturat ion measurement (mass fraction)on 04-19-2022 Iron saturation [Mass fraction] 4.5 % 15.0-55.0 [facility] Work Phone: [phone] Urine creatinine measurement (mass/volume)on 04-19-2022 Creatinine (U) [Mass/Vol] 224.00 mg/dL NO RANGE EST. [facility] Work Phone: [phone] Urine protein measurement (m ass/volume)on 04-19-2022 Protein (U) [Mass/Vol] 51.9 mg/dL 0.0-11.8 [facility] Work Phone: Urine protein/creatinine mas s ratioon 04-19-2022 Protein/Creatinine (U) [Mass ratio] 232 mg/g CRE 0-200 [facility] Work Phone: Culture, urineon 04-02-2022 Bacteria identified Cx Nom (U) Negative [facility] Work Phone: Bacteria identified Cx Nom (U) Presumptive Lactobacillus sp. [facility] Work Phone: Laboratory - Chemistry and C hemistry - challengeon 04-02-2022 Glucose Ql (U) Negative [facility] Work Phone: Laboratory - Urinalysison Protein Ql (U) 2+ [facility] Work Phone: Comment on above: Office Urine Protein previously reported as Negative Laboratory - Chemistry and C hemistry - challengeon 03-19-2022 Glucose Ql (U) Negative [facility] Work Phone: Laboratory - Urinalysison Protein Ql (U) 1+ [facility] Work Phone: Absolute lymphocyte counton 03-13-2022 Lymphocytes Auto (Unsp spec) [#/Vol] 1.88 10*3/uL 0.83-4.51 [facility] Work Phone: Basophil percentageon 2021 Basophils/100 WBC (Bld) 0.5 % 0-1 [facility] Work Phone: Eosinophils/100 WBC (Bld) 2.8 % 0-5 [facility] Work Phone: Neutrophils (Bld) [#/Vol] 6.8 10*3/uL 2.0-7.7 [facility] Work Phone: Neutrophils/100 WBC (Bld) 68.7 % 47-70 [facility] Work Phone: WBC (Bld) [#/Vol] 10.0 10*3/uL 4.4-11.0 [facility] Work Phone: Blood erythrocytes count (nu mber/volume)on 03-13-2022 RBC (Bld) [#/Vol] 3.23 10*6/uL 4.2-5.4 [facility] Work Phone: Blood hemoglobin measurement (mass/volume)on 03-13-2022 Hemoglobin (Bld) [Mass/Vol] 9.3 g/dL 12.0-15.0 [facility] Work Phone: Blood lymphocytes/100 leukoc yteson 03-13-2022 Lymphocytes/100 WBC (Bld) 18.9 % 19-41 [facility] Work Phone: Blood monocytes/100 leukocyt eson 03-13-2022 Monocytes/100 WBC (Bld) 8.0 % 0-10 [facility] Work Phone: [phone] Blood platelet mean volumeon 03-13-2022 Platelet mean volume (Bld) [Entitic vol] 10.0 fL 6.2-12.0 [facility] Work Phone: Determination of erythrocyte mean corpuscular volume (MCV)on 03-13-2022 MCV (RBC) [Entitic vol] 89.5 fL 81-99 [facility] Work Phone: [phone] Gestational diabetes screen 1-hour screen with 50g oral glucose loadon 03-13-2022 Glucose 1 Hr post 50 g glucose PO [Mass/Vol] 107 mg/dL 70-140 [facility] Work Phone: [phone] Hematocrit Auto (Bld) [Volum e fraction]on 03-13-2022 Hematocrit (Bld) [Volume fraction] 28.9 % 37-47 [facility] Work Phone: Laboratory - Hematology and Cell countson 03-13-2022 Erythrocyte distribution width (RBC) [Entitic vol] 43.7 fL 35.1-43.9 [facility] Work Phone: [phone] Erythrocyte distribution width (RBC) [Ratio] 13.2 % 11.6-14.6 [facility] Work Phone: [phone] Immature granulocytes/100 WBC (Bld) 1.100 % 0.0-0.9 [facility] Work Phone: Comment on above: IG% - Immature Granu locytes (promyelocytes, myelocytes and metamyelocytes) > 1% indicates that a LEFT SHIFT is Present. MCH (RBC) [Entitic mass] 28.8 pg 27.0-32.0 [facility] Work Phone: Nucleated RBC/100 WBC (Bld) [Ratio] 0 % 0-5 [facility] Work Phone: MCHC Auto (RBC) [Mass/Vol]on 03-13-2022 MCHC (RBC) [Mass/Vol] 32.2 g/dL 32-36 [facility] Work Phone: Platelets bldon 03-13-2022 Platelets (Bld) [#/Vol] 282 10*3/uL 150-450 [facility] Work Phone: Laboratory - Chemistry and C hemistry - challengeon 03-08-2022 Glucose Ql (U) Negative [facility] Work Phone: Laboratory - Urinalysison Protein Ql (U) 1+ [facility] Work Phone: Culture, urineon 03-04-2022 Bacteria identified Cx Nom (U) Escherichia coli [facility] Work Phone: Laboratory - Chemistry and C hemistry - challengeon 03-04-2022 Bilirubin Ql (U) Small (1+) [facility] Work Phone: Glucose Ql (U) Negative [facility] Work Phone: [phone] Ketones Ql (U) Negative [facility] Work Phone: [phone] pH (U) 85 [pH] [facility] Work Phone: [phone] Specific gravity (U) [Rel density] 1.005 [facility] Work Phone: [phone] Urobilinogen (U) [Mass/Vol] 0.0215323 mg/dL [facility] Work Phone: Laboratory - Hematology and Cell countson 03-04-2022 Hemoglobin Ql (U) Negative [facility] Work Phone: Laboratory - Specimen inform ationon 03-04-2022 Clarity (U) Clear [facility] Work Phone: Color (U) Yellow [facility] Work Phone: Laboratory - Urinalysison Nitrite Ql (U) Negative [facility] Work Phone: Protein Ql (U) Trace [facility] Work Phone: No Panel Informationon 03-04 Urine Leukocytes Negatve [facility] Work Phone: Laboratory - Chemistry and C hemistry - challengeon 01-14-2022 Glucose Ql (U) Negative [facility] Work Phone: Laboratory - Urinalysison Protein Ql (U) Negative [facility] Work Phone: Absolute lymphocyte counton 01-09-2022 Lymphocytes Auto (Unsp spec) [#/Vol] 2.53 10*3/uL 0.83-4.51 [facility] Work Phone: Basophil percentageon 2021 Basophils/100 WBC (Bld) 0.4 % 0-1 [facility] Work Phone: Bilirubin [Mass/Vol] 0.30 mg/dL 0.20-1.00 [facility] Work Phone: Comment on above: For patients on eltr ombopag therapy, use of [employer] [place] TBIL is not recommended. Chloride [Moles/Vol] 101 mmol/L 98-107 [facility] Work Phone: Eosinophils/100 WBC (Bld) 2.8 % 0-5 [facility] Work Phone: Glucose [Mass/Vol] 87 mg/dL 74-106 [facility] Work Phone: Neutrophils (Bld) [#/Vol] 6.7 10*3/uL 2.0-7.7 [facility] Work Phone: Neutrophils/100 WBC (Bld) 65.3 % 47-70 [facility] Work Phone: Potassium [Moles/Vol] 3.0 mmol/L 3.5-5.1 [facility] Work Phone: Protein [Mass/Vol] 7.7 g/dL 6.4-8.2 [facility] Work Phone: [phone] Sodium [Moles/Vol] 135 mmol/L 136-145 [facility] Work Phone: [phone] WBC (Bld) [#/Vol] 10.2 10*3/uL 4.4-11.0 [facility] Work Phone: Blood erythrocytes count (nu mber/volume)on 01-09-2022 RBC (Bld) [#/Vol] 3.91 10*6/uL 4.2-5.4 [facility] Work Phone: Blood hemoglobin measurement (mass/volume)on 01-09-2022 Hemoglobin (Bld) [Mass/Vol] 11.2 g/dL 12.0-15.0 [facility] Work Phone: Blood lymphocytes/100 leukoc yteson 01-09-2022 Lymphocytes/100 WBC (Bld) 24.7 % 19-41 [facility] Work Phone: [phone] Blood monocytes/100 leukocyt eson 01-09-2022 Monocytes/100 WBC (Bld) 6.3 % 0-10 [facility] Work Phone: [phone] Blood platelet mean volumeon 01-09-2022 Platelet mean volume (Bld) [Entitic vol] 10.3 fL 6.2-12.0 [facility] Work Phone: Determination of erythrocyte mean corpuscular volume (MCV)on 01-09-2022 MCV (RBC) [Entitic vol] 85.2 fL 81-99 [facility] Work Phone: Hematocrit Auto (Bld) [Volum e fraction]on 01-09-2022 Hematocrit (Bld) [Volume fraction] 33.3 % 37-47 [facility] Work Phone: Laboratory - Chemistry and C hemistry - challengeon 01-09-2022 ALP [Catalytic activity/Vol] 50 U/L 45-117 [facility] Work Phone: [phone] [Catalytic activity/Vol] 15 U/L 13-56 [facility] Work Phone: [phone] [Moles/Vol] 29.0 mmol/L 21.0-32.0 [facility] [facility] Work Phone: [phone] Globulin (S) [Mass/Vol] 4.4 g/dL 2.2-4.2 [facility] Work Phone: [phone] Urea nitrogen/Creatinine [Mass ratio] 10.2 mg/mg 10-20 [facility] Work Phone: [phone] Glucose Ql (U) Negative [facility] Work Phone: [phone] Laboratory - Hematology and Cell countson 01-09-2022 Erythrocyte distribution width (RBC) [Entitic vol] 42.8 fL 35.1-43.9 [facility] Work Phone: [phone] Erythrocyte distribution width (RBC) [Ratio] 13.8 % 11.6-14.6 [facility] Work Phone: [phone] Immature granulocytes/100 WBC (Bld) 0.500 % 0.0-0.9 [facility] Work Phone: [phone] Comment on above: IG% - Immature Granu locytes (promyelocytes, myelocytes and metamyelocytes) > 1% indicates that a LEFT SHIFT is Present. MCH (RBC) [Entitic mass] 28.6 pg 27.0-32.0 [facility] Work Phone: [phone] Nucleated RBC/100 WBC (Bld) [Ratio] 0 % 0-5 [facility] Work Phone: [phone] Laboratory - Urinalysison Protein Ql (U) 2+ [facility] Work Phone: [phone] MCHC Auto (RBC) [Mass/Vol]on 01-09-2022 MCHC (RBC) [Mass/Vol] 33.6 g/dL 32-36 [facility] Work Phone: No Panel Informationon 01-09 Estimated GFR (MDRD) Amer 111 mL/min >60 [facility] Work Phone: Comment on above: GFR Calc Estimated GFR (MDRD) Non-Af Amer 92 mL/min >60 [facility] Work Phone: Comment on above: Non- GFR Calc Platelets bldon 01-09-2022 Platelets (Bld) [#/Vol] 326 10*3/uL 150-450 [facility] Work Phone: Serum or plasma albumin scott urement (mass/volume)on 01-09-2022 Albumin [Mass/Vol] 3.3 g/dL 3.2-5.0 [facility] Work Phone: Serum or plasma albumin/glob ulin mass ratioon 01-09-2022 Albumin/Globulin [Mass ratio] 0.8 {ratio} 0.9-2.4 [facility] Work Phone: Serum or plasma calcium scott urement (mass/volume)on 01-09-2022 Calcium [Mass/Vol] 8.7 mg/dL 8.5-10.1 [facility] Work Phone: Serum or plasma creatinine m easurement (mass/volume)on 01-09-2022 Creatinine [Mass/Vol] 0.78 mg/dL 0.55-1.02 [facility] Work Phone: Comment on above: The validity of the calculated GFR & GFRAA in patients over 70 years has not been determined. Clinical correlation is essential. Serum or plasma urea nitroge n measurement (mass/volume)on 01-09-2022 Urea nitrogen [Mass/Vol] 8 mg/dL 7-18 [facility] Work Phone: Thin prep Papanicolaou smear with manual screeningon 01-09-2022 Thin prep Papanicolaou smear with manual screening 13 U/L 15-37 [facility] Work Phone: [phone] Thin prep Papanicolaou smear with manual screening 5 5-15 [facility] Work Phone: Urine creatinine measurement (mass/volume)on 01-09-2022 Creatinine (U) [Mass/Vol] 282.00 mg/dL NO RANGE EST. [facility] Work Phone: Urine protein measurement (m ass/volume)on 01-09-2022 Protein (U) [Mass/Vol] mg/dL 0.0-11.8 [facility] Work Phone: [phone] Urine protein/creatinine mas s ratioon 01-09-2022 Protein/Creatinine (U) [Mass ratio] 20 mg/g CRE 0-200 [facility] Work Phone: [phone] Laboratory - Microbiology an d Antimicrobial susceptibilityon 12-31-2021 SARS-CoV-2 (COVID-19) RNA ALEXANDRO+probe Ql (Unsp spec) Detected [facility] Work Phone: Laboratory - Chemistry and C hemistry - challengeon 12-12-2021 Glucose Ql (U) Negative [facility] Work Phone: Laboratory - Urinalysison Protein Ql (U) Negative [facility] Work Phone: [phone] Laboratory - Microbiology an d Antimicrobial susceptibilityon 11-30-2021 SARS-CoV-2 (COVID-19) RNA ALEXANDRO+probe Ql (Unsp spec) Not detected [facility] Work Phone: Laboratory - Chemistry and C hemistry - challengeon 11-28-2021 Cobalamin (Vitamin B12) [Mass/Vol] 275 pg/mL 211-911 [facility] Work Phone: No Panel Informationon 11-28 Total Iron Binding Capacity 339 ug/dL 250-450 [facility] Work Phone: [phone] Serum or plasma ferritin jennie surement (mass/volume)on 11-28-2021 Ferritin [Mass/Vol] 14 ng/mL 8-252 [facility] Work Phone: [phone] Serum or plasma folate measu rement (mass/volume)on 11-28-2021 Folate [Mass/Vol] 16.10 ng/mL 3.1-55.4 [facility] Work Phone: Absolute lymphocyte counton 11-15-2021 Lymphocytes Auto (Unsp spec) [#/Vol] 2.26 10*3/uL 0.83-4.51 [facility] Work Phone: Basophil percentageon 2020 Eosinophils/100 WBC (Bld) 2.9 % 0-5 [facility] Work Phone: Neutrophils (Bld) [#/Vol] 5.4 10*3/uL 2.0-7.7 [facility] Work Phone: WBC (Bld) [#/Vol] 8.7 10*3/uL 4.4-11.0 [facility] Work Phone: Blood erythrocytes count (nu mber/volume)on 11-15-2021 RBC (Bld) [#/Vol] 3.94 10*6/uL 4.2-5.4 [facility] Work Phone: Blood hemoglobin measurement (mass/volume)on 11-15-2021 Hemoglobin (Bld) [Mass/Vol] 10.8 g/dL 12.0-15.0 [facility] Work Phone: Blood lymphocytes/100 leukoc yteson 11-15-2021 Lymphocytes/100 WBC (Bld) 25.9 % 19-41 [facility] Work Phone: Blood monocytes/100 leukocyt eson 11-15-2021 Monocytes/100 WBC (Bld) 8.5 % 0-10 [facility] Work Phone: Blood platelet mean volumeon 11-15-2021 Platelet mean volume (Bld) [Entitic vol] 10.2 fL 6.2-12.0 [facility] Work Phone: Cervical or vagninal specime n microscopic examination by cytology stain (reported ason 11-15-2021 Cytology report Cyto stain Doc (Cvx/Vag) Comment [facility] Work Phone: Comment on above: The Pap smear is a s creening test designed to aid in thedetection of premalignant and malignant conditions of theuterine cervix. It is not a diagnostic procedure andshould not be used as the sole means of detecting cervicalcancer. Both false-positive and false-negative reports dooccur. Chlamydia trachomatis rRNA d etection by probe and target amplification methodon 11-15-2021 C. trachomatis rRNA ALEXANDRO+probe Ql (Unsp spec) Negative Negative [facility] Work Phone: [phone] Culture, urineon 11-15-2021 Bacteria identified Cx Nom (U) Positive [facility] Work Phone: [phone] Determination of erythrocyte mean corpuscular volume (MCV)on 11-15-2021 MCV (RBC) [Entitic vol] 86.0 fL 81-99 [facility] Work Phone: [phone] HIV 1 and HIV-2 antibody ass ay with HIV-1 p24 antigen detectionon 11-15-2021 HIV 1+2 Ab+HIV1 p24 Ag IA Ql Non-Reactive Nonreactive [facility] Work Phone: [phone] Hematocrit Auto (Bld) [Volum e fraction]on 11-15-2021 Hematocrit (Bld) [Volume fraction] 33.9 % 37-47 [facility] Work Phone: [phone] Laboratory - Cytologyon 10-31 Civilian Technician Cyto stain Nom (Cvx/Vag) [ID] Comment [facility] Work Phone: [phone] Comment on above: Tangela Mejia Cyto technologist (ASCP) Laboratory - Drug toxicology on 11-15-2021 Amphetamines Ql (U) Negative [facility] Work Phone: Benzodiazepines Ql (U) Negative [facility] Work Phone: [phone] Cannabinoids Screen Ql (U) Negative [facility] Work Phone: [phone] Cocaine Ql (U) Negative [facility] Work Phone: [phone] Opiates Ql (U) Negative [facility] Work Phone: [phone] Laboratory - Hematology and Cell countson 11-15-2021 Basophils/100 WBC (Unsp spec) 0.2 % 0-1 [facility] Work Phone: Erythrocyte distribution width (RBC) [Entitic vol] 44.8 fL 35.1-43.9 [facility] Work Phone: [phone] Erythrocyte distribution width (RBC) [Ratio] 14.2 % 11.6-14.6 [facility] Work Phone: [phone] Immature granulocytes/100 WBC (Bld) 0.300 % 0.0-0.9 [facility] Work Phone: [phone] Comment on above: IG% - Immature Granu locytes (promyelocytes, myelocytes and metamyelocytes) > 1% indicates that a LEFT SHIFT is Present. MCH (RBC) [Entitic mass] 27.4 pg 27.0-32.0 [facility] Work Phone: Neutrophils/100 WBC (Bld) 62.2 % 47-70 [facility] Work Phone: [phone] Nucleated RBC/100 WBC (Bld) [Ratio] 0 % 0-5 [facility] Work Phone: Laboratory - Microbiology an d Antimicrobial susceptibilityon 11-15-2021 N. gonorrhoeae DNA ALEXANDRO+probe Ql (Unsp spec) Negative Negative [facility] Work Phone: Comment on above: Performed at: = - [address] [id number] Director: Imelda Wilder MD, Phone: [phone] Laboratory - Miscellaneous t estson 11-15-2021 Service comment (Unsp spec) [Interp] Comment [facility] Work Phone: Comment on above: This liquid based Th inPrep(R) pap test was screened withthe use of an image guided system. Service comment (Unsp spec) [Interp] . [facility] Work Phone: MCHC Auto (RBC) [Mass/Vol]on 11-15-2021 MCHC (RBC) [Mass/Vol] 31.9 g/dL 32-36 [facility] Work Phone: No Panel Informationon 11-15 Human Papillomavirus Screen Comment [facility] Work Phone: [phone] Comment on above: The HPV DNA reflex c riteria were not met with this specimenresult therefore, no HPV testing was performed.Performed at: [address] [place] [id number] Director: Imelda Wilder MD, Phone: [phone] Pathology report final diagnosis Narrative Comment [facility] Work Phone: [phone] Comment on above: NEGATIVE FOR INTRAEP ITHELIAL LESION OR MALIGNANCY. Urine Barbiturates Screen Negative [facility] Work Phone: [phone] Urine Drug Screen Comment [facility] Work Phone: [phone] Comment on above: CONFIRMATORY TESTING FOR ALL POSITIVE URINE DRUG SCREENRESULTS WILL ONLY BE SENT OUT UPON PHYSICIAN ORDER. VISTA Urine Drug Screen methods provide only preliminaryanalytical test results. A more specific alternate chemicalmethod must be used in order to obtain a confirmedanalytical result. Gas chromatography/mass spectrometery(GC/MS) is the preferred confirmatory method. Clinicalconsideration and professional judgement should be appliedto any drug of abuse test result, particularly whenpreliminary positive results are used. URINE TCA TESTING MUST BE ORDERED SEPARATELY. USE TESTMNEMONIC: [facility] Urine Methadone Screen Negative [facility] Work Phone: [phone] Urine Methamphetamine-MDMA Screen Negative [facility] Work Phone: [phone] Hepatitis B Surface Antigen Non-Reactive Nonreactive [facility] Work Phone: [phone] Hepatitis C Antibody Non-Reactive Nonreactive [facility] Work Phone: [phone] Comment on above: Non Reactive: < 0.8 Equivocal: >/= 0.8 to < 1.0 Reactive: >/= 1.0The CDC recommends that a reactive/equivocal HCV antibody result be followed up by the HCV Nucleic Acid Amplificationtest (710845) Miscellaneous Test Comment MAILED SPECIMEN [facility] Work Phone: [phone] Rubella IgG Antibody Reactive Nonreactive [facility] Work Phone: [phone] Comment on above: Antibody Results Int erpretation of Immune Status Non Reactive Presumed Non-Immune Equivocal Equivocal Reactive Presumed Immune Platelets bldon 11-15-2021 Platelets (Bld) [#/Vol] 274 10*3/uL 150-450 [facility] Work Phone: Serum Treponema species anti body detectionon 11-15-2021 Treponema sp Ab Ql (S) Non-Reactive [facility] Work Phone: Urine phencyclidine (PCP) de tectionon 11-15-2021 Phencyclidine Ql (U) Negative [facility] Work Phone: Microbiology: Culture, Genit al Comprehensiveon 09-14-2017 CUV . Invalid Interpretation Code [facility] Microbiology: (P) Culture, G enital Comprehensiveon 09-12-2017 CUV . Invalid Interpretation Code [facility] CUV . Invalid Interpretation Code [facility] Work Phone: Microbiology: (P) Culture, G enital Comprehensiveon 09-11-2017 CUV . Invalid Interpretation Code [facility] Work Phone: Lab Report: CT/NG [facility] BY PCR on 09-10-2017 Chlamydia trachomatis DNA [Presence] in Urine by Probe and target amplification method Negative Invalid Interpretation Code Negative [facility] Neisseria gonorrhoeae presence Negative Invalid Interpretation Code Negative [facility] Office Visit: abdominal pain on 09-10-2017 Documentation of current medications (procedure) Done Invalid Interpretation Code [facility] Fall risk assessment No Invalid Interpretation Code [facility] Tobacco smoking status NHIS Never Invalid Interpretation Code [facility] Tobacco use CPHS Never smoker Invalid Interpretation Code [facility] Replaced Document: (P) PAP I -G w/rfx hrHPVon 07-30-2017 GE use only - for Link[employer] import when terms are not otherwise specified Negative Invalid Interpretation Code Negative [facility] HPV HC,HGH RISK Negative Invalid Interpretation Code Negative [facility] Office Visit: new gynon 07-02 Documentation of current medications (procedure) Done Invalid Interpretation Code [facility] Fall risk assessment No Invalid Interpretation Code [facility] Hemoglobin presence in stool not done Invalid Interpretation Code [facility] Tobacco smoking status NHIS Never Invalid Interpretation Code [facility] Tobacco use CPHS Never smoker Invalid Interpretation Code [facility] Office Visit: New Pt Visiton 06-04-2017 Documentation of current medications (procedure) Done Invalid Interpretation Code [facility] Fall risk assessment No Invalid Interpretation Code [facility] Tobacco use CPHS Unknown if ever smoked Invalid Interpretation Code [facility] Office Visit: new gynon - General categories [Interpretation] of Cervical or vaginal smear or scraping by Cyto stain Normal Invalid Interpretation Code [facility] Culture, urine Bacteria identified Cx Nom (U) Escherichia coli [facility] Work Phone: Bacteria identified Cx Nom (U) Negative [facility] Work Phone: Bacteria identified Cx Nom (U) Presumptive Lactobacillus sp. [facility] Work Phone: Bacteria identified Cx Nom (U) Mixed Gram Pos & Gram Neg Org [facility] Work Phone: Bacteria identified Cx Nom (U) Positive [facility] Work Phone: No Panel Information Group B Streptococcus Culture Group B Beta Streptococcus is not isolated. [facility] Work Phone: Vital Signs Date Time Vital Sign Value Performing Clinician Jhon velásquez 12-09-2023 15:45-0500 Body height 162.[address] Jose Mancera Work Phone: [facility] 12-09-2023 15:45-0500 Body mass index (BMI) [Ratio] 23.1 kg/m2 Dr. Jose Mancera Work Phone: [facility] 12-09-2023 15:45-0500 Body weight 61.[address] Jose Mancera Work Phone: [facility] 09-22-2023 11:06-0400 Body height 162.[address] Jose Mancera Work Phone: [facility] 09-22-2023 11:06-0400 Body mass index (BMI) [Ratio] 22.6 kg/m2 Dr. Jose Mancera Work Phone: [facility] 09-22-2023 11:06-0400 Body temperature 97.8 [degF] Dr. Jose Mancera Work Phone: [facility] 09-22-2023 11:06-0400 Body weight 59.[address] Jose Mancera Work Phone: [facility] 09-22-2023 11:06-0400 Diastolic blood pressure 78 mm[Hg] Dr. Jose Mancera Work Phone: [facility] 09-22-2023 11:06-0400 Heart rate 71 /min Dr. Jose Mancera Work Phone: [facility] 09-22-2023 11:06-0400 Respiratory rate 16 /min Dr. Jose Mancera Work Phone: [facility] 09-22-2023 11:06-0400 SaO2% (BldA) [Mass fraction] 99 % Dr. Jose Mancera Work Phone: [facility] 09-22-2023 11:06-0400 Systolic blood pressure 118 mm[Hg] Dr. Jose Mancera Work Phone: [facility] 07-11-2023 13:04-0400 Body mass index (BMI) [Ratio] 21.5 kg/m2 Dr. Jose Mancera Work Phone: [facility] 07-11-2023 13:04-0400 Body weight 56.[address] Jose Mancera Work Phone: [facility] 07-11-2023 13:04-0400 Diastolic blood pressure 68 mm[Hg] Dr. Jose Mancera Work Phone: [facility] 07-11-2023 13:04-0400 Systolic blood pressure 116 mm[Hg] Dr. Jose Mancera Work Phone: [facility] 05-01-2023 23:29-0400 Body temperature 98.9 [degF] Dr. Jose Mancera Work Phone: [facility] 05-01-2023 23:29-0400 Diastolic blood pressure 69 mm[Hg] Dr. Jose Mancera Work Phone: [facility] 05-01-2023 23:29-0400 Heart rate 58 /min Dr. Jose Mancera Work Phone: [facility] 05-01-2023 23:29-0400 Respiratory rate 16 /min Dr. Jose Mancera Work Phone: [facility] 05-01-2023 23:29-0400 SaO2% (BldA) [Mass fraction] 99 % Dr. Jose Mancera Work Phone: [facility] 05-01-2023 23:29-0400 Systolic blood pressure 100 mm[Hg] Dr. Jose Mancera Work Phone: [facility] 05-01-2023 18:51-0400 Body height 162.[address] Jose Mancera Work Phone: [facility] 05-01-2023 18:51-0400 Body mass index (BMI) [Ratio] 20.9 kg/m2 Dr. Jose Mancera Work Phone: [facility] 05-01-2023 18:51-0400 Body weight 55.[address] Jose Mancera Work Phone: [facility] 05-01-2023 15:03-0400 Body temperature 97.5 [degF] [facility] 05-01-2023 15:03-0400 Diastolic blood pressure 77 mm[Hg] [facility] 05-01-2023 15:03-0400 Heart rate 73 /min [facility] 05-01-2023 15:03-0400 Respiratory rate 17 /min [facility] 05-01-2023 15:03-0400 SaO2% (BldA) [Mass fraction] 95 % [facility] 05-01-2023 15:03-0400 Systolic blood pressure 117 mm[Hg] [facility] 05-01-2023 14:39-0400 Body height 162.56 cm [facility] 05-01-2023 14:39-0400 Body mass index (BMI) [Ratio] 20.9 kg/m2 [facility] 05-01-2023 14:39-0400 Body weight 55.3 kg [facility] 10-11-2022 15:11-0500 Body temperature 96.9 [degF] Dr. Jose Mancera Work Phone: [facility] Work Phone: 10-11-2022 15:11-0500 Body weight 54.[address] Jose Mancera Work Phone: [facility] Work Phone: 10-11-2022 15:11-0500 Diastolic blood pressure 84 mm[Hg] Dr. Jose Mancera Work Phone: [facility] Work Phone: 10-11-2022 15:11-0500 Heart rate 66 /min Dr. Jose Mancera Work Phone: [facility] Work Phone: 10-11-2022 15:11-0500 Respiratory rate 18 /min Dr. Jose Mancera Work Phone: [facility] Work Phone: 10-11-2022 15:11-0500 SaO2% (BldA) [Mass fraction] 95 % Dr. Jose Mancera Work Phone: [facility] Work Phone: 10-11-2022 15:11-0500 Systolic blood pressure 126 mm[Hg] Dr. Jose Mancera Work Phone: [facility] Work Phone: 07-16-2022 11:11-0400 Body height 162.[address] Jose Mancera Work Phone: [facility] Work Phone: 07-16-2022 11:11-0400 Body mass index (BMI) [Ratio] 20.6 kg/m2 Dr. Jose Mancera Work Phone: [facility] Work Phone: 07-16-2022 11:11-0400 Body weight 54.[address] Jose Mancera Work Phone: [facility] Work Phone: 07-16-2022 11:11-0400 Diastolic blood pressure 67 mm[Hg] Dr. Jose Mancera Work Phone: [facility] Work Phone: 07-16-2022 11:11-0400 Systolic blood pressure 109 mm[Hg] Dr. Jose Mancera Work Phone: [facility] Work Phone: 05-27-2022 12:07-0400 Body temperature 97.6 [degF] Dr. Jose Mancera Work Phone: [facility] Work Phone: 05-27-2022 12:07-0400 Diastolic blood pressure 66 mm[Hg] Dr. Jose Mancera Work Phone: [facility] Work Phone: 05-27-2022 12:07-0400 Respiratory rate 16 /min Dr. Jose Mancera Work Phone: [facility] Work Phone: 05-27-2022 12:07-0400 SaO2% (BldA) [Mass fraction] 100 % Dr. Jose Mancera Work Phone: [facility] Work Phone: 05-27-2022 12:07-0400 Systolic blood pressure 99 mm[Hg] Dr. Jose Mancera Work Phone: [facility] Work Phone: 05-27-2022 08:25-0400 Heart rate 51 /min Dr. Jose Mancera Work Phone: [facility] Work Phone: 05-26-2022 12:21-0400 Body height 162.[address] Jose Mancera Work Phone: [facility] Work Phone: 05-26-2022 12:21-0400 Body mass index (BMI) [Ratio] 22.3 kg/m2 Dr. Jose Mancera Work Phone: [facility] Work Phone: 05-26-2022 12:21-0400 Body weight 58.[address] Jose Mancera Work Phone: [facility] Work Phone: 05-24-2022 14:57-0400 Body mass index (BMI) [Ratio] 23.1 kg/m2 Dr. Jose Mancera Work Phone: [facility] Work Phone: 05-24-2022 14:57-0400 Body weight [address] Jose Mancera Work Phone: [facility] Work Phone: 05-24-2022 14:57-0400 Diastolic blood pressure 74 mm[Hg] Dr. Jose Mancera Work Phone: [facility] Work Phone: 05-24-2022 14:57-0400 Systolic blood pressure 110 mm[Hg] Dr. Jose Mancera Work Phone: [facility] Work Phone: 05-21-2022 14:35-0400 Heart rate 81 /min Dr. Jose Mancera Work Phone: [facility] Work Phone: 05-21-2022 14:35-0400 SaO2% (BldA) [Mass fraction] 100 % Dr. Jose Mancera Work Phone: [facility] Work Phone: 05-21-2022 13:55-0400 Body height 162.[address] Jose Mancera Work Phone: [facility] Work Phone: 05-21-2022 13:55-0400 Body mass index (BMI) [Ratio] 23 kg/m2 Dr. Jose Mancera Work Phone: [facility] Work Phone: 05-21-2022 13:55-0400 Body weight 60.[address] Jose Mancera Work Phone: [facility] Work Phone: 05-21-2022 13:46-0400 Body temperature 98 [degF] Dr. Jose Mancera Work Phone: [facility] Work Phone: 05-21-2022 13:46-0400 Diastolic blood pressure 67 mm[Hg] Dr. Jose Mancera Work Phone: [facility] Work Phone: 05-21-2022 13:46-0400 Systolic blood pressure 116 mm[Hg] Dr. Jose Mancera Work Phone: [facility] Work Phone: 05-16-2022 14:14-0400 Body height 162.[address] Jose Mancera Work Phone: [facility] Work Phone: 05-16-2022 14:14-0400 Body mass index (BMI) [Ratio] 20.9 kg/m2 Dr. Jose Mancera Work Phone: [facility] Work Phone: 05-16-2022 14:14-0400 Body weight 55.[address] Jose Mancera Work Phone: [facility] Work Phone: 05-16-2022 14:14-0400 Diastolic blood pressure 72 mm[Hg] Dr. Jose Mancera Work Phone: [facility] Work Phone: 05-16-2022 14:14-0400 Systolic blood pressure 112 mm[Hg] Dr. Jose Mancera Work Phone: [facility] Work Phone: 05-08-2022 11:34-0400 Body height 162.[address] Jose Mancera Work Phone: [facility] Work Phone: 05-08-2022 11:34-0400 Body mass index (BMI) [Ratio] 22.2 kg/m2 Dr. Jose Mancera Work Phone: [facility] Work Phone: 05-08-2022 11:34-0400 Body weight 58.[address] Jose Mancera Work Phone: [facility] Work Phone: 05-08-2022 11:26-0400 Body temperature 98.2 [degF] Dr. Jose Mancera Work Phone: [facility] Work Phone: 05-08-2022 11:26-0400 Diastolic blood pressure 70 mm[Hg] Dr. Jose Mancera Work Phone: [facility] Work Phone: 05-08-2022 11:26-0400 Heart rate 60 /min Dr. Jose Mancera Work Phone: [facility] Work Phone: 05-08-2022 11:26-0400 SaO2% (BldA) [Mass fraction] 100 % Dr. Jose Mancera Work Phone: [facility] Work Phone: 05-08-2022 11:26-0400 Systolic blood pressure 107 mm[Hg] Dr. Jose Mancera Work Phone: [facility] Work Phone: 05-03-2022 14:58-0400 Body mass index (BMI) [Ratio] 22.4 kg/m2 Dr. Jose Mancera Work Phone: [facility] Work Phone: 05-03-2022 14:58-0400 Body weight 59.[address] Jose Mancera Work Phone: [facility] Work Phone: 05-03-2022 14:58-0400 Diastolic blood pressure 69 mm[Hg] Dr. Jose Mancera Work Phone: [facility] Work Phone: 05-03-2022 14:58-0400 Systolic blood pressure 104 mm[Hg] Dr. Jose Mancera Work Phone: [facility] Work Phone: 05-03-2022 14:58-0400 Body height 162.[address] Jose Mancera Work Phone: [facility] Work Phone: 05-03-2022 14:58-0400 Body mass index (BMI) [Ratio] 22.4 kg/m2 Dr. Jose Mancera Work Phone: [facility] Work Phone: 05-03-2022 14:58-0400 Body weight 59.[address] Jose Mancera Work Phone: [facility] Work Phone: 05-03-2022 14:58-0400 Diastolic blood pressure 69 mm[Hg] Dr. Jose Mancera Work Phone: [facility] Work Phone: 05-03-2022 14:58-0400 Systolic blood pressure 104 mm[Hg] Dr. Jose Macnera Work Phone: [facility] Work Phone: 05-02-2022 15:38-0400 Body temperature 97.5 [degF] Dr. Jose Mancera Work Phone: [facility] Work Phone: 05-02-2022 15:38-0400 Diastolic blood pressure 54 mm[Hg] Dr. Jose Mancera Work Phone: [facility] Work Phone: 05-02-2022 15:38-0400 Heart rate 72 /min Dr. Jose Mancera Work Phone: [facility] Work Phone: 05-02-2022 15:38-0400 Respiratory rate 12 /min Dr. Jose Mancera Work Phone: [facility] Work Phone: 05-02-2022 15:38-0400 SaO2% (BldA) [Mass fraction] 100 % Dr. Jose Mancera Work Phone: [facility] Work Phone: 05-02-2022 15:38-0400 Systolic blood pressure 101 mm[Hg] Dr. Jose Mancera Work Phone: [facility] Work Phone: 05-02-2022 13:17-0400 Body mass index (BMI) [Ratio] 22.3 kg/m2 Dr. Jose Mancera Work Phone: [facility] Work Phone: 05-02-2022 13:17-0400 Body weight 58.[address] Jose Mancera Work Phone: [facility] Work Phone: 04-19-2022 15:08-0400 Body mass index (BMI) [Ratio] 22.8 kg/m2 Dr. Jose Mancera Work Phone: [facility] Work Phone: 04-19-2022 15:08-0400 Body weight 60.[address] Jose Mancera Work Phone: [facility] Work Phone: 04-19-2022 15:08-0400 Diastolic blood pressure 80 mm[Hg] Dr. Jose Mancera Work Phone: [facility] Work Phone: 04-19-2022 15:08-0400 Systolic blood pressure 112 mm[Hg] Dr. Jose Mancera Work Phone: [facility] Work Phone: 04-19-2022 15:08-0400 Body height 162.[address] Jose Mancera Work Phone: [facility] Work Phone: 04-19-2022 15:08-0400 Body mass index (BMI) [Ratio] 22.8 kg/m2 Dr. Jose Mancera Work Phone: [facility] Work Phone: 04-19-2022 15:08-0400 Body weight 60.[address] Jose Mancera Work Phone: [facility] Work Phone: 04-19-2022 15:08-0400 Diastolic blood pressure 80 mm[Hg] Dr. Jose Mancera Work Phone: [facility] Work Phone: 04-19-2022 15:08-0400 Systolic blood pressure 112 mm[Hg] Dr. Jose Mancera Work Phone: [facility] Work Phone: 04-02-2022 13:04-0400 Body mass index (BMI) [Ratio] 21.7 kg/m2 Dr. Jose Mancera Work Phone: [facility] Work Phone: 04-02-2022 13:04-0400 Body weight 57.[address] Jose Mancera Work Phone: [facility] Work Phone: 04-02-2022 13:04-0400 Diastolic blood pressure 62 mm[Hg] Dr. Jose Mancera Work Phone: [facility] Work Phone: 04-02-2022 13:04-0400 Systolic blood pressure 100 mm[Hg] Dr. Jose Mancera Work Phone: [facility] Work Phone: 04-02-2022 13:04-0400 Body height 162.[address] Jose Mancera Work Phone: [facility] Work Phone: 04-02-2022 13:04-0400 Body mass index (BMI) [Ratio] 21.7 kg/m2 Dr. Jose Mancera Work Phone: [facility] Work Phone: 04-02-2022 13:04-0400 Body weight 57.[address] Jose Mancera Work Phone: [facility] Work Phone: 04-02-2022 13:04-0400 Diastolic blood pressure 62 mm[Hg] Dr. Jose Mancera Work Phone: [facility] Work Phone: 04-02-2022 13:04-0400 Systolic blood pressure 100 mm[Hg] Dr. Jose Mancera Work Phone: [facility] Work Phone: 03-19-2022 13:51-0400 Body mass index (BMI) [Ratio] 21.9 kg/m2 Dr. Jose Mancera Work Phone: [facility] Work Phone: 03-19-2022 13:51-0400 Body weight 58.[address] Jose Mancera Work Phone: [facility] Work Phone: 03-19-2022 13:51-0400 Diastolic blood pressure 70 mm[Hg] Dr. Jose Mancera Work Phone: [facility] Work Phone: 03-19-2022 13:51-0400 Systolic blood pressure 110 mm[Hg] Dr. Jose Mancera Work Phone: [facility] Work Phone: 03-19-2022 13:51-0400 Body height 162.[address] Jose Mancera Work Phone: [facility] Work Phone: 03-19-2022 13:51-0400 Body mass index (BMI) [Ratio] 21.9 kg/m2 Dr. Jose Mancera Work Phone: [facility] Work Phone: 03-19-2022 13:51-0400 Body weight 58.[address] Jose Mancera Work Phone: [facility] Work Phone: 03-19-2022 13:51-0400 Diastolic blood pressure 70 mm[Hg] Dr. Jose Mancera Work Phone: [facility] Work Phone: 03-19-2022 13:51-0400 Systolic blood pressure 110 mm[Hg] Dr. Jose Mancera Work Phone: [facility] Work Phone: 03-08-2022 16:15-0400 Body mass index (BMI) [Ratio] 21.6 kg/m2 Dr. Jose Mancera Work Phone: [facility] Work Phone: 03-08-2022 16:15-0400 Body weight 57.[address] Jose Mancera Work Phone: [facility] Work Phone: 03-08-2022 16:15-0400 Diastolic blood pressure 80 mm[Hg] Dr. Jose Mancera Work Phone: [facility] Work Phone: 03-08-2022 16:15-0400 Systolic blood pressure 118 mm[Hg] Dr. Jose Mancera Work Phone: [facility] Work Phone: 03-08-2022 16:15-0400 Body height 162.[address] Jose Mancera Work Phone: [facility] Work Phone: 03-08-2022 16:15-0400 Body mass index (BMI) [Ratio] 21.6 kg/m2 Dr. Jose Mancera Work Phone: [facility] Work Phone: 03-08-2022 16:15-0400 Body weight 57.[address] Jose Mancera Work Phone: [facility] Work Phone: 03-08-2022 16:15-0400 Diastolic blood pressure 80 mm[Hg] Dr. Jose Mancera Work Phone: [facility] Work Phone: 03-08-2022 16:15-0400 Systolic blood pressure 118 mm[Hg] Dr. Jose Mancera Work Phone: [facility] Work Phone: 03-04-2022 14:41-0400 Body mass index (BMI) [Ratio] 21.5 kg/m2 Dr. Jose Mancera Work Phone: [facility] Work Phone: 03-04-2022 14:41-0400 Body weight 56.[address] Jose Mancera Work Phone: [facility] Work Phone: 03-04-2022 14:41-0400 Diastolic blood pressure 68 mm[Hg] Dr. Jose Mancera Work Phone: [facility] Work Phone: 03-04-2022 14:41-0400 Systolic blood pressure 111 mm[Hg] Dr. oJse Mancera Work Phone: [facility] Work Phone: 03-04-2022 14:41-0400 Body mass index (BMI) [Ratio] 21.5 kg/m2 Dr. Jose Mancera Work Phone: [facility] Work Phone: 03-04-2022 14:41-0400 Body weight 56.[address] Jose Mancera Work Phone: [facility] Work Phone: 03-04-2022 14:41-0400 Diastolic blood pressure 68 mm[Hg] Dr. Jose Mancera Work Phone: [facility] Work Phone: 03-04-2022 14:41-0400 Systolic blood pressure 111 mm[Hg] Dr. Jose Mancera Work Phone: [facility] Work Phone: 02-17-2022 13:41-0400 Respiratory rate 16 /min Dr. Jose Mancera Work Phone: [facility] Work Phone: 02-17-2022 13:12-0400 Body mass index (BMI) [Ratio] 20.5 kg/m2 Dr. Jose Mancera Work Phone: [facility] Work Phone: 02-17-2022 13:12-0400 Body temperature 98 [degF] Dr. Jose Mancera Work Phone: [facility] Work Phone: 02-17-2022 13:12-0400 Body weight 54.[address] Jose Mancera Work Phone: [facility] Work Phone: 02-17-2022 13:12-0400 Diastolic blood pressure 79 mm[Hg] Dr. Jose Mancera Work Phone: [facility] Work Phone: 02-17-2022 13:12-0400 Heart rate 80 /min Dr. Jose Mancera Work Phone: [facility] Work Phone: 02-17-2022 13:12-0400 SaO2% (BldA) [Mass fraction] 99 % Dr. Jose Mancera Work Phone: [facility] Work Phone: 02-17-2022 13:12-0400 Systolic blood pressure 110 mm[Hg] Dr. Jose Mancera Work Phone: [facility] Work Phone: 02-04-2022 13:50-0500 Body mass index (BMI) [Ratio] 20.4 kg/m2 Dr. Jose Mancera Work Phone: [facility] Work Phone: 02-04-2022 13:50-0500 Body weight 53.[address] Jose Mancera Work Phone: [facility] Work Phone: 02-04-2022 13:50-0500 Diastolic blood pressure 80 mm[Hg] Dr. Jose Mancera Work Phone: [facility] Work Phone: 02-04-2022 13:50-0500 Systolic blood pressure 112 mm[Hg] Dr. Jose Mancera Work Phone: [facility] Work Phone: 02-04-2022 12:50-0500 Body mass index (BMI) [Ratio] 20.4 kg/m2 Dr. Jose Mancera Work Phone: [facility] Work Phone: 02-04-2022 12:50-0500 Body weight 53.[address] Jose Mancera Work Phone: [facility] Work Phone: 02-04-2022 12:50-0500 Diastolic blood pressure 80 mm[Hg] Dr. Jose Mancera Work Phone: [facility] Work Phone: 02-04-2022 12:50-0500 Systolic blood pressure 112 mm[Hg] Dr. Jose Mancera Work Phone: [facility] Work Phone: 01-14-2022 14:10-0500 Body mass index (BMI) [Ratio] 20.3 kg/m2 Dr. Jose Mancera Work Phone: [facility] Work Phone: 01-14-2022 14:10-0500 Body weight 53.[address] Jose Mancera Work Phone: [facility] Work Phone: 01-14-2022 14:10-0500 Diastolic blood pressure 60 mm[Hg] Dr. Jose Mancera Work Phone: [facility] Work Phone: 01-14-2022 14:10-0500 Systolic blood pressure 100 mm[Hg] Dr. Jsoe Mancera Work Phone: [facility] Work Phone: 01-09-2022 14:32-0500 Body mass index (BMI) [Ratio] 20 kg/m2 Dr. Jose Mancera Work Phone: [facility] Work Phone: 01-09-2022 14:32-0500 Body weight 53.[address] Jose Mancera Work Phone: [facility] Work Phone: 01-09-2022 14:32-0500 Diastolic blood pressure 70 mm[Hg] Dr. Jose Mancera Work Phone: [facility] Work Phone: 01-09-2022 14:32-0500 Systolic blood pressure 118 mm[Hg] Dr. Jose Mancera Work Phone: [facility] Work Phone: 12-12-2021 15:24-0500 Body mass index (BMI) [Ratio] 20.8 kg/m2 Dr. Jose Mancera Work Phone: [facility] Work Phone: 12-12-2021 15:24-0500 Body weight 55.[address] Jose Mancera Work Phone: [facility] Work Phone: 12-12-2021 15:24-0500 Diastolic blood pressure 70 mm[Hg] Dr. Jose Mancera Work Phone: [facility] Work Phone: 12-12-2021 15:24-0500 Systolic blood pressure 98 mm[Hg] Dr. Jose Mancera Work Phone: [facility] Work Phone: 11-15-2021 13:07-0500 Body mass index (BMI) [Ratio] 20.5 kg/m2 Dr. Jose Mancera Work Phone: [facility] Work Phone: 11-15-2021 13:07-0500 Body weight 54.[address] Jose Mancera Work Phone: [facility] Work Phone: 11-15-2021 13:07-0500 Diastolic blood pressure 62 mm[Hg] Dr. Jose Mancera Work Phone: [facility] Work Phone: 11-15-2021 13:07-0500 Systolic blood pressure 98 mm[Hg] Dr. Jose Mancera Work Phone: [facility] Work Phone: 09-10-2017 14:15-0400 BMI (Body Mass Index) 21.35 kg/m2 [facility] [place] 09-10-2017 14:15-0400 Body Temperature 96.6 [degF] [facility]lana Guzm[facility] 09-10-2017 14:15-0400 BP Diastolic 68 mm[Hg] Svetlana Guzm[facility] 09-10-2017 14:15-0400 BP Systolic 106 mm[Hg] [facility]lana [facility]zm[facility] 09-10-2017 14:15-0400 Height 162.56 cm Svetlana Guzm[facility] 09-10-2017 14:15-0400 Pulse (Heart Rate) 85 /min [facility]lana Guzm[facility] 09-10-2017 14:15-0400 Respiratory Rate 16 /min [facility]lana Guzm[facility] 09-10-2017 14:15-0400 Weight 56.43 kg Svetlana Guzm[facility] [place] 07-22-2017 15:49-0400 BMI (Body Mass Index) 20.87 kg/m2 Teresa Artis MD [facility] [place] 07-22-2017 15:49-0400 Body Temperature 97.2 [degF] Teresa Artis MD [facility] 07-22-2017 15:49-0400 BP Diastolic 64 mm[Hg] Teresa Artis MD [facility] 07-22-2017 15:49-0400 BP Systolic 101 mm[Hg] Teresa Artis MD [facility] 07-22-2017 15:49-0400 Height 162.56 cm Teresa Artis MD [facility] 07-22-2017 15:49-0400 Pulse (Heart Rate) 81 /min Teresa Artis MD [facility] 07-22-2017 15:49-0400 Respiratory Rate 16 /min Teresa Artis MD [facility] 07-22-2017 15:49-0400 Weight 55.16 kg Teresa Artis MD [facility] 06-04-2017 14:49-0400 BMI (Body Mass Index) 20.77 kg/m2 Jose Mancera MD [facility] 06-04-2017 14:49-0400 BP Diastolic 64 mm[Hg] Jose Mancera MD [facility] 06-04-2017 14:49-0400 BP Systolic 108 mm[Hg] Jose Mancera MD [facility] 06-04-2017 14:49-0400 Height 162.56 cm Jose Mancera MD [facility] 06-04-2017 14:49-0400 Pulse (Heart Rate) 70 /min Jose Mancera MD [facility] 06-04-2017 14:49-0400 Weight 54.89 kg Jose Mancera MD [facility] Encounters Encounter Date Encounter Type Care Provider Facility Start: 05-05-2025 ambulatory Teresa Artis Faci lity:[facility] Start: 02-22-2025 End: 02-22-[address] Verona Richards DO -Lab, [facility] Start: 02-22-2025 End: 02-22-[address] Jose Mancera MD Work Phone: [facility] Work Phone: Start: 08-11-2024 [facility] Start: 08-06-2024 End: 08-06-2024 ambulatory [facility] Facility:[facility] [place] [facility] Start: 08-06-2024 End: 08-06-2024 [facility] Start: 07-23-2024 End: 07-23-2024 ambulatory [facility] Facility:[facility] [place] Start: 07-20-2024 End: 07-20-2024 [facility]ulatory [facility] Start: 07-08-2024 End: 07-08-2024 ambulatory Teresajanett Ortegaarron Facility:[facility] Start: 07-06-2024 End: 07-06-2024 ambulatory Teresa Artis Facility:[facility] Start: 12-11-2023 End: 12-11-[address] Jose Mancera Work Phone: [facility] Work Phone: Start: 12-11-2023 End: 12-11-[address] Jose Mancera Work Phone: [facility]-Laboratory, Pavilion Start: 12-09-2023 End: 12-09-[address] Jose Mancera Work Phone: [facility] [place] Work Phone: Start: 10-09-2023 End: 10-09-[address] Jose Mancera Work Phone: [facility] Work Phone: Start: 09-22-[address] Jose Mancera Work Phone: [facility] Start: 09-22-2023 End: 09-22-[address] Jose Mancera Work Phone: [facility] Work Phone: Start: 09-22-2023 End: 09-22-2023 Encounter for general adult medical examination without abnormal findings Dr. Jose Mancera Work Phone: [facility] Start: 09-22-2023 End: 09-22-[address] Jose Mancera Work Phone: [facility] Work Phone: Start: 07-16-2023 End: 07-16-[address] Jose Mancera Work Phone: [facility]-Outpatient Breast Imaging Work Phone: Start: 07-11-2023 End: 07-11-[address] Jose Mancera Work Phone: [facility] [place] Work Phone: Start: 05-01-2023 End: 05-01-2023 Evaluation and management of inpatient Dr. Jose Mancera Work Phone: [facility]-Medical Surgical 3 Start: 05-01-2023 End: 05-01-[address] Jose Mancera Work Phone: [facility] Work Phone: Start: 05-01-2023 Non-patient / Non-visit Dr. David Mancera Work Phone: [facility] Start: 05-01-2023 Admission to [facility] Start: 05-01-2023 ambulatory [facility] Work Phone: Start: 04-10-2023 End: 04-10-2023 ambulatory [facility] Work Phone: Start: 04-10-2023 End: 04-10-2023 Patient encounter procedure [facility]-Ultrasound, [facility] Start: 04-09-2023 End: 04-09-2023 ambulatory [facility] Work Phone: Start: 04-09-2023 End: 04-09-2023 Patient encounter procedure [facility]-Laboratory Start: 04-07-2023 End: 04-07-2023 ambulatory [facility] Work Phone: Start: 04-07-2023 End: 04-07-2023 Patient encounter procedure [facility]-Laboratory Start: 10-14-2022 End: 10-14-[address] Jose Mancera Work Phone: [facility] Work Phone: Start: 10-14-2022 End: 10-14-[address] Jose Mancera Work Phone: [facility]-Radiology, [facility] Start: 10-11-2022 End: 10-11-[address] Jose Mancera Work Phone: [facility] Start: 07-16-2022 End: 07-16-[address] Jose Mancera Work Phone: [facility] Start: 05-27-2022 Non-patient / Non-visit Dr. David Mancera Work Phone: [facility] Start: 05-26-2022 Non-patient / Non-visit Dr. David Mancera Work Phone: [facility] Start: 05-26-2022 End: 05-27-2022 Evaluation and management of inpatient Dr. Jose Mancera Work Phone: [facility] Start: 05-24-2022 End: 05-24-[address] Jose Mancera Work Phone: [facility] Start: 05-21-2022 Non-patient / Non-visit Dr. David Mancera Work Phone: [facility] Start: 05-21-2022 End: 05-21-[address] Jose Mancera Work Phone: [facility], Outpatients Start: 05-20-2022 End: 05-20-[address] Jose Mancera Work Phone: [facility], [facility] Start: 05-16-2022 End: 05-16-[address] [facility] Start: 05-16-2022 End: 05-16-[address] Jose Mancera Work Phone: [facility] Start: 05-08-2022 Non-patient / Non-visit Dr. David Mancera Work Phone: [facility] Start: 05-08-2022 End: 05-08-[address] Jose Mancera Work Phone: [facility], Outpatients Start: 05-03-2022 End: 05-03-[address] Jose Mancera Work Phone: [facility] Start: 05-02-2022 End: 05-02-[address] Jose Mancera Work Phone: [facility]-Medical Out Start: 04-22-2022 End: 04-22-[address] Jose Mancera Work Phone: [facility]-Ultrasound, H Start: 04-19-2022 End: 04-19-[address] Jose Mancera Work Phone: [facility] Start: 04-02-2022 End: 04-02-[address] [facility] Start: 04-02-2022 End: 04-02-[address] oJse Mancera Work Phone: [facility] Start: 03-19-2022 End: 03-19-[address] Jose Ferraro Phone: [facility] Start: 03-13-2022 End: 03-13-[address] Jose Mancera Work Phone: [facility]-Laboratory Start: 03-08-2022 End: 03-08-[address] Jose Mancera Work Phone: [facility] Start: 03-04-2022 End: 03-04-[address] [facility] Start: 03-04-2022 End: 03-04-[address] Jose Ferraro Phone: [facility] Start: 02-17-2022 End: 02-17-2022 Emergency department patient [facility] Start: 02-04-2022 End: 02-04-[address] Jose Mancera Work Phone: [facility] Start: 01-17-2022 End: 01-17-[address] Jose Ferraro Phone: [facility] Start: 01-14-2022 End: 01-14-[address] Jose Ferraro Phone: [facility] Start: 01-09-2022 End: 01-09-[address] Jose Mancera Work Phone: [facility]-Laboratory, OP Pavilion Start: 12-31-2021 End: 12-31-[address] Jose Ferraro Phone: [facility] Start: 12-12-2021 End: 12-12-[address] Jose Mancera Work Phone: [facility] Start: 11-30-2021 End: 11-30-[address] Jose Ferraro Phone: [facility] Start: 11-28-[address] [facility] Start: 11-15-2021 End: 11-15-[address] Jose Mancera Work Phone: [facility] Procedures Date Procedure Procedure Detail Performing Clinician Start: 12-09-2023 Transvaginal obstetr ic ultrasonography Dr. Jose Mancera Work Phone: Start: 07-16-2023 Bilateral mammography Tyson Mancera Work Phone: Start: 07-16-[address] Jose Mancera Work Phone: Start: 05-01-2023 Dilation and curetta ge of uterus Dr. Jose Mancera Work Phone: Start: 05-01-2023 Transvaginal obstetr ic ultrasonography Start: 04-10-2023 Transvaginal obstetr ic ultrasonography Start: 10-14-2022 Radiography of sacrococcygeal spine Dr. Jose Mancera Work Phone: Start: 10-14-2022 X-ray of lumbar spin e, two or three views Dr. Jose Mancera Work Phone: Start: 05-20-2022 Ultrasound scan for growth Dr. Jose Mancera Work Phone: Start: 04-22-2022 Ultrasound scan for growth Dr. Jose Mancera Work Phone: Start: 04-19-[address] Danyel Mancera Work Phone: Start: 04-02-[address] Danyel Mancera Work Phone: Start: 03-04-[address] Danyel Mancera Work Phone: Start: 01-17-[address] Jose Mancera Work Phone: Start: 11-15-[address] Danyel Mancera Work Phone: Start: 09-10-2017 End: 09-10-2017 Urine test visual color cmprsn meths Lady Brito PACKER FUSER Work Phone: Start: 09-10-2017 End: 09-10-2017 Urnls dip stick/tablet rgnt non-auto w/o micrscp Lady Brito P[employer]USER Work Phone: Start: 06-04-2017 End: 06-05-2017 Follow Up Appt 3 months Jose peñaloza MD Work Phone: Start: 06-04-2017 End: 06-05-2017 Follow Up Appt 3 months Jose peñaloza MD Work Phone: Group B Streptococcu s Culture Dr. Jose Mancera Work Phone: Urine culture Dr. Jose Mancera Work Phone: Viral antigen assay Dr. Dacia Mancera Work Phone: Plan of Treatment Date Care Activity Detail Author Start: 12-11-2023 Beta 2 glycoprotein 1 Ab IgA and IgG and IgM panel - Serum [facility] Start: 12-11-2023 Cardiolipin IgA and IgG and IgM panel - Serum [facility] Start: 12-11-2023 Cardiolipin IgG and IgM panel - Serum [facility] Start: 12-11-2023 Lupus anticoagulant assay [facility] Start: 05-01-2023 Oxygen therapy [facility] Start: 05-01-2023 [facility] Start: 05-01-2023 Following clinical pathway protocol [facility] Start: 05-01-2023 Application of intermittent pneumatic compression device [facility] Start: 05-01-2023 Ambulation therapy management [facility] Start: 05-01-2023 Elevation of head of bed [facility] Start: 05-01-2023 Measuring intake and output [facility] Start: 05-01-2023 Notification of physician [facility] Start: 05-01-2023 Taking patient vital signs [facility] Start: 05-01-2023 [facility] Start: 05-01-2023 Admission procedure [facility] Start: 05-01-2023 Lupus anticoagulant assay [facility] Start: 05-01-2023 Procedure [facility] Start: 05-01-2023 Dilation and curettage of uterus Dilation and Curettage, Suction (Not Applicable) [facility] Start: 05-01-2023 Patient discharge [facility] Start: 10-11-2022 Patient referral [facility] Work Phone: Start: 05-27-2022 Patient discharge [facility] Work Phone: Start: 05-26-2022 Administration of medication [facility] Work Phone: Start: 05-26-2022 Application of ice collar, cap or bag [facility] Work Phone: Start: 05-26-2022 Catheterization of vein [facility] Work Phone: Start: 05-26-2022 Introduction of urinary catheter [facility] Work Phone: Start: 05-26-2022 Measuring intake and output [facility] Work Phone: Start: 05-26-2022 Notification of physician [facility] Work Phone: Start: 05-26-2022 Procedure discontinued [facility] Work Phone: Start: 05-26-2022 Provision of activity privileges [facility] Work Phone: Start: 05-26-2022 Vital signs measurements [facility] Work Phone: Start: 05-26-2022 [facility] Work Phone: Start: 05-26-2022 Admission procedure [facility] Work Phone: Start: 05-21-2022 Nonstress test [facility] Work Phone: Start: 05-21-2022 Obstetric monitoring [facility] Work Phone: Start: 05-21-2022 Vital signs measurements [facility] Work Phone: Start: 05-21-2022 [facility] Work Phone: Start: 05-21-2022 Vital signs measurements [facility] Work Phone: Start: 05-20-2022 Ultrasound scan for growth OB Limited With Biometrics [facility] Work Phone: Start: 05-08-2022 Bacteria identified in Urine by Culture Urine Culture [facility] Work Phone: Start: 05-08-2022 End: 05-08-2022 [facility] Work Phone: Start: 05-08-2022 Nonstress test [facility] Work Phone: Start: 05-08-2022 Obstetric monitoring [facility] Work Phone: Start: 05-08-2022 Vital signs measurements [facility] Work Phone: Start: 05-08-2022 Patient discharge [facility] Work Phone: Start: 05-02-2022 Iv infusion therapy prophylaxis/dx ea hour THER/PROPH/DIAG IV INF ADDON [facility] Work Phone: Start: 05-02-2022 Iv infusion therapy/prophylaxis /dx 1st to 1 hr THER/PROPH/DIAG IV INF INIT [facility] Work Phone: Start: 09-10-2017 End: 09-10-2017 Appointment Appointment [facility] Start: 09-10-2017 End: 09-10-2017 *GC/Chlamydia *GC/Chlamydia [facility] Start: 09-10-2017 End: 09-10-2017 Bacteria genital culture *CUV - Culture, VAG/CX [facility] Start: 09-10-2017 End: 09-10-2017 Us pelvic nonobstetric real-time image complete US Pelvis [facility] Start: 09-10-2017 End: 09-10-2017 Us transvaginal US Transvaginal [facility] Start: 09-02-2017 End: 09-02-2017 Appointment [facility] Start: 07-22-2017 End: 07-22-2017 Appointment Appointment [facility] [place] Start: 06-04-2017 End: 06-04-2017 Appointment Appointment [facility] Start: 06-04-2017 End: 06-04-2017 *NOLAN *NOLAN [facility] Start: 06-04-2017 End: 06-04-2017 *BMP *BMP [facility] Start: 06-04-2017 End: 06-04-2017 *CBC with Differential *CBC with Differential [facility] [place] Start: 06-04-2017 End: 06-11-2017 Antinuclear antibodies nolan NOLAN w/Reflex & Titer [facility] Start: 06-04-2017 End: 06-04-2017 Ferritin *Ferritin [facility] Start: 06-04-2017 End: 06-05-2017 Follow Up Appt 3 months Follow Up Appt 3 months [facility] Start: 06-04-2017 End: 06-04-2017 Iron *Iron [facility] Start: 06-04-2017 End: 06-04-2017 Iron and Iron binding capacity panel - Serum or Plasma *IBC Iron & Total Iron Binding Capacity [facility] Start: 06-04-2017 End: 06-04-2017 Thyroid stimulating hormone (TSH) *TSH [facility] Start: 06-04-2017 End: 06-04-2017 *NOLAN *NOLAN [facility] Start: 06-04-2017 End: 06-04-2017 *BMP *BMP [facility] Start: 06-04-2017 End: 06-04-2017 *CBC with Differential *CBC with Differential [facility] Start: 06-04-2017 End: 06-11-2017 Antinuclear antibodies NOLAN w/Reflex & Titer [facility] Start: 06-04-2017 End: 06-04-2017 Ferritin *Ferritin [facility] Start: 06-04-2017 End: 06-05-2017 Follow Up Appt 3 months Follow Up Appt 3 months [facility] Start: 06-04-2017 End: 06-04-2017 Iron *Iron [facility] Start: 06-04-2017 End: 06-04-2017 Iron and Iron binding capacity panel - Serum or Plasma *IBC Iron & Total Iron Binding Capacity [facility] Start: 06-04-2017 End: 06-04-2017 Thyroid stimulating hormone (TSH) *TSH [facility] Beta 2 glycoprotein 1 IgA Ab [Presence] in Serum [facility] Beta 2 glycoprotein 1 IgG Ab [Presence] in Serum [facility] Beta 2 glycoprotein 1 IgM Ab [Presence] in Serum [facility] Cardiolipin IgA Ab [Units/volume] in Serum by Immunoassay [facility] Cardiolipin IgG Ab [Units/volume] in Serum or Plasma [facility] Cardiolipin IgG Ab [Units/volume] in Serum or Plasma [facility] Cardiolipin IgM Ab [Units/volume] in Serum or Plasma [facility] Cardiolipin IgM Ab [Units/volume] in Serum or Plasma [facility] Lupus anticoagulant neutralization platelet [Time] in Platelet poor plasma by Coagulation assay [facility] Lupus anticoagulant neutralization platelet [Time] in Platelet poor plasma by Coagulation assay [facility] Partial thromboplast in time ratio [facility] Partial thromboplast in time ratio [facility] Patient Education [facility] Work Phone: Patient referral [facility] Work Phone: Streptococcus agalac tiae [Presence] in Unspecified specimen by Organism specific culture [facility] Work Phone: Thrombin time [facility] Thrombin time [facility] Immunizations Immunization Date Immunization Notes Care Provider [facility] 09-29-2024 influenza, seasonal, injectable, preservative free Dr. Jose Mancera MD Work Phone: [facility] 09-22-2023 influenza, injectabl e, quadrivalent, preservative free Dr. Jose Mancera Work Phone: [facility] 10-16-2022 influenza, injectabl e, quadrivalent, preservative free Dr. Jose Mancera Work Phone: [facility] 10-16-2022 influenza, seasonal, injectable Dr. Jose Mancera Work Phone: [facility] 03-19-2022 tetanus toxoid, redu silver diphtheria toxoid, and acellular pertussis vaccine, adsorbed Dr. oJse Mancera Work Phone: [facility] 03-19-2022 diphtheria, tetanus toxoids and acellular pertussis vaccine, unspecified formulation Dr. Jose Mancera Work Phone: [facility] Work Phone: 10-19-2021 Covid (Moderna) Dr. Manjeet Mancera Work Phone: [facility] 08-28-2021 influenza, injectabl e, quadrivalent, preservative free Dr. Jose Mancera Work Phone: [facility] 08-28-2021 influenza, seasonal, injectable Dr. Jose Mancera Work Phone: [facility] 01-03-2021 Covid (Moderna) Dr. Manjeet Mancera Work Phone: [facility] 12-06-2020 Covid (Moderna) Dr. Manjeet Mancera Work Phone: [facility] 09-27-[address] Jose Mancera Work Phone: [facility] 09-06-2020 influenza, injectabl e, quadrivalent, preservative free Dr. Jose Mancera Work Phone: [facility] 09-06-2020 influenza, seasonal, injectable Dr. Jose Mancera Work Phone: [facility] 08-17-2020 diphtheria, tetanus toxoids and acellular pertussis vaccine, unspecified formulation Dr. Jose Mancera Work Phone: [facility] Work Phone: 08-17-2020 tetanus toxoid, redu silver diphtheria toxoid, and acellular pertussis vaccine, adsorbed Dr. Jose Mancera Work Phone: [facility] 10-04-2019 influenza, injectabl e, quadrivalent, preservative free Dr. Jose Mancera Work Phone: [facility] 10-04-2019 influenza, seasonal, injectable Dr. Jose Mancera Work Phone: [facility] 08-28-2018 influenza, injectabl e, quadrivalent, preservative free Dr. Jose Mancera Work Phone: [facility] 08-28-2018 influenza, seasonal, injectable Dr. Jose Mancera Work Phone: [facility] 08-27-2017 influenza, injectabl e, quadrivalent, preservative free Dr. Jose Mancera Work Phone: [facility] 08-27-2017 influenza, seasonal, injectable Dr. Jose Mancera Work Phone: [facility] 01-09-2017 influenza, injectabl e, quadrivalent, preservative free Dr. Jose Mancera Work Phone: [facility] 01-09-2017 influenza, seasonal, injectable Dr. Jose Mancera Work Phone: [facility] 12-11-2016 tetanus and diphther ia toxoids, adsorbed, preservative free, for adult use (2 Lf of tetanus toxoid and 2 Lf of diphtheria toxoid) Dr. Jose Mancera Work Phone: [facility] Payers Date Payer Category Payer Self-pay [id number] Unknown [id number] 2011 Private Health Insurance [id number] Unknown [id number] 2.16.8 [id number] Unknown [id number] 2.16.8 [id number] Unknown [id number] 2.16.8 [id number] Unknown [id number] 2.16.8 [id number] Unknown [id number] 2.16.8 [id number] Unknown [id number] 2.16.8 [id number] Unknown [id number] 2.16.8 [id number] Unknown [id number] 2.16.8 [id number] Unknown [id number] 2.16.8 [id number] Social History Date Type Detail Facility [facility] Work Phone: Start: 03-08-2022 End: 12-09-2023 Tobacco smoking status OKIS Unknown if ever smoked [facility] Start: 04-08-2016 Occasional [facility] Start: 04-07-2016 With Family [facility] Start: 07-26-2020 Non-smoker [facility] Start: 1990 Sex Assigned At Female [facility] Start: 07-22-2024 Tobacco smoking status NHIS Ex-smoker (finding) [facility] Start: 02-28-2025 Sex Female (finding) [facility] NEGATED: Highlighted row [facility] Goals Date Patient Goal Desired Activity /State Functional Status Date Assessment Result Facility 05-01-2023 Functional status Ambulates [facility] Work Phone: Mental Status Date Assessment Result Facility 05-01-2023 Cognitive function Demonstrates ability to follow instructions/comprehend [facility] Work Phone: 05-02-2022 Cognitive function Awake;Alert;A ppropriate;Follo ws Commands [facility] Work Phone: Clinical Notes 11-15-2021 to 05-01-2023 Note Date & Type Note Facility 05-01-2023 Progress note Note Date/Time May 01, 2023 5:37p m [facility] Medical Records Department [address] [address] Progress Note 05/01/23 1736 MR#: [id number] Acct: [id number] Name: MIRI FRANCO Rep #:[id number] : 1990 32 From: Teresa kumar MD PCP: Dr. Jose Mancera MD Status:R [facility] Location: [place] [address] Progress Note patient is anemic recommend admitting for transfusion and rechecking hemoglobin after. determine stability for discharge criteria 05/01/231736 <Electronically signed by Teresa Artis MD> Teresa Artis MD Cosigner Signature (if applicable): CC: ~ Signed [facility] Work Phone: 1(171) 499-114806-01-[address] Artis [facility] May 01, 2023 4:22pm Note Date/Time May 01, 2023 4:22p [facility] Medical Records Department [address] [place] [address] Instructions for Home/Discharge Instructions 05/01/23 1621 MR#: [id number] Acct: [id number] Name: MIRI FRANCO Rep #:[id number] : 1990 32 From: Teresa kumar MD PCP: Dr. Jose Mancera MD Status:R [facility] Discharge Instructions Procedure D&C Diet Discharge Diet: No restrictions Activity Discharge Activity: Return to Normal Activity, May Shower and May Take a Tub Bath (after 1 week) May resume sexual activity in: 1-2 weeks Weight Bearing Status: Weight bearing as tolerated Lifting Restrictions: none Dressing / Incision Call your doctor if you observe: Fever of 101 or Higher, Using more than 1 pad per hour, Shortness of breath and Uncontrolled pain Follow Up Care Please Follow Up With: Teresa Artis MD When: Call [phone] to schedule appointment. Test Results: Test results from this visit will be discussed in further detail at your follow- up appointment, if applicable. Discharge Plan Admission Attending Provider: Teresa Artis Primary Care Provider: Jose Mancera Discharge Orders/Prescriptions Prescriptions: No Action PNV #[id number] acid-dha 35 mg iron-5 mg iron-1 mg capsule 1 cap PO DAILY epinephrine [EpiPen 2-Jens] 0.3 mg/0.3 mL auto-injector 0.3 mg IM Q10-15M PRN (Reason: anaphylaxis) Qty: 2 1RF Rx Instructions: until response Referrals / Follow Up: Jose Mancera MD [Primary Care Provider] - Disposition Disposition (needs filled in before D/C Order can be placed): Home, Self Care 05/01/23 1622<Electronically signed by Teresa Artis MD>Teresa Artis MD CC: Dr. Jose Mancera MD ~ Signed [facility] Work Phone: 1(711) 128-340006-01-2023 History and physical note Author Dr. Artis [facility] May 01, 2023 3:34pm Note Date/Time May 01, 2023 3:34p [facility] Medical Records Department [address] [place] [address] History & Physical Exam 05/01/23 1532 MR#: [id number] Acct: [id number] Name: MIRI FRANCO Rep #:[id number] : 1990 32 From: Teresa kumar MD PCP: Dr. Jose Mancera MD Status:R [facility] Location: [place] [address] HPI - General HPI Narrative MIRI FRANCO, is a 32 F who presents with incomplete miscarriage retained products and anemia secondary to blood loss from miscarriage. seen in ED today [facility] Medical History Anemia Artificial insemination Pityriasis rosea Raynaud's disease SAB (spontaneous ) UTI (urinary tract infection) Home Medications epinephrine 0.3 mg/0.3 mL injection, auto-injector (EpiPen 2-Jens) 0.3 mg (0.3 mL) IM Q10-15M PRN anaphylaxis #2 ea 08/20/19 [Rx Last Taken Unknown] vitamin #56-iron 35 mg and 5 mg-folic acid 1 mg-dha capsule 1 cap PO DAILY 11/05/21 [History Last Taken 05/24/22] Allergy/AdvReac Type Severity Reaction Status Date / Time bacitracin Allergy Rash Verified 05/01/23 09:03 [From Neosporin ([id number])] neomycin Allergy Rash Verified 05/01/23 09:03 [From Neosporin ([id number]-[id number])] polymyxin B Allergy Rash Verified 05/01/23 09:03 [From Neosporin ([id number]-fsy-[id number])] venom-honey bee Allergy Anaphylaxis Verified 05/01/23 09:03 [bee venom (honey bee)] amoxicillin trihydrate AdvReac Nausea/Vom/ Verified 05/01/23 09:03 [From Augmentin] Diarrhea potassium clavulanate AdvReac Nausea/Vom/ Verified 05/01/23 09:03 [From Augmentin] Diarrhea Family History Mother Breast cancer Grandmother Diabetes Uncle Leukemia maternal Grandfather Melanoma maternal Breast cancer maternal AAA (abdominal aortic aneurysm) paternal Grandfather Hypertension Other Heart disease Surgical History History of mandibular surgery Social History adopted: No household members: family housing: house current occupational status: employed pets and animals: Yes history of recent travel: Yes sexually active: Yes Smoking Status: Former smoker second hand exposure: No alcohol intake: current Alcohol type: beer details: not while substance use type: does not use caffeine: Yes what type of physical activity do you participate in: running frequency: 5-6 times per week seatbelt use: always do you feel safe at home: Yes additional social history: Boyfriend- Rebel- In school- legal studies Patient works in [employer] at [employer] ROS Constitutional Constitutional: Reports systems reviewed and no addt'l complaints, except as documented; Denies as per HPI, change in weight, fatigue, fever(s), malaise, weakness or other Eyes Eyes: Reports systems reviewed and no addt'l complaints, except as documented; Denies as per HPI, change in vision or other ENT HEENT: Reports as per HPI and dizziness; Denies dry mouth, headache(s), loss taste/smell, nasal congestion, nasal discharge, neck pain, sore throat or other Respiratory/Chest Respiratory/Chest: Reports systems reviewed and no addt'l complaints, except as documented Gastrointestinal Gastrointestinal: Reports systems reviewed and no addt'l complaints, except as documented and nausea; Denies vomiting Musculoskeletal Musculoskeletal: Reports systems reviewed and no addt'l complaints, except as documented; Denies back pain or joint pain Neurologic Neurologic: Reports systems reviewed and no addt'l complaints, except as documented Psychiatric Psychiatric: Reports systems reviewed and no addt'l complaints, except as documented Endocrine Endocrinology: Reports systems reviewed and no addt'l complaints, except as documented Hematologic/Lymphatic Hematologic/Lymphatic: Reports systems reviewed and no addt'l complaints, exceptas documented Vital Signs Vital Signs Vital Signs: 05/01/23 09:03 05/01/23 10:07 05/01/23 11:01 Temperature 97 F L Temperature Source Temporal Pulse Rate 100 73 66 Respiratory Rate 18 18 18 Blood Pressure 119/77 102/68 105/65 Blood Pressure Mean 91 79 78 Blood Pressure Source Blood Pressure Position Blood Pressure Location Pulse Ox 100 100 100 Oxygen Delivery Method Room Air Room Air Room Air 05/01/23 12:04 05/01/23 13:24 05/01/23 14:09 Temperature Temperature Source Pulse Rate 65 62 67 Respiratory Rate 18 18 18 Blood Pressure 116/75 107/62 Blood Pressure Mean 88 77 Blood Pressure Source Blood Pressure Position Blood Pressure Location Pulse Ox 100 100 100 Oxygen Delivery Method Room Air Room Air Room Air 05/01/23 14:39 05/01/23 15:03 05/01/23 15:03 Temperature 97.5 F L 97.5 F L Temperature Source Temporal Temporal Pulse Rate 73 73 73 Respiratory Rate 17 17 17 Blood Pressure 117/77 117/77 117/77 Blood Pressure Mean 90 90 90 Blood Pressure Source Monitor Blood Pressure Position Semi-Fowlers Blood Pressure Location Left Arm Pulse Ox 95 95 95 Oxygen Delivery Method Room Air Room Air Room Air Weight Weight: 121 lb 14.65 oz Body Mass Index (BMI) 20.9 Physical Exam Const alert, oriented x3 and no apparent distress HEENT normocephalic Head and Scalp: atraumatic Eyes EOMs intact bilaterally and conjunctivae normal Neck full ROM, no lymphadenopathy, supple and thyroid normal General: trachea midline Lymph Lymphatic: no lymphadenopathy noted Resp normal respiratory effort, no retractions, no use of accessory muscles and clearto auscultation bilaterally Cardio regular rhythm GI normal to inspection, nondistended, normoactive bowel sounds, soft to palpation,non-distended and no masses Inspection: Negative for abdominal distention Back/Spine no CVA tenderness Extremity normal to inspection Skin no rashes or lesions noted Neuro moves all extremities and deep tendon reflexes 2+ bilaterally Motor Exam: clonus absent Psych mental status grossly normal Results Lab / Micro Data Result Diagrams: 05/01/23 09:30 05/01/23 09:30 Labs: Laboratory Results - last 24 hr 05/01/23 09:30: Blood Type AB POSITIVE, Antibody Screen NEGATIVE 05/01/23 09:30: WBC 9.9, RBC 3.08 L, Hgb 8.7 L, Hct 27.7 L, MCV 89.9, MCH 28.2, MCHC 31.4 L, RDW Std Deviation 41.5, RDW Coeff of Jorge 12.7, Plt Count 362, MPV 9.9, Immature Gran % (Auto) 0.500, Neut % (Auto) 70.0, Lymph % (Auto) 19.5, [place]% (Auto) 6.2, Eos % (Auto) 3.4, Baso % (Auto) 0.4, Absolute Neuts (auto) 6.9, Absolute Lymphs (auto) 1.94, Nucleated RBC % 0 05/01/23 09:30: Sodium 140, Potassium 4.0, Chloride 110 H, Carbon Dioxide 25.0, Anion Gap 5, BUN 11, Creatinine 0.96, Estim Creat Clear Calc 73.32, Est GFR (MDRD) Af Amer 86, Est GFR (MDRD) Non-Af 71, BUN/Creatinine Ratio 11.4, Glucose 114 H, Calcium 8.6, Total Bilirubin 0.50, AST 16, ALT 23, Alkaline Phosphatase 60, Total Protein 7.3, Albumin 3.3, Globulin 4.0, Albumin/Globulin Ratio 0.8 L 05/01/23 09:45: Urine Color Red, Urine Clarity Cloudy, Urine pH 8.0, Ur SpecificGravity 1.010, Urine Protein 100 H, Urine Glucose (UA) Normal, Urine Ketones 5 H, Urine Occult Blood 250 H, Urine Nitrite Positive H, Urine Bilirubin Negative, Urine Urobilinogen Normal, Ur Leukocyte Esterase 100 H, Urine RBC 25-50 SEEN, Urine WBC 10-25 SEEN, Ur Squamous Epith Cells 0 SEEN, Urine Bacteria 1+, Urine Mucus 0 SEEN 05/01/23 10:20: HCG, Quant 6527 H, Serum , Qual Cancelled Radiology Impression Obstetrics Ultrasound 05/01/23 10:49 IMPRESSION: Incomplete . Electronically Signed: Lasha Villegas MD at 12:29 EDT , Assessment & Plan Assessment/Plan (1) Incomplete : (2) Anemia due to blood loss: PLAN: Plan After discussing the patient's diagnosis and treatment plan options, patient wishes to proceed with surgical management. I have discussed with the patient the risks, benefits, and alternatives of the procedure which include but are notlimited to risks of anesthesia, bleeding, infection, possible damage to bowel, bladder, or surrounding vasculature which could lead to additional surgery to evaluate any complications. Patient agrees to procedure and wishes to proceed. ACOG/uptodate references given for additional information regarding procedure. 05/01/23 1534 <Electronically signed by Teresa Artis MD> Cosigner Signature (if applicable): CC: Dr. Jose Mancera MD; Dr. Teresa Artis MD~ Signed [facility] Work Phone: [phone]) 923-921506-01-[address] Hoffman [facility] May 01, 2023 2:54pm Note Date/Time May 01, 2023 10:50 am [facility] Medical Records Department [address] [place] [address] Emergency Department Summary 05/01/23 MR#: [id number] Acct: [id number] Name: MIRI FRANCO Rep #:[id number] : 1990 32 From: Mathew Hoffman DO PCP: Dr. Jose Mancera MD Status:R EG SDC Location: [place] [address]- HPI HPI - Female History of Present Illness Chief Complaint: Vag Bld, Preg Narrative Narrative: 32-year-old female presenting with vaginal bleeding in . She states she is about 9 weeks. She started having vaginal bleeding on the . She states her blood type is AB+. She is having heavier blood clots and bleeding now. She denies any tissue passage. She called her [employer] who sent her to the emergency room for an evaluation. Patient does states she was lightheaded last week but no longer has this. She does have any fevers, chills, body aches. Sheis G5, currently 9 weeks . She does not have any abdominal pain except for mild cramping. PFSH PFS Medical History Anemia Artificial insemination Pityriasis rosea Raynaud's disease SAB (spontaneous ) UTI (urinary tract infection) Home Medications epinephrine 0.3 mg/0.3 mL injection, auto-injector (EpiPen 2-Jens) 0.3 mg (0.3 mL) IM Q10-15M PRN anaphylaxis #2 ea 08/20/19 [Rx Last Taken Unknown] vitamin #56-iron 35 mg and 5 mg-folic acid 1 mg-dha capsule 1 cap PO DAILY 11/05/21 [History Last Taken 05/24/22] Allergy/AdvReac Type Severity Reaction Status Date / Time bacitracin Allergy Rash Verified 05/01/23 09:03 [From Neosporin ([id number])] neomycin Allergy Rash Verified 05/01/23 09:03 [From Neosporin ([id number])] polymyxin B Allergy Rash Verified 05/01/23 09:03 [From Neosporin ([id number])] venom-honey bee Allergy Anaphylaxis Verified 05/01/23 09:03 [bee venom (honey bee)] amoxicillin trihydrate AdvReac Nausea/Vom/ Verified 05/01/23 09:03 [From Augmentin] Diarrhea potassium clavulanate AdvReac Nausea/Vom/ Verified 05/01/23 09:03 [From Augmentin] Diarrhea Family History Mother Breast cancer Grandmother Diabetes Uncle Leukemia maternal Grandfather Melanoma maternal Breast cancer maternal AAA (abdominal aortic aneurysm) paternal Grandfather Hypertension Other Heart disease Surgical History History of mandibular surgery Social History adopted: No household members: family housing: house current occupational status: employed pets and animals: Yes history of recent travel: Yes sexually active: Yes Smoking Status: Former smoker second hand exposure: No alcohol intake: current Alcohol type: beer details: not while substance use type: does not use caffeine: Yes what type of physical activity do you participate in: running frequency: 5-6 times per week seatbelt use: always do you feel safe at home: Yes additional social history: Boyfriend- Rebel- In school- legal studies Patient works in [employer] at [employer] [employer] [facility] [facility] [employer] ROS ROS ED Constitutional Constitutional ED: Denies chills, fever(s) or sweats Eyes Eyes: Denies blurry vision or change in vision ENT ENT ED: Denies ear pain or sore throat Cardiovascular Cardiovascular: Denies chest pain, palpitations or racing heartbeat Respiratory/Chest Respiratory/Chest: Denies cough, dyspnea or sputum Gastrointestinal Gastrointestinal: Denies abdominal pain, constipation, diarrhea, nausea or vomiting Genitourinary Genitourinary ED: Reports other Details: Vaginal bleeding with clots ; Denies dysuria, hematuria or urinary frequency Musculoskeletal Musculoskeletal: Denies arthralgias, myalgias or neck pain Integumentary Denies abscess, Abrasions or rash Neurologic Neurologic: Denies headache(s), paresthesias or weakness Psychiatric Psychiatric: Denies anxiety, depression, suicidal ideation or suicidal thoughts Endocrine Endocrinology: Denies polydipsia or polyuria EXAM Physical Exam Const Vital Signs: 05/01/23 09:03 05/01/23 10:07 05/01/23 11:01 Temperature 97 F L Temperature Source Temporal Pulse Rate 100 73 66 Respiratory Rate 18 18 18 Blood Pressure 119/77 102/68 105/65 Blood Pressure Mean 91 79 78 Blood Pressure Source Blood Pressure Position Blood Pressure Location Pulse Ox 100 100 100 Oxygen Delivery Method Room Air Room Air Room Air 05/01/23 12:04 05/01/23 13:24 05/01/23 14:09 Temperature Temperature Source Pulse Rate 65 62 67 Respiratory Rate 18 18 18 Blood Pressure 116/75 107/62 Blood Pressure Mean 88 77 Blood Pressure Source Blood Pressure Position Blood Pressure Location Pulse Ox 100 100 100 Oxygen Delivery Method Room Air Room Air Room Air 05/01/23 14:39 Temperature 97.5 F L Temperature Source Temporal Pulse Rate 73 Respiratory Rate 17 Blood Pressure 117/77 Blood Pressure Mean 90 Blood Pressure Source Monitor Blood Pressure Position Semi-Fowlers Blood Pressure Location Left Arm Pulse Ox 95 Oxygen Delivery Method Room Air Positive well nourished General Appearance ED: Negative for pallor Eyes PERRL and EOMs intact bilaterally Resp normal respiratory effort Cardio regular rate and regular rhythm GI Negative for normal to inspection, nondistended, normoactive bowel sounds Neuro oriented x3 and CN's II-XII intact bilaterally Sensorium / Orientation: alert Motor Exam: strength 5/5 throughout Psych Mood & Affect: tearful Skin no rashes or lesions noted General Skin Exam: Negative for pallor MDM MDM MDM Narrative Medical decision making narrative: Patient presenting with vaginal bleeding and clots. She suspected she has miscarried. She states she was lightheaded last week but not so much now. Vital signs are stable she is afebrile. CBC to assess white blood cell count, hemoglobin, platelets, differential. CMP to assess liver function, renal function, glucose, anion gap, electrolytes. Urinalysis to assess for UTI serum quant is also obtained. Patient is AB+ and does not need RhoGAM. Transvaginal ultrasound shows concern for incomplete miscarriage. This was discussed with Dr. Gilmore and she recommends the patient stay and get a D&C. This was discussed with the patient and she is amenable to this. Patient's CBC shows a white blood cell count of 9.9. Hemoglobin is down to 8.7. She was previously 10.1. Renal function electrolytes normal. Liver function normal. Urinalysis shows positive nitrites, 10-25 white blood cells, 1+ bacteria. Is unclear if this is contaminated since there is red blood cells and occult blood in this. Patient transported to the OR in stable condition. Impression: 1. Acute blood loss anemia 2. Incomplete miscarriage Lab Data Attestation: I reviewed the patient's lab results. Labs: Laboratory Results - last 24 hr 05/01/23 05/01/23 05/01/23 09:30 09:30 09:30 WBC 9.9 RBC 3.08 L Hgb 8.7 L Hct 27.7 L MCV 89.9 MCH 28.2 MCHC 31.4 L RDW Std Deviation 41.5 RDW Coeff of Jorge 12.7 Plt Count 362 MPV 9.9 Immature Gran % (Auto) 0.500 Neut % (Auto) 70.0 Lymph % (Auto) 19.5 [place] % (Auto) 6.2 Eos % (Auto) 3.4 Baso % (Auto) 0.4 Absolute Neuts (auto) 6.9 Absolute Lymphs (auto) 1.94 Nucleated RBC % 0 Sodium 140 Potassium 4.0 Chloride 110 H Carbon Dioxide 25.0 Anion Gap 5 BUN 11 Creatinine 0.96 Estim Creat Clear Calc 73.32 Est GFR (MDRD) Af Amer 86 Est GFR (MDRD) Non-Af 71 BUN/Creatinine Ratio 11.4 Glucose 114 H Calcium 8.6 Total Bilirubin 0.50 AST 16 ALT 23 Alkaline Phosphatase 60 Total Protein 7.3 Albumin 3.3 Globulin 4.0 Albumin/Globulin Ratio 0.8 L HCG, Quant Serum , Qual Urine Color Urine Clarity Urine pH Ur Specific [place] Urine Protein Urine Glucose (UA) Urine Ketones Urine Occult Blood Urine Nitrite Urine Bilirubin Urine Urobilinogen Ur Leukocyte Esterase Urine RBC Urine WBC Ur Squamous Epith Cells Urine Bacteria Urine Mucus Blood Type AB POSITIVE Antibody Screen NEGATIVE 05/01/23 05/01/23 09:45 10:20 WBC RBC Hgb Hct MCV MCH MCHC RDW Std Deviation RDW Coeff of Jorge Plt Count MPV Immature Gran % (Auto) Neut % (Auto) Lymph % (Auto) [place] % (Auto) Eos % (Auto) Baso % (Auto) Absolute Neuts (auto) Absolute Lymphs (auto) Nucleated RBC % Sodium Potassium Chloride Carbon Dioxide Anion Gap BUN Creatinine Estim Creat Clear Calc Est GFR (MDRD) Af Amer Est GFR (MDRD) Non-Af BUN/Creatinine Ratio Glucose Calcium Total Bilirubin AST ALT Alkaline Phosphatase Total Protein Albumin Globulin Albumin/Globulin Ratio HCG, Quant 6527 H Serum , Qual Cancelled Urine Color Red Urine Clarity Cloudy Urine pH 8.0 Ur Specific [place] 1.010 Urine Protein 100 H Urine Glucose (UA) Normal Urine Ketones 5 H Urine Occult Blood 250 H Urine Nitrite Positive H Urine Bilirubin Negative Urine Urobilinogen Normal Ur Leukocyte Esterase 100 H Urine RBC 25-50 SEEN Urine WBC 10-25 SEEN Ur Squamous Epith Cells 0 SEEN Urine Bacteria 1+ Urine Mucus 0 SEEN Blood Type Antibody Screen Radiography Diagnostic Testing: Clinical Impression(s) from Imaging Studies Obstetrics Ultrasound 05/01/23 10:49 IMPRESSION: Incomplete . Electronically Signed: Lasha Villegas MD at 12:29 EDT Reading Location ID and State: [facility] / [place] Tel , Service support , Discharge Plan Triage Chief Complaint: Vag Bld, Preg ED Provider: Mathew Hofmfan Dx/Rx/DC Orders Primary Care Provider: Jose Mancera What to do if you have Problems For any increased pain, shortness of breath, bleeding, nausea or vomiting, chestpain, or any unexpected problems, contact your Primary Care Provider. Call [facility] ([phone]) or report to the closest Emergency Room. Call 911 if necessary. 05/01/23 1454 <Electronically signed by Mathew Hoffman DO> Cosigner Signature (if applicable): CC: Dr. Jose Mancera MD ~ Signed [facility] Work Phone: 1(532) 570-357506-01-2023 Procedure [facility] 05-01-[address] Hoffman [facility] May 01, 2023 2:54pm Note Date/Time May 01, 2023 10:50 am [facility] Medical Records Department [address] [place] [id number] Emergency Department Summary 05/01/23 MR#: [id number] Acct: [id number] Name: MIRI FRANCO Rep #:[id number] : 1990 32 From: Mathew Hoffman DO PCP: Dr. Jose Mancera MD Status:R [facility] Location: [place] [address] HPI HPI - Female History of Present Illness Chief Complaint: Vag Bld, Preg Narrative Narrative: 32-year-old female presenting with vaginal bleeding in . She states she is about 9 weeks. She started having vaginal bleeding on the . She states her blood type is AB+. She is having heavier blood clots and bleeding now. She denies any tissue passage. She called her [employer] who sent her to the emergency room for an evaluation. Patient does states she was lightheaded last week but no longer has this. She does have any fevers, chills, body aches. Sheis G5, currently 9 weeks . She does not have any abdominal pain except for mild cramping. [facility] Medical History Anemia Artificial insemination Pityriasis rosea Raynaud's disease SAB (spontaneous ) UTI (urinary tract infection) Home Medications epinephrine 0.3 mg/0.3 mL injection, auto-injector (EpiPen 2-Jens) 0.3 mg (0.3 mL) IM Q10-15M PRN anaphylaxis #2 ea 08/20/19 [Rx Last Taken Unknown] vitamin #56-iron 35 mg and 5 mg-folic acid 1 mg-dha capsule 1 cap PO DAILY 11/05/21 [History Last Taken 05/24/22] Allergy/AdvReac Type Severity Reaction Status Date / Time bacitracin Allergy Rash Verified 05/01/23 09:03 [From Neosporin ([id number])] neomycin Allergy Rash Verified 05/01/23 09:03 [From Neosporin ([id number])] polymyxin B Allergy Rash Verified 05/01/23 09:03 [From Neosporin ([id number])] venom-honey bee Allergy Anaphylaxis Verified 05/01/23 09:03 [bee venom (honey bee)] amoxicillin trihydrate AdvReac Nausea/Vom/ Verified 05/01/23 09:03 [From Augmentin] Diarrhea potassium clavulanate AdvReac Nausea/Vom/ Verified 05/01/23 09:03 [From Augmentin] Diarrhea Family History Mother Breast cancer Grandmother Diabetes Uncle Leukemia maternal Grandfather Melanoma maternal Breast cancer maternal AAA (abdominal aortic aneurysm) paternal Grandfather Hypertension Other Heart disease Surgical History History of mandibular surgery Social History adopted: No household members: family housing: house current occupational status: employed pets and animals: Yes history of recent travel: Yes sexually active: Yes Smoking Status: Former smoker second hand exposure: No alcohol intake: current Alcohol type: beer details: not while substance use type: does not use caffeine: Yes what type of physical activity do you participate in: running frequency: 5-6 times per week seatbelt use: always do you feel safe at home: Yes additional social history: Boyfriend- Rebel- In school- legal studies Patient works in Behavior Health at [employer] ROS ED Constitutional Constitutional ED: Denies chills, fever(s) or sweats Eyes Eyes: Denies blurry vision or change in vision ENT ENT ED: Denies ear pain or sore throat Cardiovascular Cardiovascular: Denies chest pain, palpitations or racing heartbeat Respiratory/Chest Respiratory/Chest: Denies cough, dyspnea or sputum Gastrointestinal Gastrointestinal: Denies abdominal pain, constipation, diarrhea, nausea or vomiting Genitourinary Genitourinary ED: Reports other Details: Vaginal bleeding with clots ; Denies dysuria, hematuria or urinary frequency Musculoskeletal Musculoskeletal: Denies arthralgias, myalgias or neck pain Integumentary Denies abscess, Abrasions or rash Neurologic Neurologic: Denies headache(s), paresthesias or weakness Psychiatric Psychiatric: Denies anxiety, depression, suicidal ideation or suicidal thoughts Endocrine Endocrinology: Denies polydipsia or polyuria EXAM Physical Exam Const Vital Signs: 05/01/23 09:03 05/01/23 10:07 05/01/23 11:01 Temperature 97 F L Temperature Source Temporal Pulse Rate 100 73 66 Respiratory Rate 18 18 18 Blood Pressure 119/77 102/68 105/65 Blood Pressure Mean 91 79 78 Blood Pressure Source Blood Pressure Position Blood Pressure Location Pulse Ox 100 100 100 Oxygen Delivery Method Room Air Room Air Room Air 05/01/23 12:04 05/01/23 13:24 05/01/23 14:09 Temperature Temperature Source Pulse Rate 65 62 67 Respiratory Rate 18 18 18 Blood Pressure 116/75 107/62 Blood Pressure Mean 88 77 Blood Pressure Source Blood Pressure Position Blood Pressure Location Pulse Ox 100 100 100 Oxygen Delivery Method Room Air Room Air Room Air 05/01/23 14:39 Temperature 97.5 F L Temperature Source Temporal Pulse Rate 73 Respiratory Rate 17 Blood Pressure 117/77 Blood Pressure Mean 90 Blood Pressure Source Monitor Blood Pressure Position Semi-Fowlers Blood Pressure Location Left Arm Pulse Ox 95 Oxygen Delivery Method Room Air Positive well nourished General Appearance ED: Negative for pallor Eyes PERRL and EOMs intact bilaterally Resp normal respiratory effort Cardio regular rate and regular rhythm GI Negative for normal to inspection, nondistended, normoactive bowel sounds Neuro oriented x3 and CN's II-XII intact bilaterally Sensorium / Orientation: alert Motor Exam: strength 5/5 throughout Psych Mood & Affect: tearful Skin no rashes or lesions noted General Skin Exam: Negative for pallor MDM MDM MDM Narrative Medical decision making narrative: Patient presenting with vaginal bleeding and clots. She suspected she has miscarried. She states she was lightheaded last week but not so much now. Vital signs are stable she is afebrile. CBC to assess white blood cell count, hemoglobin, platelets, differential. CMP to assess liver function, renal function, glucose, anion gap, electrolytes. Urinalysis to assess for UTI serum quant is also obtained. Patient is AB+ and does not need RhoGAM. Transvaginal ultrasound shows concern for incomplete miscarriage. This was discussed with Dr. Gilmore and she recommends the patient stay and get a D&C. This was discussed with the patient and she is amenable to this. Patient's CBC shows a white blood cell count of 9.9. Hemoglobin is down to 8.7. She was previously 10.1. Renal function electrolytes normal. Liver function normal. Urinalysis shows positive nitrites, 10-25 white blood cells, 1+ bacteria. Is unclear if this is contaminated since there is red blood cells and occult blood in this. Patient transported to the OR in stable condition. Impression: 1. Acute blood loss anemia 2. Incomplete miscarriage Lab Data Attestation: I reviewed the patient's lab results. Labs: Laboratory Results - last 24 hr 05/01/23 05/01/23 05/01/23 09:30 09:30 09:30 WBC 9.9 RBC 3.08 L Hgb 8.7 L Hct 27.7 L MCV 89.9 MCH 28.2 MCHC 31.4 L RDW Std Deviation 41.5 RDW Coeff of Jorge 12.7 Plt Count 362 MPV 9.9 Immature Gran % (Auto) 0.500 Neut % (Auto) 70.0 Lymph % (Auto) 19.5 [place] % (Auto) 6.2 Eos % (Auto) 3.4 Baso % (Auto) 0.4 Absolute Neuts (auto) 6.9 Absolute Lymphs (auto) 1.94 Nucleated RBC % 0 Sodium 140 Potassium 4.0 Chloride 110 H Carbon Dioxide 25.0 Anion Gap 5 BUN 11 Creatinine 0.96 Estim Creat Clear Calc 73.32 Est GFR (MDRD) Af Amer 86 Est GFR (MDRD) Non-Af 71 BUN/Creatinine Ratio 11.4 Glucose 114 H Calcium 8.6 Total Bilirubin 0.50 AST 16 ALT 23 Alkaline Phosphatase 60 Total Protein 7.3 Albumin 3.3 Globulin 4.0 Albumin/Globulin Ratio 0.8 L HCG, Quant Serum , Qual Urine Color Urine Clarity Urine pH Ur Specific [place] Urine Protein Urine Glucose (UA) Urine Ketones Urine Occult Blood Urine Nitrite Urine Bilirubin Urine Urobilinogen Ur Leukocyte Esterase Urine RBC Urine WBC Ur Squamous Epith Cells Urine Bacteria Urine Mucus Blood Type AB POSITIVE Antibody Screen NEGATIVE 05/01/23 05/01/23 09:45 10:20 WBC RBC Hgb Hct MCV MCH MCHC RDW Std Deviation RDW Coeff of Jorge Plt Count MPV Immature Gran % (Auto) Neut % (Auto) Lymph % (Auto) [place] % (Auto) Eos % (Auto) Baso % (Auto) Absolute Neuts (auto) Absolute Lymphs (auto) Nucleated RBC % Sodium Potassium Chloride Carbon Dioxide Anion Gap BUN Creatinine Estim Creat Clear Calc Est GFR (MDRD) Af Amer Est GFR (MDRD) Non-Af BUN/Creatinine Ratio Glucose Calcium Total Bilirubin AST ALT Alkaline Phosphatase Total Protein Albumin Globulin Albumin/Globulin Ratio HCG, Quant 6527 H Serum , Qual Cancelled Urine Color Red Urine Clarity Cloudy Urine pH 8.0 Ur Specific [place] 1.010 Urine Protein 100 H Urine Glucose (UA) Normal Urine Ketones 5 H Urine Occult Blood 250 H Urine Nitrite Positive H Urine Bilirubin Negative Urine Urobilinogen Normal Ur Leukocyte Esterase 100 H Urine RBC 25-50 SEEN Urine WBC 10-25 SEEN Ur Squamous Epith Cells 0 SEEN Urine Bacteria 1+ Urine Mucus 0 SEEN Blood Type Antibody Screen Radiography Diagnostic Testing: Clinical Impression(s) from Imaging Studies Obstetrics Ultrasound 05/01/23 10:49 IMPRESSION: Incomplete . Electronically Signed: Lasha Villegas MD at 12:29 EDT , Discharge Plan Triage Chief Complaint: Vag Bld, Preg ED Provider: Mathew Hoffman Dx/Rx/DC Orders Primary Care Provider: Jose Mancera What to do if you have Problems For any increased pain, shortness of breath, bleeding, nausea or vomiting, chestpain, or any unexpected problems, contact your Primary Care Provider. Call [facility] ([phone]) or report to the closest Emergency Room. Call 911 if necessary. 05/01/23 1454 <Electronically signed by Mathew Hoffman DO> Cosigner Signature (if applicable): CC: Dr. Jose Mancera MD ~ Signed [facility] Work Phone: 1(524) 178-574412-16-2021 NotePap Smear Specimen AdequacyDecember 2020 4:50pmCommentSatisfactory for evaluation. Endocervical and/or squamous metaplasticcells (endocervical component)are present.[facility] A#[id number] County [facility] Work Phone: Comment on above:Satisfactory for evaluation. Endocervical and/or squamous metaplasticcells (endocervical component)are present.Chief complaint+Reason for visit Narrative* Chief Complaint NOB LMP 10/2 COVID-19 14 WK OB COVID-19 18 WK OB 18 weeks-spotting O09.90 22 WK OB JAW SWELLING 25 weeks-BP check/UA per SM 26 WK OB Reason for Visit Anemia affecting pre gnancy IUGR (intrauterine growth retardation) in prior , Proteinuria Supervision of high risk , antepartum Supervision of high risk , antepartum [facility] Work Phone: Chief complaint+Reason for visit Narrative* Chief Complaint COVID-19 14 WK OB COVID-19 18 WK OB 18 weeks-spotting O09.90 22 WK OB JAW SWELLING 25 weeks-BP check/UA per SM 26 WK OB 1 HR GLUCOSE/NEED ORDER est ob Reason for Visit Anemia affecting pre gnancy IUGR (intrauterine growth retardation) in prior , Proteinuria Supervision of high risk , antepartum Supervision of high risk , antepartum Anemia affecting Anxiety during COVID-19 affecting , antepartum IUGR (intrauterine growth retardation) in prior , Proteinuria Supervision of high risk , antepartum UTI (urinary tract infection) [facility] Work Phone: Chief complaint+Reason for visit Narrative* Chief Complaint 14 WK OB COVID-19 18 WK OB 18 weeks-spotting O09.90 22 WK OB JAW SWELLING 25 weeks-BP check/UA per SM 26 WK OB 1 HR GLUCOSE/NEED ORDER est ob 30WK OB Reason for Visit Anemia affecting pre gnancy IUGR (intrauterine growth retardation) in prior , Proteinuria Supervision of high risk , antepartum Supervision of high risk , antepartum Anemia affecting Anxiety during COVID-19 affecting , antepartum IUGR (intrauterine growth retardation) in prior , Proteinuria Supervision of high risk , antepartum UTI (urinary tract infection) Anemia affecting Anxiety during COVID-19 affecting , antepartum IUGR (intrauterine growth retardation) in prior , Proteinuria Supervision of high risk , antepartum UTI (urinary tract infection) [facility] Work Phone: Chief complaint+Reason for visit Narrative* Chief Complaint COVID-19 18 WK OB 18 weeks-spotting O09.90 22 WK OB JAW SWELLING 25 weeks-BP check/UA per SM 26 WK OB 1 HR GLUCOSE/NEED ORDER est ob 30WK OB 32WK OB E-ORDER GROWTH Reason for Visit Anemia affecting pre gnancy IUGR (intrauterine growth retardation) in prior , Supervision of high risk , antepartum Proteinuria Supervision of high risk , antepartum Anemia affecting Anxiety during COVID-19 affecting , antepartum IUGR (intrauterine growth retardation) in prior , Supervision of high risk , antepartum UTI (urinary tract infection) Proteinuria Anemia affecting Anxiety during COVID-19 affecting , antepartum IUGR (intrauterine growth retardation) in prior , Supervision of high risk , antepartum UTI (urinary tract infection) Proteinuria Anemia affecting Anxiety during COVID-19 affecting , antepartum IUGR (intrauterine growth retardation) in prior , Supervision of high risk , antepartum UTI (urinary tract infection) [facility] Work Phone: Chief complaint+Reason for visit Narrative* Chief Complaint wellness COVID-19 OB 5 week bleeding, clots BLEEDING IN EARLY Reason for Visit Iron (Fe) deficiency anemia Preventative health care Complete [facility] Work Phone: Evaluation note* Diagnosis Onset Date Resolution Status Anemia affecting a cute IUGR (intrauterine growth re tardation) in prior , acute acute Proteinuria acute Supervision of high risk , antepartum acute acute Supervision of high risk , antepartum acute [facility] Work Phone: Evaluation note* Diagnosis Onset Date Resolution Status Anemia affecting a cute IUGR (intrauterine growth re tardation) in prior , acute acute Proteinuria acute Supervision of high risk , antepartum acute acute Supervision of high risk , antepartum acute Anemia affecting a cute Anxiety during acu te COVID-19 affecting , antepartum acute IUGR (intrauterine growth re tardation) in prior , acute acute Proteinuria acute Supervision of high risk , antepartum acute UTI (urinary tract infection) [facility] Work Phone: evaluation note* Diagnosis Onset Date Resolution Status Anemia affecting a cute IUGR (intrauterine growth re tardation) in prior , acute acute Proteinuria acute Supervision of high risk , antepartum acute acute Supervision of high risk , antepartum acute Anemia affecting a cute Anxiety during acu te COVID-19 affecting , antepartum acute IUGR (intrauterine growth re tardation) in prior , acute acute Proteinuria acute Supervision of high risk , antepartum acute UTI (urinary tract infection) acute Anemia affecting a cute Anxiety during acu te COVID-19 affecting , antepartum acute IUGR (intrauterine growth re tardation) in prior , acute acute Proteinuria acute Supervision of high risk , antepartum acute UTI (urinary tract infection) [facility] Work Phone: Evaluation note* Diagnosis Onset Date Resolution Status Anemia affecting a cute IUGR (intrauterine growth re tardation) in prior , acute acute Supervision of high risk , antepartum acute Proteinuria resolved acute Supervision of high risk , antepartum acute Anemia affecting a cute Anxiety during acu te COVID-19 affecting , antepartum acute IUGR (intrauterine growth re tardation) in prior , acute acute Supervision of high risk , antepartum acute UTI (urinary tract infection) acute Proteinuria resolved Anemia affecting a cute Anxiety during acu te COVID-19 affecting , antepartum acute IUGR (intrauterine growth re tardation) in prior , acute acute Supervision of high risk , antepartum acute UTI (urinary tract infection) acute Proteinuria resolved Anemia affecting a cute Anxiety during acu te COVID-19 affecting , antepartum acute IUGR (intrauterine growth re tardation) in prior , acute acute Supervision of high risk , antepartum acute UTI (urinary tract infection) acute [facility] Work Phone: Evaluation note* Diagnosis Onset Date Resolution Status Anemia affecting a cute IUGR (intrauterine growth re tardation) in prior , acute acute Supervision of high risk , antepartum acute Proteinuria resolved acute Supervision of high risk , antepartum acute Anemia affecting a cute Anxiety during acu te COVID-19 affecting , antepartum acute IUGR (intrauterine growth re tardation) in prior , acute acute Supervision of high risk , antepartum acute UTI (urinary tract infection) acute Proteinuria resolved Anemia affecting a cute Anxiety during acu te COVID-19 affecting , antepartum acute IUGR (intrauterine growth re tardation) in prior , acute acute Supervision of high risk , antepartum acute UTI (urinary tract infection) acute Proteinuria resolved Anemia affecting a cute Anxiety during acu te COVID-19 affecting , antepartum acute IUGR (intrauterine growth re tardation) in prior , acute acute Supervision of high risk , antepartum acute UTI (urinary tract infection) acute Anemia affecting a cute Anxiety during acu te COVID-19 affecting , antepartum acute IUGR (intrauterine growth re tardation) in prior , acute acute Supervision of high risk , antepartum acute UTI (urinary tract infection) acute [facility] Work Phone: Evaluation note* Diagnosis Onset Date Resolution Status Anemia affecting a cute Anxiety during acu te COVID-19 affecting , antepartum acute IUGR (intrauterine growth re tardation) in prior , acute acute Supervision of high risk , antepartum acute Proteinuria resolved UTI (urinary tract infection) resolved Anemia affecting a cute Anxiety during acu te COVID-19 affecting , antepartum acute IUGR (intrauterine growth re tardation) in prior , acute acute Supervision of high risk , antepartum acute Proteinuria resolved UTI (urinary tract infection) resolved Anemia affecting a cute Anxiety during acu te COVID-19 affecting , antepartum acute IUGR (intrauterine growth re tardation) in prior , acute acute Supervision of high risk , antepartum acute UTI (urinary tract infection) resolved Anemia affecting a cute Anxiety during acu te COVID-19 affecting , antepartum acute IUGR (intrauterine growth re tardation) in prior , acute acute Supervision of high risk , antepartum acute UTI (urinary tract infection) resolved Anemia affecting a cute Anxiety during acu te COVID-19 affecting , antepartum acute IUGR (intrauterine growth re tardation) in prior , acute acute Supervision of high risk , antepartum acute UTI (urinary tract infection) resolved Anemia affecting a cute Anxiety during acu te COVID-19 affecting , antepartum acute IUGR (intrauterine growth re tardation) in prior , acute acute Supervision of high risk , antepartum acute [facility] Work Phone: Evaluation note* Diagnosis Onset Date Resolution Status Anemia affecting a cute Anxiety during acu te COVID-19 affecting , antepartum acute IUGR (intrauterine growth re tardation) in prior , acute acute Supervision of high risk , antepartum acute Proteinuria resolved UTI (urinary tract infection) resolved Anemia affecting a cute Anxiety during acu te COVID-19 affecting , antepartum acute IUGR (intrauterine growth re tardation) in prior , acute acute Supervision of high risk , antepartum acute Proteinuria resolved UTI (urinary tract infection) resolved Anemia affecting a cute Anxiety during acu te COVID-19 affecting , antepartum acute IUGR (intrauterine growth re tardation) in prior , acute acute Supervision of high risk , antepartum acute UTI (urinary tract infection) resolved Anemia affecting a cute Anxiety during acu te COVID-19 affecting , antepartum acute IUGR (intrauterine growth re tardation) in prior , acute acute Supervision of high risk , antepartum acute UTI (urinary tract infection) resolved Anemia affecting a cute Anxiety during acu te COVID-19 affecting , antepartum acute IUGR (intrauterine growth re tardation) in prior , acute acute Supervision of high risk , antepartum acute UTI (urinary tract infection) resolved Anemia affecting a cute Anxiety during acu te COVID-19 affecting , antepartum acute IUGR (intrauterine growth re tardation) in prior , acute acute Supervision of high risk , antepartum acute False labor acute Anemia affecting a cute Anxiety during acu te COVID-19 affecting , antepartum acute IUGR (intrauterine growth re tardation) in prior , acute acute Supervision of high risk , antepartum acute Anemia affecting a cute Anxiety during acu te COVID-19 affecting , antepartum acute IUGR (intrauterine growth re tardation) in prior , acute acute Supervision of high risk , antepartum acute Vaginal delivery acute [facility] Work Phone: Evaluation note* Diagnosis Onset Date Resolution Status Contraceptive management acu te Vaginal delivery acute Low back pain noneactive Stress incontinence noneacti ve Sacroiliac pain noneactive [facility] Work Phone: Evaluation noteNo assessment information available [facility] Work Phone: Evaluation note* Diagnosis Onset Date Resolution Status Anemia due to blood loss acu te Incomplete acute [facility] Work Phone: Evaluation note* Diagnosis Onset Date Resolution Status Contraceptive management acu te Mastodynia of right breast a cute Preventative health care acu te Iron (Fe) deficiency anemia chronic [facility] Work Phone: Evaluation note* Diagnosis Onset Date Resolution Status Iron (Fe) deficiency anemia resolved Preventative health care res olved Complete acute [facility] Work Phone: Reason for referral (narrative)No reason for referral information availableWH[facility] Work [facility]: Family History No Family History Records Found Relationship Condition Age at Onset Recorded Date/T sofya Not Specified Cardiac disease Unknown mother Malignant neoplasm of breast Unknown grandmother Diabetes mellitus Unknown uncle Leukemia Unknown grandfather Malignant melanoma Unknown Malignant neoplasm of breast Unknown Abdominal aortic aneurysm (AAA) Unknown grandfather Hypertension Unknown Relationship Condition Age at Onset Recorded Date/T sofya Not Specified Cardiac disease Unknown mother Malignant neoplasm of breast 23 grandmother Diabetes mellitus Unknown Malignant neoplasm of breast 77 uncle Leukemia Unknown grandfather Malignant melanoma Unknown Malignant neoplasm of breast 50 Abdominal aortic aneurysm (AAA) Unknown grandfather Hypertension Unknown Advance Directives No Advanced Directives Records Found Advance Directive Response Recorded Date/ Time Advance Directives No April 12 8:12am Living Will No February 17, 2022 1:41pm Power of Medical Donation Professional No February 17 1:41pm Advance Directive Response Recorded Date/ Time Advance Directives No April 12 8:12am Living Will No May 26, 2022 12:35pm Power of Medical Donation Professional No May 26 12:35pm Advance Directive Response Recorded Date/ Time Advance Directives No April 12 7:12am Living Will No May 26, 2022 11:35am Power of Medical Donation Professional No May 26 11:35am Advance Directive Response Recorded Date/ Time Advance Directives No April 12 8:12am Living Will No May 01, 2023 9 :11am Power of Medical Donation Professional No May 01, 2023 9:11am Advance Directive Response Recorded Date/ Time Advance Directives No April 12 8:12am Living Will No May 01, 2023 6 :56pm Power of Medical Donation Professional No May 01, 2023 6:56pm Advance Directive Response Recorded Date/ Time Advance Directives No June 04 9:57am Living Will No May 01, 2023 6 :56pm Power of Medical Donation Professional No May 01, 2023 6:56pm Advance Directive Response Recorded Date/ Time Advance Directives No June 04 8:57am Living Will No May 01, 2023 5 :56pm Power of Medical Donation Professional No May 01, 2023 5:56pm Advance Directive Response Recorded Date/ Time Advance Directives No [place] 22nd, 2024 2:29pm Chief Complaint and Reason for Visit Chief Complaint 18 WK OB 18 weeks-spotting O09.90 22 WK OB JAW SWELLING 25 weeks-BP check/UA per SM 26 WK OB 1 HR GLUCOSE/NEED ORDER est ob 30WK OB 32WK OB E-ORDER GROWTH VENOFER 300MG 34WK OB Reason for Visit Anemia affecting pre gnancy IUGR (intrauterine growth retardation) in prior , Supervision of high risk , antepartum Proteinuria Supervision of high risk , antepartum Anemia affecting Anxiety during COVID-19 affecting , antepartum IUGR (intrauterine growth retardation) in prior , Supervision of high risk , antepartum UTI (urinary tract infection) Proteinuria Anemia affecting Anxiety during COVID-19 affecting , antepartum IUGR (intrauterine growth retardation) in prior , Supervision of high risk , antepartum UTI (urinary tract infection) Proteinuria Anemia affecting Anxiety during COVID-19 affecting , antepartum IUGR (intrauterine growth retardation) in prior , Supervision of high risk , antepartum UTI (urinary tract infection) Anemia affecting Anxiety during COVID-19 affecting , antepartum IUGR (intrauterine growth retardation) in prior , Supervision of high risk , antepartum UTI (urinary tract infection) Chief Complaint 18 WK OB 18 weeks-spotting O09.90 22 WK OB JAW SWELLING 25 weeks-BP check/UA per SM 26 WK OB 1 HR GLUCOSE/NEED ORDER est ob 30WK OB 32WK OB E-ORDER GROWTH VENOFER 300MG 34WK OB R/O LABOR Reason for Visit Anemia affecting pre gnancy IUGR (intrauterine growth retardation) in prior , Supervision of high risk , antepartum Proteinuria Supervision of high risk , antepartum Anemia affecting Anxiety during COVID-19 affecting , antepartum IUGR (intrauterine growth retardation) in prior , Supervision of high risk , antepartum UTI (urinary tract infection) Proteinuria Anemia affecting Anxiety during COVID-19 affecting , antepartum IUGR (intrauterine growth retardation) in prior , Supervision of high risk , antepartum UTI (urinary tract infection) Proteinuria Anemia affecting Anxiety during COVID-19 affecting , antepartum IUGR (intrauterine growth retardation) in prior , Supervision of high risk , antepartum UTI (urinary tract infection) Anemia affecting Anxiety during COVID-19 affecting , antepartum IUGR (intrauterine growth retardation) in prior , Supervision of high risk , antepartum UTI (urinary tract infection) Chief Complaint 22 WK OB JAW SWELLING 25 weeks-BP check/UA per SM 26 WK OB 1 HR GLUCOSE/NEED ORDER est ob 30WK OB 32WK OB E-ORDER GROWTH VENOFER 300MG 34WK OB R/O LABOR R/O LABOR 36WK OB Reason for Visit Anemia affecting pre gnancy Anxiety during COVID-19 affecting , antepartum IUGR (intrauterine growth retardation) in prior , Supervision of high risk , antepartum Proteinuria UTI (urinary tract infection) Anemia affecting Anxiety during COVID-19 affecting , antepartum IUGR (intrauterine growth retardation) in prior , Supervision of high risk , antepartum Proteinuria UTI (urinary tract infection) Anemia affecting Anxiety during COVID-19 affecting , antepartum IUGR (intrauterine growth retardation) in prior , Supervision of high risk , antepartum UTI (urinary tract infection) Anemia affecting Anxiety during COVID-19 affecting , antepartum IUGR (intrauterine growth retardation) in prior , Supervision of high risk , antepartum UTI (urinary tract infection) Anemia affecting Anxiety during COVID-19 affecting , antepartum IUGR (intrauterine growth retardation) in prior , Supervision of high risk , antepartum UTI (urinary tract infection) Anemia affecting Anxiety during COVID-19 affecting , antepartum IUGR (intrauterine growth retardation) in prior , Supervision of high risk , antepartum Chief Complaint 22 WK OB JAW SWELLING 25 weeks-BP check/UA per SM 26 WK OB 1 HR GLUCOSE/NEED ORDER est ob 30WK OB 32WK OB E-ORDER GROWTH VENOFER 300MG 34WK OB R/O LABOR R/O LABOR 36WK OB GROWTH R/O LABOR Reason for Visit Anemia affecting pre gnancy Anxiety during COVID-19 affecting , antepartum IUGR (intrauterine growth retardation) in prior , Supervision of high risk , antepartum Proteinuria UTI (urinary tract infection) Anemia affecting Anxiety during COVID-19 affecting , antepartum IUGR (intrauterine growth retardation) in prior , Supervision of high risk , antepartum Proteinuria UTI (urinary tract infection) Anemia affecting Anxiety during COVID-19 affecting , antepartum IUGR (intrauterine growth retardation) in prior , Supervision of high risk , antepartum UTI (urinary tract infection) Anemia affecting Anxiety during COVID-19 affecting , antepartum IUGR (intrauterine growth retardation) in prior , Supervision of high risk , antepartum UTI (urinary tract infection) Anemia affecting Anxiety during COVID-19 affecting , antepartum IUGR (intrauterine growth retardation) in prior , Supervision of high risk , antepartum UTI (urinary tract infection) Anemia affecting Anxiety during COVID-19 affecting , antepartum IUGR (intrauterine growth retardation) in prior , Supervision of high risk , antepartum Chief Complaint 22 WK OB JAW SWELLING 25 weeks-BP check/UA per SM 26 WK OB 1 HR GLUCOSE/NEED ORDER est ob 30WK OB 32WK OB E-ORDER GROWTH VENOFER 300MG 34WK OB R/O LABOR R/O LABOR 36WK OB GROWTH R/O LABOR R/O LABOR 37WK OB VAGINAL DELIVERY VAGINAL DELIVERY VAGINAL DELIVERY Reason for Visit Anemia affecting pre gnancy Anxiety during COVID-19 affecting , antepartum IUGR (intrauterine growth retardation) in prior , Supervision of high risk , antepartum Proteinuria UTI (urinary tract infection) Anemia affecting Anxiety during COVID-19 affecting , antepartum IUGR (intrauterine growth retardation) in prior , Supervision of high risk , antepartum Proteinuria UTI (urinary tract infection) Anemia affecting Anxiety during COVID-19 affecting , antepartum IUGR (intrauterine growth retardation) in prior , Supervision of high risk , antepartum UTI (urinary tract infection) Anemia affecting Anxiety during COVID-19 affecting , antepartum IUGR (intrauterine growth retardation) in prior , Supervision of high risk , antepartum UTI (urinary tract infection) Anemia affecting Anxiety during COVID-19 affecting , antepartum IUGR (intrauterine growth retardation) in prior , Supervision of high risk , antepartum UTI (urinary tract infection) Anemia affecting Anxiety during COVID-19 affecting , antepartum IUGR (intrauterine growth retardation) in prior , Supervision of high risk , antepartum False labor Anemia affecting Anxiety during COVID-19 affecting , antepartum IUGR (intrauterine growth retardation) in prior , Supervision of high risk , antepartum Anemia affecting Anxiety during COVID-19 affecting , antepartum IUGR (intrauterine growth retardation) in prior , Supervision of high risk , antepartum Vaginal delivery Chief Complaint 6wk pp, IUD insertio n OFF AND ON LOWER BACK PAIN Reason for Visit Contraceptive manage ment Vaginal delivery Low back pain Stress incontinence Sacroiliac pain Chief Complaint INT LABS E ORDER VIABILITY/DATING Chief Complaint INT LABS E ORDER VIABILITY/DATING D&C Chief Complaint INT LABS E ORDER VIABILITY/DATING D&C D&C Reason for Visit Anemia due to blood loss Incomplete Chief Complaint right breast pain/ti ngling/no lump/family history LUMP IN BREAST wellness Reason for Visit Contraceptive manage ment Mastodynia of right breast Preventative health care Iron (Fe) deficiency anemia Summary Purpose Additional Source Comments Goals (unrecognized section and content) Goals may be documented in a n alternate sectionGoals may be documented in an alternate sectionGoals may be documented in an alternate sectionGoals may be documented in an alternate sectionGoals may be documented in an alternate sectionGoals may be documented in an alternate sectionGoals may be documented in an alternate sectionGoals may be documented in an alternate sectionGoals may be documented in an alternate sectionGoals may be documented in an alternate sectionGoals may be documented in an alternate sectionGoals may be documented in an alternate sectionGoals may be documented in an alternate section Care Teams (unrecognized sec tion and content) Team Status: Active Member Role Status Dates Dr. Jose Mancera MD Family Provider Active Dr. Jose Mancera MD Primary Care Provider Active Team Status: Inactive Member Role Status Dates Dr. Jose Mancera MD Primary Care Provider Active Dr. Teresa Artis MD Attending Provider, Referr ing Provider Active Team Status: Active Member Role Status Dates Dr. Jose Mancera MD Primary Care Provider Active Lady Brito PACKER FUSER, PACKER FUSER-C Attending Provider, Referring Provider Active Team Status: Inactive Member Role Status Dates Dr. Jose Mancera MD Primary Care Provider Active Lady Brito PACKER FUSER, PACKER FUSER-C Attending Provider, Referring Provider Active Team Status: Active Member Role Status Dates Dr. Jose Mancera MD Primary Care Provider Active Dr. Mathew Hoffman DO Emergency Provider Active Dr. Teresa Artis MD Attending Provider Active Team Status: Active Member Role Status Dates Dr. Jose Mancera MD Primary Care Provider Active Dr. Mathew Hoffman DO Emergency Provider Active Dr. Teresa Artis MD Attending Provider, Other Provider Active Team Status: Inactive Member Role Status Dates Dr. Jose Mancera MD Primary Care Provider Active Dr. Mathew Hoffman , Emergency Provider Active Dr. Teresa Artis MD Admit Provider, Attending Provider Active Team Status: Inactive Member Role Status Dates Dr. Jose Mancera MD Primary Care Provider, Refer ring Provider Active Madelyn Singh CNM Attending Provider Active Team Status: Inactive Member Role Status Dates Dr. Jose Mancera MD Primary Care P rovider, Attending Provider, Referring Provider Active Team Status: Inactive Member Role Status Dates Dr. Jose Mancera MD Primary Care Provider Active Madelyn Singh CNM Attending Provider, Referring Pr ovider Active Team Status: Inactive Member Role Status Dates Dr. oJse Mancera MD Primary Care Provider, Refer ring Provider Active Aaron ANDREW, PA Attending Provider Active Team Status: Inactive Member Role Status Dates Dr. Jose Mancera MD Primary Care Provider, Refer ring Provider Active Dr. Teresa Artis MD Attending Provider Active Team Status: Inactive Member Role Status Dates Dr. Jose Mancera MD Primary Care Provider Active Estrella Flores CNM Attending Provider, Referring Pro vider Active Team Status: Inactive Member Role Status Dates Dr. Jose Mancera MD Primary Care Provider Active Start: February 22, 2025 End: February 22, 2025 Dr. Verona Richards DO Attending Provider Activ e Start: February 22, 2025 End: February 22, 2025 Dr. Verona Richards DO Referring Provider Activ e Start: February 22, 2025 End: February 22, 2025 INFORMATION SOURCE (unrecogn ized section and content) DATE CREATED AUTHOR 05/06/2025 [facility] FOR RECORDS PERTAINING TO PATIENTS WHO ARE [...] BE BASED ON THE PRIMARY CLINICAL RECORDS. [facility]. provides no warranty or guarantee of the accuracy or completeness of information in this document.
[2025-05-07 10:55] LABS: hCG Titer Quant., Serum 170 mIU/mL (<9 non-preg)
== END | disposition home or self-care (01) ==
LOC: LAB 09:15
PROVIDERS: PCP Internal Medicine; Referring Provider Obstetrics & Gynecology; Visit Provider Obstetrics & Gynecology
DX: O09.299 Supervision of pregnancy with other poor reproductive or obstetric history, unspecified trimester (principal); Z3A.00 Weeks of gestation of pregnancy not specified
CPT/HCPCS: 36415; 84702

== ENCOUNTER → 2025-05-12 | Outpatient (CLI) | payer OTHER, SELFPAY ==
[2025-05-12 10:08] LABS: hCG Titer Quant., Serum 1818 mIU/mL (<9 non-preg)
--- OUTSIDE RECORDS SUMMARY | 2025-05-12 18:50 | XMS RPT_ITS | CCD ---
Author Organization [facility] CliniSyny Care Team Providers Care Cut Off Worker Name Role Phone ALBERTO Sheth RN, Perla Guy Unavailable Unavailabl alysa Brito DIRECT MARKETING EXECUTIVE, Lady S Unavailable Steff MCKEON, Teresa Yost Unavailable [phone] ALBERTO Sheth RN, Perla Guy Unavailable Unavailabl e Angie Escobar Unavailable Unavailable Calderon MCKEON, Jose Rosa Unavailable [phone] Angie Escobar Unavailable Unavailable ALBERTO Sheth RN, Perla Guy Unavailable Unavailabl e Svetlana Guzmán Unavailable Unavailable ALBERTO Sheth RN, Perla Guy Unavailable Unavailabl Dr. Jose Carty Primary Care Provider [phone] Dr. Jose Mancera Referring Provider [phone] Dr. Teresa Artis Attending Provider [phone] [phone] Dr. Emanuel Meyers Attending Provider [phone] Daryl DIRECT MARKETING EXECUTIVE, EVA-Arline Narayanan Attending Provider [phone] Dr. Verona Richards Attending Provider [phone] Dr. Jose Mancera Primary Care Provider 1([phone]) Dr. Jose Mancera Referring Provider [phone] Dr. Teresa Artis Attending Provider [phone] [phone] Dr. Jose Mancera Primary Care Provider [phone] Dr. Jose Mancera Referring Provider [phone] Dr. Emanuel Meyers Attending Provider Dr. Jose Mancera Primary Care Provider [phone] Calderon, Dr. Garcia Referring Provider [phone] Dr. Teresa Artis Attending Provider [phone] Calderon, Dr. Garcia Primary Care Provider [phone] Calderon, Dr. Garcia Referring Provider [phone] Calderon, Dr. Garcia Primary Care Provider [phone] Calderon, Dr. Garcia Referring Provider [phone] Dr. Verona Richards Referring Provider [phone] Arvind Mendez, Dr. Rhoades Other Provider Arvind Mendez, Dr. Rhoades Admit Provider Calderon, Dr. Garcia Primary Care Provider [phone] [phone] Calderon, Dr. Garcia Referring Provider [phone] Arvind Mendez, Dr. Rhoades Attending Provider [phone] KAMRAN Ocampo [facility]ending [facility] Garcia Primary Care Provider 1(33 [phone]) Dr. Mathew Hoffman Emergency Provider Dr. Teresa Artis Attending Provider [phone] [phone] Dr. Teresa Artis Other Provider [phone] Dr. Jose Mancera Primary Care Provider 1(33 0) Calderon, Dr. Garcia Referring Provider [phone] ELVA Singh Attending Provider [phone] Dr. Jose Mancera Attending Provider [phone] Calderon, Dr. Garcia Primary Care Provider 1(33 0) Calderon, Dr. Garcia Attending Provider [phone] Dr. Jose Mancera Referring Provider [phone] KAMRAN Velázquez Attending Provider [phone] Teresa Artis Attending Provider Dr. Jose Mancera MD Primary Care Provider Dr. Verona Richards DO Attending Provider Dr. Verona Richards DO Referring Provider Oleghe, Efewongbe Referring Unavailable Vande Vanessa, Verona Attending Unavailabl e Oleghe, Efewongbe Primary Care Unavailable Oleghe, Efewongbe Referring Unavailable Oleghe, Efewongbe Primary Care Unavailable Vande Velde, Verona Attending Unavailabl e Oleghe, Efewongbe Referring Unavailable Oleghe, Efewongbe Primary Care Unavailable Madelyn Singh Attending Unavailable Marcanthony, Teresa Attending Unavailable Oleghe, Efewongbe Primary Care Unavailable Marcanthony, Teresa Referring Unavailable Marcanthony, Teresa Attending Unavailable Oleghe, Efewongbe Primary Care Unavailable Marcanthony, Teresa Referring Unavailable Oleghe, Efewongbe Primary Care Unavailable Vande Velde, Verona Attending Unavailabl e Vande Velde, Verona Referring Unavailabl e Oleghe, Efewongbe Primary Care Unavailable Marcanthony, Teresa Referring Unavailable Marcanthony, Teresa Attending Unavailable Oleghe, Efewongbe Primary Care Unavailable Marcanthony, Teresa Referring Unavailable Marcanthony, Teresa Attending Unavailable Oleghe, Efewongbe Primary Care Unavailable Marcanthony, Teresa Attending Unavailable Marcanthony, Teresa Referring Unavailable Oleghe, Efewongbe Primary Care Unavailable Madelyn Singh Attending Unavailable Madelyn Singh Referring Unavailable Dr. Teresa Artis MD Attending Provider Dr. Teresa Artis MD Referring Provider Allergies Allergy Classification Reported Allergen(s) Allergy Type Date of Onset Reaction(s) Facility (13 sources) amoxicillin / clavulanate drug allergy 7 rash [facility] (20 sources) Honey bee venom drug allergy 7 Anaphylaxis [facility] (20 sources) Amoxicillin; Translations: [amoxicillin trihydrate] Drug Allergy 2 Nausea/Vom/Diar [facility] (20 sources) potassium clavulanate; Translations: [potassium clavulanate] Propensity to adverse reactions 2 Nausea/Vom/Diar [facility] (12 sources) Bacitracin Drug Allergy 2 [facility] (12 sources) Neomycin Drug Allergy 2 [facility] (12 sources) Polymyxin B Drug Allergy 2 [facility] (1 source) Bacitracin Drug Allergy [address] [facility] (1 source) Neomycin Drug Allergy [address] [facility] (1 source) polymyxin B Drug allergy (disorder) [address] [facility] (1 source) venom-honey bee Drug allergy (disorder) [address] [facility] Medications Current Medications Medication Drug Class(es) Dates Sig (Normalized) Sig (Original) [id number] 0.3 ml EPINEPHrine 1 mg/ml auto-injector (20 sources) alpha-Adrenergic Agonist, beta-Adrenergic Agonist, Catecholamine Start: [...] 6 HOURS January 25, 2022 3:19pm Pnv #64-Ifpf-Zpcal Acid-Dha (18 sources) Start: 11-05-2021 take 1 capsule by mouth once daily Pnv #91-Rvfq-Yeopk Acid-Dha Active 1 CAP PO DAILY November 05, 2021 11:48am Start: 11-05-2021 take 1 capsule by [facility] once daily Pnv #21-Jdqu-Bpjek Acid-Dha Active 1 CAP PO DAILY November 05, 2021 12:00am Start: 11-05-2021 take 1 capsule by [facility] once daily Pnv #72-Ifrh-Bdpcp Acid-Dha Active 1 CAP PO DAILY November 05, 2021 1:00am Pnv #24-Stkq-Lruuj Acid-Dha 35 mg iron-5 mg iron-1 mg capsule (6 sources) Start: 11-05-2021 Pnv #56-Iron-F olic Acid-Dha 35 mg iron-5 mg iron-1 mg capsule Active 1 NMA PO DAILY November 05, 2021 1:00am Start: 04-12-2020 End: 04-13-2021 Pnv #05-Jqsx-Atjrh Acid-Dha 35 mg iron-5 mg iron-1 mg [...] As directed Blood Pressure Test Kit-Small kit (3 sources) Start: 10-25-2020 End: 10-31-2021 Blood Pressure Test Kit-Small kit Discontinued 0 .ROUTE .MEDSUPPLY October 25, 2020 1:00am October 31, 2021 3:23pm As directed cephalexin 500 mg oral capsule (10 sources) Cephalosporin Antibacterial Start: 11-11-2022 End: 11-21-2022 take 1 capsule by mouth every twelve hours Cephalexin 500 mg capsule Discontinued 500 mg PO Q12H 20 November 11, 2022 1:00am November 20, 2022 1:00am November 21, 2022 1:04am clindamycin 300 mg oral capsule (20 sources) Lincosamide Antibacterial Start: 02-17-2022 End: 03-06-2022 [...] Artis MD estradiol 0.1 mg/ml vaginal cream (20 sources) Estrogen Start: 05-14-2021 End: 10-31-2021 Estradiol [...] day ferrous fumarate 325 mg oral tablet (5 sources) Start: 09-22-2023 End: 07-23-2024 take 1 [...] 2019 3:53pm meloxicam 15 mg oral tablet (5 sources) Nonsteroidal Anti-inflammatory Drug Start: 09-22-2023 End: 07-23-2024 take 1 tablet by mouth once daily Meloxicam 15 mg tablet Discontinued 15 mg PO DAILY September 22, 2023 12:00am July 23, 2024 1:41pm MULTIPLE VITAMINS-MINERAL S (7 sources) Start: 06-04-2017 DAILY MULTIVITAMIN CAPS MULTIPLE VITAMINS-MINERALS [id number] Jose Mancera MD MULTIPLE VITAMINS-MINERAL S (6 sources) Start: 06-04-2017 DAILY MULTIVITAMIN CAPS MULTIPLE VITAMINS-MINERALS [id number] Jose Mancera MD Multivit 09-Fniq-Iigevz 1-Dha (Pnv-Dha) 27 mg iron-1 mg -300 mg capsule (20 sources) Start: 03-27-2020 End: 04-12-2020 Multivit 37-Wvuc-Gxfcuf 1-Dha (Pnv-Dha) 27 mg iron-1 mg -300 mg capsule Discontinued CAP PO March 27, 2020 1:25pm April 12, 2020 11:30am Start: 03-27-2020 End: 04-12-2020 Multivit 88-Icdz-Wamxeo 1-Dh a (Pnv-Dha) 27 mg iron-1 mg -300 mg capsule Discontinued NMA PO March 27, 2020 12:00am April 12, 2020 11:30am Start: 03-27-2020 End: 04-12-2020 Multivit 97-Yhdl-Uuztcz 1-Dh a (Pnv-Dha) 27 mg iron-1 mg -300 mg capsule Discontinued CAP PO March 26, 2020 11:00pm April 12, 2020 10:30am Start: 03-27-2020 End: 04-12-2020 Multivit 25-Dxoe-Hpkkoo 1-Dh a (Pnv-Dha) 27 mg iron-1 mg -300 mg capsule Discontinued CAP PO March 27, 2020 12:00am April 12, 2020 11:30am Multivitamin 1 EACH tablet (3 sources) Start: 12-11-2016 End: 09-07-2018 Multivitamin 1 EACH [...] 2018 1:20pm naproxen 250 mg oral tablet (20 sources) Nonsteroidal Anti-inflammatory Drug Start: 11-07-2020 End: 04-13-2021 take 250-500 mg by mouth every eight hours as needed for pain Naproxen 250 MG tablet Discontinued 250 - 500 mg PO EVERY 8 HOURS NEEDED as needed for MILD PAIN November 07, 2020 1:00am April 13, 2021 3:05pm nitrofurantoin, macrocrystals 100 mg oral capsule (20 sources) Nitrofuran Antibacterial Start: 03-06-2022 End: 03-13-2022 [...] 24 hr then bid to finish Rx [place]-3 Fatty Acids-Fish Oil (18 sources) Start: 12-11-2016 End: 09-07-2018 [place]-3 Fatty Acids-Fish Oil Discontinued 1 EACH PO DAILY December 11, 2016 8:50pm September 07, 2018 1:20pm Start: 12-11-2016 End: 09-07-2018 [place]-3 Fatty Acids-Fish Oil Discontinued 1 EACH PO DAILY December 11, 2016 12:00am September 07, 2018 12:20pm Start: 12-11-2016 End: 09-07-2018 [place]-3 Fatty Acids-Fish Oil Discontinued 1 EACH PO DAILY December 11, 2016 1:00am September 07, 2018 1:20pm [place]-3 Fatty Acids-Fish Oil 1 EACH capsule (3 sources) Start: 12-11-2016 End: 09-07-2018 [place]-3 Fatty Acids-Fish Oil 1 EACH capsule Discontinued 1 NMA PO DAILY December 11, 2016 1:00am September 07, 2018 1:20pm predniSONE 10 mg oral tablet (20 sources) Start: 04-27-2019 End: 08-18-2019 Prednisone 10 [...] 2021 3:05pm sertraline 50 mg oral tablet (20 sources) Serotonin Reuptake Inhibitor Start: 11-05-2021 End: [...] 07-22-2017 07-22-2017 Episodic Deficiency and other anemia (6 sources) Anemia due to blood loss; 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-2023 Chronic Deficiency and other anemia (1 source) Iron deficiency anemia secondary to blood loss (chronic); 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-2023 Chronic Deficiency and other anemia (20 sources) Anemia; Translations: [Anemia, unspecified] Onset: 06-04-2017 06-04-2017 Episodic Deficiency and other anemia (20 sources) Iron deficiency anemia; Translations: [Iron deficiency anemia, unspecified] 11-05-2021 Episodic Comment on above: IV venofer in previo us Deficiency and other anemia (2 sources) Iron deficiency anemia, unspecified; Translations: [Iron deficiency anemia, unspecified] 09-22-2023 Episodic Disorders of teeth and jaw (20 sources) Dental caries; Translations: [Dental caries, unspecified] 02-25-2022 Episodic Early or threatened labor (2 sources) False labor; Translations: [False labor, unspecified] Episodic Fluid and electrolyte disorders (20 sources) Hypokalemia; Translations: [Hypokalemia] 06-29-2020 Episodic Genitourinary symptoms and ill-defined conditions (20 sources) Female stress incontinence; Translations: [Stress incontinence (female) (male)] Chronic Genitourinary symptoms and ill-defined conditions (20 sources) Proteinuria; Translations: [Proteinuria, unspecified] Episodic Hemorrhage during ; abruptio placenta; placenta previa (20 sources) Bleeding from female genital tract during ; Translations: [Antepartum hemorrhage, unspecified, unspecified trimester] Onset: 08-27-2024 09-09-2021 Episodic Immunizations and screening for infectious disease (3 sources) Antibody titer - finding; Translations: [Raised antibody titer] 12-19-2023 Episodic Comment on above: repeat labs in 3 fri Menstrual disorders (10 sources) Amenorrhea; Translations: [Amenorrhea, unspecified] 04-09-2023 Chronic Comment on above: HCG, US Nonmalignant breast conditions (20 sources) Pain of breast; Translations: [Mastodynia] 06-29-2020 Episodic Comment on above: imaging ordered Open wounds of head; neck; and trunk (20 sources) Laceration of chin; Translations: [Laceration without foreign body of other part of head, initial encounter] 12-12-2016 Episodic Other circulatory disease (13 sources) Raynaud's phenomenon ; Translations: [Raynaud's syndrome without gangrene] Onset: 06-04-2017 06-04-2017 Chronic Other complications of (20 sources) Anemia of ; Translations: [Anemia complicating , unspecified trimester] 05-28-2022 Chronic Comment on above: IV iron Other complications of (20 sources) Anemia complicating , unspecified trimester; Translations: [Anemia of mother, unspecified as to episode of care or not applicable] Chronic Other complications of (18 sources) Anxiety in ; Translations: [Other mental disorders complicating , unspecified trimester] 06-28-2022 Episodic Other complications of (20 sources) Disease caused by 2019-nCoV; Translations: [Other [...] PC: Turner BF: Rebel Other complications of (20 sources) Uterine contractions problem; Translations: [Other specified [...] or complication] Episodic Comment on above: stone rdorigues Other complications of (20 sources) Other viral diseases complicating , unspecified trimester; Translations: [Other viral diseases in the mother, antepartum condition or complication] Episodic Other female genital disorders (3 sources) Recurrent loss; 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] 07-23-2024 Episodic Other lower respiratory disease (20 sources) Cough; Translations: [Cough] 12-12-2021 Episodic Other nutritional; endocrine; and metabolic disorders (20 sources) Hypomagnesemia; Translations: [Hypomagnesemia] 06-29-2020 Chronic Other nutritional; endocrine; and metabolic disorders (20 sources) Hypocalcemia; Translations: [Hypocalcemia] 06-29-2020 Chronic Other and delivery including normal (20 sources) ; Translations: [Encounter for supervision of normal , unspecified, unspecified trimester] Onset: 05-05-2025 Episodic Comment on above: TAWANDA MCLAUGHLIN Jason Otitis media and related conditions (10 sources) Acute right otitis media; Translations: [Otitis media, unspecified, right ear] 11-11-2022 Episodic Ovarian cyst (20 sources) Cyst of ovary; Translations: [Unspecified ovarian cyst, unspecified side] 03-27-2020 Episodic Residual codes; unclassified (20 sources) History of vaccination; Translations: [Personal history of other drug therapy] 12-12-2021 Episodic Comment on above: Moderna 12/2020; 2020- has received booster 10/2021 Residual codes; unclassified (20 sources) Family history of breast cancer; Translations: [Family history of malignant neoplasm of breast] 11-05-2021 Episodic Comment on above: recommend genetic co unseling recommend genetic co unseling, Negative Empower Residual codes; unclassified (3 sources) H/O: previous baby with growth restriction; Translations: [Personal history of other complications of , childbirth and the puerperium] 07-23-2024 Episodic Residual codes; unclassified (1 source) Family history of malignant neoplasm of breast; Translations: [Family history of malignant neoplasm of breast] Onset: 03-02-2025 Episodic Skull and face fractures (20 sources) Fracture of mandible; Translations: [Fracture of mandible, unspecified, initial encounter for closed fracture] 12-12-2016 Episodic Spondylosis; intervertebral disc disorders; other back problems (2 sources) Low back pain; Translations: [Chronic lumbosacral pain] Episodic Spontaneous (20 sources) Miscarriage; Translations: [Complete or unspecified spontaneous without complication] Onset: 08-06-2024 10-31-2021 Episodic Comment on above: thin EML, hcg 69, to repeat on friday. emotional support provided. denies additional bloodwork for second miscarriage.c/w JV who agrees with management. recommend follow ser ial quants, suspect complete ab on ultrasound. ectopic precautions reviewed recommend suction d and c for retained products Unclassified (10 sources) Screening for malignant neoplasm [...] and perineal pain] Onset: 09-10-2017 09-10-2017 Episodic Unclassified (4 sources) IUGR (intrauterine growth retardation) in prior , 05-28-2022 Comment on above: plan growth us at 36 Results Test Name Value Interpretation Reference Range Facility Serum human chorionic gonado tropin detection for pregnancyOrdered By: Verona Mendez on 05-12-2025 HCG ( test) Ql 1818 mIU/mL High <[address] [place] [address] Comment on above: Gestational Age0.2-1 Week: 5-50 mIU/mL1-2 Weeks: 50-500 mIU/mL2-3 Weeks: 100-5000 mIU/mL3-4 Weeks: 500-10,000 mIU/mL4-5 Weeks:1000-50,000 mIU/mL5-6 Weeks: 10,000-100,000 mIU/mL6-8 Weeks: 15,000-200,000 mIU/mL2-3 Months:10,000-100,000 mIU/mL Serum human chorionic gonado tropin detection for pregnancyOrdered By: Teresa Artis on 05-07-2025 HCG ( test) Ql 170 mIU/mL High <[address] [facility] Comment on above: Gestational Age0.2-1 Week: 5-50 mIU/mL1-2 Weeks: 50-500 mIU/mL2-3 Weeks: 100-5000 mIU/mL3-4 Weeks: 500-10,000 mIU/mL4-5 Weeks:1000-50,000 mIU/mL5-6 Weeks: 10,000-100,000 mIU/mL6-8 Weeks: 15,000-200,000 mIU/mL2-3 Months:10,000-100,000 mIU/mL hCG Titer Quant., Serumon HCG QUANT. 170 mIU/mL High <9 non-preg [facility] Comment on above: Result Comment: Gest ational Age 0.2-1 Week: 5-50 mIU/mL 1-2 Weeks: 50-500 mIU/mL 2-3 Weeks: 100-5000 mIU/mL 3-4 Weeks: 500-10,000 mIU/mL 4-5 Weeks:1000-50,000 mIU/mL 5-6 Weeks: 10,000-100,000 mIU/mL 6-8 Weeks: 15,000-200,000 mIU/mL 2-3 Months:10,000-100,000 mIU/mL Performed By: #### L 700.8000 #### [facility] [place] [address] [place], [address] Serum human chorionic gonado tropin detection for pregnancyOrdered By: Teresa Artis on 05-05-2025 HCG ( test) Ql 81 mIU/mL High <[address] [facility] Comment on above: Gestational Age0.2-1 Week: 5-50 mIU/mL1-2 Weeks: 50-500 mIU/mL2-3 Weeks: 100-5000 mIU/mL3-4 Weeks: 500-10,000 mIU/mL4-5 Weeks:1000-50,000 mIU/mL5-6 Weeks: 10,000-100,000 mIU/mL6-8 Weeks: 15,000-200,000 mIU/mL2-3 Months:10,000-100,000 mIU/mL hCG Titer Quant., Serumon HCG QUANT. 81 mIU/mL High <9 non-preg [facility] Comment on above: Result Comment: Gest ational Age 0.2-1 Week: 5-50 mIU/mL 1-2 Weeks: 50-500 mIU/mL 2-3 Weeks: 100-5000 mIU/mL 3-4 Weeks: 500-10,000 mIU/mL 4-5 Weeks:1000-50,000 mIU/mL 5-6 Weeks: 10,000-100,000 mIU/mL 6-8 Weeks: 15,000-200,000 mIU/mL 2-3 Months:10,000-100,000 mIU/mL Performed By: #### L 700.8000 #### [facility] [address] [place], [address] Miscellaneous procedureOrder ed By: Verona Mendez on 02-22-2025 Miscellaneous Test Comment SEE SCANNED REPORT [facility] NATERAon 02-22-2025 NATURA SEE SCANNED REPORT Normal [facility] Comment on above: Performed By: #### L 900.0098 #### [facility] [address] [place], [address] Order Planner Office Visit Reporton 08-06-2024 Order Planner Office Visit Report [facility] [address], [address] [place] [address] OFFICE VISIT Date of Service: 08/06/24 MR#: [id number] Acct: [id number] Name: MIRI FRANCO Rep #: [id number] : 1990 Provider: ELVA terrazas Age/Sex: 33/F Location: [facility] Status: Signed Intake Vital Signs 07/23/24 13:36 08/06/24 13:13 Height 5 ft 4 in 5 ft 4 in Weight: 135 lb 2 oz 137 lb 6 oz BMI 23.1 23.6 BP 118/72 111/76 Intake Visit Reasons: possible miscarriage Chief Complaint: possible miscarriage Facilities Maintenance Assistant Required: No Is patient in pain?: No Allergies bacitracin (From Neosporin (lyk-xfg-wenqp)) Allergy (Verified 07/23/24 13:36) Rash neomycin (From Neosporin (rtz-jrr-mosmn)) Allergy (Verified 07/23/24 13:36) Rash polymyxin B (From Neosporin (adm-med-ssjtm)) Allergy (Verified 07/23/24 13:36) Rash venom-honey bee (bee venom (honey bee)) Allergy (Verified 07/23/24 13:36) Anaphylaxis amoxicillin trihydrate (From Augmentin) Adverse Reaction (Verified 07/23/24 13:36) Nausea/Vom/Diarrhea potassium clavulanate (From Augmentin) Adverse Reaction (Verified 07/23/24 13:36) Nausea/Vom/Diarrhea Is last menstrual period known: No Post menopausal: No Patient : No : No [facility] Medical History (Updated 08/06/24 @ 13:35 by [...] In school- legal studies Patient works in [employer] at [employer] HPI possible miscarriage Details: MIRI FRANCO is [...] term 6lbs 4oz Male 8 hours epidural [facility] DERICK Rebel 05/26/22 Jason 37 live - full term Female [facility] [place] Delivery Date: 11/06/20 Last [...] agrees with management. 08/06/24 1336 Date Madelyn Singh [facility] Cosigner Signature: Date (if applicable) CC: Normal [facility] hCG Titer Quant., Serumon HCG QUANT. 69 mIU/mL High 1-[address] [facility] Comment on above: Result Comment: hCG levels with Gestational Age Gestational Age hCG mIU/mL (IU/L) 0.2 - 1 week 5 - 50 1-2 weeks 50 - 500 2-3 weeks 100 - 5000 3-4 weeks 500 - 06380 4-5 weeks 1000 - 02028 5-6 weeks 56550 - 100,000 6-8 weeks 54535 - 200,000 2-3 months 08229 - 100,000 Performed By: #### L 700.8000 #### [facility] [address] [place], [address] Order Planner Office Visit Reporton 07-23-2024 Order Planner Office Visit Report [facility] [address], [address] [place] [address] OFFICE VISIT Date of Service: 07/23/24 MR#: [id number] Acct: [id number] Name: MIRI FRANCO Rep #: [id number] : 1990 Provider: Dr. Verona Pickering DO Age/Sex: 33/F Location: [facility] [place] Status: Signed Intake Vital Signs 12/09/23 15:45 07/22/24 14:29 07/23/24 13:36 Height 5 ft 4 in 5 ft 4 in 5 ft 4 in Weight: 135 lb 2 oz BMI 23.1 BP 118/72 Intake Visit Reasons: bleeding in early per Facilities Maintenance Assistant Required: No Is patient in pain?: No Allergies bacitracin (From Neosporin (ucf-sfp-rmapc)) Allergy (Verified 07/23/24 13:36) Rash neomycin (From Neosporin (fcv-mao-jxood)) Allergy (Verified 07/23/24 13:36) Rash polymyxin B (From Neosporin (zyh-qlg-ostms)) Allergy (Verified 07/23/24 13:36) Rash venom-honey bee [...] menopausal: No Patient : Yes : No [facility] Medical History (Updated 07/23/24 @ 14:36 by [...] In school- legal studies Patient works in [employer] at [employer] HPI bleeding in early per Details: MIRI [...] term 6lbs 4oz Male 8 hours epidural [facility] DERICK Rebel 05/26/22 Jason 37 live - full term Female [facility] [place] Delivery Date: 11/06/20 Last [...] normal adnexae (more content not included)... Normal [facility] Transvaginal w/Preg USon Transvaginal w/Preg US [facility] [address] [place] [address] [id number] Transvaginal w/Preg US MR#: [id number] Acct: [id number] Name: MIRI FRANCO Rep #: [id number] : 1990 F 33 From: Mustapha Griffin MD PCP: Dr. Jose Mancera MD Status: [facility] Study: Transvaginal w/Preg US Date of Exam: 07/20/24 Exam# [id number] Ordering Dr: Teresa Artis [id number] STUDY: FIRST TRIMESTER OBSTETRICAL ULTRASOUND REASON FOR [...] Jose Mancera MD; Dr. Teresa Artis MD Gig Tender: Signed Normal [facility] hCG Titer Quant., Serumon HCG QUANT. 143 mIU/mL High 1-[address] [facility] Comment on above: Result Comment: hCG levels with Gestational Age Gestational Age hCG mIU/mL (IU/L) 0.2 - 1 week 5 - 50 1-2 weeks 50 - 500 2-3 weeks 100 - 5000 3-4 weeks 500 - 68387 4-5 weeks 1000 - 39861 5-6 weeks 75588 - 100,000 6-8 weeks 70062 - 200,000 2-3 months 42644 - 100,000 Performed By: #### L 700.8000 #### [facility] [address], [place], [address] hCG Titer Quant., Serumon HCG QUANT. 58 mIU/mL High 1-[address] [facility] Comment on above: Result Comment: hCG levels with Gestational Age Gestational Age hCG mIU/mL (IU/L) 0.2 - 1 week 5 - 50 1-2 weeks 50 - 500 2-3 weeks 100 - 5000 3-4 weeks 500 - 29739 4-5 weeks 1000 - 45830 5-6 weeks 94791 - 100,000 6-8 weeks 61829 - 200,000 2-3 months 00525 - 100,000 Performed By: #### L 700.8000 #### [facility] [address] [place], [place], [id number] No Panel InformationOrdered By: Teresa Artis on 12-11-2023 Thyroid Stimulating Hormone (TSH) 1.01 uIU/mL 0.358-3.[address] [facility] Serum or plasma choriogonado tropin detectionOrdered By: Estrella Flores on 12-11-2023 HCG ( test) Ql 890 mIU/mL <[address] [facility] Comment on above: hCG levels with Gest ational AgeGestational Age hCG mIU/mL (IU/L)0.2 - 1 week 5 - 501-2 weeks 50 - 5002-3 weeks 100 - 91201-3 weeks 500 - 297076-2 weeks 1000 - 149894-0 weeks 78658 - 100,0006-8 weeks 75670 - 200,0002-3 months 08300 - 100,000 Whole blood hemoglobin A1c/t otal hemoglobin ratio (mass fraction)Ordered By: Teresa Artis on 12-11-2023 HbA1c (Bld) [Mass fraction] 5.1 % 3.8-5.[address] [facility] Comment on above: Normal < 5.7 % Predi abetic 5.7 - 6.4 % Diabetic >or= 6.5 % Please note range changes. Absolute lymphocyte countOrd ered By: Estrella Flores on 12-09-2023 Lymphocytes Auto (Unsp spec) [#/Vol] 2.53 10*3/uL 0.83-4.[address] [facility] Basophil percentageOrdered B y: Estrella Flores on 12-09-2023 Basophils/100 WBC (Bld) 0.6 % 0-[address] [facility] Eosinophils/100 WBC (Bld) 2.7 % 0-[address] [facility] Neutrophils (Bld) [#/Vol] 4.2 10*3/uL 2.0-7.[address] [facility] Neutrophils/100 WBC (Bld) 53.1 % 47-[address] [facility] WBC (Bld) [#/Vol] 7.8 10*3/uL 4.4-11.0 [facility] Blood erythrocytes count (nu mber/volume)Ordered By: Estrella Flores on 12-09-2023 RBC (Bld) [#/Vol] 3.99 10*6/uL 4.2-5.4 [facility] Blood hemoglobin measurement (mass/volume)Ordered By: Estrella Flores on 12-09-2023 Hemoglobin (Bld) [Mass/Vol] 10.9 g/dL 12.0-15.[address] [facility] Blood lymphocytes/100 leukoc ytesOrdered By: Estrella Flores on 12-09-2023 Lymphocytes/100 WBC (Bld) 32.3 % 19-[address] [facility] Blood monocytes/100 leukocyt esOrdered By: Estrella Flores on 12-09-2023 Monocytes/100 WBC (Bld) 11.0 % 0-[address] [facility] Blood platelet mean volumeOr dered By: Estrella Flores on 12-09-2023 Platelet mean volume (Bld) [Entitic vol] 10.4 fL 6.2-12.[address] [facility] Determination of erythrocyte mean corpuscular volume (MCV)Ordered By: Estrella Flores on 12-09-2023 MCV (RBC) [Entitic vol] 87.7 fL 81-[address] [facility] Hematocrit Auto (Bld) [Volum e fraction]Ordered By: Estrella Flores on 12-09-2023 Hematocrit (Bld) [Volume fraction] 35.0 % 37-[address] [facility] Laboratory - Hematology and Cell countsOrdered By: Estrella Flores on 12-09-2023 Erythrocyte distribution width (RBC) [Entitic vol] 47.1 fL 35.1-43.[address] [facility] Erythrocyte distribution width (RBC) [Ratio] 14.7 % 11.6-14.[address] [facility] Immature granulocytes/100 WBC (Bld) 0.300 % 0.0-0.[address] [facility] Comment on above: IG% - Immature Granu locytes (promyelocytes, myelocytes and metamyelocytes) > 1% indicates that a LEFT SHIFT is Present. MCH (RBC) [Entitic mass] 27.3 pg 27.0-32.[address] [facility] Nucleated RBC/100 WBC (Bld) [Ratio] 0 % 0-[address] [facility] MCHC Auto (RBC) [Mass/Vol]Or dered By: Estrella Flores on 12-09-2023 MCHC (RBC) [Mass/Vol] 31.1 g/dL 32-36 [facility] Platelets bldOrdered By: Santy Flores on 12-09-2023 Platelets (Bld) [#/Vol] 301 10*3/uL 150-[address] [facility] Serum or plasma choriogonado tropin detectionOrdered By: Estrella Flores on 12-09-2023 HCG ( test) Ql 2095 mIU/mL <[address] [facility] Comment on above: hCG levels with Gest ational AgeGestational Age hCG mIU/mL (IU/L)0.2 - 1 week 5 - 501-2 weeks 50 - 5002-3 weeks 100 - 46906-6 weeks 500 - 488229-2 weeks 1000 - 285225-7 weeks 41708 - 100,0006-8 weeks 60077 - 200,0002-3 months 80942 - 100,000 Laboratory - Microbiology an d Antimicrobial susceptibilityon 10-09-2023 SARS-CoV-2 (COVID-19) RNA ALEXANDRO+probe Ql (Unsp spec) Not detected [facility] No Panel Informationon 10-09 POC Nasal Swab Influenza A,B Not detected [facility] POC Nasal Swab RSV Not detected [facility] Iron measurement (mass/mass) Ordered By: Jose Mancera on 09-22-2023 Iron (Unsp spec) [Mass/Mass] 80 ug/dL 50-[address] [facility] No Panel InformationOrdered By: Jose Mancera on 09-22-2023 Anti-Gliadin IgA Antibody 19 units 0-[address] [facility] Comment on above: Negative 0 - 19 Weak Positive 20 - 30 Moderate to Strong Positive >30 Anti-Gliadin IgG Antibody 7 units 0-[address] [facility] Comment on above: Negative 0 - 19 Weak Positive 20 - 30 Moderate to Strong Positive >30 Endomysial IgA Antibody Negative Negative [facility] Tissue Transglutaminase IgG Ab <2 U/mL 0-[address] [facility] Comment on above: Negative 0 - 5 Weak Positive 6 - 9 Positive >9 Total Iron Binding Capacity 431 ug/dL 250-[address] [facility] Vitamin D 25-Hydroxy 24.3 ng/mL [facility] Comment on above: Vitamin D 25(OH) Sta tus Range Deficiency <20 ng/mL (50nmol/L) Insufficiency 20 - 30 ng/mL (50 - 75 nmol/L) Sufficiency 30 - 100 ng/mL (75 - 250 nmol/L) Toxicity >100 ng/mL (>250 nmol/L) Serum IgA measurement (units /volume)Ordered By: Jose Mancera on 09-22-2023 IgA Qn (S) 351 mg/dL 87-[address] [facility] Comment on above: Performed at: [place] [id number] Director: Joe Morse PhD, Phone: [phone] Serum or plasma ferritin jennie surement (mass/volume)Ordered By: Jose Mancera on 09-22-2023 Ferritin [Mass/Vol] 12 ng/mL 8-252 [facility] Serum tissue transglutaminas e IgA antibody assay (units/volume)Ordered By: Jose Mancera on 09-22-2023 tTG IgA Qn (S) 2 U/mL 0-[address] [facility] Comment on above: Negative 0 - 3 Weak Positive 4 - 10 Positive >10 Tissue Transglutaminase (tTG) has been identified as the endomysial antigen. Studies have demonstr- ated that endomysial IgA antibodies have over 99% specificity for gluten sensitive enteropathy. Absolute lymphocyte countOrd ered By: Dr. Artis on 05-01-2023 Lymphocytes Auto (Unsp spec) [#/Vol] 0.75 10*3/uL 0.83-4.[address] [facility] Absolute lymphocyte countOrd ered By: ED PROVIDER on 05-01-2023 Lymphocytes Auto (Unsp spec) [#/Vol] 1.94 10*3/uL 0.83-4.[address] [facility] Basophil percentageOrdered B y: Dr. Artis on 05-01-2023 Basophils/100 WBC (Bld) 0.2 % 0-[address] [facility] Eosinophils/100 WBC (Bld) 0.1 % 0-[address] [facility] Neutrophils (Bld) [#/Vol] 8.3 10*3/uL 2.0-7.[address] [facility] Neutrophils/100 WBC (Bld) 89.8 % 47-[address] [facility] WBC (Bld) [#/Vol] 9.3 10*3/uL 4.4-11.0 [facility] Basophil percentageOrdered B y: ED PROVIDER on 05-01-2023 Basophil percentage 10-25 SEEN /hpf 0-[address] [facility] Basophils/100 WBC (Bld) 0.4 % 0-[address] [facility] Bilirubin [Mass/Vol] 0.50 mg/dL 0.20-1.00 [facility] Comment on above: For patients on eltr ombopag therapy, use of Dimension [place] TBIL is not recommended. Chloride [Moles/Vol] 110 mmol/L 98-107 [facility] Eosinophils/100 WBC (Bld) 3.4 % 0-[address] [facility] Glucose [Mass/Vol] 114 mg/dL 74-106 [facility] Comment on above: Fasting Glucose resu lt from 100 to 125 mg/dL suggests IMPAIRED HOMEOSTASIS per A.D.A. criteria. Neutrophils (Bld) [#/Vol] 6.9 10*3/uL 2.0-7.[address] [facility] Neutrophils/100 WBC (Bld) 70.0 % 47-[address] [facility] Potassium [Moles/Vol] 4.0 mmol/L 3.5-5.1 [facility] Protein [Mass/Vol] 7.3 g/dL 6.4-8.2 [facility] Sodium [Moles/Vol] 140 mmol/L 136-145 [facility] WBC (Bld) [#/Vol] 9.9 10*3/uL 4.4-11.0 [facility] Bilirubin Test strip Ql (U)O rdered By: ED PROVIDER on 05-01-2023 Bilirubin Ql (U) Negative Negative [facility] Blood erythrocytes count (nu mber/volume)Ordered By: Dr. Artis on 05-01-2023 RBC (Bld) [#/Vol] 2.99 10*6/uL 4.2-5.4 [facility] Blood erythrocytes count (nu mber/volume)Ordered By: ED PROVIDER on 05-01-2023 RBC (Bld) [#/Vol] 3.08 10*6/uL 4.2-5.4 [facility] Blood hemoglobin measurement (mass/volume)Ordered By: Dr. Artis on 05-01-2023 Hemoglobin (Bld) [Mass/Vol] 8.9 g/dL 12.0-15.[address] [facility] Blood hemoglobin measurement (mass/volume)Ordered By: ED PROVIDER on 05-01-2023 Hemoglobin (Bld) [Mass/Vol] 8.7 g/dL 12.0-15.[address] [facility] Blood lymphocytes/100 leukoc ytesOrdered By: Dr. Artis on 05-01-2023 Lymphocytes/100 WBC (Bld) 8.1 % [facility] Blood lymphocytes/100 leukoc ytesOrdered By: ED PROVIDER on 05-01-2023 Lymphocytes/100 WBC (Bld) 19.5 % - [facility] Blood monocytes/100 leukocyt esOrdered By: Dr. Artis on 05-01-2023 Monocytes/100 WBC (Bld) 0.6 % 0-[address] [facility] Blood monocytes/100 leukocyt esOrdered By: ED PROVIDER on 05-01-2023 Monocytes/100 WBC (Bld) 6.2 % 0-[address] [facility] Blood platelet mean volumeOr dered By: Dr. Artis on 05-01-2023 Platelet mean volume (Bld) [Entitic vol] 10.2 fL 6.2-12.0 [facility] Blood platelet mean volumeOr dered By: ED PROVIDER on 05-01-2023 Platelet mean volume (Bld) [Entitic vol] 9.9 fL 6.2-12.[address] [facility] Determination of erythrocyte mean corpuscular volume (MCV)Ordered By: Dr. Artis on 05-01-2023 MCV (RBC) [Entitic vol] 91.6 fL 81-[address] [facility] Determination of erythrocyte mean corpuscular volume (MCV)Ordered By: ED PROVIDER on 05-01-2023 MCV (RBC) [Entitic vol] 89.9 fL 81-[address] [facility] Hematocrit Auto (Bld) [Volum e fraction]Ordered By: Dr. Artis on 05-01-2023 Hematocrit (Bld) [Volume fraction] 27.4 % 37-[address] [facility] Hematocrit Auto (Bld) [Volum e fraction]Ordered By: ED PROVIDER on 05-01-2023 Hematocrit (Bld) [Volume fraction] 27.7 % 37-[address] [facility] Ketones Test strip Ql (U)Ord ered By: ED PROVIDER on 05-01-2023 Ketones Ql (U) 5 mg/dl Negative [facility] Laboratory - Chemistry and C hemistry - challengeOrdered By: ED PROVIDER on 05-01-2023 ALP [Catalytic activity/Vol] 60 U/L 45-[address] [facility] ALT [Catalytic activity/Vol] 23 U/L 13-[address] [facility] CO2 [Moles/Vol] 25.0 mmol/L 21.0-32.[address] [facility] Globulin (S) [Mass/Vol] 4.0 g/dL 2.2-4.[address] [facility] Urea nitrogen/Creatinine [Mass ratio] 11.4 mg/mg 10-[address] [facility] Laboratory - Hematology and Cell countsOrdered By: Dr. Artis on 05-01-2023 Erythrocyte distribution width (RBC) [Entitic vol] 43.3 fL 35.1-43.[address] [facility] Erythrocyte distribution width (RBC) [Ratio] 13.1 % 11.6-14.[address] [facility] Immature granulocytes/100 WBC (Bld) 1.200 % 0.0-0.[address] [facility] Comment on above: IG% - Immature Granu locytes (promyelocytes, myelocytes and metamyelocytes) > 1% indicates that a LEFT SHIFT is Present. MCH (RBC) [Entitic mass] 29.8 pg 27.0-32.[address] [facility] Nucleated RBC/100 WBC (Bld) [Ratio] 0 % 0-[address] [facility] Laboratory - Hematology and Cell countsOrdered By: ED PROVIDER on 05-01-2023 Erythrocyte distribution width (RBC) [Entitic vol] 41.5 fL 35.1-43.[address] [facility] Erythrocyte distribution width (RBC) [Ratio] 12.7 % 11.6-14.[address] [facility] Immature granulocytes/100 WBC (Bld) 0.500 % 0.0-0.[address] [facility] Comment on above: IG% - Immature Granu locytes (promyelocytes, myelocytes and metamyelocytes) > 1% indicates that a LEFT SHIFT is Present. MCH (RBC) [Entitic mass] 28.2 pg 27.0-32.[address] [facility] Nucleated RBC/100 WBC (Bld) [Ratio] 0 % 0-[address] [facility] MCHC Auto (RBC) [Mass/Vol]Or dered By: Dr. Artis on 05-01-2023 MCHC (RBC) [Mass/Vol] 32.5 g/dL 32-36 [facility] Comment on above: Delta: 30.4 on 05/01-1711 MCHC Auto (RBC) [Mass/Vol]Or dered By: ED PROVIDER on 05-01-2023 MCHC (RBC) [Mass/Vol] 31.4 g/dL 32-36 [facility] Mucus LM Ql (Urine sed)Order ed By: ED PROVIDER on 05-01-2023 Mucus Ql (Urine sed) 0 SEEN /hpf [facility] Nitrite Test strip Ql (U)Ord ered By: ED PROVIDER on 05-01-2023 Nitrite Ql (U) Positive Negative [facility] No Panel InformationOrdered By: ED PROVIDER on 05-01-2023 Estimated Creatinine Clearance Calc 73.32 ml/min [facility] Estimated GFR (MDRD) Amer 86 mL/min >[address] [facility] Comment on above: GFR Calc Estimated GFR (MDRD) Non-Af Amer 71 mL/min >[address] [facility] Comment on above: Non- GFR Calc Platelets bldOrdered By: Dr. Artis on 05-01-2023 Platelets (Bld) [#/Vol] 319 10*3/uL 150-[address] [facility] Platelets bldOrdered By: ED PROVIDER on 05-01-2023 Platelets (Bld) [#/Vol] 362 10*3/uL 150-[address] [facility] Protein Test strip Ql (U)Ord ered By: ED PROVIDER on 05-01-2023 Protein Ql (U) 100 mg/dl Negative [facility] Serum or plasma albumin scott urement (mass/volume)Ordered By: ED PROVIDER on 05-01-2023 Albumin [Mass/Vol] 3.3 g/dL 3.2-5.0 [facility] Serum or plasma albumin/glob ulin mass ratioOrdered By: ED PROVIDER on 05-01-2023 Albumin/Globulin [Mass ratio] 0.8 {ratio} 0.9-2.[address] [facility] Serum or plasma calcium scott urement (mass/volume)Ordered By: ED PROVIDER on 05-01-2023 Calcium [Mass/Vol] 8.6 mg/dL 8.5-10.1 [facility] Serum or plasma choriogonado tropin detectionOrdered By: ED PROVIDER on 05-01-2023 HCG ( test) Ql 6527 mIU/mL <[address] [facility] Comment on above: hCG levels with Gest ational AgeGestational Age hCG mIU/mL (IU/L)0.2 - 1 week 5 - 501-2 weeks 50 - 5002-3 weeks 100 - 79247-4 weeks 500 - 151504-2 weeks 1000 - 409940-3 weeks 04155 - 100,0006-8 weeks 12082 - 200,0002-3 months 58671 - 100,000 Serum or plasma creatinine m easurement (mass/volume)Ordered By: ED PROVIDER on 05-01-2023 Creatinine [Mass/Vol] 0.96 mg/dL 0.55-1.02 [facility] Comment on above: The validity of the calculated GFR & GFRAA in patients over 70 years has not been determined. Clinical correlation is essential. Serum or plasma urea nitroge n measurement (mass/volume)Ordered By: ED PROVIDER on 05-01-2023 Urea nitrogen [Mass/Vol] 11 mg/dL 7-[address] [facility] Squamous epithelial cells de tection in urine sediment by light microscopyOrdered By: ED PROVIDER on 05-01-2023 Epithelial cells.squamous LM Ql (Urine sed) 0 SEEN /hpf 5-[address] [facility] Thin prep Papanicolaou smear with manual screeningOrdered By: ED PROVIDER on 05-01-2023 Thin prep Papanicolaou smear with manual screening 16 U/L 15-[address] [facility] Thin prep Papanicolaou smear with manual screening 5 5-[address] [facility] Urine blood detectionOrdered By: ED PROVIDER on 05-01-2023 RBC Ql (U) 250 /ul Negative [facility] RBC Ql (U) 25-50 SEEN /hpf 0-[address] [facility] Urine clarityOrdered By: ED PROVIDER on 05-01-2023 Clarity (U) Cloudy Clear [facility] Urine color determinationOrd ered By: ED PROVIDER on 05-01-2023 Color (U) Red Yellow [facility] Urine glucose detectionOrder ed By: ED PROVIDER on 05-01-2023 Glucose Ql (U) Normal mg/dl Normal [facility] Urine leukocyte esterase det ection by dipstickOrdered By: ED PROVIDER on 05-01-2023 Leukocyte esterase Test strip Ql (U) 100 /ul Negative [facility] Urine pHOrdered By: ED PROVI PABLO on 05-01-2023 pH (U) 8.0 [pH] 5.0 - 8.[address] [facility] Urine sediment bacteria coun t by microscopy (number/high power field)Ordered By: ED PROVIDER on 05-01-2023 Bacteria LM.HPF (Urine sed) [#/Area] 1 /[HPF] None Seen [facility] Urine specific gravity measu rementOrdered By: ED PROVIDER on 05-01-2023 Specific gravity (U) [Rel density] 1.010 1.002-1.[address] [facility] Urobilinogen Auto test strip Ql (U)Ordered By: ED PROVIDER on 05-01-2023 Urobilinogen Ql (U) Normal mg/dl Normal [facility] Serum or plasma choriogonado tropin detectionOrdered By: Lady Brito on 04-09-2023 HCG ( test) Ql 6223 mIU/mL <4 [facility] Comment on above: hCG levels with Gest ational AgeGestational Age hCG mIU/mL (IU/L)0.2 - 1 week 5 - 501-2 weeks 50 - 5002-3 weeks 100 - 78693-1 weeks 500 - 823408-1 weeks 1000 - 770257-3 weeks 43566 - 100,0006-8 weeks 77579 - 200,0002-3 months 97479 - 100,000 Serum or plasma choriogonado tropin detectionOrdered By: Dr. Artis on 04-07-2023 HCG ( test) Ql 4603 mIU/mL <[address] [facility] Comment on above: hCG levels with Gest ational AgeGestational Age hCG mIU/mL (IU/L)0.2 - 1 week 5 - 501-2 weeks 50 - 5002-3 weeks 100 - 20764-5 weeks 500 - 352487-2 weeks 1000 - 296116-9 weeks 39963 - 100,0006-8 weeks 34773 - 200,0002-3 months 89592 - 100,000 Laboratory - Chemistry and C hemistry - challengeon 07-16-2022 HCG ( test) Ql (U) Negative [facility] Work Phone: Absolute lymphocyte counton 05-26-2022 Lymphocytes Auto (Unsp spec) [#/Vol] 2.41 10*3/uL 0.83-4.[address] [facility] Work Phone: Basophil percentageon 2021 Basophils/100 WBC (Bld) 0.2 % 0-[address] [facility] Work Phone: Eosinophils/100 WBC (Bld) 1.0 % 0-[address] [facility] Work Phone: Neutrophils (Bld) [#/Vol] 11.9 10*3/uL 2.0-7.[address] [facility] Work Phone: Neutrophils/100 WBC (Bld) 77.1 % 47-[address] [facility] Work Phone: WBC (Bld) [#/Vol] 15.5 10*3/uL 4.4-11.0 [facility] Work Phone: Blood erythrocytes count (nu mber/volume)on 05-26-2022 RBC (Bld) [#/Vol] 3.65 10*6/uL 4.2-5.4 [facility] Work Phone: [phone] Blood hemoglobin measurement (mass/volume)on 05-26-2022 Hemoglobin (Bld) [Mass/Vol] 10.1 g/dL 12.0-15.[address] [facility] Work Phone: [phone] Blood lymphocytes/100 leukoc yteson 05-26-2022 Lymphocytes/100 WBC (Bld) 15.6 % 19-[address] [facility] Work Phone: [phone] Blood monocytes/100 leukocyt eson 05-26-2022 Monocytes/100 WBC (Bld) 5.5 % 0-[address] [facility] Work Phone: [phone] Blood platelet mean volumeon 05-26-2022 Platelet mean volume (Bld) [Entitic vol] 10.6 fL 6.2-12.[address] [facility] Work Phone: [phone] Determination of erythrocyte mean corpuscular volume (MCV)on 05-26-2022 MCV (RBC) [Entitic vol] 87.4 fL 81-[address] [facility] Work Phone: [phone] Hematocrit Auto (Bld) [Volum e fraction]on 05-26-2022 Hematocrit (Bld) [Volume fraction] 31.9 % 37-[address] [facility] Work Phone: [phone] Laboratory - Hematology and Cell countson 05-26-2022 Erythrocyte distribution width (RBC) [Entitic vol] 45.7 fL 35.1-43.[address] [facility] Work Phone: [phone] Erythrocyte distribution width (RBC) [Ratio] 14.5 % 11.6-14.[address] [facility] Work Phone: [phone] Immature granulocytes/100 WBC (Bld) 0.600 % 0.0-0.[address] [facility] Work Phone: [phone] Comment on above: IG% - Immature Granu locytes (promyelocytes, myelocytes and metamyelocytes) > 1% indicates that a LEFT SHIFT is Present. MCH (RBC) [Entitic mass] 27.7 pg 27.0-32.[address] [facility] Work Phone: Nucleated RBC/100 WBC (Bld) [Ratio] 0 % 0-[address] [facility] Work Phone: MCHC Auto (RBC) [Mass/Vol]on 05-26-2022 MCHC (RBC) [Mass/Vol] 31.7 g/dL 32-36 [facility] Work Phone: Platelets bldon 05-26-2022 Platelets (Bld) [#/Vol] 241 10*3/uL 150-[address] [facility] Work Phone: Laboratory - Chemistry and C hemistry - challengeon 05-24-2022 Glucose Ql (U) Negative [facility] Work Phone: Laboratory - Urinalysison Protein Ql (U) 1+ [facility] Work Phone: Basophil percentageon 2021 Basophil percentage 25-50 SEEN /hpf 0-[address] [facility] Work Phone: Bilirubin Test strip Ql (U)o n 05-08-2022 Bilirubin Ql (U) Negative Negative [facility] Work Phone: Ketones Test strip Ql (U)on 05-08-2022 Ketones Ql (U) 5 mg/dl Negative [facility] Work Phone: Mucus LM Ql (Urine sed)on Mucus Ql (Urine sed) 1+ /hpf [facility] Work Phone: Nitrite Test strip Ql (U)on 05-08-2022 Nitrite Ql (U) Negative Negative [facility] Work Phone: Protein Test strip Ql (U)on 05-08-2022 Protein Ql (U) 30 mg/dl Negative [facility] Work Phone: Squamous epithelial cells de tection in urine sediment by light microscopyon 05-08-2022 Epithelial cells.squamous LM Ql (Urine sed) 10-25 SEEN /hpf 5-[address] [facility] Work Phone: Urine blood detectionon 06-0 RBC Ql (U) Negative Negative [facility] Work Phone: RBC Ql (U) 0 SEEN /hpf 0-[address] [facility] Work Phone: Urine clarityon 05-08-2022 Clarity (U) Sl. Cloudy Clear [facility] Work Phone: Urine color determinationon 05-08-2022 Color (U) Yellow Yellow [facility] Work Phone: Urine glucose detectionon Glucose Ql (U) Normal mg/dl Normal [facility] Work Phone: Urine leukocyte esterase det ection by dipstickon 05-08-2022 Leukocyte esterase Test strip Ql (U) 500 /ul Negative [facility] Work Phone: Urine pHon 05-08-2022 pH (U) 8.0 [pH] 5.0 - 8.[address] [facility] Work Phone: Urine sediment bacteria coun t by microscopy (number/high power field)on 05-08-2022 Bacteria LM.HPF (Urine sed) [#/Area] 2 /[HPF] None Seen [facility] Work Phone: Urine specific gravity measu rementon 05-08-2022 Specific gravity (U) [Rel density] 1.010 1.002-1.[address] [facility] Work Phone: Urobilinogen Auto test strip Ql (U)on 05-08-2022 Urobilinogen Ql (U) Normal mg/dl Normal [facility] Work Phone: Laboratory - Chemistry and C hemistry - challengeon 05-03-2022 Glucose Ql (U) Negative [facility] Work Phone: Laboratory - Urinalysison Protein Ql (U) 2+ [facility] Work Phone: Absolute lymphocyte counton 04-19-2022 Lymphocytes Auto (Unsp spec) [#/Vol] 2.48 10*3/uL 0.83-4.[address] [facility] [facility] Work Phone: Basophil percentageon 2021 Basophils/100 WBC (Bld) 0.4 % 0-[address] [facility] Work Phone: Eosinophils/100 WBC (Bld) 1.9 % 0-[address] [facility] Work Phone: Neutrophils (Bld) [#/Vol] 7.5 10*3/uL 2.0-7.[address] [facility] Work Phone: Neutrophils/100 WBC (Bld) 66.5 % 47-[address] [facility] Work Phone: WBC (Bld) [#/Vol] 11.3 10*3/uL 4.4-11.0 [facility] Work Phone: Blood erythrocytes count (nu mber/volume)on 04-19-2022 RBC (Bld) [#/Vol] 3.03 10*6/uL 4.2-5.4 [facility] Work Phone: Blood hemoglobin measurement (mass/volume)on 04-19-2022 Hemoglobin (Bld) [Mass/Vol] 8.6 g/dL 12.0-15.[address] [facility] Work Phone: Blood lymphocytes/100 leukoc yteson 04-19-2022 Lymphocytes/100 WBC (Bld) 21.9 % 19-[address] [facility] Work Phone: Blood monocytes/100 leukocyt eson 04-19-2022 Monocytes/100 WBC (Bld) 8.4 % 0-[address] [facility] Work Phone: Blood platelet mean volumeon 04-19-2022 Platelet mean volume (Bld) [Entitic vol] 10.6 fL 6.2-12.[address] [facility] Work Phone: Culture, urineon 04-19-2022 Bacteria identified Cx Nom (U) Mixed Gram Pos & Gram Neg Org [facility] Work Phone: Determination of erythrocyte mean corpuscular volume (MCV)on 04-19-2022 MCV (RBC) [Entitic vol] 89.8 fL 81-[address] [facility] Work Phone: [phone] Hematocrit Auto (Bld) [Volum e fraction]on 04-19-2022 Hematocrit (Bld) [Volume fraction] 27.2 % 37-[address] [facility] Work Phone: [phone] Iron measurement (mass/mass) on 04-19-2022 Iron (Unsp spec) [Mass/Mass] 21 ug/dL 50-[address] [facility] Work Phone: [phone] Laboratory - Hematology and Cell countson 04-19-2022 Erythrocyte distribution width (RBC) [Entitic vol] 43.0 fL 35.1-43.[address] [facility] Work Phone: [phone] Erythrocyte distribution width (RBC) [Ratio] 13.2 % 11.6-14.[address] [facility] Work Phone: [phone] Immature granulocytes/100 WBC (Bld) 0.900 % 0.0-0.[address] [facility] Work Phone: [phone] Comment on above: IG% - Immature Granu locytes (promyelocytes, myelocytes and metamyelocytes) > 1% indicates that a LEFT SHIFT is Present. MCH (RBC) [Entitic mass] 28.4 pg 27.0-32.[address] [facility] Work Phone: [phone] Nucleated RBC/100 WBC (Bld) [Ratio] 0 % 0-[address] [facility] Work Phone: [phone] MCHC Auto (RBC) [Mass/Vol]on 04-19-2022 MCHC (RBC) [Mass/Vol] 31.6 g/dL 32-36 [facility] Work Phone: [phone] Panel Informationon 04-19 Total Iron Binding Capacity 467 ug/dL 250-[address] [facility] Work Phone: [phone] Platelets bldon 04-19-2022 Platelets (Bld) [#/Vol] 279 10*3/uL 150-[address] [facility] Work Phone: Serum or plasma ferritin jennie surement (mass/volume)on 04-19-2022 Ferritin [Mass/Vol] 5 ng/mL 8-252 [facility] Work Phone: Serum or plasma iron saturat ion measurement (mass fraction)on 04-19-2022 Iron saturation [Mass fraction] 4.5 % 15.0-55.[address] [facility] Work Phone: [phone] Urine creatinine measurement (mass/volume)on 04-19-2022 Creatinine (U) [Mass/Vol] 224.00 mg/dL NO RANGE EST. [facility] Work Phone: Urine protein measurement (m ass/volume)on 04-19-2022 Protein (U) [Mass/Vol] 51.9 mg/dL 0.0-11.8 [facility] Work Phone: Urine protein/creatinine mas s ratioon 04-19-2022 Protein/Creatinine (U) [Mass ratio] 232 mg/g CRE 0-[address] [facility] Work Phone: Culture, urineon 04-02-2022 Bacteria identified Cx Nom (U) Negative [facility] Work Phone: [phone] Bacteria identified Cx Nom (U) Presumptive Lactobacillus sp. [facility] Work Phone: [phone] Laboratory - Chemistry and C hemistry - challengeon 04-02-2022 Glucose Ql (U) Negative [facility] Work Phone: [phone] Laboratory - Urinalysison Protein Ql (U) 2+ [facility] Work Phone: [phone] Comment on above: Office Urine Protein previously reported as Negative Laboratory - Chemistry and C hemistry - challengeon 03-19-2022 Glucose Ql (U) Negative [facility] Work Phone: [phone] Laboratory - Urinalysison Protein Ql (U) 1+ [facility] Work Phone: Absolute lymphocyte counton 03-13-2022 Lymphocytes Auto (Unsp spec) [#/Vol] 1.88 10*3/uL 0.83-4.[address] [facility] Work Phone: Basophil percentageon 2021 Basophils/100 WBC (Bld) 0.5 % 0-[address] [facility] Work Phone: Eosinophils/100 WBC (Bld) 2.8 % 0-[address] [facility] Work Phone: Neutrophils (Bld) [#/Vol] 6.8 10*3/uL 2.0-7.[address] [facility] Work Phone: Neutrophils/100 WBC (Bld) 68.7 % 47-[address] [facility] Work Phone: WBC (Bld) [#/Vol] 10.0 10*3/uL 4.4-11.0 [facility] Work Phone: Blood erythrocytes count (nu mber/volume)on 03-13-2022 RBC (Bld) [#/Vol] 3.23 10*6/uL 4.2-5.4 [facility] Work Phone: Blood hemoglobin measurement (mass/volume)on 03-13-2022 Hemoglobin (Bld) [Mass/Vol] 9.3 g/dL 12.0-15.[address] [facility] Work Phone: Blood lymphocytes/100 leukoc yteson 03-13-2022 Lymphocytes/100 WBC (Bld) 18.9 % 19-[address] [facility] Work Phone: [phone] Blood monocytes/100 leukocyt eson 03-13-2022 Monocytes/100 WBC (Bld) 8.0 % 0-[address] [facility] Work Phone: Blood platelet mean volumeon 03-13-2022 Platelet mean volume (Bld) [Entitic vol] 10.0 fL 6.2-12.[address] [facility] Work Phone: Determination of erythrocyte mean corpuscular volume (MCV)on 03-13-2022 MCV (RBC) [Entitic vol] 89.5 fL 81-[address] [facility] Work Phone: Gestational diabetes screen 1-hour screen with 50g oral glucose loadon 03-13-2022 Glucose 1 Hr post 50 g glucose PO [Mass/Vol] 107 mg/dL 70-[address] [facility] Work Phone: [phone] Hematocrit Auto (Bld) [Volum e fraction]on 03-13-2022 Hematocrit (Bld) [Volume fraction] 28.9 % 37-[address] [facility] Work Phone: [phone] Laboratory - Hematology and Cell countson 03-13-2022 Erythrocyte distribution width (RBC) [Entitic vol] 43.7 fL 35.1-43.[address] [facility] Work Phone: [phone] Erythrocyte distribution width (RBC) [Ratio] 13.2 % 11.6-14.[address] [facility] Work Phone: [phone] Immature granulocytes/100 WBC (Bld) 1.100 % 0.0-0.[address] [facility] Work Phone: [phone] Comment on above: IG% - Immature Granu locytes (promyelocytes, myelocytes and metamyelocytes) > 1% indicates that a LEFT SHIFT is Present. MCH (RBC) [Entitic mass] 28.8 pg 27.0-32.[address] [facility] Work Phone: [phone] Nucleated RBC/100 WBC (Bld) [Ratio] 0 % 0-[address] [facility] Work Phone: [phone] MCHC Auto (RBC) [Mass/Vol]on 03-13-2022 MCHC (RBC) [Mass/Vol] 32.2 g/dL 32-36 [facility] Work Phone: [phone] Platelets bldon 03-13-2022 Platelets (Bld) [#/Vol] 282 10*3/uL 150-[address] [facility] Work Phone: [phone] Laboratory - Chemistry and C hemistry - challengeon 03-08-2022 Glucose Ql (U) Negative [facility] Work Phone: [phone] Laboratory - Urinalysison Protein Ql (U) 1+ [facility] Work Phone: [phone] Culture, urineon 03-04-2022 Bacteria identified Cx Nom (U) Escherichia coli [facility] Work Phone: Laboratory - Chemistry and C hemistry - challengeon 03-04-2022 Bilirubin Ql (U) Small (1+) [facility] Work Phone: Glucose Ql (U) Negative [facility] Work Phone: Ketones Ql (U) Negative [facility] Work Phone: pH (U) 85 [pH] [facility] Work Phone: Specific gravity (U) [Rel density] 1.[address] [facility] Work Phone: Urobilinogen (U) [Mass/Vol] 0.9447720 mg/dL [facility] Work Phone: Laboratory - Hematology and Cell countson 03-04-2022 Hemoglobin Ql (U) Negative [facility] Work Phone: Laboratory - Specimen inform ationon 03-04-2022 Clarity (U) Clear [facility] Work Phone: Color (U) Yellow [facility] Work Phone: Laboratory - Urinalysison Nitrite Ql (U) Negative [facility] Work Phone: Protein Ql (U) Trace [facility] Work Phone: No Panel Informationon 03-04 Urine Leukocytes Negatve [facility] Work Phone: Laboratory - Chemistry and C hemistry - challengeon 01-14-2022 Glucose Ql (U) Negative [facility] Work Phone: [phone] Laboratory - Urinalysison Protein Ql (U) Negative [facility] Work Phone: Absolute lymphocyte counton 01-09-2022 Lymphocytes Auto (Unsp spec) [#/Vol] 2.53 10*3/uL 0.83-4.[address] [facility] Work Phone: Basophil percentageon 2021 Basophils/100 WBC (Bld) 0.4 % 0-[address] [facility] Work Phone: Bilirubin [Mass/Vol] 0.30 mg/dL 0.20-1.00 [facility] Work Phone: Comment on above: For patients on eltr ombopag therapy, use of Dimension Seymour TBIL is not recommended. Chloride [Moles/Vol] 101 mmol/L 98-107 [facility] Work Phone: Eosinophils/100 WBC (Bld) 2.8 % 0-[address] [facility] Work Phone: Glucose [Mass/Vol] 87 mg/dL 74-106 [facility] Work Phone: Neutrophils (Bld) [#/Vol] 6.7 10*3/uL 2.0-7.[address] [facility] Work Phone: Neutrophils/100 WBC (Bld) 65.3 % 47-[address] [facility] Work Phone: Potassium [Moles/Vol] 3.0 mmol/L 3.5-5.1 [facility] Work Phone: Protein [Mass/Vol] 7.7 g/dL 6.4-8.2 [facility] Work Phone: Sodium [Moles/Vol] 135 mmol/L 136-145 [facility] Work Phone: WBC (Bld) [#/Vol] 10.2 10*3/uL 4.4-11.0 [facility] Work Phone: Blood erythrocytes count (nu mber/volume)on 01-09-2022 RBC (Bld) [#/Vol] 3.91 10*6/uL 4.2-5.4 [facility] Work Phone: Blood hemoglobin measurement (mass/volume)on 01-09-2022 Hemoglobin (Bld) [Mass/Vol] 11.2 g/dL 12.0-15.[address] [facility] Work Phone: Blood lymphocytes/100 leukoc yteson 01-09-2022 Lymphocytes/100 WBC (Bld) 24.7 % 19-[address] [facility] Work Phone: Blood monocytes/100 leukocyt eson 01-09-2022 Monocytes/100 WBC (Bld) 6.3 % 0-[address] [facility] Work Phone: Blood platelet mean volumeon 01-09-2022 Platelet mean volume (Bld) [Entitic vol] 10.3 fL 6.2-12.[address] [facility] Work Phone: Determination of erythrocyte mean corpuscular volume (MCV)on 01-09-2022 MCV (RBC) [Entitic vol] 85.2 fL 81-[address] [facility] Work Phone: [phone] Hematocrit Auto (Bld) [Volum e fraction]on 01-09-2022 Hematocrit (Bld) [Volume fraction] 33.3 % 37-[address] [facility] Work Phone: Laboratory - Chemistry and C hemistry - challengeon 01-09-2022 ALP [Catalytic activity/Vol] 50 U/L 45-[address] [facility] Work Phone: ALT [Catalytic activity/Vol] 15 U/L 13-[address] [facility] Work Phone: [phone] CO2 [Moles/Vol] 29.0 mmol/L 21.0-32.[address] [facility] Work Phone: [phone] Globulin (S) [Mass/Vol] 4.4 g/dL 2.2-4.[address] [facility] Work Phone: [phone] Urea nitrogen/Creatinine [Mass ratio] 10.2 mg/mg 10-[address] [facility] Work Phone: Glucose Ql (U) Negative [facility] Work Phone: [phone] Laboratory - Hematology and Cell countson 01-09-2022 Erythrocyte distribution width (RBC) [Entitic vol] 42.8 fL 35.1-43.[address] [facility] Work Phone: [phone] Erythrocyte distribution width (RBC) [Ratio] 13.8 % 11.6-14.[address] [facility] Work Phone: Immature granulocytes/100 WBC (Bld) 0.500 % 0.0-0.[address] [facility] Work Phone: [phone] Comment on above: IG% - Immature Granu locytes (promyelocytes, myelocytes and metamyelocytes) > 1% indicates that a LEFT SHIFT is Present. MCH (RBC) [Entitic mass] 28.6 pg 27.0-32.[address] [facility] Work Phone: [phone] Nucleated RBC/100 WBC (Bld) [Ratio] 0 % 0-[address] [facility] Work Phone: [phone] Laboratory - Urinalysison Protein Ql (U) 2+ [facility] Work Phone: [phone] MCHC Auto (RBC) [Mass/Vol]on 01-09-2022 MCHC (RBC) [Mass/Vol] 33.6 g/dL 32-36 [facility] Work Phone: No Panel Informationon 01-09 Estimated GFR (MDRD) Amer 111 mL/min >[address] [facility] Work Phone: Comment on above: GFR Calc Estimated GFR (MDRD) Non-Af Amer 92 mL/min >[address] [facility] Work Phone: Comment on above: Non- GFR Calc Platelets bldon 01-09-2022 Platelets (Bld) [#/Vol] 326 10*3/uL 150-[address] [facility] Work Phone: [phone] Serum or plasma albumin scott urement (mass/volume)on 01-09-2022 Albumin [Mass/Vol] 3.3 g/dL 3.2-5.0 [facility] Work Phone: [phone] Serum or plasma albumin/glob ulin mass ratioon 01-09-2022 Albumin/Globulin [Mass ratio] 0.8 {ratio} 0.9-2.[address] [facility] Work Phone: [phone] Serum or plasma calcium scott urement (mass/volume)on 01-09-2022 Calcium [Mass/Vol] 8.7 mg/dL 8.5-10.1 [facility] Work Phone: Serum or plasma creatinine m easurement (mass/volume)on 01-09-2022 Creatinine [Mass/Vol] 0.78 mg/dL 0.55-1.02 [facility] Work Phone: Comment on above: The validity of the calculated GFR & GFRAA in patients over 70 years has not been determined. Clinical correlation is essential. Serum or plasma urea nitroge n measurement (mass/volume)on 01-09-2022 Urea nitrogen [Mass/Vol] 8 mg/dL 7-[address] [facility] Work Phone: Thin prep Papanicolaou smear with manual screeningon 01-09-2022 Thin prep Papanicolaou smear with manual screening 13 U/L 15-[address] [facility] Work Phone: Thin prep Papanicolaou smear with manual screening 5 5-[address] [facility] Work Phone: Urine creatinine measurement (mass/volume)on 01-09-2022 Creatinine (U) [Mass/Vol] 282.00 mg/dL NO RANGE EST. [facility] Work Phone: Urine protein measurement (m ass/volume)on 01-09-2022 Protein (U) [Mass/Vol] mg/dL 0.0-11.8 [facility] Work Phone: Urine protein/creatinine mas s ratioon 01-09-2022 Protein/Creatinine (U) [Mass ratio] 20 mg/g CRE 0-[address] [facility] Work Phone: Laboratory - Microbiology an d Antimicrobial susceptibilityon 12-31-2021 SARS-CoV-2 (COVID-19) RNA ALEXANDRO+probe Ql (Unsp spec) Detected [facility] Work Phone: Laboratory - Chemistry and C hemistry - challengeon 12-12-2021 Glucose Ql (U) Negative [facility] Work Phone: [phone] Laboratory - Urinalysison Protein Ql (U) Negative [facility] Work Phone: Laboratory - Microbiology an d Antimicrobial susceptibilityon 11-30-2021 SARS-CoV-2 (COVID-19) RNA ALEXANDRO+probe Ql (Unsp spec) Not detected [facility] Work Phone: [phone] Laboratory - Chemistry and C hemistry - challengeon 11-28-2021 Cobalamin (Vitamin B12) [Mass/Vol] 275 pg/mL 211-[address] [facility] Work Phone: [phone] No Panel Informationon 11-28 Total Iron Binding Capacity 339 ug/dL 250-[address] [facility] Work Phone: [phone] Serum or plasma ferritin jennie surement (mass/volume)on 11-28-2021 Ferritin [Mass/Vol] 14 ng/mL 8-252 [facility] Work Phone: [phone] Serum or plasma folate measu rement (mass/volume)on 11-28-2021 Folate [Mass/Vol] 16.10 ng/mL 3.1-55.4 [facility] Work Phone: Absolute lymphocyte counton 11-15-2021 Lymphocytes Auto (Unsp spec) [#/Vol] 2.26 10*3/uL 0.83-4.[address] [facility] Work Phone: [phone] Basophil percentageon 2020 Eosinophils/100 WBC (Bld) 2.9 % 0-[address] [facility] Work Phone: [phone] Neutrophils (Bld) [#/Vol] 5.4 10*3/uL 2.0-7.[address] [facility] Work Phone: [phone] WBC (Bld) [#/Vol] 8.7 10*3/uL 4.4-11.0 [facility] Work Phone: [phone] Blood erythrocytes count (nu mber/volume)on 11-15-2021 RBC (Bld) [#/Vol] 3.94 10*6/uL 4.2-5.4 [facility] Work Phone: [phone] Blood hemoglobin measurement (mass/volume)on 11-15-2021 Hemoglobin (Bld) [Mass/Vol] 10.8 g/dL 12.0-15.[address] [facility] Work Phone: Blood lymphocytes/100 leukoc yteson 11-15-2021 Lymphocytes/100 WBC (Bld) 25.9 % 19-[address] [facility] Work Phone: Blood monocytes/100 leukocyt eson 11-15-2021 Monocytes/100 WBC (Bld) 8.5 % 0-[address] [facility] Work Phone: Blood platelet mean volumeon 11-15-2021 Platelet mean volume (Bld) [Entitic vol] 10.2 fL 6.2-12.[address] [facility] Work Phone: Cervical or vagninal specime n microscopic examination by cytology stain (reported ason 11-15-2021 Cytology report Cyto stain Doc (Cvx/Vag) Comment [facility] Work Phone: Comment on above: The [...] rRNA ALEXANDRO+probe Ql (Unsp spec) Negative Negative [facility] Work Phone: [phone] Culture, urineon 11-15-2021 Bacteria identified Cx Nom (U) Positive [facility] Work Phone: [phone] Determination of erythrocyte mean corpuscular volume (MCV)on 11-15-2021 MCV (RBC) [Entitic vol] 86.0 fL 81-[address] [facility] Work Phone: [phone] HIV 1 and HIV-2 antibody ass ay with HIV-1 p24 antigen detectionon 11-15-2021 HIV 1+2 Ab+HIV1 p24 Ag IA Ql Non-Reactive Nonreactive [facility] Work Phone: [phone] Hematocrit Auto (Bld) [Volum e fraction]on 11-15-2021 Hematocrit (Bld) [Volume fraction] 33.9 % 37-[address] [facility] Work Phone: Laboratory - Cytologyon 10-31 [employer] Cyto stain Nom (Cvx/Vag) [ID] Comment [facility] Work Phone: Comment on above: Tangela Mejia, Cyto technologist (ASCP) Laboratory - Drug toxicology on 11-15-2021 Amphetamines Ql (U) Negative [facility] Work Phone: Benzodiazepines Ql (U) Negative [facility] Work Phone: Cannabinoids Screen Ql (U) Negative [facility] Work Phone: [phone] Cocaine Ql (U) Negative [facility] Work Phone: Opiates Ql (U) Negative [facility] Work Phone: Laboratory - Hematology and Cell countson 11-15-2021 Basophils/100 WBC (Unsp spec) 0.2 % 0-[address] [facility] Work Phone: Erythrocyte distribution width (RBC) [Entitic vol] 44.8 fL 35.1-43.[address] [facility] Work Phone: Erythrocyte distribution width (RBC) [Ratio] 14.2 % 11.6-14.[address] [facility] Work Phone: [phone] Immature granulocytes/100 WBC (Bld) 0.300 % 0.0-0.[address] [facility] Work Phone: Comment on above: IG% - Immature Granu locytes (promyelocytes, myelocytes and metamyelocytes) > 1% indicates that a LEFT SHIFT is Present. MCH (RBC) [Entitic mass] 27.4 pg 27.0-32.[address] [facility] Work Phone: Neutrophils/100 WBC (Bld) 62.2 % 47-[address] [facility] Work Phone: Nucleated RBC/100 WBC (Bld) [Ratio] 0 % 0-[address] [facility] Work Phone: Laboratory - Microbiology an d Antimicrobial susceptibilityon 11-15-2021 N. gonorrhoeae DNA ALEXANDRO+probe Ql (Unsp spec) Negative Negative [facility] Work Phone: [phone] Comment on above: Performed at: - [address] [id number] Director: Imelda Wilder MD, Phone: [phone] Laboratory - Miscellaneous t estson 11-15-2021 Service comment (Unsp spec) [Interp] Comment [facility] Work Phone: [phone] Comment on above: This liquid based Th inPrep(R) pap test was screened withthe use of an image guided system. Service comment (Unsp spec) [Interp] . [facility] Work Phone: [phone] MCHC Auto (RBC) [Mass/Vol]on 11-15-2021 MCHC (RBC) [Mass/Vol] 31.9 g/dL 32-36 [facility] Work Phone: [phone] Panel Informationon 11-15 Human Papillomavirus Screen Comment [facility] Work Phone: [phone] Comment on above: The HPV DNA reflex c riteria were not met with this specimenresult therefore, no HPV testing was performed.Performed at: [address] [id number] Director: Imelda Wilder MD, Phone: [phone] Pathology report final diagnosis Narrative Comment [facility] Work Phone: [phone] Comment on above: NEGATIVE FOR INTRAEP ITHELIAL LESION OR MALIGNANCY. Urine Barbiturates Screen Negative [facility] Work Phone: [phone] Urine Drug Screen Comment [facility] Work Phone: [phone] Comment on above: CONFIRMATORY TESTING FOR ALL [...] USE TESTMNEMONIC: [facility] Urine Methadone Screen Negative [facility] Work Phone: Urine Methamphetamine-MDMA Screen Negative [facility] Work Phone: [phone] Hepatitis B Surface Antigen Non-Reactive Nonreactive [facility] Work Phone: [phone] Hepatitis C Antibody Non-Reactive Nonreactive [facility] Work Phone: Comment on above: Non Reactive: < 0.8 Equivocal: >/= 0.8 to < 1.0 Reactive: >/= 1.0The [facility] recommends that a reactive/equivocal HCV antibody result be followed up by the HCV Nucleic Acid Amplificationtest (769433) Miscellaneous Test Comment MAILED SPECIMEN [facility] Work Phone: [phone] Rubella IgG Antibody Reactive Nonreactive [facility] Work Phone: [phone] Comment on above: Antibody Results Int erpretation of Immune Status Non Reactive Presumed Non-Immune Equivocal Equivocal Reactive Presumed Immune Platelets bldon 11-15-2021 Platelets (Bld) [#/Vol] 274 10*3/uL 150-[address] [facility] Work Phone: Serum Treponema species anti body detectionon 11-15-2021 Treponema sp Ab Ql (S) Non-Reactive [facility] Work Phone: [phone] Urine phencyclidine (PCP) de tectionon 11-15-2021 Phencyclidine Ql (U) Negative [facility] Work Phone: Microbiology: Culture, Genit al Comprehensiveon 09-14-2017 CUV . Invalid Interpretation Code [facility] Microbiology: (P) Culture, G enital Comprehensiveon 09-12-2017 CUV . Invalid Interpretation Code [facility] CUV . Invalid Interpretation Code [facility] Work Phone: Microbiology: (P) Culture, G enital Comprehensiveon 09-11-2017 CUV . Invalid Interpretation Code [facility] Work Phone: Lab Report: CT/NG [facility] BY PCR on 09-10-2017 Chlamydia trachomatis DNA [Presence] in Urine by Probe and target amplification method Negative Invalid Interpretation Code Negative [facility] [facility] Neisseria gonorrhoeae presence Negative Invalid Interpretation Code Negative [facility] Office Visit: abdominal pain on 09-10-2017 Documentation of current medications (procedure) Done Invalid Interpretation Code [facility] Fall risk assessment No Invalid Interpretation Code [facility] Tobacco smoking status NHIS Never Invalid Interpretation Code [facility] Tobacco use CPHS Never smoker Invalid Interpretation Code [facility] Replaced Document: (P) PAP I -G w/rfx hrHPVon 07-30-2017 GE use only - for [employer] import when terms are not otherwise specified Negative Invalid Interpretation Code Negative [facility] HPV HC,HGH RISK Negative Invalid Interpretation Code Negative [facility] Office Visit: new gynon 07-02 Documentation of current medications (procedure) Done Invalid Interpretation Code [facility] Fall risk assessment No Invalid Interpretation Code [facility] Hemoglobin presence in stool not done Invalid Interpretation Code [facility] Tobacco smoking status NHIS Never Invalid Interpretation Code [facility] Tobacco use CPHS Never smoker Invalid Interpretation Code [facility] Office Visit: New Pt Visiton 06-04-2017 Documentation of current medications (procedure) Done Invalid Interpretation Code [facility] Fall risk assessment No Invalid Interpretation Code [facility] Tobacco use CPHS Unknown if ever smoked Invalid Interpretation Code [facility] Office Visit: new gynon General categories [Interpretation] of Cervical or vaginal smear or scraping by Cyto stain Normal Invalid Interpretation Code [facility] Culture, urine Bacteria identified Cx Nom (U) Escherichia coli [facility] Work Phone: Bacteria identified Cx Nom (U) Negative [facility] Work Phone: Bacteria identified Cx Nom (U) Presumptive Lactobacillus sp. [facility] Work Phone: Bacteria identified Cx Nom (U) Mixed Gram Pos & Gram Neg Org [facility] Work Phone: [phone] Bacteria identified Cx Nom (U) Positive [facility] Work Phone: No Panel Information Group B Streptococcus Culture Group B Beta Streptococcus is not isolated. [facility] Work Phone: Vital Signs Date Time Vital Sign Value Performing Clinician Facdennis lity 12-09-2023 15:45-0500 Body height 162.[address] Jose Mancera Work Phone: [facility] 12-09-2023 15:45-0500 Body mass index (BMI) [Ratio] 23.1 kg/m2 Dr. Jose Mancera Work Phone: [facility] 12-09-2023 15:45-0500 Body weight 61.[address] Jose Mancera Work Phone: [facility] 09-22-2023 11:06-0400 Body height 162.[address] Jose Mancera Work Phone: [facility] 09-22-2023 11:06-0400 Body mass index (BMI) [Ratio] 22.6 kg/m2 Dr. Jose Mancera Work Phone: [facility] 09-22-2023 11:06-0400 Body temperature 97.8 [degF] Dr. Jose Mancera Work Phone: [facility] 09-22-2023 11:06-0400 Body weight 59.[address] Jose Mancera Work Phone: [facility] 09-22-2023 11:06-0400 Diastolic blood pressure 78 mm[Hg] Dr. Jose Mancera Work Phone: [facility] 09-22-2023 11:06-0400 Heart rate 71 /min Dr. Jose Mancera Work Phone: [facility] 09-22-2023 11:06-0400 Respiratory rate 16 /min Dr. Jose Mancera Work Phone: [facility] 09-22-2023 11:06-0400 SaO2% (BldA) [Mass fraction] 99 % Dr. Jose Mancera Work Phone: [facility] 09-22-2023 11:06-0400 Systolic blood pressure 118 mm[Hg] Dr. Jose Mancera Work Phone: [facility] 07-11-2023 13:04-0400 Body mass index (BMI) [Ratio] 21.5 kg/m2 Dr. Jose Mancera Work Phone: [facility] 07-11-2023 13:04-0400 Body weight 56.[address] Jose Mancera Work Phone: [facility] 07-11-2023 13:04-0400 Diastolic blood pressure 68 mm[Hg] Dr. Jose Mancera Work Phone: [facility] 07-11-2023 13:04-0400 Systolic blood pressure 116 mm[Hg] Dr. Jose Mancera Work Phone: [facility] 05-01-2023 23:29-0400 Body temperature 98.9 [degF] Dr. Jose Mancera Work Phone: [facility] 05-01-2023 23:29-0400 Diastolic blood pressure 69 mm[Hg] Dr. Jose Mancera Work Phone: [facility] 05-01-2023 23:29-0400 Heart rate 58 /min Dr. Jose Mancera Work Phone: [facility] 05-01-2023 23:29-0400 Respiratory rate 16 /min Dr. Jose Mancera Work Phone: [facility] 05-01-2023 23:29-0400 SaO2% (BldA) [Mass fraction] 99 % Dr. Jose Mancera Work Phone: [facility] 05-01-2023 23:29-0400 Systolic blood pressure 100 mm[Hg] Dr. Jose Mancera Work Phone: [facility] 05-01-2023 18:51-0400 Body height 162.[address] Jose Mancera Work Phone: [facility] 05-01-2023 18:51-0400 Body mass index (BMI) [Ratio] 20.9 kg/m2 Dr. Jose Mancera Work Phone: [facility] 05-01-2023 18:51-0400 Body weight 55.[address] Jose Mancera Work Phone: [facility] 05-01-2023 15:03-0400 Body temperature 97.5 [degF] [facility] 05-01-2023 15:03-0400 Diastolic blood pressure 77 mm[Hg] [facility] 05-01-2023 15:03-0400 Heart rate 73 /min [facility] 05-01-2023 15:03-0400 Respiratory rate 17 /min [facility] 05-01-2023 15:03-0400 SaO2% (BldA) [Mass fraction] 95 % [facility] 05-01-2023 15:03-0400 Systolic blood pressure 117 mm[Hg] [facility] 05-01-2023 14:39-0400 Body height 162.56 cm [facility] 05-01-2023 14:39-0400 Body mass index (BMI) [Ratio] 20.9 kg/m2 [facility] 05-01-2023 14:39-0400 Body weight 55.3 kg [facility] 10-11-2022 15:11-0500 Body temperature 96.9 [degF] Dr. Jose Mancera Work Phone: [facility] Work Phone: 10-11-2022 15:11-0500 Body weight 54.[address] Jose Mancera Work Phone: [facility] Work Phone: 10-11-2022 15:11-0500 Diastolic blood pressure 84 mm[Hg] Dr. Jose Mancera Work Phone: [facility] Work Phone: 10-11-2022 15:11-0500 Heart rate 66 /min Dr. Jose Mancera Work Phone: [facility] Work Phone: 10-11-2022 15:11-0500 Respiratory rate 18 /min Dr. Jose Mancera Work Phone: [facility] Work Phone: 10-11-2022 15:11-0500 SaO2% (BldA) [Mass fraction] 95 % Dr. Jose Mancera Work Phone: [facility] Work Phone: 10-11-2022 15:11-0500 Systolic blood pressure 126 mm[Hg] Dr. Jose Mancera Work Phone: [facility] Work Phone: 07-16-2022 11:11-0400 Body height 162.[address] Jose Mancera Work Phone: [facility] Work Phone: 07-16-2022 11:11-0400 Body mass index (BMI) [Ratio] 20.6 kg/m2 Dr. Jose Mancera Work Phone: [facility] Work Phone: 07-16-2022 11:11-0400 Body weight 54.[address] Jose Mancera Work Phone: [facility] Work Phone: 07-16-2022 11:11-0400 Diastolic blood pressure 67 mm[Hg] Dr. Jose Mancera Work Phone: [facility] Work Phone: 07-16-2022 11:11-0400 Systolic blood pressure 109 mm[Hg] Dr. Jose Mancera Work Phone: [facility] Work Phone: 05-27-2022 12:07-0400 Body temperature 97.6 [degF] Dr. Jose Mancera Work Phone: [facility] Work Phone: 05-27-2022 12:07-0400 Diastolic blood pressure 66 mm[Hg] Dr. Jose Mancera Work Phone: [facility] Work Phone: 05-27-2022 12:07-0400 Respiratory rate 16 /min Dr. Jose Mancera Work Phone: [facility] Work Phone: 05-27-2022 12:07-0400 SaO2% (BldA) [Mass fraction] 100 % Dr. Jose Mancera Work Phone: [facility] Work Phone: 05-27-2022 12:07-0400 Systolic blood pressure 99 mm[Hg] Dr. Jose Mancera Work Phone: [facility] Work Phone: 05-27-2022 08:25-0400 Heart rate 51 /min Dr. Jose Mancera Work Phone: [facility] Work Phone: 05-26-2022 12:21-0400 Body height 162.[address] Jose Mancera Work Phone: [facility] Work Phone: 05-26-2022 12:21-0400 Body mass index (BMI) [Ratio] 22.3 kg/m2 Dr. Jose Mancera Work Phone: [facility] Work Phone: 05-26-2022 12:21-0400 Body weight 58.[address] Jose Mancera Work Phone: [facility] Work Phone: 05-24-2022 14:57-0400 Body mass index (BMI) [Ratio] 23.1 kg/m2 Dr. Jose Mancera Work Phone: [facility] Work Phone: 05-24-2022 14:57-0400 Body weight [address] Jose Mancera Work Phone: [facility] Work Phone: 05-24-2022 14:57-0400 Diastolic blood pressure 74 mm[Hg] Dr. Jose Mancera Work Phone: [facility] Work Phone: 05-24-2022 14:57-0400 Systolic blood pressure 110 mm[Hg] Dr. Jose Mancera Work Phone: [facility] Work Phone: 05-21-2022 14:35-0400 Heart rate 81 /min Dr. Joes Mancera Work Phone: [facility] Work Phone: 05-21-2022 14:35-0400 SaO2% (BldA) [Mass fraction] 100 % Dr. Jose Mancera Work Phone: [facility] Work Phone: 05-21-2022 13:55-0400 Body height 162.[address] Jose Mancera Work Phone: [facility] Work Phone: 05-21-2022 13:55-0400 Body mass index (BMI) [Ratio] 23 kg/m2 Dr. Jose Mancera Work Phone: [facility] Work Phone: 05-21-2022 13:55-0400 Body weight 60.[address] Jose Mancera Work Phone: [facility] Work Phone: 05-21-2022 13:46-0400 Body temperature 98 [degF] Dr. Jose Mancera Work Phone: [facility] Work Phone: 05-21-2022 13:46-0400 Diastolic blood pressure 67 mm[Hg] Dr. Jose Mancera Work Phone: [facility] Work Phone: 05-21-2022 13:46-0400 Systolic blood pressure 116 mm[Hg] Dr. Jose Mancera Work Phone: [facility] Work Phone: 05-16-2022 14:14-0400 Body height 162.[address] Jose Mancera Work Phone: [facility] Work Phone: 05-16-2022 14:14-0400 Body mass index (BMI) [Ratio] 20.9 kg/m2 Dr. Jose Mancera Work Phone: [facility] Work Phone: 05-16-2022 14:14-0400 Body weight 55.[address] Jose Mancera Work Phone: [facility] Work Phone: 05-16-2022 14:14-0400 Diastolic blood pressure 72 mm[Hg] Dr. Jose Mancera Work Phone: [facility] Work Phone: 05-16-2022 14:14-0400 Systolic blood pressure 112 mm[Hg] Dr. Jose Mancera Work Phone: [facility] Work Phone: 05-08-2022 11:34-0400 Body height 162.[address] Jose Mancera Work Phone: [facility] Work Phone: 05-08-2022 11:34-0400 Body mass index (BMI) [Ratio] 22.2 kg/m2 Dr. Jose Mancera Work Phone: [facility] Work Phone: 05-08-2022 11:34-0400 Body weight 58.[address] Jose Mancera Work Phone: [facility] Work Phone: 05-08-2022 11:26-0400 Body temperature 98.2 [degF] Dr. Jose Mancera Work Phone: [facility] Work Phone: 05-08-2022 11:26-0400 Diastolic blood pressure 70 mm[Hg] Dr. Jose Mancera Work Phone: [facility] Work Phone: 05-08-2022 11:26-0400 Heart rate 60 /min Dr. Jose Mancera Work Phone: [facility] Work Phone: 05-08-2022 11:26-0400 SaO2% (BldA) [Mass fraction] 100 % Dr. Jose Mancera Work Phone: [facility] Work Phone: 05-08-2022 11:26-0400 Systolic blood pressure 107 mm[Hg] Dr. Jose Mancera Work Phone: [facility] Work Phone: 05-03-2022 14:58-0400 Body mass index (BMI) [Ratio] 22.4 kg/m2 Dr. Jose Mancera Work Phone: [facility] Work Phone: 05-03-2022 14:58-0400 Body weight 59.[address] Jose Mancera Work Phone: [facility] Work Phone: 05-03-2022 14:58-0400 Diastolic blood pressure 69 mm[Hg] Dr. Jose Mancera Work Phone: [facility] Work Phone: 05-03-2022 14:58-0400 Systolic blood pressure 104 mm[Hg] Dr. Jose Mancera Work Phone: [facility] Work Phone: 05-03-2022 14:58-0400 Body height 162.[address] Jose Mancera Work Phone: [facility] Work Phone: 05-03-2022 14:58-0400 Body mass index (BMI) [Ratio] 22.4 kg/m2 Dr. Jose Mancera Work Phone: [facility] Work Phone: 05-03-2022 14:58-0400 Body weight 59.[address] Jose Mancera Work Phone: [facility] Work Phone: 05-03-2022 14:58-0400 Diastolic blood pressure 69 mm[Hg] Dr. Jose Mancera Work Phone: [facility] Work Phone: 05-03-2022 14:58-0400 Systolic blood pressure 104 mm[Hg] Dr. Jose Mancera Work Phone: [facility] Work Phone: 05-02-2022 15:38-0400 Body temperature 97.5 [degF] Dr. Jose Mancera Work Phone: [facility] Work Phone: 05-02-2022 15:38-0400 Diastolic blood pressure 54 mm[Hg] Dr. Jose Mancera Work Phone: [facility] Work Phone: 05-02-2022 15:38-0400 Heart rate 72 /min Dr. Jose Mancera Work Phone: [facility] Work Phone: 05-02-2022 15:38-0400 Respiratory rate 12 /min Dr. Jose Mancera Work Phone: [facility] Work Phone: 05-02-2022 15:38-0400 SaO2% (BldA) [Mass fraction] 100 % Dr. Jose Mancera Work Phone: [facility] Work Phone: 05-02-2022 15:38-0400 Systolic blood pressure 101 mm[Hg] Dr. Jose Mancera Work Phone: [facility] Work Phone: 05-02-2022 13:17-0400 Body mass index (BMI) [Ratio] 22.3 kg/m2 Dr. Jose Mancera Work Phone: [facility] Work Phone: 05-02-2022 13:17-0400 Body weight 58.[address] Jose Mancera Work Phone: [facility] Work Phone: 04-19-2022 15:08-0400 Body mass index (BMI) [Ratio] 22.8 kg/m2 Dr. Jose Mancera Work Phone: [facility] Work Phone: 04-19-2022 15:08-0400 Body weight 60.[address] Jose Mancera Work Phone: [facility] Work Phone: 04-19-2022 15:08-0400 Diastolic blood pressure 80 mm[Hg] Dr. Jose Mancera Work Phone: [facility] Work Phone: 04-19-2022 15:08-0400 Systolic blood pressure 112 mm[Hg] Dr. Jose Mancera Work Phone: [facility] Work Phone: 04-19-2022 15:08-0400 Body height 162.[address] Jose Mancera Work Phone: [facility] Work Phone: 04-19-2022 15:08-0400 Body mass index (BMI) [Ratio] 22.8 kg/m2 Dr. Jose Mancera Work Phone: [facility] Work Phone: 04-19-2022 15:08-0400 Body weight 60.[address] Jose Mancera Work Phone: [facility] Work Phone: 04-19-2022 15:08-0400 Diastolic blood pressure 80 mm[Hg] Dr. Jose Mancera Work Phone: [facility] Work Phone: 04-19-2022 15:08-0400 Systolic blood pressure 112 mm[Hg] Dr. Jose Mancera Work Phone: [facility] Work Phone: 04-02-2022 13:04-0400 Body mass index (BMI) [Ratio] 21.7 kg/m2 Dr. Jose Mancera Work Phone: [facility] Work Phone: 04-02-2022 13:04-0400 Body weight 57.[address] Jose Mancera Work Phone: [facility] Work Phone: 04-02-2022 13:04-0400 Diastolic blood pressure 62 mm[Hg] Dr. Jose Mancera Work Phone: [facility] Work Phone: 04-02-2022 13:04-0400 Systolic blood pressure 100 mm[Hg] Dr. Jose Mancera Work Phone: [facility] Work Phone: 04-02-2022 13:04-0400 Body height 162.[address] Jose Mancera Work Phone: [facility] Work Phone: 04-02-2022 13:04-0400 Body mass index (BMI) [Ratio] 21.7 kg/m2 Dr. Jose Mancera Work Phone: [facility] Work Phone: 04-02-2022 13:04-0400 Body weight 57.[address] Jose Mancera Work Phone: [facility] Work Phone: 04-02-2022 13:04-0400 Diastolic blood pressure 62 mm[Hg] Dr. Jose Mancera Work Phone: [facility] Work Phone: 04-02-2022 13:04-0400 Systolic blood pressure 100 mm[Hg] Dr. Jose Mancera Work Phone: [facility] Work Phone: 03-19-2022 13:51-0400 Body mass index (BMI) [Ratio] 21.9 kg/m2 Dr. Jose Mancera Work Phone: [facility] Work Phone: 03-19-2022 13:51-0400 Body weight 58.[address] Jose Mancera Work Phone: [facility] Work Phone: 03-19-2022 13:51-0400 Diastolic blood pressure 70 mm[Hg] Dr. Jose Mancera Work Phone: [facility] Work Phone: 03-19-2022 13:51-0400 Systolic blood pressure 110 mm[Hg] Dr. Jose Mancera Work Phone: [facility] Work Phone: 03-19-2022 13:51-0400 Body height 162.[address] Jose Mancera Work Phone: [facility] Work Phone: 03-19-2022 13:51-0400 Body mass index (BMI) [Ratio] 21.9 kg/m2 Dr. Jose Mancera Work Phone: [facility] Work Phone: 03-19-2022 13:51-0400 Body weight 58.[address] Jose Mancera Work Phone: [facility] Work Phone: 03-19-2022 13:51-0400 Diastolic blood pressure 70 mm[Hg] Dr. Jose Mancera Work Phone: [facility] Work Phone: 03-19-2022 13:51-0400 Systolic blood pressure 110 mm[Hg] Dr. Jose Mancera Work Phone: [facility] Work Phone: 03-08-2022 16:15-0400 Body mass index (BMI) [Ratio] 21.6 kg/m2 Dr. Jose Mancera Work Phone: [facility] Work Phone: 03-08-2022 16:15-0400 Body weight 57.[address] Jose Mancera Work Phone: [facility] Work Phone: 03-08-2022 16:15-0400 Diastolic blood pressure 80 mm[Hg] Dr. Jose Manecra Work Phone: [facility] Work Phone: 03-08-2022 16:15-0400 Systolic blood pressure 118 mm[Hg] Dr. Jose Mancera Work Phone: [facility] Work Phone: 03-08-2022 16:15-0400 Body height 162.[address] Jose Mancera Work Phone: [facility] Work Phone: 03-08-2022 16:15-0400 Body mass index (BMI) [Ratio] 21.6 kg/m2 Dr. Jose Mancera Work Phone: [facility] Work Phone: 03-08-2022 16:15-0400 Body weight 57.[address] Jose Mancera Work Phone: [facility] Work Phone: 03-08-2022 16:15-0400 Diastolic blood pressure 80 mm[Hg] Dr. Jose Mancera Work Phone: [facility] Work Phone: 03-08-2022 16:15-0400 Systolic blood pressure 118 mm[Hg] Dr. Jose Mancera Work Phone: [facility] Work Phone: 03-04-2022 14:41-0400 Body mass index (BMI) [Ratio] 21.5 kg/m2 Dr. Jose Mancera Work Phone: [facility] Work Phone: 03-04-2022 14:41-0400 Body weight 56.[address] Jose Mancera Work Phone: [facility] Work Phone: 03-04-2022 14:41-0400 Diastolic blood pressure 68 mm[Hg] Dr. Jose Mancera Work Phone: [facility] Work Phone: 03-04-2022 14:41-0400 Systolic blood pressure 111 mm[Hg] Dr. Jose Mancera Work Phone: [facility] Work Phone: 03-04-2022 14:41-0400 Body mass index (BMI) [Ratio] 21.5 kg/m2 Dr. Jose Mancera Work Phone: [facility] Work Phone: 03-04-2022 14:41-0400 Body weight 56.[address] Jose Mancera Work Phone: [facility] Work Phone: 03-04-2022 14:41-0400 Diastolic blood pressure 68 mm[Hg] Dr. Jose Mancera Work Phone: [facility] Work Phone: 03-04-2022 14:41-0400 Systolic blood pressure 111 mm[Hg] Dr. Jose Mancera Work Phone: [facility] Work Phone: 02-17-2022 13:41-0400 Respiratory rate 16 /min Dr. Jose Mancera Work Phone: [facility] Work Phone: 02-17-2022 13:12-0400 Body mass index (BMI) [Ratio] 20.5 kg/m2 Dr. Jose Mancera Work Phone: [facility] Work Phone: 02-17-2022 13:12-0400 Body temperature 98 [degF] Dr. Jose Mancera Work Phone: [facility] Work Phone: 02-17-2022 13:12-0400 Body weight 54.[address] Jose Mancera Work Phone: [facility] Work Phone: 02-17-2022 13:12-0400 Diastolic blood pressure 79 mm[Hg] Dr. Jose Mancera Work Phone: [facility] Work Phone: 02-17-2022 13:12-0400 Heart rate 80 /min Dr. Jose Mancera Work Phone: [facility] Work Phone: 02-17-2022 13:12-0400 SaO2% (BldA) [Mass fraction] 99 % Dr. Jose Mancera Work Phone: [facility] Work Phone: 02-17-2022 13:12-0400 Systolic blood pressure 110 mm[Hg] Dr. Jose Mancera Work Phone: [facility] Work Phone: 02-04-2022 13:50-0500 Body mass index (BMI) [Ratio] 20.4 kg/m2 Dr. Jose Mancera Work Phone: [facility] Work Phone: 02-04-2022 13:50-0500 Body weight 53.[address] Jose Mancera Work Phone: [facility] Work Phone: 02-04-2022 13:50-0500 Diastolic blood pressure 80 mm[Hg] Dr. Jose Manecra Work Phone: [facility] Work Phone: 02-04-2022 13:50-0500 Systolic blood pressure 112 mm[Hg] Dr. Jose Mancera Work Phone: [facility] Work Phone: 02-04-2022 12:50-0500 Body mass index (BMI) [Ratio] 20.4 kg/m2 Dr. Jose Mancera Work Phone: [facility] Work Phone: 02-04-2022 12:50-0500 Body weight 53.[address] Jose Mancera Work Phone: [facility] Work Phone: 02-04-2022 12:50-0500 Diastolic blood pressure 80 mm[Hg] Dr. Jose Mancera Work Phone: [facility] Work Phone: 02-04-2022 12:50-0500 Systolic blood pressure 112 mm[Hg] Dr. Jose Mancera Work Phone: [facility] Work Phone: 01-14-2022 14:10-0500 Body mass index (BMI) [Ratio] 20.3 kg/m2 Dr. Jose Mancera Work Phone: [facility] Work Phone: 01-14-2022 14:10-0500 Body weight 53.[address] Jose Mancera Work Phone: [facility] Work Phone: 01-14-2022 14:10-0500 Diastolic blood pressure 60 mm[Hg] Dr. Jose Macnera Work Phone: [facility] Work Phone: 01-14-2022 14:10-0500 Systolic blood pressure 100 mm[Hg] Dr. Jose Mancera Work Phone: [facility] Work Phone: 01-09-2022 14:32-0500 Body mass index (BMI) [Ratio] 20 kg/m2 Dr. Jose Mancera Work Phone: [facility] Work Phone: 01-09-2022 14:32-0500 Body weight 53.[address] Jose Mancera Work Phone: [facility] Work Phone: 01-09-2022 14:32-0500 Diastolic blood pressure 70 mm[Hg] Dr. Jose Mancera Work Phone: [facility] Work Phone: 01-09-2022 14:32-0500 Systolic blood pressure 118 mm[Hg] Dr. Jose Mancera Work Phone: [facility] Work Phone: 12-12-2021 15:24-0500 Body mass index (BMI) [Ratio] 20.8 kg/m2 Dr. Jose Mancera Work Phone: [facility] Work Phone: 12-12-2021 15:24-0500 Body weight 55.[address] Jose Mancera Work Phone: [facility] Work Phone: 12-12-2021 15:24-0500 Diastolic blood pressure 70 mm[Hg] Dr. Jose Mancera Work Phone: [facility] Work Phone: 12-12-2021 15:24-0500 Systolic blood pressure 98 mm[Hg] Dr. Jose Mancera Work Phone: [facility] Work Phone: 11-15-2021 13:07-0500 Body mass index (BMI) [Ratio] 20.5 kg/m2 Dr. Jose Mancera Work Phone: [facility] Work Phone: 11-15-2021 13:07-0500 Body weight 54.[address] Jose Mancera Work Phone: [facility] Work Phone: 11-15-2021 13:07-0500 Diastolic blood pressure 62 mm[Hg] Dr. Jose Mancera Work Phone: [facility] Work Phone: 11-15-2021 13:07-0500 Systolic blood pressure 98 mm[Hg] Dr. Jose Mancera Work Phone: [facility] Work Phone: 09-10-2017 14:15-0400 BMI (Body Mass Index) 21.35 kg/m2 Svetlana [facility] 09-10-2017 14:15-0400 Body Temperature 96.6 [degF] Svetlana Guzmán [facility] 09-10-2017 14:15-0400 BP Diastolic 68 mm[Hg] Svetlana [facility] 09-10-2017 14:15-0400 BP Systolic 106 mm[Hg] Svetlana [facility] 09-10-2017 14:15-0400 Height 162.56 cm Svetlana [facility] 09-10-2017 14:15-0400 Pulse (Heart Rate) 85 /min Svetlana Guzmán [facility] 09-10-2017 14:15-0400 Respiratory Rate 16 /min S[facility]lana [facility] 09-10-2017 14:15-0400 Weight 56.43 kg Svetlana [facility] 07-22-2017 15:49-0400 BMI (Body Mass Index) 20.87 kg/m2 Teresa Artis [facility] 07-22-2017 15:49-0400 Body Temperature 97.2 [degF] Teresa Artis MD [facility] 07-22-2017 15:49-0400 BP Diastolic 64 mm[Hg] Teresa Artis MD [facility] 07-22-2017 15:49-0400 BP Systolic 101 mm[Hg] Teresa Artis MD [facility] 07-22-2017 15:49-0400 Height 162.56 cm Teresa Artis MD [facility] 07-22-2017 15:49-0400 Pulse (Heart Rate) 81 /min Teresa Artis MD [facility] 07-22-2017 15:49-0400 Respiratory Rate 16 /min Teresa Artis MD [facility] 07-22-2017 15:49-0400 Weight 55.16 kg Teresa Artis MD [facility] 06-04-2017 14:49-0400 BMI (Body Mass Index) 20.77 kg/m2 Jose Mancera MD [facility] 06-04-2017 14:49-0400 BP Diastolic 64 mm[Hg] Jose Mancera MD [facility] 06-04-2017 14:49-0400 BP Systolic 108 mm[Hg] Jose Mancera MD [facility] 06-04-2017 14:49-0400 Height 162.56 cm Jose Mancera MD [facility] 06-04-2017 14:49-0400 Pulse (Heart Rate) 70 /min Jose Mancera MD [facility] 06-04-2017 14:49-0400 Weight 54.89 kg Jose Mancera MD [facility] Encounters Encounter Date Encounter Type Care Provider Facility Start: 05-12-[address] [facility] Start: 05-07-2025 End: 05-07-[address] Teresa Artis MD -Laboratory Work Phone: Start: 05-07-2025 End: 05-07-2025 ambulatory Teresa Artis Facility:[facility] Start: 05-05-2025 End: 05-05-[address] Teresa Artis [facility] Start: 05-05-2025 End: 05-05-2025 ambulatory Teresa Artis Facility:[facility] Start: 02-22-2025 End: 02-22-[address] [place] SHAIKHLab, [facility] Start: 02-22-2025 End: 02-22-[address] Jose Mancera MD Work Phone: [facility] Work Phone: Start: 08-11-2024 ambulatory Jose Mancera Facili ty:[facility] Start: 08-06-2024 End: 08-06-2024 ambulatory Efewongbe Olekunale Facility:[facility] Start: 08-06-2024 End: 08-06-20[facility] Start: 07-23-2024 End: 07-23-2024 [facility] Facility:[facility] Start: 07-20-2024 End: 07-20-[address] [facility] Start: 07-08-2024 End: 07-08-[address] [facility] Start: 07-06-2024 End: 07-06-[address] [facility] Start: 12-11-2023 End: 12-11-[address] Jose Mancera Work Phone: [facility] Work Phone: Start: 12-11-2023 End: 12-11-[address] Jose Mancera Work Phone: [facility] Start: 12-09-2023 End: 12-09-[address] Jose Mancera Work Phone: [facility] Work Phone: Start: 10-09-2023 End: 10-09-[address] Jose Mancera Work Phone: [facility] Work Phone: Start: 09-22-[address] Jose Mancera Work Phone: [facility] Start: 09-22-2023 End: 09-22-[address] Jose Mancera Work Phone: [facility] Work Phone: Start: 09-22-2023 End: 09-22-2023 Encounter for general adult medical examination without abnormal findings Dr. Jose Mancera Work Phone: [facility] Start: 09-22-2023 End: 09-22-[address] Jose Mancera Work Phone: [facility] Work Phone: Start: 07-16-2023 End: 07-16-[address] Jose Mancera Work Phone: [facility]-Outpatient Breast Imaging Work Phone: Start: 07-11-2023 End: 07-11-[address] Jose Mancera Work Phone: [facility] Work Phone: Start: 05-01-2023 End: 05-01-2023 Evaluation and management of inpatient Dr. Jose Mancera Work Phone: [facility]-Medical Surgical 3 Start: 05-01-2023 End: 05-01-[address] Jose Mancera Work Phone: [facility] Work Phone: Start: 05-01-2023 Non-patient / Non-visit Dr. David Mancera Work Phone: [facility] Start: 05-01-2023 Admission to [facility] Start: 05-01-2023 ambulatory [facility] Work Phone: Start: 04-10-2023 End: 04-10-[address] [facility] Work Phone: Start: 04-10-2023 End: 04-10-2023 [facility] Start: 04-09-2023 End: 04-09-[address] [facility] Work Phone: Start: 04-09-2023 End: 04-09-2023 Patient encounter procedure [facility]-Laboratory Start: 04-07-2023 End: 04-07-[address] [facility] Work Phone: Start: 04-07-2023 End: 04-07-2023 Patient encounter procedure [facility]Laboratory Start: 10-14-2022 End: 10-14-[address] Jose Mancera Work Phone: [facility] Work Phone: Start: 10-14-2022 End: 10-14-[address] [facility] Start: 10-11-2022 End: 10-11-[address] Jose Mancera Work Phone: [facility] Start: 07-16-2022 End: 07-16-[address] Jose Mancera Work Phone: [facility] Start: 05-27-2022 Non-patient / Non-visit Dr. David Mancera Work Phone: [facility] Start: 05-26-2022 Non-patient / Non-visit Dr. David Mancera Work Phone: [facility] Start: 05-26-2022 End: 05-27-2022 Evaluation and management of inpatient Dr. Jose Mancera Work Phone: [facility] Start: 05-24-2022 End: 05-24-[address] Jose Mancera Work Phone: [facility] Start: 05-21-2022 Non-patient / Non-visit Dr. David Mancera Work Phone: [facility] Start: 05-21-2022 End: 05-21-[address] Jose Mancera Work Phone: [facility], Outpatients Start: 05-20-2022 End: 05-20-[address] Jose Mancera Work Phone: [facility], [facility] Start: 05-16-2022 End: 05-16-[address] [facility] Start: 05-16-2022 End: 05-16-[address] Jose Mancera Work Phone: [facility] Start: 05-08-2022 Non-patient / Non-visit Dr. David Mancera Work Phone: [facility] Start: 05-08-2022 End: 05-08-[address] Jose Mancera Work Phone: [facility], Outpatients Start: 05-03-2022 End: 05-03-[address] Jose Mancera Work Phone: [facility] Start: 05-02-2022 End: 05-02-[address] Jose Mancera Work Phone: [facility]-Medical Out Start: 04-22-2022 End: 04-22-[address] [facility] Start: 04-19-2022 End: 04-19-[address] Jose Mancera Work Phone: [facility] Start: 04-02-2022 End: 04-02-[address] [facility] Start: 04-02-2022 End: 04-02-[address] Jose Mancera Work Phone: [facility] Start: 03-19-2022 End: 03-19-[address] Jose Mancera Work Phone: [facility] Start: 03-13-2022 End: 03-13-[address] [facility] Start: 03-08-2022 End: 03-08-[address] Jose Mancera Work Phone: [facility] Start: 03-04-2022 End: 03-04-[address] [facility] Start: 03-04-2022 End: 03-04-[address] Jose Mancera Work Phone: [facility] Start: 02-17-2022 End: 02-17-2022 Emergency department patient visit Dr. Jose Mancera Work Phone: [facility]-Emergency Department Start: 02-04-2022 End: 02-04-[address] Jose Mancera Work Phone: [facility] Start: 01-17-2022 End: 01-17-[address] [facility] Start: 01-14-2022 End: 01-14-[address] Jose Mancera Work Phone: [facility] Start: 01-09-2022 End: 01-09-[address] [facility] Start: 12-31-2021 End: 12-31-[address] Jose Mancera Work Phone: [facility] Start: 12-12-2021 End: 12-12-[address] Jose Mancera Work Phone: [facility] Start: 11-30-2021 End: 11-30-[address] Jose Mancera Work Phone: [facility] Start: 11-28-[address] [facility] Start: 11-15-2021 End: 11-15-[address] Jose [facility] Procedures Date Procedure Procedure Detail Performing Clinician Start: 02-22-[address] Rosa Mancera MD Work Phone: Start: 12-09-2023 Transvaginal obstetr ic ultrasonography Dr. Jose Mancera Work Phone: Start: 07-16-2023 Bilateral mammography D nolberto Mancera Work Phone: Start: 07-16-2023 Ultrasonography of [...] test visual color cmprsn meths Lady Brito DIRECT MARKETING EXECUTIVE Work Phone: Start: 09-10-2017 End: 09-10-2017 Urnls dip stick/tablet rgnt non-auto w/o micrscp aLdy Brito [employer] MARK[employer] EXECUTIVE Work Phone: Start: 06-04-2017 End: 06-05-2017 Follow [...] and IgG and IgM panel - Serum [facility] Start: 12-11-2023 Cardiolipin IgA and IgG and IgM panel - Serum [facility] Start: 12-11-2023 Cardiolipin IgG and IgM panel - Serum [facility] Start: 12-11-2023 Lupus anticoagulant assay [facility] Start: 05-01-2023 Oxygen therapy [facility] Start: 05-01-[address] [facility] Start: 05-01-2023 Following clinical pathway protocol [facility] Start: 05-01-2023 Application of intermittent pneumatic compression device [facility] Start: 05-01-2023 Ambulation therapy management [facility] Start: 05-01-2023 Elevation of head of bed [facility] Start: 05-01-2023 Measuring intake and output [facility] Start: 05-01-2023 Notification of physician [facility] Start: 05-01-2023 Taking patient vital signs [facility] Start: 05-01-[address] [facility] Start: 05-01-2023 Admission procedure [facility] Start: 05-01-2023 Lupus anticoagulant assay [facility] Start: 05-01-[address] [facility] Start: 05-01-2023 Dilation and curettage of uterus Dilation and Curettage, Suction (Not Applicable) [facility] Start: 05-01-2023 Patient discharge [facility] Start: 10-11-2022 Patient referral [facility] Work Phone: Start: 05-27-2022 Patient discharge [facility] Work Phone: Start: 05-26-2022 Administration of medication [facility] Work Phone: Start: 05-26-2022 Application of ice collar, cap or bag [facility] Work Phone: Start: 05-26-2022 Catheterization of vein [facility] Work Phone: Start: 05-26-2022 Introduction of urinary catheter [facility] Work Phone: Start: 05-26-2022 Measuring intake and output [facility] Work Phone: Start: 05-26-2022 Notification of physician [facility] Work Phone: Start: 05-26-20[address] Procedure [address] [facility] Work Phone: Start: 05-26-2022 Provision of activity privileges [facility] Work Phone: Start: 05-26-2022 Vital signs measurements [facility] Work Phone: Start: 05-26-[address] [facility] Work Phone: Start: 05-26-2022 Admission procedure [facility] Work Phone: Start: 05-21-2022 Nonstress test [facility] Work Phone: Start: 05-21-2022 Obstetric monitoring [facility] Work Phone: Start: 05-21-2022 Vital signs measurements [facility] Work Phone: Start: 05-21-[address] [facility] Work Phone: Start: 05-21-2022 Vital signs measurements [facility] Work Phone: Start: 05-20-2022 Ultrasound scan for growth OB Limited With Biometrics [facility] Work Phone: Start: 05-08-2022 Bacteria identified in Urine by Culture Urine Culture [facility] Work Phone: Start: 05-08-2022 End: 05-08-[address] [facility] Work Phone: Start: 05-08-2022 Nonstress test [facility] Work Phone: Start: 05-08-2022 Obstetric monitoring [facility] Work Phone: Start: 05-08-2022 Vital signs measurements [facility] Work Phone: Start: 05-08-2022 Patient discharge [facility] Work Phone: Start: 05-02-2022 Iv infusion therapy prophylaxis/dx ea hour THER/PROPH/DIAG IV INF ADDON [facility] Work Phone: Start: 05-02-2022 Iv infusion therapy/prophylaxis /dx 1st to 1 hr THER/PROPH/DIAG IV INF INIT [facility] Work Phone: Start: 09-10-2017 End: 09-10-[address] [facility] Start: 09-10-2017 End: 09-10-2017 *GC/Chlamydia *GC/Chlamydia [facility] Start: 09-10-2017 End: 09-10-2017 Bacteria genital culture *CUV - Culture, VAG/CX [facility] Start: 09-10-2017 End: 09-10-2017 Us pelvic nonobstetric real-time image complete US Pelvis [facility] Start: 09-10-2017 End: 09-10-2017 Us transvaginal US Transvaginal [facility] Start: 09-02-2017 End: 09-02-2017 Appointment [facility] Start: 07-22-2017 End: 07-22-[address] [facility] Start: 06-04-2017 End: 06-04-2017 Appointment Appointment [facility] Start: 06-04-2017 End: 06-04-2017 *NOLAN *NOLAN [facility] Start: 06-04-2017 End: 06-04-2017 *BMP *BMP [facility] Start: 06-04-2017 End: 06-04-2017 *CBC with Differential *CBC with Differential [facility] Start: 06-04-2017 End: 06-11-2017 Antinuclear antibodies nolan NOLAN w/Reflex & Titer [facility] Start: 06-04-2017 End: 06-04-2017 Ferritin *Ferritin [facility] Start: 06-04-2017 End: 06-05-2017 Follow Up Appt 3 months Follow Up Appt 3 months [facility] Start: 06-04-2017 End: 06-04-2017 Iron *Iron [facility] Start: 06-04-2017 End: 06-04-2017 Iron and Iron binding capacity panel - Serum or Plasma *IBC Iron & Total Iron Binding Capacity [facility] Start: 06-04-2017 End: 06-04-2017 Thyroid stimulating hormone (TSH) *TSH [facility] Start: 06-04-2017 End: 06-04-2017 *NOLAN *NOLAN [facility] Start: 06-04-2017 End: 06-04-2017 *BMP *BMP [facility] Start: 06-04-2017 End: 06-04-2017 *CBC with Differential *CBC with Differential [facility] Start: 06-04-2017 End: 06-11-2017 Antinuclear antibodies NOLAN w/Reflex & Titer [facility] Start: 06-04-2017 End: 06-04-2017 Ferritin *Ferritin [facility] Start: 06-04-2017 End: 06-05-2017 Follow Up Appt 3 months Follow Up Appt 3 months [facility] Start: 06-04-2017 End: 06-04-2017 Iron *Iron [facility] Start: 06-04-2017 End: 06-04-2017 Iron and Iron binding capacity panel - Serum or Plasma *IBC Iron & Total Iron Binding Capacity [facility] Start: 06-04-2017 End: 06-04-2017 Thyroid stimulating hormone (TSH) *TSH [facility] Beta 2 glycoprotein 1 IgA Ab [Presence] in Serum [facility] Beta 2 glycoprotein 1 IgG Ab [Presence] in Serum [facility] Beta 2 glycoprotein 1 IgM Ab [Presence] in Serum [facility] Cardiolipin IgA Ab [Units/volume] in Serum by Immunoassay [facility] Cardiolipin IgG Ab [Units/volume] in Serum or Plasma [facility] Cardiolipin IgG Ab [Units/volume] in Serum or Plasma [facility] Cardiolipin IgM Ab [Units/volume] in Serum or Plasma [facility] Cardiolipin IgM Ab [Units/volume] in Serum or Plasma [facility] Lupus anticoagulant neutralization platelet [Time] in Platelet poor plasma by Coagulation assay [facility] Lupus anticoagulant neutralization platelet [Time] in Platelet poor plasma by Coagulation assay [facility] Partial thromboplast in time ratio [facility] Partial thromboplast in time ratio [facility] Patient Education [facility] Work Phone: Patient referral [facility] Work Phone: Streptococcus agalac tiae [Presence] in Unspecified specimen by Organism specific culture [facility] Work Phone: Thrombin time [facility] Thrombin time [facility] Immunizations Immunization Date Immunization Notes Care Provider [facility] 09-29-2024 influenza, seasonal, injectable, preservative free Dr. Jose Mancera MD Work Phone: [facility] 09-22-2023 influenza, injectabl e, quadrivalent, preservative free Dr. Jose Mancera Work Phone: [facility] 10-16-2022 influenza, injectabl e, quadrivalent, preservative free Dr. Jose Mancera Work Phone: [facility] 10-16-2022 influenza, seasonal, injectable Dr. Jose Mancera Work Phone: [facility] 03-19-2022 tetanus toxoid, redu silver diphtheria toxoid, and acellular pertussis vaccine, adsorbed Dr. Jose Mancera Work Phone: [facility] 03-19-2022 diphtheria, tetanus toxoids and acellular pertussis vaccine, unspecified formulation Dr. Jose Mancera Work Phone: [facility] Work Phone: 10-19-2021 Covid (Moderna) Dr. Manjeet Mancera Work Phone: [facility] 08-28-2021 influenza, injectabl e, quadrivalent, preservative free Dr. Jose Mancera Work Phone: [facility] 08-28-2021 influenza, seasonal, injectable Dr. Jose Mancera Work Phone: [facility] 01-03-2021 Covid (Modern) Dr. Manjeet Mancera Work Phone: [facility] 12-06-2020 Hunter ([facility] Dr. Manjeet Mancera Work Phone: [facility] 09-27-[address] Jose Mancera Work Phone: [facility] 09-06-2020 influenza, injectabl e, quadrivalent, preservative free Dr. Jose Mancera Work Phone: [facility] 09-06-2020 influenza, seasonal, injectable Dr. Jose Mancera Work Phone: [facility] 08-17-2020 diphtheria, tetanus toxoids and acellular pertussis vaccine, unspecified formulation Dr. Jose Mancera Work Phone: [facility] Work Phone: 08-17-2020 tetanus toxoid, redu silver diphtheria toxoid, and acellular pertussis vaccine, adsorbed Dr. Jose Mancera Work Phone: [facility] 10-04-2019 influenza, injectabl e, quadrivalent, preservative free Dr. Jose Mancera Work Phone: [facility] 10-04-2019 influenza, seasonal, injectable Dr. Jose Mancera Work Phone: [facility] 08-28-2018 influenza, injectabl e, quadrivalent, preservative free Dr. Jose Mancera Work Phone: [facility] 08-28-2018 influenza, seasonal, injectable Dr. Jose Mancera Work Phone: [facility] 08-27-2017 influenza, injectabl e, quadrivalent, preservative free Dr. Jose Mancera Work Phone: [facility] 08-27-2017 influenza, seasonal, injectable Dr. Jose Mancera Work Phone: [facility] 01-09-2017 influenza, injectabl e, quadrivalent, preservative free Dr. Jose Mancera Work Phone: [facility] [facility] 01-09-2017 influenza, seasonal, injectable Dr. Jose Mancera Work Phone: [facility] 12-11-2016 tetanus and diphther ia toxoids, adsorbed, preservative free, for adult use (2 Lf of tetanus toxoid and 2 Lf of diphtheria toxoid) Dr. Jose Mancera Work Phone: [facility] Payers Date Payer Category Payer Self-pay [id number] 2024 Unknown [id number] 2011 Private Health Insurance [id number] Unknown [id number] Unknown [id number] 2.16.8 [id number] Unknown [id number] 2.16.8 [id number] Unknown [id number] 2.16.8 [id number] Unknown [id number] 2.16.8 [id number] Unknown [id number] 2.16.8 [id number] Unknown [id number] 2.16.8 [id number] Unknown [id number] 2.16.8 [id number] Unknown [id number] 2.16.8 [id number] Unknown [id number] 2.16.8 [id number] Unknown [id number] 2.16.8 [id number] Social History Date Type Detail Facility [facility] Work Phone: Start: 03-08-2022 End: 12-09-2023 Tobacco smoking status NHIS Unknown if ever smoked [facility] Start: 04-08-2016 Occasional [facility] Start: 04-07-2016 With Family [facility] Start: 07-26-2020 Non-smoker [facility] Start: 1990 Sex Assigned At Female [facility] Start: 07-22-2024 End: 05-10-2025 Tobacco smoking status NHIS Ex-smoker (finding) [facility] Start: 02-28-2025 Sex Female (finding) [facility] NEGATED: Highlighted row [facility] Goals Date Patient Goal Desired Activity /State Functional Status Date Assessment Result Facility 05-01-2023 Functional status Ambulates [facility] Work Phone: Mental Status Date Assessment Result Facility 05-01-2023 Cognitive function Demonstrates ability to follow instructions/comprehend [facility] Work Phone: 05-02-2022 Cognitive function Awake;Alert;A ppropriate;Follo ws Commands [facility] Work Phone: Clinical Notes 11-15-2021 to 05-01-2023 Note Date & Type Note Facility 05-01-2023 Progress note Note Date/Time May 01, 2023 5:37p [facility] Medical Records Department [address] [place] [address] Progress Note 05/01/23 1736 MR#: [id number] Acct: [id number] Name: MIRI FRANCO Rep #:[id number] : 1990 32 From: Teresa kumar MD PCP: Dr. Jose Mancera MD Status:R [facility] Location: [place] [address] Progress Note patient is anemic recommend admitting for transfusion and rechecking hemoglobin after. determine stability for discharge criteria 05/01/231736 <Electronically signed by Teresa Artis MD> Teresa Artis MD Cosigner Signature (if applicable): CC: ~ Signed [facility] Work Phone: 1(387) 989-127506-01-[address] Artis [facility] May 01, 2023 4:22pm Note Date/Time May 01, 2023 4:22p [facility] Medical Records Department [address] [facility] [place] [address] Instructions for Home/Discharge Instructions 05/01/23 1621 MR#: [id number] Acct: [id number] Name: MIRI FRANCO Rep #:[id number] : 1990 32 From: Teresa kumar MD PCP: Dr. Jose Mancera MD Status:R [facility] Discharge Instructions Procedure D&C Diet Discharge [...] Up With: Teresa Artis MD When: Call [phone] to schedule appointment. Test Results: Test results from this visit will be discussed in further detail at your follow- up appointment, if applicable. Discharge Plan Admission Attending Provider: Teresa Artis Primary Care Provider: Jose Mancera Discharge Orders/Prescriptions Prescriptions: No Action PNV #[id number] acid-dha 35 mg iron-5 mg iron-1 mg [...] CC: Dr. Jose Mancera MD ~ Signed [facility] Work Phone: 1(274) 619-237606-01-2023 History and physical note Author Dr. Artis [facility] May 01, 2023 3:34pm Note Date/Time May 01, 2023 3:34p [facility] Medical Records Department [address] [place] [address] History & Physical Exam 05/01/23 1532 MR#: [id number] Acct: [id number] Name: MIRI FRANCO Rep #:[id number] : 1990 32 From: Teresa kumar MD PCP: Dr. Jose Mancera MD Status:R [facility] Location: [place] [address] HPI - General HPI Narrative MIRI FRANCO, is a 32 F who presents with incomplete miscarriage retained products and anemia secondary to blood loss from miscarriage. seen in ED today [facility] Medical History Anemia Artificial insemination Pityriasis rosea [...] Allergy Rash Verified 05/01/23 09:03 [From Neosporin (asr-lel-[id number])] neomycin Allergy Rash Verified 05/01/23 09:03 [From Neosporin (ssv-puz-bsjwz)] polymyxin B Allergy Rash Verified 05/01/23 09:03 [From Neosporin (rxl-rbq-xdepd)] venom-honey bee Allergy Anaphylaxis Verified 05/01/23 09:03 [...] In school- legal studies Patient works in [employer] at [employer] ROS Constitutional Constitutional: Reports systems reviewed and [...] % (Auto) 70.0, Lymph % (Auto) 19.5, [place]% (Auto) 6.2, Eos % (Auto) 3.4, Baso [...] 12:29 EDT Reading Location ID and State: [facility] / [place] Tel , Service support , Assessment & Plan Assessment/Plan (1) Incomplete [...] Mancera MD; Dr. Teresa Artis MD~ Signed [facility] Work Phone: 1(332) 506-171106-01-[address] Hoffman [facility] May 01, 2023 2:54pm Note Date/Time May 01, 2023 10:[address] [facility] Medical Records Department [address] [place] [address] Emergency Department Summary 05/01/23 MR#: [id number] Acct: [id number] Name: MIRI FRANCO Rep #:[id number] : 1990 32 From: Mathew Hoffman DO PCP: Dr. Jose Mancera MD Status:R [facility] Location: [address] HPI HPI - Female History of Present Illness Chief Complaint: Vag Bld, Preg Narrative Narrative: 32-year-old female presenting with vaginal bleeding in . She states she is about 9 weeks. She started having vaginal bleeding on the . She states her blood type is AB+. She is having heavier blood clots and bleeding now. She denies any tissue passage. She called her [employer] MANAGER who sent her to the emergency room for an evaluation. Patient does states she was lightheaded last week but no longer has this. She does have any fevers, chills, body aches. Sheis G5, currently 9 weeks . She does not have any abdominal pain except for mild cramping. [facility] Medical History Anemia Artificial insemination Pityriasis rosea [...] Allergy Rash Verified 05/01/23 09:03 [From Neosporin (axg-uxp-tpxsa)] neomycin Allergy Rash Verified 05/01/23 09:03 [From Neosporin (zjo-cvb-qivpb)] polymyxin B Allergy Rash Verified 05/01/23 09:03 [From Neosporin (lmu-psy-txalv)] venom-honey bee Allergy Anaphylaxis Verified 05/01/23 09:03 [...] In school- legal studies Patient works in [employer] at [employer] ROS ED Constitutional Constitutional ED: Denies chills, [...] % (Auto) 70.0 Lymph % (Auto) 19.5 [place] % (Auto) 6.2 Eos % (Auto) 3.4 [...] Color Urine Clarity Urine pH Ur Specific [place] Urine Protein Urine Glucose (UA) Urine Ketones [...] (Auto) Neut % (Auto) Lymph % (Auto) [place] % (Auto) Eos % (Auto) Baso % [...] Clarity Cloudy Urine pH 8.0 Ur Specific [place] 1.010 Urine Protein 100 H Urine Glucose [...] your Primary Care Provider. Call [facility] ([phone]) or report to the closest Emergency Room. Call 911 if necessary. 05/01/23 1454 <Electronically signed by Mathew Hoffman DO> Cosigner Signature (if applicable): CC: Dr. Jose Mancera MD ~ Signed [facility] Work Phone: 1(301) 352-757906-01-2023 Procedure [facility] 05-01-[address] Hoffman [facility] May 01, 2023 2:54pm Note Date/Time May 01, 2023 10:50 am [facility] Medical Records Department [address] [place] [address] Emergency Department Summary 05/01/23 MR#: [id number] Acct: [id number] Name: MIRI FRANCO Rep #:[id number] : 1990 32 From: Mathew Hoffman DO PCP: Dr. Jose Mancera MD Status:R [facility] Location: [place] [address] HPI HPI - Female History of Present Illness Chief Complaint: Vag Bld, Preg Narrative Narrative: 32-year-old female presenting with vaginal bleeding in . She states she is about 9 weeks. She started having vaginal bleeding on the . She states her blood type is AB+. She is having heavier blood clots and bleeding now. She denies any tissue passage. She called her [employer] MANAGER who sent her to the emergency room for an evaluation. Patient does states she was lightheaded last week but no longer has this. She does have any fevers, chills, body aches. Sheis G5, currently 9 weeks . She does not have any abdominal pain except for mild cramping. [facility] Medical History Anemia Artificial insemination Pityriasis rosea [...] Allergy Rash Verified 05/01/23 09:03 [From Neosporin (mqb-jvx-cbfhw)] neomycin Allergy Rash Verified 05/01/23 09:03 [From Neosporin (ddo-ugz-quzgt)] polymyxin B Allergy Rash Verified 05/01/23 09:03 [From Neosporin (kng-ipg-ffqkv)] venom-honey bee Allergy Anaphylaxis Verified 05/01/23 09:03 [...] In school- legal studies Patient works in [employer] at [employer] ROS ROS ED Constitutional Constitutional ED: Denies [...] % (Auto) 70.0 Lymph % (Auto) 19.5 [place] % (Auto) 6.2 Eos % (Auto) 3.4 [...] Color Urine Clarity Urine pH Ur Specific [place] Urine Protein Urine Glucose (UA) Urine Ketones [...] (Auto) Neut % (Auto) Lymph % (Auto) [place] % (Auto) Eos % (Auto) Baso % [...] Clarity Cloudy Urine pH 8.0 Ur Specific [place] 1.010 Urine Protein 100 H Urine Glucose [...] your Primary Care Provider. Call [facility] ([phone]) or report to the closest Emergency Room. Call 911 if necessary. 05/01/23 1454 <Electronically signed by Mathew Hoffman DO> Cosigner Signature (if applicable): CC: Dr. Jose Mancera MD ~ Signed [facility] Work Phone: [phone]) 555-909612-16-2021 NotePap Smear Specimen AdequacyDecember 2020 4:50pmCommentSatisfactory for evaluation. Endocervical and/or squamous metaplasticcells (endocervical component)are present.[facility] A#[id number] Work Phone: Comment on above:Satisfactory for evaluation. [...] antepartum Supervision of high risk , antepartum [facility] Work Phone: Chief complaint+Reason for visit [...] risk , antepartum UTI (urinary tract infection) [facility] Work Phone: Chief complaint+Reason for visit [...] risk , antepartum UTI (urinary tract infection) [facility] Work Phone: Chief complaint+Reason for visit [...] risk , antepartum UTI (urinary tract infection) [facility] Work Phone: Chief complaint+Reason for visit Narrative* Chief Complaint wellness COVID-19 OB 5 week bleeding, clots BLEEDING IN EARLY Reason for Visit Iron (Fe) deficiency anemia Preventative health care Complete [facility] Work Phone: Evaluation note* Diagnosis Onset Date Resolution Status Anemia affecting a cute IUGR (intrauterine growth re tardation) in prior , acute acute Proteinuria acute Supervision of high risk , antepartum acute acute Supervision of high risk , antepartum acute [facility] Work Phone: evaluation note* Diagnosis Onset Date [...] , antepartum acute UTI (urinary tract infection) [facility] Work Phone: evaluation note* Diagnosis Onset [...] , antepartum acute UTI (urinary tract infection) [facility] Work Phone: evaluation note* Diagnosis Onset [...] antepartum acute UTI (urinary tract infection) acute [facility] Work Phone: Evaluation note* Diagnosis Onset [...] , antepartum acute UTI (urinary tract infection) [facility] Work Phone: Evaluation note* Diagnosis Onset [...] Supervision of high risk , antepartum acute [facility] Work Phone: Evaluation note* Diagnosis Onset [...] risk , antepartum acute Vaginal delivery acute [facility] Work Phone: Evaluation note* Diagnosis Onset Date Resolution Status Contraceptive management acu te Vaginal delivery acute Low back pain noneactive Stress incontinence noneacti ve Sacroiliac pain noneactive [facility] Work Phone: Evaluation noteNo assessment information available [facility] Work Phone: Evaluation note* Diagnosis Onset Date Resolution Status Anemia due to blood loss acu te Incomplete acute [facility] Work Phone: Evaluation note* Diagnosis Onset Date Resolution Status Contraceptive management acu te Mastodynia of right breast a cute Preventative health care acu te Iron (Fe) deficiency anemia chronic [facility] Work Phone: Evaluation note* Diagnosis Onset Date Resolution Status Iron (Fe) deficiency anemia resolved Preventative health care res olved Complete acute [facility] Work Phone: Reason for referral (narrative)No reason for referral information available[facility]Tr[facility] Work Phone: Family History Relationship Condition Age at Onset Recorded Date/T [...] (AAA) Unknown grandfather Hypertension Unknown Advance Directives Advance Directive Response Recorded Date/ Time Advance Directives No April 12 8:12am Living Will No February 17, 2022 1:41pm Power of [employer] No February 17 1:41pm Advance Directive Response Recorded Date/ Time Advance Directives No April 12 8:12am Living Will No May 26, 2022 12:35pm Power of [employer] No May 26 12:35pm Advance Directive Response Recorded Date/ Time Advance Directives No April 12 7:12am Living Will No May 26, 2022 11:35am Power of [employer] No May 26 11:35am Advance Directive Response Recorded Date/ Time Advance Directives No April 12 8:12am Living Will No May 01, 2023 9 :11am Power of [employer] No May 01, 2023 9:11am Advance Directive Response Recorded Date/ Time Advance Directives No April 12 8:12am Living Will No May 01, 2023 6 :56pm Power of [employer] No May 01, 2023 6:56pm Advance Directive Response Recorded Date/ Time Advance Directives No June 04 9:57am Living Will No May 01, 2023 6 :56pm Power of [employer] No May 01, 2023 6:56pm Advance Directive Response Recorded Date/ Time Advance Directives No June 04 8:57am Living Will No May 01, 2023 5 :56pm Power of [employer] No May 01, 2023 5:56pm Advance Directive Response Recorded Date/ Time Advance Directives No July 22, 2024 2:29pm Advance Directive Response Recorded Date/ Time Advance Directives No May 10 9:37am Chief Complaint and Reason for Visit Chief [...] Preventative health care Iron (Fe) deficiency anemia Chief Complaint Admit Date E-ORDER May 07, 2025 9:14a m Summary Purpose Additional Source Comments Goals (unrecognized [...] MD Primary Care Provider Active Lady Brito DIRECT MARKETING EXECUTIVE, DIRECT MARKETING EXECUTIVE-C Attending Provider, Referring Provider Active Team Status: Inactive Member Role Status Dates Dr. Jose Mancera MD Primary Care Provider Active Lady Brito DIRECT MARKETING EXECUTIVE, DIRECT MARKETING EXECUTIVE-C Attending Provider, Referring Provider Active Team Status: [...] Status: Inactive Member Role Status Dates Dr. Jsoe Mancera MD Primary Care Provider Active Start: February 22, 2025 End: February 22, 2025 Dr. Verona Richards DO Attending Provider Activ e Start: February 22, 2025 End: February 22, 2025 Dr. Verona Richards DO Referring Provider Activ e Start: February 22, 2025 End: February 22, 2025 Team Status: Inactive Member Role Status Dates Dr. Jose Mancera MD Primary Care Provider Active Start: May 05, 2025 End: May 05, 2025 Dr. Teresa Artis MD Attending Provider Active Start: May 05, 2025 End: May 05, 2025 Dr. Teresa Artis MD Referring Provider Active Start: May 05, 2025 End: May 05, 2025 Team Status: Active Member Role Status Dates Dr. Jose Mancera MD Primary Care Provider Active Start: May 07, 2025 Dr. Teresa Artis MD Attending Provider Active Start: May 07, 2025 Dr. Teresa Artis MD Referring Provider Active Start: May 07, 2025 Team Status: Active Member Role Status Dates Dr. Jose Mancera MD Primary Care Provider Active Team Status: Inactive Member Role Status Dates Dr. Jose Mancera MD Primary Care Provider Active Start: May 07, 2025 End: May 07, 2025 Dr. Teresa Artis MD Attending Provider Active Start: May 07, 2025 End: May 07, 2025 Dr. Teresa Artis MD Referring Provider Active Start: May 07, 2025 End: May 07, 2025 Team Status: Active Member Role Status Dates Dr. Jose Mancera MD Primary Care Provider Active Start: May 12, 2025 Dr. Verona Richards DO Attending Provider Activ e Start: May 12, 2025 Dr. Verona Richards DO Referring Provider Activ e Start: May 12, 2025 INFORMATION SOURCE (unrecogn ized section and content) DATE CREATED AUTHOR 05/08/2025 [facility] FOR RECORDS PERTAINING TO PATIENTS WHO ARE [...] BE BASED ON THE PRIMARY CLINICAL RECORDS. [employer] provides no warranty or guarantee of the accuracy or completeness of information in this document.
== END | disposition home or self-care (01) ==
PROVIDERS: PCP Internal Medicine; Referring Provider Obstetrics & Gynecology; Visit Provider Obstetrics & Gynecology
DX: O09.299 Supervision of pregnancy with other poor reproductive or obstetric history, unspecified trimester (principal); O20.9 Hemorrhage in early pregnancy, unspecified; Z3A.00 Weeks of gestation of pregnancy not specified
CPT/HCPCS: 36415; 84702

== ENCOUNTER → 2025-05-17 | Outpatient (CLI) | payer OTHER, SELFPAY ==
--- NOTE | 2025-05-17 15:10 | US_ITS ---
PROCEDURE: TRANSVAGINAL W/PREG US 05/17/2025 REASON FOR EXAM: VIABILITY, PLEASE SCHEDULE THIS WEEK OR NEXT TECHNIQUE: TRANSVAGINAL W/PREG US COMPARISON: None FINDINGS: Comments: Number of Gestational Sacs: 1 Gestational Sac Shape: Normal. It is low-lying within the lower uterine segment. Number of Fetuses: 1 Heart Rate: Not detected. Yolk Sac: Present and unremarkable. Placenta: Presently not well-visualized Amniotic Fluid Volume: Subjectively normal for gestational age. Uterine Abnormalities: Maternal uterus is unremarkable. Ovaries / Adnexa: Both maternal ovaries are visualized and unremarkable. DIMENSIONS: Parameter Measurement / EGA [place] Rump Length: 2 mm/ Gestational Sac: 9 mm/ Yolk Sac: 3 mm/ ESTIMATED GESTATIONAL AGE: By Ultrasound: 5 weeks and 5 days By LMP: 5 weeks and 5 days ESTIMATED DATE OF DELIVERY: By Ultrasound: January 12, 2026 By LMP: January 12, 2026 US/Transvaginal w/Preg US IMPRESSION: Intrauterine gestational sac. No cardiac activity is noted. The gestational sac appears to be within the lower uterine segment. Reading Location: [place] [address]
== END | disposition home or self-care (01) ==
LOC: US 15:09
PROVIDERS: PCP Internal Medicine; Referring Provider Obstetrics & Gynecology; Visit Provider Obstetrics & Gynecology
DX: O09.299 Supervision of pregnancy with other poor reproductive or obstetric history, unspecified trimester (principal); Z3A.00 Weeks of gestation of pregnancy not specified
CPT/HCPCS: 76817

== ENCOUNTER → 2025-05-23 | Outpatient (CLI) | payer OTHER, SELFPAY ==
[2025-05-23 10:46] LABS: hCG Titer Quant., Serum 31459 mIU/mL (<9 non-preg)
== END | disposition home or self-care (01) ==
LOC: PAVLAB 07:51
PROVIDERS: PCP Internal Medicine; Referring Provider Obstetrics & Gynecology; Visit Provider Obstetrics & Gynecology
DX: Z34.90 Encounter for supervision of normal pregnancy, unspecified, unspecified trimester (principal)
CPT/HCPCS: 36415; 84702

== ENCOUNTER → 2025-05-25 | Outpatient (CLI) | payer OTHER, SELFPAY ==
--- NOTE | 2025-05-25 15:14 | US_ITS ---
PROCEDURE: TRANSVAGINAL W/PREG US 05/25/2025 REASON FOR EXAM: VIABILITY TECHNIQUE: TRANSVAGINAL W/PREG US COMPARISON: May 17, 2025. FINDINGS: Comments: Transvaginal imaging was performed Number of Gestational Sacs: 1 Gestational Sac Shape: Normal Number of Fetuses: 1 Heart Rate: 132 beats per minute (average) Yolk Sac: Present and unremarkable. Placenta: Presently not well-visualized Amniotic Fluid Volume: Subjectively normal for gestational age. Uterine Abnormalities: Maternal uterus is unremarkable.. There is a 2.2 cm x 1.8 cm x 0.7 cm subchorionic bleed. Ovaries / Adnexa: Both maternal ovaries are visualized and unremarkable. DIMENSIONS: Parameter Measurement / EGA [place] Rump Length: 9 mm/7 weeks and 0 days Gestational Sac: 1.86 cm/6 weeks and 6 days Yolk Sac: 3.6 mm/ ESTIMATED GESTATIONAL AGE: By Ultrasound: 7 weeks and 0 days By LMP: 6 weeks and 6 days ESTIMATED DATE OF DELIVERY: By Ultrasound: January 11, 2020 By LMP: January 12, 2026 US/Transvaginal w/Preg US IMPRESSION: UNREMARKABLE FIRST TRIMESTER ULTRASOUND. Gestational age of 7 weeks and 6 days. Small subchorionic bleed. Reading Location: [place]
== END | disposition home or self-care (01) ==
LOC: US 15:13
PROVIDERS: PCP Internal Medicine; Referring Provider Obstetrics & Gynecology; Visit Provider Obstetrics & Gynecology
DX: Z34.90 Encounter for supervision of normal pregnancy, unspecified, unspecified trimester (principal)
CPT/HCPCS: 76817